=== PATIENT | female | born 1985 | race Caucasian/White ===

== ENCOUNTER 2019-02-04 11:41 | Outpatient (REF) | payer MEDICAID, SELFPAY ==
--- NOTE | 2019-02-04 11:00 | PAPFT_PTH ---
PATIENT: Tuyet Edwards LOC: [facility] U#:[id number] AGE/SX: 33/F ROOM: RE02/04/[address]: CECIL Crowder : 1985 BED: DIS: 02/04/2019 SPEC #: [id number] RECD: 02/04/19 12:27 STATUS: ALE RETaty #: [id number] TONY: 02/04/19 11:[address]: Linda Steve [facility] Cytology RECD BY: Lindsey Miguel ENTERED: 02/04/19 12:27 SP TYPE: PAPFT JAMIEHR DR: Wisam Valdez Tissues: 1 - CX/ENDOCX FOR PAP SMEARS Procedures: PAP THIN PREP/UVM Screening HPV DNA PROBE Comments: [id number]
[2019-02-05 14:55] LABS: Chlamydia Result Negative; GC Result Negative; Specimen Description CERVIX
== END 2019-02-04 12:01 ==
LOC: LBN 11:41
PROVIDERS: Visit Provider Nurse Practitioner Family
DX: Z11.3 Encounter for screening for infections with a predominantly sexual mode of transmission (principal); Z12.4 Encounter for screening for malignant neoplasm of cervix; Z11.51 Encounter for screening for human papillomavirus (HPV)
CPT/HCPCS: 87491; 87591; 88142; 87624

== ENCOUNTER 2019-05-14 09:46 | Outpatient (REF) | payer MEDICAID, SELFPAY ==
[2019-05-14 22:57] LABS: ESR 6 mm/hr (0-20)
[2019-05-16 09:01] LABS: Cyclic Citrullinated Peptide <2.5 U/mL (<5.0)
[2019-05-16 09:26] LABS: Rheumatoid Factor 10 IU/mL (<12.5)
== END 2019-05-14 10:06 ==
LOC: NCHCN 09:46
PROVIDERS: Visit Provider Nurse Practitioner Family
DX: M79.89 Other specified soft tissue disorders (principal)
CPT/HCPCS: 85652; 86200; 86431

== ENCOUNTER 2022-10-12 18:30 | Outpatient (REF) | payer MEDICAID, SELFPAY ==
[2022-10-12 21:22] LABS: HCT 36.1 % (36.0-46.0); HGB 12.2 g/dL (11.2-15.7); MCH 31.9 pg (27.0-33.0); MCHC 33.8 % (32.0-36.0); MCV 95 fL (80-95); MPV 12.2 fL (8.0-11.0); Platelet Count 104 10^3/uL (130-400); RBC 3.82 10^6/uL (3.93-5.22); RDW 12.4 % (11.7-14.6); RDW-SD 43.1 fL
[2022-10-12 21:51] LABS: ALT 23 U/L (14-59); AST 32 U/L (15-37); Albumin 3.9 g/dL (3.4-5.0); Alkaline Phosphatase 69 U/L (46-116); Anion Gap 5.5 mmol/L (3-11); BUN 14 mg/dL (7-18); Bilirubin, Total 0.4 mg/dL (0.2-1.0); CO2 31.5 mmol/L (21.0-32.0); CREATININE 0.7 mg/dL (0.55-1.02); Calcium 9.3 mg/dL (8.5-10.1); Chloride 102 mmol/L (98-107); Estimated GFR 113.46 (mL/min/1.73m2); Glucose 80 mg/dL (74-106); Potassium 4.1 mmol/L (3.5-5.1); Sodium 139 mmol/L (136-145); Total Protein 7.1 g/dL (6.4-8.2)
[2022-10-12 22:37] LABS: Ferritin 728 ng/mL (8-252)
== END 2022-10-12 18:31 | disposition home or self-care (01) ==
LOC: NCHCN 18:30
PROVIDERS: Visit Provider Nurse Practitioner Family
DX: R45.1 Restlessness and agitation (principal); F19.10 Other psychoactive substance abuse, uncomplicated; R79.89 Other specified abnormal findings of blood chemistry
CPT/HCPCS: 80053; 85027; 82728

== ENCOUNTER 2023-10-27 12:05 | Outpatient (REF) | payer MEDICAID, SELFPAY ==
--- NOTE | 2023-10-27 11:30 | PAPFT_PTH ---
PATIENT: Tuyet Edwards LOC: [facility] U#:[id number] AGE/SX: 38/F ROOM: RE10/27/[address]: Krystyna Person DO : 1985 BED: DIS: 10/27/2023 SPEC #: [id number] RECD: 10/27/23 12:53 STATUS: ALE REQ #: [id number] TONY: 10/27/23 11:[address]: Krystyna Person DEPT: [facility] Cytology RECD BY: Yuko Hyatt ENTERED: 10/27/23 12:53 SP TYPE: PAPFT OTHR DR: Unknown,Unknown Tissues: 1 - CX/ENDOCX FOR PAP SMEARS Procedures: PAP THIN PREP/UVM Screening HPV DNA PROBE Comments: [id number]
== END 2023-10-27 12:06 | disposition home or self-care (01) ==
LOC: LBN 12:05
PROVIDERS: Visit Provider Obstetrics & Gynecology
DX: Z12.4 Encounter for screening for malignant neoplasm of cervix (principal); Z11.51 Encounter for screening for human papillomavirus (HPV)
CPT/HCPCS: 88142; 87624

== ENCOUNTER 2024-02-29 11:56 | Emergency (ER) | payer MEDICAID, SELFPAY ==
[2024-02-29 11:59] VITALS: BP 157/101; PULSE 96; RESP 18; TEMP 36.8; O2SAT 94
--- NOTE | 2024-02-29 12:34 | W.ED.GENAD ---
Discharge Plan Discharge Details Chief Complaint: PsychEval Primary Care Provider: Unknown,Unknown ED Provider: Ana Hernandez Home Meds and New Rx's Prescriptions: No Action Mirena 20 mcg/24 hours (5 yrs) 52 mg intrauterine device 1 device IY ONCE hydroxyzine HCl 25 mg tablet 25 mg PO QHS vitamin B complex [B Complex-Vitamin B12] Tablet 1 tab PO DAILY methadone 10 mg/5 mL solution 70 mg PO DAILY calcium polycarbophil [FiberCon] 625 MG tablet 625 mg PO Qty: 2 HPI General Mode of arrival: ambulatory. Date/Time Provider Initiated Documentation: 02/29/24 12:04. Limitations to Documentation: no limitations. Information obtained by: patient, RN/MD, RN notes reviewed and old records reviewed. HPI Narrative: 38-year-old female presents to the ER with a chief complaint of increased agitation, intrusive thoughts, paranoia, she was sent here by the [facility] and was seen there prior to arrival. Was given 70 mg of methadone, she does have a history of opiate abuse and is in remission the last couple years was seen in the past at [facility]. Other past medical history may include ADHD. She reports that for the last 3 to 4 months she has been having racing thoughts and flight of ideas. Related Data Home Medications Medication Instructions Recorded Confirmed calcium polycarbophil 625 mg 625 mg PO ##2 05/06/13 03/25/19 tablet (FiberCon) levonorgestrel 21 mcg/24 hr (up to 1 device intrauterine ONCE 02/18/19 03/25/19 8 years) 52 mg intrauterine device (Mirena) hydroxyzine HCl 25 mg tablet 25 mg PO QHS 10/27/23 methadone 10 mg/5 mL oral solution 70 mg PO DAILY 10/27/23 vitamin B complex (B 1 tab PO DAILY 10/27/23 Complex-Vitamin B12 tablet) Allergies Allergy/AdvReac Type Severity Reaction Status Date / Time No Known Allergies Allergy Verified 10/27/23 11:22 General Stated Complaint: PsychEval MYRA: 2 Review of Systems Unobtainable due to mental condition (Limited) Constitutional Constitutional: Denies fever(s) Gastrointestinal Gastrointestinal: Denies abdominal pain and Reports diarrhea Musculoskeletal Musculoskeletal: Reports other (Restless legs) Psychiatric Psychiatric: Reports as per HPI, Reports anxiety, Reports depression, Reports difficulty concentrating, Reports irritability and Reports mood swings Exam Narrative Exam Narrative: Constitutional: Alert and oriented x3. Appears stated age. Normal body habitus. Patient is very agitated, guarded, paranoid. Head: Normocephalic, no trauma. Eyes: Pupils PERRL, Red reflex noted, EOM's intact. Eyelids symmetrical without lesions, discharge, or swelling. ENT: External ear normal to inspection, no mastoid TTP, swelling, or erythema, no nasal discharge. Poor dentition, Posterior pharynx WNL, no exudate. Chest: RRR, Normal S1, S2, distal pulses intact. Resp: Lungs clear to auscultation bilaterally, no wheezes, rales, or rhonchi. Abdomen: Soft, mildly distended, nontender with palpation all 4 quadrants Musculoskeletal: Normal gait, Moves all 4 extremities without difficulty. Skin: No suspicious rashes or lesions. Capillary refill less than 2 sec. Neurologic: Cranial nerves II-XII intact. Alert and oriented x 3. Motor: No deficits noted. Sensory: Intact bilaterally all 4 extremities. Hematologic/Lymphatic: No ecchymosis, no lymphadenopathy. Psychiatric: See below Psych Appearance: well kempt Speech and Movement: agitated, delayed speech and restless Mood: anxious mood, paranoid and irritable mood Affect: sad, anxious affect and irritable affect Attitude: cooperative and guarded Thought Process: flight of ideas Thought Content: compulsions, hallucinations not auditory (Denies, but does endorse intrusive thoughts), obsessions and other (Flight of ideas) Insight: limited Judgment: fair Course Vital Signs Vital signs: Vital Signs Temperature 36.8 C 02/29/24 11:59 Pulse 96 H 02/29/24 11:59 Respiratory Rate 18 02/29/24 11:59 Blood Pressure 157/101 H 02/29/24 11:59 Pulse Oximetry 94 02/29/24 11:59 Temperature 36.8 C 02/29/24 11:59 Temperature Source Temporal Artery Scan 02/29/24 11:59 Pulse 96 H 02/29/24 11:59 Respiratory Rate 18 02/29/24 11:59 Blood Pressure 157/101 H 02/29/24 11:59 Blood Pressure Position Sitting 02/29/24 11:59 Pulse Oximetry 94 02/29/24 11:59 Oxygen Delivery Method Room Air 02/29/24 11:59 Oxygen Flow Rate 0 02/29/24 11:59 Medical Decision Making 38-year-old female presents to the ER with a chief complaint of increased agitation, intrusive thoughts, paranoia, she was sent here by the [facility] clinic and was seen there prior to arrival. Was given 70 mg of methadone, she does have a history of opiate abuse and is in remission the last couple years was seen in the past at [facility]. Other past medical history may include ADHD. She reports that for the last 3 to 4 months she has been having racing thoughts and flight of ideas. Upon further questioning does appear that patient may have a remote history of ADHD and used to be on Adderall, she is not currently on anything but methadone which she received this morning. Upon my examination she does have a slightly distended abdomen, it is soft, nontender with palpation. She reports that she does have a Mirena IUD that has been there for longer than 10 years. She then became very agitated, crying irritable and pacing. She did not answer the questions on vaginal discharge or bleeding. Workup ordered including CBC CMP, urinalysis urine test TSH salicylate Tylenol ethyl alcohol level. I did inform patient that we are going to draw some blood and get a urine sample. hCG qualitative added onto serum labs. Upon patient review of records, she had an IUD placed 5 years ago, urine hCG negative, informed by ED staff that patient is requesting to leave and asking for her belongings. Labs are pending at this time. Will page mental health for evaluation. Alerted by ED staff that patient is running around the zone [place] department naked, she is requesting to leave, she is now resting in her room, breathing eupneic. I did speak with Kanika with [facility] patient case and details she will come and evaluate patient after repeat ethyl alcohol level. Care is to be handed off to oncoming provider AMARILYS Alcala pending reevaluation and mental health evaluation. This text was generated using Magicbloxation system, please disregard any oddities of phrase or misspellings. Medical Records Medical records reviewed: Yes I reviewed the patient's medical records. Lab Data Lab results reviewed: Yes I reviewed the patient's lab results. Labs: Laboratory Tests Range/Units 02/29/24 02/29/24 12:33 12:44 WBC (4.4-10.8) 10^3/uL 5.90 RBC (3.93-5.22) 10^6/uL 3.66 L Hgb (11.2-15.7) g/dL 12.4 Hct (36.0-46.0) % 37.3 MCV (80-95) fL 102 H MCH (27.0-33.0) pg 33.9 H MCHC (32.0-36.0) % 33.2 RDW (11.7-14.6) % 14.7 H Plt Count (130-400) 10^3/uL 227 MPV (8.0-11.0) fL 10.3 Immature Gran % % 0.3 Neutrophils % % 60.3 Lymphocytes % % 26.8 Monocytes % % 11.2 Eosinophils % % 0.7 Basophils % % 0.7 Nucleated RBC % (0.0-0.3) % 0.0 Absolute Neutrophils (1.2-6.7) 10^3/uL 3.56 Absolute Lymphocytes (1.2-3.4) 10^3/uL 1.58 Absolute Monocytes (0.1-0.8) 10^3/uL 0.66 Absolute Eosinophils (0.0-0.7) 10^3/uL 0.04 Absolute Basophils (0.0-0.2) 10^3/uL 0.04 Sodium (136-145) mmol/L 140 Potassium (3.5-5.1) mmol/L 3.6 Chloride (98-107) mmol/L 102 Carbon Dioxide (21.0-32.0) mmol/L 26.8 Anion Gap (3-11) mmol/L 11.2 H BUN (7-18) mg/dL 17 Creatinine (0.55-1.02) mg/dL 0.6 Est GFR (CKD-EPI 2020) (mL/min/1.73m2) 117.02 Glucose (74-106) mg/dL 212 H Calcium (8.5-10.1) mg/dL 9.2 Total Bilirubin (0.2-1.0) mg/dL 0.3 AST (15-37) U/L 61 H ALT (14-59) U/L 46 Alkaline Phosphatase (46-116) U/L 111 Total Protein (6.4-8.2) g/dL 7.8 Albumin (3.4-5.0) g/dL 3.9 TSH (0.36-3.74) uIU/mL 2.72 Serum HCG, Qual Negative Salicylates (<2.8) mg/dL 3.8 Urine Opiates Screen (Negative) Negative Urine Methadone Screen (Negative) Positive A Acetaminophen (10-30) ug/mL < 2 Ur Barbiturates Screen (Negative) Negative Ur Tricyclics Screen (Negative) Negative Ur Amphetamines Screen (Negative) Negative U Benzodiazepines Scrn (Negative) Negative Urine Cocaine Screen (Negative) Negative Ur THC Screen (Negative) Negative Ethyl Alcohol (<10) mg/dL 188.1 H Quality:SDOH Health Related Social Needs: No Data to Display PFSH All Active Problems Tobacco use (Acute) Contraception (Acute) section (Active 03/25/13) Low transverse section performed by Dr. Mera Owens 03-25-2013. Family History Father Hypertension Mother Hypertension Diabetes Social History Smoking/Tobacco Use Status: Former Tobacco Use Smoking risk assessment performed?: Yes Female Reproductive History Menstrual control method: progestin IUCD (Lot # [id number] Exp Date 05/2021) History History 1 Para 1 Hx # Term Pregnancies Multiple births Hx # Pregnancies Ectopic pregnancies AB induced Hx Number of Living Children AB spontaneous Sign Out Sign Out Data: Sign Out Comment: Pending eval after sober Last updated by Ana Hernandez NP at 02/29/24 15:19
[2024-02-29 12:57] LABS: Abs Immature Grans 0.02 10^3/uL (0.0-0.06); Absolute Basophil Count 0.04 10^3/uL (0.0-0.2); Absolute Eosinophil Count 0.04 10^3/uL (0.0-0.7); Absolute Lymphocyte Count 1.58 10^3/uL (1.2-3.4); Absolute Monocyte Count 0.66 10^3/uL (0.1-0.8); Absolute Neutrophil Count 3.56 10^3/uL (1.2-6.7); Basophils % 0.7 %; Eosinophils % 0.7 %; HCT 37.3 % (36.0-46.0); HGB 12.4 g/dL (11.2-15.7); Immature Grans % 0.3 %; Lymphocytes % 26.8 %; MCH 33.9 pg (27.0-33.0); MCHC 33.2 % (32.0-36.0); MCV 102 fL (80-95); MPV 10.3 fL (8.0-11.0); Monocytes % 11.2 %; Neutrophils % 60.3 %; Platelet Count 227 10^3/uL (130-400); RBC 3.66 10^6/uL (3.93-5.22); RDW 14.7 % (11.7-14.6); RDW-SD 55.4 fL
[2024-02-29 12:58] LABS: *AMPHETAMINES SCREEN URINE Negative (Negative); *BARBITURATES SCREEN URINE Negative (Negative); *BENZODIAZEPINES SCREEN URINE Negative (Negative); Cannabinoids THC Negative (Negative); Cocaine Screen,Urine Negative (Negative); METHADONE URINE SCREEN Positive (Negative); OPIATES URINE SCREEN Negative (Negative)
[2024-02-29 13:00] LABS: Tricyclic Antidepressants Negative (Negative)
[2024-02-29] MEDS: OLANZapine 5 MG TAB PO (13:03)
[2024-02-29 13:09] LABS: ETHANOL BLOOD 188.1 mg/dL (<10)
[2024-02-29 13:22] LABS: HCG Qual (Serum) Negative
[2024-02-29 13:23] LABS: ALT 46 U/L (14-59); AST 61 U/L (15-37); Albumin 3.9 g/dL (3.4-5.0); Alkaline Phosphatase 111 U/L (46-116); Anion Gap 11.2 mmol/L (3-11); BUN 17 mg/dL (7-18); Bilirubin, Total 0.3 mg/dL (0.2-1.0); CO2 26.8 mmol/L (21.0-32.0); CREATININE 0.6 mg/dL (0.55-1.02); Calcium 9.2 mg/dL (8.5-10.1); Chloride 102 mmol/L (98-107); Estimated GFR 117.02 (mL/min/1.73m2); Glucose 212 mg/dL (74-106); Potassium 3.6 mmol/L (3.5-5.1); Sodium 140 mmol/L (136-145); TSH (W/Ref FT4) 2.72 uIU/mL (0.36-3.74); Total Protein 7.8 g/dL (6.4-8.2)
[2024-02-29 13:24] LABS: Acetaminophen < 2 ug/mL (10-30); Salicylate 3.8 mg/dL (<2.8)
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
[2024-02-29 16:29] LABS: ETHANOL BLOOD 118.1 mg/dL (<10)
[2024-02-29 18:49] VITALS: BP 165/99; PULSE 85; RESP 18; O2SAT 99
[2024-02-29 19:32] VITALS: BP 165/99; PULSE 85; RESP 18; TEMP 36.8; O2SAT 99
--- NOTE | 2024-03-01 13:22 | NUR.NOTE ---
Nursing Note: Pt's SO Salvador Bonner called ED asking about an [facility] referral seen on the pt's d/c paperwork. RN instructed pt's SO that pt was seen and evaluated by [facility] in the ED so any referralls required would be set up by [facility]. Pt's SO states he is going to reach back out to [facility] to request f/u. Salvador advised by RN to call back if he had any additional questions or issues. Pt's SO agreeable to plan.
--- NOTE | 2024-03-07 08:44 | NUR.NOTE ---
Addendum entered by Mera Jimenez 03/23/24 10:27: Accessed chart to determine where the necklace is. Per JIAN Prater it is with security. Pt is here to hot die picker and Access notified of where it is. Original Note: Accessed Pt chart to obtain her V# for printing a label. She forgot a necklace in Zone [place]
== END 2024-02-29 19:32 | disposition home or self-care (01) ==
PROVIDERS: Registered Nurse Emergency; Emergency Provider Physician Assistant
DX: F30.9 Manic episode, unspecified (principal); F10.920 Alcohol use, unspecified with intoxication, uncomplicated
CPT/HCPCS: 00123; 80053; 80307; 81025; 99284; 80320; 80329; 84443; 84703; 85025; 99283

== ENCOUNTER 2024-05-13 18:23 | Outpatient (REF) | payer MEDICAID, SELFPAY ==
--- OUTSIDE RECORDS SUMMARY | 2024-05-13 18:27 | XMS_ITS | Data Portability ---
Author Organization MD - [facility], [facility] Address [address] [place] [address] Assessment Encounter Date Assessment Date Assessment LastModified by Organization Details LastModified Time 03/25/2024 03/25/2024 Tuyet, 38-year-old female, here for hospital follow-up after recent manic episode, now stable. Psychiatric care through designated agency with appointment later this week, we reviewed preventative care as below, no other acute issues. Encouraged her to f/u here as needed, declined to make f/u appt here as wants to transfer to [facility] - closer to home. I asked her to call to make appt and will send a pt case so she has continuity of care Preventive care. Pap/HPV: neg nl 2023 next due 2028 Contraception:M ad placed 2018 Mammogram: Recommend first mammo age 39 (next month) , pt prefers to defer ordering this until next appt Colonoscopy:no FHx early colon ca - plan age 44 Vaccinations:ut d, I rec flu/covid in the fall rtatel Not available 03/25/2024 13:20:11 04/10/2024 04/10/2024 The total time devoted to today's encounter, including both the yqov-vw-kjgd time with the patient and/or family/caregive r and yer-wyqq-ds-fac e time I personally spent is 42 minutes. Not available 04/10/2024 10:33:58 Plan of Treatment Reminders Order Date Submit Date Provider Last Modified By Organization Details Last Modified Time Details Appointments Follow Up 20 2023 04:40P M Not available Not available Not available Lab lipid panel, serum [address] [facility] (Registration ), [address] [place] [address] [place], [address], 05/13/2024 17:52:10 hepatitis C Ab, serum [address] [facility] (Registration ), [address] [place] [address] [place], [address], 05/13/2024 17:52:10 HbA1c (hemoglob in A1c), blood [address] [facility] (Registration ), [address] [place] [address] [place], [address], 05/13/2024 17:52:10 HIV (1+2) Ab screen, serum [address] [facility] (Registration ), [address] [place] [address] [place], [address], 05/13/2024 17:52:10 Referral None recorded. Procedures None recorded. Surgeries None recorded. Imaging MAMMO, screening , bilateral 2023 [facility] (Radiology), [address] [place] [address] [place], [address], 05/13/2024 17:15:23 Medication Orders escitalop robson 20 mg tablet 2023 024 [facility], [address] [facility], [address], [place], [address], 04/10/2024 10:24:22 gabapenti n 300 mg capsule 2023 024 [facility], [address] [facility], [address], [place], [address], 04/10/2024 10:24:43 hydroxyzi ne pamoate 25 mg capsule 2023 024 [facility], [address], [address], [place], [address], 04/10/2024 10:25:41 olanzapin e 20 mg tablet 2023 [facility], [address], [address], [place], [address], 04/10/2024 10:26:23 quetiapin e 50 mg tablet 2023 024 [facility], [address], [address], [place], [address], 04/10/2024 10:27:18 trazodone 50 mg tablet 2023 [facility], [address], [address], [place], [address], 04/10/2024 10:28:11 thiamine HCl (vitamin B1) 100 mg tablet 2023 [facility], [address], [address], [place], [address], 04/10/2024 10:29:20 Patient TargetsNo targets recorded. Patient Instructions Encounter Date Encounter Id Patient Instructions Last Modified By Organization Details Last Modified Time 04/25/2024 [id number] 1. Laceration such as this are not typically started on antibiotics. Instead we cleaned them out with copious amounts of water and then close them. I do want you to watch for signs of infection which include redness growing from around the wound, red streaking of the skin or pussy purulent drainage. This would indicate need to seek reevaluation. 2. Tetanus is currently up-to-date. 3. You should return here for suture removal in 14 days, sooner with concerns for infection 4. Please keep this area clean dry and covered for the next 24 hours. After that you should do at least once daily dressing changes, more often if area becomes contaminated. [email or web address] Not available 04/25/2024 10:42:19 Reason for Referral None Reported. Problems Name Status Onset Date Resolution Date Notes Provider Name and Address Organization Details Recorded Time Anxiety disorder Active [address], [place], [address] , [facility] 4 22:13:54 Elevated blood-pressure reading without diagnosis of hypertension Completed 201804/09/[address], [facility] [address] , [facility] 4 22:22:24 Nicotine dependence Active [address], [facility] [address] , [facility] 4 22:14:15 Neck pain Completed 201808/12/2019 Problem Code: M54.2; Problem Code Type: ICD-10; Not Available Count includes the [facility] 3 05:57:31 Alcohol withdrawal delirium Completed 202104/10/[address], [place], [address] , [facility] 4 10:23:35 Restlessness and agitation Completed 202204/09/[address], [place], [address] , [facility] 4 22:22:05 Psychoactive substance abuse Active 2022 distant use of cocaine, regular MJ use. MD [address]leyda [address], [place], [address] , [facility] 4 10:16:35 Alcohol abuse Active [address], [place], [address] , [facility] 4 22:13:30 Abnormal cervical Papanicolaou smear with human papillomavirus deoxyribonucle ic acid detected Completed 201310/12/2022 Problem Code: 795.05; Problem Code Type: ICD-9; Not Available Count includes the [facility] 3 05:57:32 Localized eruption of skin Completed 201810/12/2022 Problem Code: R21; Problem Code Type: ICD-10; Not Available Count includes the [facility] 3 05:57:32 Disorder of soft tissue Completed 201810/12/2022 Problem Code: M79.89; Problem Code Type: ICD-10; Not Available Count includes the [facility] 3 05:57:32 Bipolar disorder Active 2023 [facility] admission for shawna- paranoid delusions 02/[address], [place] [address] , [facility] 4 22:24:30 Opioid dependence, on agonist therapy Active 2023 Methdaone through [facility] in [facility], 80 mg daily MD [address]leyda [address], [place] [address] , [facility] 4 10:19:11 Laceration of palm of hand Active [address], [place] [address] , [facility] 10:48:53 Problem Notes None recorded. Procedures Surgical History Date Name Laterality Status Provider Name and Address Organization Details Recorded Time 4 Laceration Repair completed [address], [place] [id number], [facility] 04/25/2024 10:47:10 Imaging Results None recorded. Procedure Notes None recorded. Medical Equipment None Reported. Allergies No known drug allergies Medications Name Sig Start Date Stop Date Status Note LastModified by Organization Details LastModified Time multivita min tablet Take 1 tablet by mouth once a day active Not Available Not Available No t Available Mirena 21 mcg/24 hr (up to 8 years) 52 mg intrauter ine device 2018 active [facility] Not Available Not Available Not Avai lable haloperid ol 5 mg tablet Take 1/2 tablet by mouth twice a day 04/09 completed Not Available Not Available Not Available trazodone 50 mg tablet TAKE ONE TABLET BY MOUTH EVERY DAY AT BEDTIME active Not Available Not Available No t Available thiamine HCl (vitamin B1) 100 mg tablet TAKE ONE TABLET BY MOUTH EVERY DAY active Not Available Not Available No t Available quetiapin e 100 mg tablet TAKE ONE TABLET BY MOUTH AT BEDTIME active Not Available Not Available No t Available triamcino lone acetonide 0.1 % topical cream APPLY A THIN LAYER TOPICALL Y TO THE AFFECTED AREA(S) TWICE DAILY active Not Available Not Available No t Available amoxicill in 500 mg tablet Take one tab by mouth three times a day 02/03 completed Dental prescrip tion Not Available Not Available Not Available pantopraz ole 20 mg tablet,de layed release Take 1 tab by mouth daily. 09/10 completed Not Available Not Available Not Available metronida zole 0.75 % topical cream Apply to affected area twice daily 2018 active Not Available Not Available Not Avai lable gabapenti n 300 mg capsule TAKE ONE CAPSULE BY MOUTH AT BEDTIME active Not Available Not Available No t Available SF 5000 Plus 1.1 % dental cream Use as directed 2018 active Dental prescrip tion Not Available Not Available Not Available olanzapin e 20 mg tablet TAKE ONE TABLET BY MOUTH AT BEDTIME active Not Available Not Available No t Available methadone 5 mg/5 mL oral solution Take 90 mg by mouth once a day active [facility] Not Available Not Available No t Available hydroxyzi ne pamoate 25 mg capsule TAKE ONE CAPSULE BY MOUTH TWO TIMES A DAY FOR ANXIETY active Not Available Not Available No t Available escitalop robson 10 mg tablet TAKE ONE TABLET BY MOUTH EVERY DAY 03/25 completed Not Available Not Available Not Available escitalop robson 20 mg tablet TAKE ONE TABLET BY MOUTH EVERY DAY active Not Available Not Available No t Available quetiapin e 50 mg tablet TAKE 1-2 TABLETS BY MOUTH AT BEDTME FOR SLEEP/AG ITATION active Not Available Not Available No t Available Stimulant Laxative Plus 8.6 mg-50 mg tablet TAKE 1 TABLET BY MOUTH DAILY 2023 active Not Available Not Available Not Avai lable Vitals Date Recorded Heart rate Oxygen saturation Oxygen saturation in Arterial blood by Pulse oximetry Body weight Body temperature Systolic blood pressure Diastolic blood pressure Provider Name and Address Organization Details Last Updated DateTime 4 76 /min 98 % 98 % 03334.1 9 g 97.9 [degF] 118 mm[Hg] 68 mm[Hg] NAYANA HEARD RN [facility] 4 11:17:43 Date Recorded Body height Body mass index (BMI) Body weight Body temperature Oxygen saturation Oxygen saturation in Arterial blood by Pulse oximetry Heart rate Respiratory rate Systolic blood pressure Diastolic blood pressure Provider Name and Address Organization Details Last Updated DateTime 4 154.43 cm 30.1 kg/m2 47979.5 9 g 98.6 [degF] 96 % 96 % 84 /min 16 /min 138 mm[Hg] 72 mm[Hg] TERRY KERN LPN [facility] 4 09:31:54 Date Recorded Body height Body mass index (BMI) Body weight Oxygen saturation Oxygen saturation in Arterial blood by Pulse oximetry Heart rate Respiratory rate Body temperature Systolic blood pressure Diastolic blood pressure Provider Name and Address Organization Details Last Updated DateTime 4 154.43 cm 30.1 kg/m2 27846.5 9 g 98 % 98 % 76 /min 18 /min 98.9 [degF] 136 mm[Hg] 87 mm[Hg] Fatuma Aguilera RN [facility] 4 10:03:10 Date Recorded Body height Body mass index (BMI) Body weight Body temperature Oxygen saturation Oxygen saturation in Arterial blood by Pulse oximetry Heart rate Respiratory rate Systolic blood pressure Diastolic blood pressure Provider Name and Address Organization Details Last Updated DateTime 4 154.43 cm 29.7 kg/m2 48298.4 1 g 98.4 [degF] 97 % 97 % 88 /min 16 /min 132 mm[Hg] 66 mm[Hg] TERRY KERN LPN [facility] 4 16:28:01 Social History Question Answer Notes LastModified by Organizat ion Details LastModified Time Tobacco Smoking Status Current Every Day Smoker NAYANA HEARD RN [facility], [facility] 03/25/2024 11:24:44 What Was The Date Of Your Most Recent Tobacco Screening? 05/13/2024 Information not available 05/13/2024 What Is Your Current Pack Years? 10-19packye ars Information not available 03/25/2024 How Much Tobacco Do You Smoke? 0.5 PPD Information not available 03/25/2024 Has Tobacco Cessation Counseling Been Provided? Yes Information not available 03/25/2024 On What Date Was Tobacco Cessation Counseling Provided? 05/13/2024 Interested In Quitting Information not available 05/13/2024 How Many Years Have You Smoked Tobacco? 18 Information not available 03/25/2024 Do You Or Have You Ever Used Any Other Forms Of Tobacco Or Nicotine? No Information not available 03/25/2024 Sex: Female Functional Status None recorded. Mental Status None recorded. Family History Relationship Description Onset Age of this Age Resolved Age Notes Maternal Uncle Bipolar disorder ?? not clear exact diagnosis. Father Psoriasis Father Diabetes mellitus Mother Diabetes mellitus Maternal Grandmother Cerebrovascular accident Notes:*Problem: family hx DM , stroke, psoriasis Medical History No medical history recorded. Gynecological HistoryNo gynecological history recorded. Obstetrics History GPAL:G 0 P 0 0 0 0 Immunizations Vaccine Type Date Status Provider Name and Address Organization Details Recorded Time Tdap 10/12/2022 completed Not Available Count includes the [facility] 06:09:48 Influenza, split virus, quadrivalent, preservative 10/01/2018 completed Not Available Count includes the [facility] 07/28/2023 06:09:48 Pneumococcal conjugate PCV20, polysaccharide WSF237 conjugate, adjuvant, PF 10/12/2022 completed Not Available Count includes the [facility] 07/28/2023 06:09:48 pneumococcal polysaccharide PPV23 05/14/2019 completed Not Available Count includes the [facility] 2022 06:09:49 Past Encounters Encounter ID Performer Location Encounter Start Date Encounter Closed Date Diagnosis/Indication Diagnosis SNOMED-CT Code [id number] CECIL VOSS [address] [address] 03/25/2024 11:01:42 03/25/2024 13:03:15 Bipolar disorder 79664721 Nicotine dependence 5629 6767 [id number] MONTSERRAT EMERY MD [facility] [address] [place] [address] 04/10/2024 09:09:36 04/10/2024 11:32:46 Bipolar disorder 84183501 Alcohol abuse 62301007 [id number] MAHIN LOEA PA-C [address] [place] [address] 04/25/2024 09:12:26 04/25/2024 10:44:58 Laceration of palm of hand 916009283 [id number] MONTSERRAT EMERY MD [facility] [address] [place] [address] 05/13/2024 16:05:48 05/13/2024 18:04:45 Bipolar disorder 50147773 Screening for malignant neoplasm of breast 670437885 Hepatitis C screening 41 0136815 HIV screening 580183719 Hyperlipid emia screening 119362104 Diabetes m ellitus screening 490849072 Health Concerns Section Related Observation LastModified by Organization Detai ls LastModified Time None Recorded Concern Status LastModified by Organization Details LastModified Time None Recorded Advance Directives Directive None Recorded Payers Encounter Date Sequence Insurance Name Policy Number Policy Bernal Covered Member ID Bernal Member ID Guarantor Name 03/25/2024 1 [facility] (MEDICAID) Tuyet R Grace [id number] Tuyet R Grace 04/10/2024 1 [employer] [facility] [facility] ([employer]ICAID) Tuyet R Grace [id number] Tuyet R Grace 04/25/2024 1 [facility] [facility] (MEDICAID) Tuyet R Grace [id number] Tuyet R Grace 05/13/2024 1 [facility] (MEDICAID) Tuyet R Grace [id number] Tuyet R Grace Notes Date Note Type Note Provider Name and Address Organization Details Recorded Time 03/25/2024 text/html HPI Notes: Hospi kar follow-up, Tuyet's took her to the emergency department at [facility] with increased delusions and paranoia, she then spent [address] [facility] with improvement in her bipolar manic episode with psychotic features, started on mew meds, has been taking daily, and has f/u with psychiatric provider later this week at [facility]. In general she feels well and actually would like to stop smoking, was not smoking while in hospital but has resumed, 1/2-1 pack/day. Alcohol? currently sober Home environment? lives with who is supportive, safe environment, no one hurts her arms or threatens her. Sees her 11-year-old daughter intermittently when she is not at the grandmother's house Denies current suicidal ideation or intent to harm self. LAURIE DOSHI, [employer] [address], [place], [address], [facility] 03/25/2024 13:20:31 04/10/2024 text/html HPI Notes: Here as new patient to me. Recent discharge from [facility] 03/20/2024 where she was admitted with paranoid delusions. Medications were adjusted. Bipolar disorder- She and feel that she was just given the diagnosis during the recent admission. thinks paranoia is better. She still feels that her thoughts are still very fast., and she keeps worrying about the little things. notes that she is forgetful. She is quite anxious here, but he says that she has been donig quite well at home. She has an appointment on April 25 at [facility]. Over a year ago (07/2022) had an episode after a bout of food poisoning, and developed racing disorganized thoughts, suicidal, and was admitted [facility] (july and August) . Discharge summary reviewed in detail. Had MRI of brain as work up at the time. Denies drug use with either episode- but had stopped drinking alcohol prior to initial admission last year. Thinks that there were some up and down moods prior to a year ago. Did have prior dx of depression After the [facility] visit- she took medication (haloperidol 0.5 mg BID) for just a few months after the [facility] admission, did not like it as it made her jittery, craving sweets, so she stopped it. 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 Opioid dependence, on Methadone, [facility]- 80 mg daily. Many years. Opioids- snorted,never IV use. Alcohol abuse- pint or 5th of vodka daily. Quit 11 years ago when with her daughter, but then 7-8 years ago started drinking again. Abstinent since recent admission. Psychoactive substance abuse- occasional cocaine use only, None in over 15 years. Regular MJ use, mostly edibles. PSH- C/S and CTS release. She is having trouble focusing, irritable, and high anxiety. falling asleep okay, then wakes at 2 am and paces before able to fall back asleep. She denies thoughts of self harm at this time. MD [address]leyda [address], [place], [address], [facility] 04/10/2024 10:34:39 04/25/2024 text/html HPI Notes: Tuyet is a 38-year-old female who presents with laceration to the base of the palm of the left hand which occurred around 7 AM this morning accidentally with box finisher. She cleaned it with soap and water. Bleeding was easily controlled. She is right-hand dominant. Tetanus last administered in September 2023. Denies numbness or tingling. Reports full range of motion although does feel a bit achy [address], [place], [address], [facility] 04/25/2024 10:51:06 05/13/2024 text/html HPI Notes: Shayy schmitz is having difficulty staying on task, she starts one thing, then another, and has multiple tasks and can't focus and ends not being able to complete things. Taking medications as prescribed. She thinks that her attention issue is lifelong, though her partner thinks it is much more noticeable since her psychosis. Partner states that she is improved. Sleep is much better. partner thinks she is more like herself. She is still anxious, but less than a month ago- [place], but was a bit irritable. Goes to be around 8pm and up around 5am. She met with Dr. London Boyd at [facility], who kept her medications the same. She does have a follow up with him. MD [address]leyda [address], [place], [address], [facility]. 05/13/2024 18:04:42 OBGyn Episode No OBEpisode recorded.
--- OUTSIDE RECORDS SUMMARY | 2024-05-13 18:27 | XMS_ITS ---
Author Organization Unknown Address [address] [place] [phone] Phone Care Team Providers Care Performance Improvement Analyst Name Role Phone JULIO Bonilla Attending Unavailable Social History Type Status Start Date End Date Code Code Syst em Smoking History Unknown if ever smoked [address] Sex Female Medications Medication Start Date End Date Route Frequency Dose Code Code System Medication Instructions Home Meds Methadone 10MG Oral Tablet 07/28/2022 Unknown ORAL DAILY 70 MILLIGRAMS RxNorm AALIYAH E 70 MILLIGRAMS ORAL DAILY Multi-Day Plus Minerals Oral Tablet 07/28/2022 Unknown ORAL DAILY 1 TABLET RxNorm TAKE 1 TABLE T ORAL DAILY Assessment You had the following problems:OPIATE ABUSEALCOHOL ABUSEALCOHOL ABUSE WITH WITHDRAWAL DELIRIUM Hospital Discharge Instructions Should you have any questions prior to discharge, please contact a member of your healthcare team. If you have left the hospital and have any questions, please contact your primary care physician. Reason For Referral No Data Found Problems Problem Start Date Resolved Date Status Code Code System OPIATE ABUSE active 7327151 SNOMED- CT ALCOHOL ABUSE active 23295737 SNOMED -CT ALCOHOL ABUSE WITH WITHDRAWA L DELIRIUM active 3744686 SNOMED-CT Allergies and Adverse Reactions Allergy Substance Reaction Severity Start Date Concern Status Co de Code System No Known Drug Allergies Active 278953288 SNOMED-CT Plan of Treatment No Data Found Encounters Encounter Diagnosis Start Date Code Code Sys tem Alcohol abuse with withdrawal delirium 07/25/2022 SNOMED-CT Personal Care Team Section Performer Name Performer Role Active Date Inactive Da te
--- OUTSIDE RECORDS SUMMARY | 2024-05-13 18:27 | XMS_ITS | Continuity of Care Document ---
Author Organization [place] - [facility], [facility] Address [address] [place] [address] Assessment Encounter Date Assessment Date Assessment LastModified [...] appt here as wants to transfer to [facility] - closer to home. I asked her [...] the fall rtatel Not available 03/25/2024 13:20:11 Plan of Treatment Reminders Order Date Submit Date Provider Last Modified By Organization Details Last Modified Time Details Appointments Follow Up 20 2023 04:40P M Not available Not available Not available Lab None recorded . Referral None recorded . Procedures None recorded . Surgeries None recorded . Imaging None recorded . Medication Orders None recorded . Patient TargetsNo targets recorded. Patient InstructionsNo instructions recorded. Reason for Referral None Reported. Problems Name Status Onset Date Resolution Date Notes Provider Name and Address Organization Details Recorded Time Anxiety disorder Active [address], [facility] [id number] , [facility] 4 22:13:54 Elevated blood-pressure reading without diagnosis of hypertension Completed 201804/09/[address], [facility] [address] , [facility] 4 22:22:24 Nicotine dependence Active [address], [facility] [address] , [facility] 4 22:14:15 Neck pain Completed 201808/12/2019 Problem Code: M54.2; Problem Code Type: ICD-10; Not Available [facility] 3 05:57:31 Alcohol withdrawal delirium Completed 202104/10/[address], [facility] [address] , [facility] 4 10:23:35 Restlessness and agitation Completed 202204/09/[address], [facility] [id number] 4 22:22:05 Psychoactive substance abuse Active 2022 distant use of cocaine, regular MJ use. MD Aleyda [address], [facility] [address] , [facility] 4 10:16:35 Alcohol abuse Active [address], [facility] [id number] [place] [address] 4 22:13:30 Abnormal cervical Papanicolaou smear with human papillomavirus deoxyribonucle ic acid detected Completed 201310/12/2022 Problem Code: 795.05; Problem Code Type: ICD-9; Not Available [facility] 3 05:57:32 Localized eruption of skin Completed 201810/12/2022 Problem Code: R21; Problem Code Type: ICD-10; Not Available [facility] 3 05:57:32 Disorder of soft tissue Completed 201810/12/2022 Problem Code: M79.89; Problem Code Type: ICD-10; Not Available [facility] 3 05:57:32 Bipolar disorder Active 2023 [facility] for shawna- paranoid delusions 02/[address], [facility] [address] , [facility] 4 22:24:30 Opioid dependence, on agonist therapy Active 2023 Methdaone through [facility] in [facility], 80 mg daily MD Aleyda [address], [facility] [address] , [facility] 4 10:19:11 Laceration of palm of hand Active [address], [facility] [address] , [facility] 10:48:53 Problem Notes None recorded. Procedures Surgical History Date Name Laterality Status Provider Name and Address Organization Details Recorded Time Laceration Repair completed REBECCA [address] Dr, [facility] [address], [facility] 04/25/2024 10:47:10 Imaging Results None recorded. Procedure [...] 4 76 /min 98 % 98 % 76131.1 9 g 97.9 [degF] 118 mm[Hg] 68 mm[Hg] NAYANA HEARD RN [facility] 11:17:43 Social History Question Answer Notes LastModified by Organizat ion Details LastModified Time Tobacco Smoking Status Current Every Day Smoker NAYANA HEARD RN [facility], [facility] 03/25/2024 11:24:44 What Was The Date Of [...] Recorded Time Tdap 10/12/2022 completed Not Available [facility] 06:09:48 Influenza, split virus, quadrivalent, preservative 10/01/2018 completed Not Available [facility] 07/28/2023 06:09:48 Pneumococcal conjugate PCV20, polysaccharide RQF123 conjugate, adjuvant, PF 10/12/2022 completed Not Available [facility] 07/28/2023 06:09:48 pneumococcal polysaccharide PPV23 05/14/2019 completed Not Available [facility] 2022 06:09:49 Past Encounters Encounter ID Performer Location Encounter Start Date Encounter Closed Date Diagnosis/Indication Diagnosis SNOMED-CT Code [id number] CECIL VOSS [address] [address] 03/25/2024 11:01:42 03/25/2024 13:03:15 Bipolar disorder [id number] Nicotine dependence 5629 4008 Health Concerns Section Related Observation LastModified by Organization Detai ls LastModified Time None Recorded Concern Status LastModified by Organization Details LastModified Time None Recorded Payers Encounter Date Sequence Insurance Name Policy Number Policy Bernal Covered Member ID Bernal Member ID Guarantor Name 03/25/2024 1 [facility] (MEDICAID) Tuyet Edwards [id number] Tuyet Edwards Notes Date Note Type Note Provider Name and Address Organization Details Recorded Time 03/25/2024 text/html HPI Notes: Hospi kar follow-up, Tuyet's took her to the emergency department at [facility] with increased delusions and paranoia, she then spent 10 days at [facility] with improvement in her bipolar manic episode with psychotic features, started on mew meds, has been taking daily, and has f/u with psychiatric provider later this week at [facility]. In general she feels well and actually [...] suicidal ideation or intent to harm self. CECIL [address]OSS [address], [place], [address], [facility]. 03/25/2024 13:20:31 OBGyn Episode No OBEpisode recorded.
--- OUTSIDE RECORDS SUMMARY | 2024-05-13 18:27 | XMS_ITS ---
Author Organization Unknown Address [address] [place] [address] [phone] Phone Care Team Providers Care Internet Sales Manager Name Role Phone CINDY CONDE Registered Nurse Unavailable Unavailable [facility]watchlist Unavailable JULIO Bonilla Attending Unavailable [facility] Unavailable YUSEF Claudio Primary Unavailable UNLISTED PROVIDER - REQUESTED Xhandoff Un available Results BASIC METABOLIC PANEL (BMP) - Collect Date/Time: 07/27/2022 06:35 [facility] ID: [id number] [address] [place] [address], [address] LOINC: 28151-8 Test Value Unit Reference Range Code Code System Flag GLUCOSE 138 mg/dL L=70 H=116 2345-7 LOINC H BUN 3 mg/dL L=6 H=25 3094-0 LOINC L CREATININE 0.53 mg/dL L=0.51 H=0.95 2160-0 LOINC SODIUM SERUM 134 mmol/L L=136 H=145 2951-2 LOINC L POTASSIUM SERUM 3.9 mmol/L L=3.4 H=5.2 2823-3 LOINC CHLORIDE SERUM 103 mmol/L L=96 H=110 2075-0 LOINC CARBON DIOXIDE (CO2) 25 mmol/L L=22 H=34 2028-9 LOINC ANION GAP 5.7 mmol/L 00728-9 LOINC CALCIUM SERUM 7.9 mg/dL L=8.2 H=10.2 10216-2 LOINC L AGE 37 years eGFR (non-Afr.Amer.) > 120 mL/min 70227-4 LOINC eGFR (Afr-[place]) > 120 mL/min 68407-0 LOINC CBC W/ DIFFERENTIAL* - Colle ct Date/Time: 07/27/2022 06:35 [facility] ID: [id number] [address] [place] [address], [address] LOINC: 23125-0 Test Value Unit Reference Range Code Code System Flag WBC 5.81 th/cmm L=5.00 H=10.00 6690-2 LOINC NEUT % 71.5 % L=40.0 H=80.0 LYMPH % 16.7 % L=10.0 H=50.0 MONO % 10.0 % L=2.0 H=12.0 96933-4 LOINC EOS % 1.2 % L=0.0 H=8.0 BASO % 0.3 % L=0.0 H=3.0 IG % 0.3 % L=0.0 H=1.1 2514-8 LOINC NRBC % 0.0 % L=0.0 H=0.0 92273-6 LOINC NEUT abs count 4.2 th/cmm L=1.6 H=8.4 751-8 LOINC LYMPH abs count 1.0 th/cmm L=1.5 H=4.0 731-0 LOINC L MONO abs count 0.6 th/cmm L=0.2 H=1.0 742-7 LOINC EOS abs count 0.1 th/cmm L=0.0 H=0.5 711-2 LOINC BASO abs count 0.0 th/cmm L=0.0 H=0.2 704-7 LOINC IG abs count 0.0 th/cmm L=0.0 H=0.1 43371-4 LOINC NRBC abs count 0.0 mil/cmm L=0.0 H=0.0 63977-1 LOINC RBC 3.29 mil/cmm L=3.90 H=5.40 789-8 LOINC L HEMOGLOBIN 12.0 gm/dL L=12.0 H=16.0 718-7 LOINC HEMATOCRIT 36 % L=37 H=47 4544-3 LOINC L MCV 109 fL L=82 H=92 787-2 LOINC H MCH 36.5 pg L=27.0 H=31.0 785-6 LOINC H MCHC 33.3 % L=32.0 H=36.0 786-4 LOINC RDW-SD 49.1 fL L=39.0 H=49.0 788-0 LOINC H PLATELET COUNT 142 th/cmm L=150 H=450 777-3 LOINC L MAGNESIUM SERUM* - Collect D ate/Time: 07/26/2022 06:15 [facility] ID: [id number] [address] [place] [address], [address] LOINC: 07214-3 Test Value Unit Reference Range Code Code System Flag MAGNESIUM 1.8 mg/dL L=1.8 H=2.4 09606-2 LOINC URINALYSIS WITH REFLEX CULT IF POSITIVE* - Collect Date/Time: 07/25/2022 12:30 [facility] ID: [id number] [address] [place] [address], [address] LOINC: 71822-9 Test Value Unit Reference Range Code Code System Flag COLLECTION MODE: CLEAN CATCH 22407-2 LOINC Color YELLOW yellow 5778-6 LOINC Appearance CLEAR clear 5767-9 LOINC Glucose urine NEGATIVE negative mg/dl 38615-2 LOINC Bilirubin NEGATIVE negative 5770-3 LOINC Ketones TRACE negative mg/dl 2514-8 LOINC A Spec gravity >=1.030 1.003 - 1.030 5811-5 LOINC pH urine 6.0 5.0 - 7.0 2756-5 LOINC Protein TRACE negative mg/dl 73755-8 LOINC Urobilinogen 4.0 <or= 1 EU/dl 15291-5 LOINC A Nitrite. NEGATIVE negative 5802-4 LOINC Blood NEGATIVE negative 5794-3 LOINC Leukocytes. NEGATIVE negative MICROSCOPIC NOT INDICAT TEST QUAL (URINE) - Collect Date/Time: 07/25/2022 12:30 [facility] ID: [id number] [address] [place] [address], [address] LOINC: 6-3 Test Value Unit Reference Range Code Code System Flag TEST NEGATIVE 2106-3 LOINC DRUG SCN 13 PANEL (MEDTOX)* - Collect Date/Time: 07/25/2022 12:30 [facility] ID: [id number] [address] [place] [address], [id number] LOINC: 40160-4 Test Value Unit Reference Range Code Code System Flag CANNABINOIDS POSITIVE Cutoff = 50 ng/mL 06158-2 LOINC A PHENCYCLIDINE NEGATIVE Cutoff = 25 ng/mL 57828-1 LOINC COCAINE NEGATIVE Cutoff = 150 ng/mL 52143-3 LOINC METHAMPHETAMINES NEGATIVE Cutoff = 50 0 ng/mL 94568-4 LOINC OPIATES NEGATIVE Cutoff = 100 ng/mL 31343-7 LOINC AMPHETAMINES NEGATIVE Cutoff = 500 ng/mL 74844-2 LOINC BENZODIAZEPINES NEGATIVE Cutoff = 150 ng/mL 31835-8 LOINC TRICYCLIC ANTIDEP NEGATIVE Cutoff = 3 00 ng/mL 3533-7 LOINC METHADONE POSITIVE Cutoff = 200 ng/mL 19798-9 LOINC A BARBITURATES POSITIVE Cutoff = 200 ng/mL 82785-6 LOINC A OXYCODONE NEGATIVE Cutoff = 100 ng/mL 65324-5 LOINC PROPOXYPHENE NEGATIVE Cutoff = 300 ng/mL 38967-2 LOINC BUPRENORPHINE NEGATIVE Cutoff = 10 mg/mL 3414-0 INC GATO COVID RHEONIX* - Viral ect Date/Time: 07/25/2022 11:00 [facility] ID: [id number] [address] [place] [address], [id number] LOINC: 43081-1 Test Value Unit Reference Range Code Code System Flag Tier- INPATIENT/ED 12337-8 LOINC SARS COV2 RNA: NEGATIVE REFERENCE RAN GE: NEGAT 02854-3 LOINC PT PROTHROMBIN TIME* - Colle ct Date/Time: 07/25/2022 08:45 [facility] ID: [id number] [address] [place] [address], [address] LOINC: 5902-2 Test Value Unit Reference Range Code Code System Flag PROTIME 10.1 seconds L=9.3 H=11.4 5902-2 LOINC INR 1.01 L=2.00 H=3.00 79340-4 LOINC L ALCOHOL (ETHANOL)* - Collect Date/Time: 07/25/2022 08:45 [facility] ID: [id number] [address] [place] [address], [address] LOINC: 37239-8 Test Value Unit Reference Range Code Code System Flag ALCOHOL (ETHANOL) 222 mg/dL 85330-2 LOINC MAGNESIUM SERUM* - Collect D ate/Time: 07/25/2022 08:45 [facility] ID: [id number] [address] [place] [address], [address] LOINC: 68899-6 Test Value Unit Reference Range Code Code System Flag MAGNESIUM 1.7 mg/dL L=1.8 H=2.4 23404-2 LOINC L COMPREHENSIVE METABOLIC PANE L (CMP) - Collect Date/Time: 07/25/2022 08:45 [facility] ID: [id number] [address] [place] [address], [address] LOINC: 38210-9 Test Value Unit Reference Range Code Code System Flag GLUCOSE 80 mg/dL L=70 H=116 2345-7 LOINC BUN 18 mg/dL L=6 H=25 3094-0 LOINC CREATININE 0.82 mg/dL L=0.51 H=0.95 2160-0 LOINC SODIUM SERUM 141 mmol/L L=136 H=145 2951-2 LOINC POTASSIUM SERUM 3.4 mmol/L L=3.4 H=5.2 2823-3 LOINC CHLORIDE SERUM 100 mmol/L L=96 H=110 2075-0 LOINC CARBON DIOXIDE (CO2) 31 mmol/L L=22 H=34 2028-9 LOINC ANION GAP 10.1 mmol/L 83126-5 LOINC CALCIUM SERUM 8.8 mg/dL L=8.2 H=10.2 64775-2 LOINC BILIRUBIN TOTAL 0.6 mg/dL L=0.0 H=1.3 1975-2 LOINC ALK. PHOS. 108 U/L L=46 H=116 6768-6 LOINC SGOT (AST) 109 U/L L=15 H=37 1920-8 LOINC H SGPT (ALT) 79 U/L L=12 H=78 1742-6 LOINC H TOTAL PROTEIN 8.5 gm/dL L=6.0 H=8.0 2885-2 LOINC H ALBUMIN 4.1 gm/dL L=3.4 H=5.0 1751-7 LOINC AGE 37 years eGFR (non-Afr.Amer.) 78 mL/min 18129-4 LOINC eGFR (Afr-[place]) 94 mL/min 14092-9 LOINC CBC W/ DIFFERENTIAL* - Colle ct Date/Time: 07/25/2022 08:45 [facility] ID: [id number] [address] [place], [place], 56 LOINC: 49752-2 Test Value Unit Reference Range Code Code System Flag WBC 7.54 th/cmm L=5.00 H=10.00 6690-2 LOINC NEUT % 66.4 % L=40.0 H=80.0 LYMPH % 19.2 % L=10.0 H=50.0 MONO % 13.0 % L=2.0 H=12.0 79621-0 LOINC H EOS % 0.5 % L=0.0 H=8.0 BASO % 0.5 % L=0.0 H=3.0 IG % 0.4 % L=0.0 H=1.1 2514-8 LOINC NRBC % 0.0 % L=0.0 H=0.0 43556-4 LOINC NEUT abs count 5.0 th/cmm L=1.6 H=8.4 751-8 LOINC LYMPH abs count 1.5 th/cmm L=1.5 H=4.0 731-0 LOINC MONO abs count 1.0 th/cmm L=0.2 H=1.0 742-7 LOINC EOS abs count 0.0 th/cmm L=0.0 H=0.5 711-2 LOINC BASO abs count 0.0 th/cmm L=0.0 H=0.2 704-7 LOINC IG abs count 0.0 th/cmm L=0.0 H=0.1 42805-7 LOINC NRBC abs count 0.0 mil/cmm L=0.0 H=0.0 05616-9 LOINC RBC 3.94 mil/cmm L=3.90 H=5.40 789-8 LOINC HEMOGLOBIN 14.5 gm/dL L=12.0 H=16.0 718-7 LOINC HEMATOCRIT 42 % L=37 H=47 4544-3 LOINC MCV 108 fL L=82 H=92 787-2 LOINC H MCH 36.8 pg L=27.0 H=31.0 785-6 LOINC H MCHC 34.2 % L=32.0 H=36.0 786-4 LOINC RDW-SD 48.3 fL L=39.0 H=49.0 788-0 LOINC PLATELET COUNT 239 th/cmm L=150 H=450 777-3 LOINC Social History Type Status Start Date End Date Code Code Syst em Smoking History Unknown if ever smoked [address] Sex Female Vital Signs Vital Sign Value Unit [place] Value [place] Unit Date/Time Recent/Initial? Code Code System Body Mass Index 22.13 kg/m2 07/25/2022 08:48 Initial 36522 -5 INC Systolic Blood Pressure 146 mm[Hg] 07/28/2022 11:45 Most Recent 8480- 6 LOINC Diastolic Blood Pressure 98 mm[Hg] 07/28/2022 11:45 Most Recent 8462- 4 LOINC Systolic Blood Pressure 157 mm[Hg] 07/25/2022 08:48 Initial 8480- 6 LOINC Diastolic Blood Pressure 119 mm[Hg] 07/25/2022 08:48 Initial 8462- 4 LOINC Body Surface Area 1.66 m2 07/25/2022 08:48 Initial 3140- 1 LOINC Height 165.100 0 cm 65.00 in 07/25/2022 08:48 Initial 8302- 2 LOINC O2 Saturation 100 % 2021 11:45 Most Recent 57173 -5 LOINC O2 Saturation 97 % 2021 08:48 Initial 53766 -5 LOINC Pulse 91.0 /min 07/28/2022 11:45 Most Recent 8867- 4 LOINC Pulse 113.0 /min 07/25/2022 08:48 Initial 8867- 4 LOINC Respiration 22 /min 07/28/20 11:45 Most Recent 9279- 1 LOINC Respiration 15 /min 07/25/20 08:48 Initial 9279- 1 LOINC Temperature 36.3 Rama 97.3 F 07/28/20 11:45 Most Recent 8310- 5 LOINC Temperature 36.7 Rama 98.1 F 07/25/20 08:48 Initial 8310- 5 LOINC Weight 60.33 kg 133.00 lbs 07/25/2022 08:48 Initial 43161 -7 LOINC Medications Medication Start Date End Date Route [...] Status Code Code System OPIATE ABUSE active 4119340 SNOMED- CT ALCOHOL ABUSE active 50475602 SNOMED -CT ALCOHOL ABUSE WITH WITHDRAWA L DELIRIUM active 8154417 SNOMED-CT Allergies and Adverse Reactions Allergy Substance Reaction Severity Start Date Concern Status Co de Code System No Known Drug Allergies Active 621056735 SNOMED-CT Plan of Treatment No Data Found Encounters Encounter Diagnosis Start Date Code Code Sys tem Alcohol abuse with withdrawal delirium 07/25/2022 SNOMED-CT Personal Care Team Section Performer Name Performer Role Active Date Inactive Da te Discharge Summary Notes [facility] 07/28/2022 14:27 All Demographics Patient Name Age Sex Visit Number Admission Date/Time Attending Physician Date of Service Room and Bed Emergency Contact NICOLLEGRETA Bonilla 1985 37 years Female [id number] 07/25/2022 11:31 JALEESA KIM 07/25/2022 [id number] 07/28/2022 14:24 Discharge Date: 07/28/2022 Admission Diagnosis: Acute alcohol withdrawal Altered mental status Alcohol use disorder Opiate use disorder Discharge Diagnosis: Acute alcohol withdrawal Altered mental status Alcohol use disorder Opiate use disorder Primary Care Physician: Primary Care Physician: No Demographics Available Consulting Physician(s): Procedures: Recommendations: Discharge to home Follow- up at the [facility] Follow-up with the [facility] telephone [phone]. She prefers to make the appointment herself. Obviously alcohol cessation is strongly encouraged Discharge Meds List Methadone 10MG Oral Tablet, TAKE 70 MILLIGRAMS ORAL DAILY Multi-Day Plus Minerals Oral Tablet, TAKE 1 TABLET ORAL DAILY History of Present Illness and Hospital Course 37-year-old woman with opioid abuse disorder on methadone 70 mg daily who presented to the emergency department after attempting to stop drinking about 3 days previously. Apparently 3 days prior to this admission she was confronted at work in regards to her alcohol use and she decided to stop drinking. She went 3 days without drinking with increased anxiety, agitation and confusion with hallucinations. She apparently was disoriented to her 9-year-old daughter and her . She did drink some alcohol overnight, was brought by her to the emergency department the following morning. Apparently she did take her methadone in the morning, then forgot and tried to take another dose. Her thought that this was due to confusion and not due to any sort of intention to overdose. In the emergency department she was provided with a phenobarbital drip, 600 mg, received multiple doses of as needed phenobarbital per the CIWA scale. She really received a total of about 2030 mg of IV phenobarbital in less than 24 hours. She continued to be agitated and confused, she was given a dose of lower lorazepam which seemed to work well for her, she subsequently became much Col[place], was able to sleep. She remained essentially minimally responsive for the next 48 hours, but aroused when stimulated but then would fall back to sleep. She was provided with intravenous fluids for hydration. She has now woken up, is feeling much better, is awake, alert and oriented. She request to be discharged home. Of note, she was seen by the assistant womens volleyball coach as well as by drug abuse social worker on the day of discharge. She declines referral for inpatient rehab. She agrees to follow-up with a primary care physician, is decided she would prefer to follow-up in [place] as she already goes to the [facility] clinic there. She has been provided with the phone number for the [facility]. Of note, her last dose of phenobarbital was over 48 hours ago, last dose of lorazepam over 24 hours ago. She was provided with a banana bag. She is felt to be stable for discharge home. Labs last 72 hours Test Results Units Reference Range Collected GLUCOSE 138 H mg/dL L=70 H=116 07/27/2022 06:35 BUN 3 L mg/dL L=6 H=25 07/27/2022 06:35 CREATININE 0.53 mg/dL L=0.51 H=0.95 07/27/2022 06:35 SODIUM SERUM 134 L mmol/L L=136 H=145 07/27/2022 06:35 POTASSIUM SERUM 3.9 mmol/L L=3.4 H=5.2 07/27/2022 06:35 CHLORIDE SERUM 103 mmol/L L=96 H=110 07/27/2022 06:35 CARBON DIOXIDE (CO2) 25 mmol/L L=22 H=34 07/27/2022 06:35 ANION GAP 5.7 mmol/L 07/27/2022 06:35 CALCIUM SERUM 7.9 L mg/dL L=8.2 H=10.2 07/27/2022 06:35 WBC 5.81 th/cmm L=5.00 H=10.00 07/27/2022 06:35 HEMOGLOBIN 12 gm/dL L=12.0 H=16.0 07/27/2022 06:35 HEMATOCRIT 36 L % L=37 H=47 07/27/2022 06:35 PLATELET COUNT 142 L th/cmm L=150 H=450 07/27/2022 06:35 MAGNESIUM 1.8 mg/dL L=1.8 H=2.4 07/26/2022 06:15 Physical Exam: Vitals: Temperature 36.3 pulse 91 respiratory rate 22 blood pressure 146/98 oxygenation 100% on room air General: Young woman who currently appears comfortable, no acute distress Heart: Regular rate and rhythm with no murmurs rubs or gallops appreciated Lungs: Clear with no crackles or wheezes Abdomen: Normoactive bowel sounds, soft and nontender Musculoskeletal: Extremities without edema Neurologic: Patient is awake, alert and oriented, speech is fluent, there is no facial droop. Strength strength is 5+ out of 5 in upper and lower extremities bilaterally. She is not tremulous. Progress Notes [facility] 07/26/2022 16:41 07/26/2022, 12:35 SUBJECTIVE: 37-year-old female with opioid use disorder and alcohol use disorder admitted with alcohol withdrawal. She was very tremulous, confused, was given intravenous phenobarbital in the emergency department, weight based dosing. She received 600 mg slow IV drip. Of note, prior to admission she apparently tried to take a second dose of her methadone which her knocked out of her hand. It was not clear whether this was an intentional act versus confusion although her reported to the emergency department that he thought this was simply confusion. The patient had not voiced any suicidal ideation. She received a total of 2,030 mg of IV phenobarbital in less than 24 hours. Last dose 130 mg at 6 AM this morning. However, she seemed to respond well to 2 mg of IV lorazepam last evening. She is currently receiving lorazepam 1 mg p.o. every 4 hours, her dose was held at 830 as she was sleeping. Nursing reports that she seemed to respond better to the lorazepam than the phenobarbital. Allergy List No Known Drug Allergies, medication OBJECTIVE: Vital Signs Most Recent Date/Time BP (mm/Hg) Heart Rate Resp Temp (C) SPO2% O2 Device 07/26/2022 11:30 130/91 74 18 37.2 TEMPORAL SCANNING 97 % Room Air 21% GEN: Somnolent but arousable EYES: No scleral icteris NECK: supple, no LAD PULM: CTA b/l no w/r/r CV: RRR with no m/r/g appreciated ABD: soft, nontender, +BSx4 EXT: no edema NEURO: A&Ox3, 5/5 muscle strength upper and lower ext b/l. no facial droop. Labs last 24 hours Test Results Units Reference Range Collected MAGNESIUM 1.8 mg/dL L=1.8 H=2.4 07/26/2022 06:15 ASSESSMENT: Problem List Opiate abuse Alcohol abuse Alcohol abuse with withdrawal delirium PLAN: Continue lorazepam, currently scheduled although held when she is sleeping, continue lorazepam per the CIWA scale. Hold on further phenobarbital if possible. Will provide intravenous fluids today as she has not taken anything p.o. today. [facility] 07/27/2022 11:39 07/27/2022, 11:37 SUBJECTIVE: 37-year-old female with opioid use disorder and alcohol use disorder admitted with alcohol withdrawal. She was very tremulous, confused, was given intravenous phenobarbital in the emergency department, weight based dosing. She received 600 mg slow IV drip. Of note, prior to admission she apparently tried to take a second dose of her methadone which her knocked out of her hand. It was not clear whether this was an intentional act versus confusion although her reported to the emergency department that he thought this was simply confusion. The patient had not voiced any suicidal ideation. She received a total of 2,030 mg of IV phenobarbital in less than 24 hours. Last dose 130 mg at 6 AM on 07/26 . However, she seemed to respond well to 2 mg of IV lorazepam . Nursing reports that she seemed to respond better to the lorazepam than the phenobarbital. She was extremely somnolent throughout the day yesterday and overnight, woke up more this morning, was very confused, disoriented. She is now sleeping again. Allergy List No Known Drug Allergies, medication OBJECTIVE: Vital Signs Most Recent Date/Time BP (mm/Hg) Heart Rate Resp Temp (C) SPO2% O2 Device 07/27/2022 11:20 142/82 82 28 38 TEMPORAL SCANNING 100 % Room Air 21% GEN: Somnolent but arousable EYES: No scleral icteris NECK: supple, no LAD PULM: CTA b/l no w/r/r CV: RRR with no m/r/g appreciated ABD: soft, nontender, +BSx4 EXT: no edema NEURO: A&Ox3, 5/5 muscle strength upper and lower ext b/l. no facial droop. Labs last 24 hours Test Results Units Reference Range Collected GLUCOSE 138 H mg/dL L=70 H=116 07/27/2022 06:35 BUN 3 L mg/dL L=6 H=25 07/27/2022 06:35 CREATININE 0.53 mg/dL L=0.51 H=0.95 07/27/2022 06:35 SODIUM SERUM 134 L mmol/L L=136 H=145 07/27/2022 06:35 POTASSIUM SERUM 3.9 mmol/L L=3.4 H=5.2 07/27/2022 06:35 CHLORIDE SERUM 103 mmol/L L=96 H=110 07/27/2022 06:35 CARBON DIOXIDE (CO2) 25 mmol/L L=22 H=34 07/27/2022 06:35 ANION GAP 5.7 mmol/L 07/27/2022 06:35 CALCIUM SERUM 7.9 L mg/dL L=8.2 H=10.2 07/27/2022 06:35 WBC 5.81 th/cmm L=5.00 H=10.00 07/27/2022 06:35 HEMOGLOBIN 12 gm/dL L=12.0 H=16.0 07/27/2022 06:35 HEMATOCRIT 36 L % L=37 H=47 07/27/2022 06:35 PLATELET COUNT 142 L th/cmm L=150 H=450 07/27/2022 06:35 ASSESSMENT: Problem List Opiate abuse Alcohol abuse Alcohol abuse with withdrawal delirium PLAN: Discontinued scheduled lorazepam. Continue lorazepam per the CIWA scale. Hold on further phenobarbital if possible. Continue intravenous fluids today Banana bag today
--- OUTSIDE RECORDS SUMMARY | 2024-05-13 18:27 | XMS_ITS | Continuity of Care Document ---
Author Organization [place] - [facility] Address [address] [place] [address] Assessment No assessment recorded. Plan of Treatment Reminders Order Date Submit Date Provider Last Modified By Organization Details Last Modified Time Details Appointments Follow Up 2023 04:40P M Not available Not available Not available Lab lipid panel, serum 2023 024 [email or web address] [facility] (Registration ), [address] [place] [address] [place], [address], 05/13/2024 17:52:10 hepatitis C Ab, serum [email or web address] [facility] (Registration ), [address] [place] [address] [place], [address], 05/13/2024 17:52:10 HbA1c (hemoglob in A1c), blood [email or web address] [facility] (Registration ), [address] [place] [address] [place], [address], 05/13/2024 17:52:10 HIV (1+2) Ab screen, serum [email or web address] [facility] (Registration ), [address] [place] [address] [place], [address], 05/13/2024 17:52:10 Referral None recorded. Procedures None recorded. Surgeries None recorded. Imaging MAMMO, screening , bilateral 2023 024 [facility] (Radiology), [address] , [place], [address], 05/13/2024 17:15:23 Medication Orders None recorded. Patient TargetsNo targets recorded. Patient InstructionsNo instructions recorded. Reason for Referral None Reported. Problems Name Status Onset Date Resolution Date Notes Provider Name and Address Organization Details Recorded Time Anxiety disorder Active [address], [place], [address] , [facility] 4 22:13:54 Elevated blood-pressure reading without diagnosis of hypertension Completed 201804/09/[address], [place], [address] , [facility] 4 22:22:24 Nicotine dependence Active [address], [place], [address] , [facility] 4 22:14:15 Neck pain Completed 201808/12/2019 Problem Code: M54.2; Problem Code Type: ICD-10; Not Available [facility] 3 05:57:31 Alcohol withdrawal delirium Completed 202104/10/[address], [place], [address] , [facility] 4 10:23:35 Restlessness and agitation Completed 202204/09/[address], [place], [address] , [facility] 4 22:22:05 Psychoactive substance abuse Active 2022 distant use of cocaine, regular MJ use. MD Aleyda [address], [place], [address] , [facility] 4 10:16:35 Alcohol abuse Active [address], [facility] [address] , [facility] 4 22:13:30 Abnormal cervical Papanicolaou smear with human papillomavirus deoxyribonucle ic acid detected Completed 201310/12/2022 Problem Code: 795.05; Problem Code Type: ICD-9; Not Available [facility] 3 05:57:32 Localized eruption of skin Completed 201810/12/2022 Problem Code: R21; Problem Code Type: ICD-10; Not Available [facility] 3 05:57:32 Disorder of soft tissue Completed 201810/12/2022 Problem Code: M79.89; Problem Code Type: ICD-10; Not Available [facility] 3 05:57:32 Bipolar disorder Active 2023 [facility] for shawna- paranoid delusions 02/[address], [facility] [address] , [facility] 4 22:24:30 Opioid dependence, on agonist therapy Active 2023 Methdaone through [facility] in [facility], 80 mg daily MD Aleyda [address], [facility] [address] , [facility] 4 10:19:11 Laceration of palm of hand Active [address], [facility] [address] , [facility] 4 10:48:53 Problem Notes None recorded. Procedures Surgical History Date Name Laterality Status Provider Name and Address Organization Details Recorded Time Laceration Repair completed REBECCA K[address]AR Dr, [facility] [address], [facility] 04/25/2024 10:47:10 Imaging Results None recorded. [...] Available Not Avai lable Vitals Date Recorded Body height Body mass index (BMI) Body weight Body temperature Oxygen saturation Oxygen saturation in Arterial blood by Pulse oximetry Heart rate Respiratory rate Systolic blood pressure Diastolic blood pressure Provider Name and Address Organization Details Last Updated DateTime 154.43 cm 29.7 kg/m2 06780.4 1 g 98.4 [degF] 97 % 97 % 88 /min 16 /min 132 mm[Hg] 66 mm[Hg] TERRY KERN LPN [facility] 16:28:01 Social History Question Answer Notes LastModified by Organizat ion Details LastModified Time Tobacco Smoking Status Current Every Day Smoker NAYANA HEARD RN [facility], [facility] 03/25/2024 11:24:44 What Was The Date Of [...] Recorded Time Tdap 10/12/2022 completed Not Available [facility] 06:09:48 Influenza, split virus, quadrivalent, preservative 10/01/2018 completed Not Available [facility] 07/28/2023 06:09:48 Pneumococcal conjugate PCV20, polysaccharide [id number] conjugate, adjuvant, PF 10/12/2022 completed Not Available [facility] 07/28/2023 06:09:48 pneumococcal polysaccharide PPV23 05/14/2019 completed Not Available [facility] 2022 06:09:49 Past Encounters Encounter ID Performer Location Encounter Start Date Encounter Closed Date Diagnosis/Indication Diagnosis SNOMED-CT Code [id number] MAHIN OLEA PA-C [address] [place] [address] 04/25/2024 09:12:26 04/25/2024 10:44:58 Laceration of palm of hand [id number] MONTSERRAT EMERY MD [facility] [address] [place] [address] 05/13/2024 16:05:48 05/13/2024 18:04:45 Bipolar disorder 44418526 Screening for malignant neoplasm of breast 516419609 Hepatitis C screening 41 3473456 HIV screening 832999725 Hyperlipid emia screening 968814481 Diabetes m ellitus screening 463850984 Health Concerns Section Related Observation LastModified by Organization Detai ls LastModified Time None Recorded Concern Status LastModified by Organization Details LastModified Time None Recorded Payers Encounter Date Sequence Insurance Name Policy Number Policy Bernal Covered Member ID Bernal Member ID Guarantor Name 05/13/2024 1 [facility] [facility] (MEDICAID) Tuyet Edwards [id number] Tuyet Edwards Notes Date Note Type Note Provider Name and Address Organization Details Recorded Time 05/13/2024 text/html HPI Notes: Shayy schmitz is [...] She met with Dr. London Boyd at [facility], who kept her medications the same. She does have a follow up with him. MD Aleyda [address], [place], [address], [facility]. 05/13/2024 18:04:42 OBGyn Episode No OBEpisode recorded.
--- OUTSIDE RECORDS SUMMARY | 2024-05-13 18:27 | XMS_ITS | Continuity of Care Document ---
Author Organization [place] - [facility], [facility] [place] [address] Assessment Encounter Date Assessment Date Assessment LastModified by Organization Details LastModified Time 04/10/2024 04/10/2024 The total time devoted to today's encounter, including both the rqix-ae-veav time with the patient and/or family/caregi diane and uqs-jnih-qj-f rita time I personally spent is 42 minutes. Not available 04/10/2024 10:33:58 Plan of Treatment Reminders Order Date Submit Date Provider Last Modified By Organization Details Last Modified Time Details Appointments Follow Up 20 2023 04:40P M Not available Not available Not available Lab None recorded. Referral None recorded. Procedures None recorded. Surgeries None recorded. Imaging None recorded. Medication Orders escitalop robson 20 mg tablet 2023 024 ELIEZERAMARJIT [facility], [address], [place], [address], 04/10/2024 10:24:22 gabapenti n 300 mg capsule 2023 024 [facility], [address] [facility], [address], [place], [address], 04/10/2024 10:24:43 hydroxyzi ne pamoate 25 mg capsule 2023 024 [facility], [address], [address], [place], [address], 04/10/2024 10:25:41 olanzapin e 20 mg tablet 2023 024 ELIEZER [facility], [address] [facility], [address], [place], [address], 04/10/2024 10:26:23 quetiapin e 50 mg tablet 2023 024 ELIEZER [facility], [address] [facility], [address], [place], [address], 04/10/2024 10:27:18 trazodone 50 mg tablet 2023 024 ELIEZER [facility], [address] [facility], [address], [place], [address], 04/10/2024 10:28:11 thiamine HCl (vitamin B1) 100 mg tablet 2023 024 ELIEZER [facility], [address] [facility], [address], [place], [address], 04/10/2024 10:29:20 Patient TargetsNo targets recorded. Patient InstructionsNo instructions recorded. Reason for Referral None Reported. Problems Name Status Onset Date Resolution Date Notes Provider Name and Address Organization Details Recorded Time Anxiety disorder Active [address], [place], [address] , [facility]. 4 22:13:54 Elevated blood-pressure reading without diagnosis of hypertension Completed 201804/09/[address], [place], [address] , [facility]. 4 22:22:24 Nicotine dependence Active [address], [place], [address] , [facility]. 4 22:14:15 Neck pain Completed 201808/12/2019 Problem Code: M54.2; Problem Code Type: ICD-10; Not Available [facility] 3 05:57:31 Alcohol withdrawal delirium Completed 202104/10/[address], [facility] [address] [place] [address] 4 10:23:35 Restlessness and agitation Completed 202204/09/[address], [address] 4 22:22:05 Psychoactive substance abuse Active 2022 distant use of cocaine, regular MJ use. MD Aleyda HARRIS Dr, [address] 4 10:16:35 Alcohol abuse Active [address], [address] 4 22:13:30 Abnormal cervical Papanicolaou smear with human papillomavirus deoxyribonucle ic acid detected Completed 201310/12/2022 Problem Code: 795.05; Problem Code Type: ICD-9; Not Available [facility] 3 05:57:32 Localized eruption of skin Completed 201810/12/2022 Problem Code: R21; Problem Code Type: ICD-10; Not Available [facility] 3 05:57:32 Disorder of soft tissue Completed 201810/12/2022 Problem Code: M79.89; Problem Code Type: ICD-10; Not Available [facility] 3 05:57:32 Bipolar disorder Active 2023 [facility] for shawna- paranoid delusions 02/[address], [facility] [address] [place] [address] 22:24:30 Opioid dependence, on agonist therapy Active 2023 Methdaone through [facility] in [facility], 80 mg daily MONTSERRAT EMERY MD [address], [place], [address] , [facility] 4 10:19:11 Laceration of palm of hand Active 2023 MAHIN OLEA PA-C [address], [place], [address] , [facility] 4 10:48:53 Problem Notes None recorded. Procedures Surgical History Date Name Laterality Status Provider Name and Address Organization Details Recorded Time Laceration Repair completed MAHIN OLEA PA-C [address], [place], [address], [facility] 04/25/2024 10:47:10 Imaging Results None recorded. [...] active Not Available Not Available Not Avai jose Vitals Date Recorded Body height Body mass index (BMI) Body weight Body temperature Oxygen saturation Oxygen saturation in Arterial blood by Pulse oximetry Heart rate Respiratory rate Systolic blood pressure Diastolic blood pressure Provider Name and Address Organization Details Last Updated DateTime 4 154.43 cm 30.1 kg/m2 84787.5 9 g 98.6 [degF] 96 % 96 % 84 /min 16 /min 138 mm[Hg] 72 mm[Hg] TERRY KERN LPN [facility] 09:31:54 Social History Question Answer Notes LastModified by Organizat ion Details LastModified Time Tobacco Smoking Status Current Every Day Smoker JIAN WILLARD, [facility]. 03/25/2024 11:24:44 What Was The Date Of [...] Recorded Time Tdap 10/12/2022 completed Not Available [facility] 06:09:48 Influenza, split virus, quadrivalent, preservative 10/01/2018 completed Not Available [facility] 07/28/2023 06:09:48 Pneumococcal conjugate PCV20, polysaccharide SNX304 conjugate, adjuvant, PF 10/12/2022 completed Not Available [facility] 07/28/2023 06:09:48 pneumococcal polysaccharide PPV23 05/14/2019 completed Not Available [facility] 2022 06:09:49 Past Encounters Encounter ID Performer Location Encounter Start Date Encounter Closed Date Diagnosis/Indication Diagnosis SNOMED-CT Code [id number] CECIL VOSS [address] [address] 03/25/2024 11:01:42 03/25/2024 13:03:15 Bipolar disorder 59645834 Nicotine dependence 5670 5544 [id number] MONTSERRAT EMERY MD [address] [facility] [address] 04/10/2024 09:09:36 04/10/2024 11:32:46 Bipolar disorder 22913427 Alcohol abuse 59831838 Health Concerns Section Related Observation LastModified by Organization Detai ls LastModified Time None Recorded Concern Status LastModified by Organization Details LastModified Time None Recorded Payers Encounter Date Sequence Insurance Name Policy Number Policy Bernal Covered Member ID Bernal Member ID Guarantor Name 04/10/2024 1 [facility] (MEDICAID) Tuyet Edwards [id number] Tuyet Edwards Notes Date Note Type Note Provider Name and Address Organization Details Recorded Time 04/10/2024 text/html HPI Notes: Here as new patient to me. Recent discharge from [facility] 03/20/2024 where she was admitted with paranoid [...] has an appointment on April 25 at [facility]. Over a year ago (07/2022) had an episode after a bout of food poisoning, and developed racing disorganized thoughts, suicidal, and was admitted at [facility] twice (july and August) . Discharge summary reviewed in detail. Had MRI of brain as work up at the time. Denies drug use with either episode- but had stopped drinking alcohol prior to initial admission last year. Thinks that there were some up and down moods prior to a year ago. Did have prior dx of depression After the [facility] visit- she took medication (haloperidol 0.5 mg BID) for just a few months after the [facility] admission, did not like it as it made her jittery, craving sweets, so she stopped it. 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 Opioid dependence, on Methadone, [facility]- 80 mg daily. Many years. Opioids- snorted,never [...] thoughts of self harm at this time. MONTSERRAT EMERY MD [address], [place], [address], [facility]. 04/10/2024 10:34:39 OBGyn Episode No OBEpisode recorded.
--- OUTSIDE RECORDS SUMMARY | 2024-05-13 18:27 | XMS_ITS | Data Portability ---
Author Organization [place] - [facility], Historical Import Interface Address [address] [place] [address] Assessment Encounter Date Assessment Date Assessment LastModified by Organization Details LastModified Time 05/30/2023 05/30/2023 DOS: 05/30/2023 Tx: Consult, 2PAs, Ext #19, 30?? NV: PRN concerns with ext sites, pt to return to primary dentist for comp care Completed Procedures D7210 - Extraction, erupted tooth requiring removal of bone and/or sectioning of tooth, and including elevation of mucoperiosteal flap if indicated Teeth: 19 D7250 - Removal of residual tooth roots (cutting procedure) Teeth: 30 D9310 - Consultation - diagnostic service provided by dentist or physician other than requesting dentist or physician D0220 - Intraoral - periapical first radiographic image Teeth: 19 D0230 - Intraoral - periapical each additional radiographic image Teeth: 30 Referred from:? CC: It comes and goes. Pt points to #19 and states pain.?? Pt. denies swelling, fever, N/V HHx: No contraindications to dental tx see EMR BP: 128/82? ? P:? 88? ? ? Radio: #19 caries #30 retained root Exam no swelling, FOM WNL #19 caries and fx #30 1x1mm aspect of root visible?? #29 existing DO fx Dx: #19 caries #30 retained root TXP Ext #19, 30 Informed pt of findings, tx options, risks, benefits and potential consequences of no tx which was understood. Addressed all pt? s questions and concerns. Informed consent obtained for listed TXP Consent forms reviewed and signed Anesthesia: 20% Benzocaine topical anesthesia 6 carp 2% Lidocaine w/1:100k epi via local infiltration, IANB Procedure: Bite block placed #19:?? Used surgical handpiece to trough buccal bone and section tooth Elevate and deliver tooth with elevator without complications Socket curetted Copious irrigation with NSS No suture necessary?? B/L pressure applied to socket #30: Used 15 blade to create incision along alveolar crest??area #30 Elevate FTMPF area #30 buccal Used surgical handpiece to trough mesial, distal, buccal bone?? Elevate and deliver tooth with elevator without complications Socket curetted Copious irrigation with NSS 3-0 CG suture B/L pressure applied to socket Gauze placed Good hemostasis achieved P/O instructions given written and verbally, which pt understood Pain Management: 600mg ibuprofen, 500mg acetaminophen q6h PRN pain Pt tolerated procedure well Assisted by: Jennifer ARANA , 12:20 PM. I attest that the treatment rendered today is completed and treatment met the standard of care. , 1:09 PM. Amendment: This clinical note was amended by Armando Berry DDS on 07/08/2023, 9:55 PM. [id number] Not available 07/11/2023 11:10:01 Plan of Treatment Reminders Order Date Submit Date Provider Last Modified By Organization Details Last Modified Time Details Appointments None record ed. Lab None record ed. Referral None record ed. Procedures None record ed. Surgeries None record ed. Imaging None record ed. Medication Orders None record ed. Patient TargetsNo targets recorded. Patient InstructionsNo instructions recorded. Reason for Referral None Reported. Medical Equipment None Reported. Medications Name Sig Start Date Stop Date Status Note LastModified by Organization Details LastModified Time clonidine HCl 0.1 mg tablet TAKE 1 TABLET BY MOUTH TWICE DAILY NEEDED FOR ANXIETY active Not Available Not Available No t Available haloperidol 5 mg tablet TAKE 1/2 TABLET BY MOUTH TWICE DAILY FOR PSYCHOSIS active Not Available Not Available No t Available hydroxyzine HCl 50 mg tablet TAKE 1 TABLET BY MOUTH THREE TIMES DAILY NEEDED FOR ANXIETY active Not Available Not Available No t Available gabapentin 300 mg capsule TAKE 1 CAPSULE BY MOUTH THREE TIMES DAILY FOR ANXIETY active Not Available Not Available No t Available mirtazapine 7.5 mg tablet TAKE 1 TABLET BY MOUTH AT BEDTIME active Not Available Not Available No t Available Vitals None Recorded Social History None recorded. Functional Status None recorded. Mental Status None recorded. Family History Nothing Reported. Medical History No medical history recorded. Gynecological HistoryNo gynecological history recorded. Obstetrics History GPAL:G 0 P 0 0 0 0 Past Encounters Encounter ID Performer Location Encounter Start Date Encounter Closed Date Diagnosis/Indication Diagnosis SNOMED-CT Code [id number] [facility] [address] [place] [address] 05/30/2023 10:57:14 07/11/2023 11:10:05 Health Concerns Section Related Observation LastModified by Organization Detai ls LastModified Time None Recorded Concern Status LastModified by Organization Details LastModified Time None Recorded Advance Directives Directive None Recorded Payers Encounter Date Sequence Insurance Name Policy Number Policy Bernal Covered Member ID Bernal Member ID Guarantor Name 05/30/2023 1 [facility] (MEDICAID) Tuyet Edwards [id number] Tuyet Edwards 05/30/2023 [employer] (MOVED TO HOLD) Tuyet Edwards DENTALINSID Tuyet Edwards OBGyn Episode No OBEpisode recorded.
--- OUTSIDE RECORDS SUMMARY | 2024-05-13 18:27 | XMS_ITS | Continuity of Care Document ---
Author Organization [facility], [facility] Address [address] [place] [address] Assessment No assessment recorded. Plan of Treatment [...] recorded . Patient TargetsNo targets recorded. Patient Instructions Encounter Date Encounter Id Patient Instructions Last Modified By Organization Details Last Modified Time 04/25/2024 [id number] 1. Laceration such as this are not [...] disorder Active [address], [place], [address] , [facility] 22:13:54 Elevated blood-pressure reading without diagnosis of hypertension Completed 201804/09/[address], [facility] [address] , [facility] 4 22:22:24 Nicotine dependence Active [address], [facility] [address] , [facility] 4 22:14:15 Neck pain Completed 201808/12/2019 Problem Code: M54.2; Problem Code Type: ICD-10; Not Available [facility] 3 05:57:31 Alcohol withdrawal delirium Completed 202104/10/[address], [facility] [address] , [facility] 4 10:23:35 Restlessness and agitation Completed 202204/09/[address], [facility] [address] , [facility] 4 22:22:05 Psychoactive substance abuse Active 2022 distant use of cocaine, regular MJ use. MD Aleyda [address], [facility] [address] , [facility] 4 10:16:35 Alcohol abuse Active [address], [facility] [address] , [facility] 4 22:13:30 Abnormal cervical Papanicolaou smear with human papillomavirus deoxyribonucle ic acid detected Completed 201310/12/2022 Problem Code: 795.05; Problem Code Type: ICD-9; Not Available [facility] 3 05:57:32 Localized eruption of skin Completed 201810/12/2022 Problem Code: R21; Problem Code Type: ICD-10; Not Available [facility] 3 05:57:32 Disorder of soft tissue Completed 201810/12/2022 Problem Code: M79.89; Problem Code Type: ICD-10; Not Available [facility] 3 05:57:32 Bipolar disorder Active 2023 [place] [facility] admission for shawna- paranoid delusions 02/[address], [facility] [address] , [facility] 4 22:24:30 Opioid dependence, on agonist therapy Active 2023 Methdaone through [facility] in [facility], 80 mg daily MD Aleyda [address], [place] [address] , [facility] 4 10:19:11 Laceration of palm of hand Active [address], [place] [address] , [facility] 4 10:48:53 Problem Notes None recorded. Procedures Surgical History Date Name Laterality Status Provider Name and Address Organization Details Recorded Time Laceration Repair completed REBECCA KUMAR Dr, [place] [id number], [facility] 04/25/2024 10:47:10 Imaging Results None [...] Updated DateTime 4 154.43 cm 30.1 kg/m2 89277.5 9 g 98 % 98 % 76 /min 18 /min 98.9 [degF] 136 mm[Hg] 87 mm[Hg] Fatuma Aguilera RN [facility] 10:03:10 Social History Question Answer Notes LastModified by Organizat ion Details LastModified Time Tobacco Smoking Status Current Every Day Smoker NAYANA HEARD RN [facility], [facility] 03/25/2024 11:24:44 What Was The Date Of [...] Recorded Time Tdap 10/12/2022 completed Not Available [facility] 06:09:48 Influenza, split virus, quadrivalent, preservative 10/01/2018 completed Not Available [facility] 07/28/2023 06:09:48 Pneumococcal conjugate PCV20, polysaccharide ZEL335 conjugate, adjuvant, PF 10/12/2022 completed Not Available [facility] 07/28/2023 06:09:48 pneumococcal polysaccharide PPV23 05/14/2019 completed Not Available [facility] 2022 06:09:49 Past Encounters Encounter ID Performer Location Encounter Start Date Encounter Closed Date Diagnosis/Indication Diagnosis SNOMED-CT Code [id number] CECIL VOSS [facility] [address] [place] [address] 03/25/2024 11:01:42 03/25/2024 13:03:15 Bipolar disorder [id number] Nicotine dependence 5691 8946 [id number] MONTSERRAT EMERY MD [facility] [address] [place] [address] 04/10/2024 09:09:36 04/10/2024 11:32:46 Bipolar disorder 59825368 Alcohol abuse [id number] MAHIN OLEA PA-C [address] [place] [address] 04/25/2024 09:12:26 04/25/2024 10:44:58 Laceration of palm of hand [id number] Health Concerns Section Related Observation LastModified by Organization Detai ls LastModified Time None Recorded Concern Status LastModified by Organization Details LastModified Time None Recorded Payers Encounter Date Sequence Insurance Name Policy Number Policy Bernal Covered Member ID Bernal Member ID Guarantor Name 04/25/2024 1 [facility] (MEDICAID) Tuyet Edwards [id number] Tuyet Dora Grace Notes Date Note Type Note Provider Name and Address Organization Details Recorded Time 04/25/2024 text/html HPI Notes: Tuyet is a 38-year-old female who presents with laceration to the base of the palm of the left hand which occurred around 7 AM this morning accidentally with slip box changer. She cleaned it with soap and water. Bleeding was easily controlled. She is right-hand dominant. Tetanus last administered in September 2023. Denies numbness or tingling. Reports full range of motion although does feel a bit achy MAHIN OLEA PA-C [address], [place], [address], [facility]. 04/25/2024 10:51:06 OBGyn Episode No OBEpisode recorded.
[2024-05-13 20:05] LABS: Calculated LDL 62 mg/dL (<100); Cholesterol 155 mg/dL (<200); HDL Cholesterol 53 mg/dL (40-60); Triglyceride 201 mg/dL (<150)
[2024-05-13 20:19] LABS: Hemoglobin A1C 5.6 % (<5.7)
[2024-05-14 20:10] LABS: Hepatitis C Ab w Rflx HCV PCR Negative (Negative)
[2024-05-14 20:15] LABS: HIV-1/2 Ag & Ab Screen Negative (Negative)
== END 2024-05-13 18:24 | disposition home or self-care (01) ==
LOC: NCHCN 18:23
PROVIDERS: Visit Provider Family Medicine
DX: Z11.59 Encounter for screening for other viral diseases (principal); Z11.4 Encounter for screening for human immunodeficiency virus [HIV]; Z13.220 Encounter for screening for lipoid disorders; Z13.1 Encounter for screening for diabetes mellitus
CPT/HCPCS: 80061; 86803; 87389; 83036; 86702

== ENCOUNTER 2024-09-26 03:49 | Outpatient (CLI) | payer MEDICAID, SELFPAY ==
--- NOTE | 2024-09-26 11:20 | DI.US_ITS ---
Exam(s) US PELVIS TRANSVAGINAL EXAM: US PELVIS TRANSVAGINAL CLINICAL HISTORY: locate IUD,iud strings lost,T83.32xa. TECHNIQUE: Transabdominal and transvaginal pelvic ultrasound was performed using standard protocol. COMPARISON: No priors for comparison. FINDINGS: UTERUS: Position: Anteverted. Size: 6.5 long by 2.2 AP by 3.0 transverse cm Endometrium: 0.2 cm. Normal for patient's menstrual status. There is no IUD visualized. Myometrium: Unremarkable. Cervix: Unremarkable. OVARIES: The left ovary was not visualized on this examination. Right: 1.9 x 1.4 x 1.1 cm Cyst or mass: No suspicious cystic or solid masses. CUL-DE-SAC: Free fluid: There is a trace amount of free fluid in the cul-de-sac. Other: None. IMPRESSION: 1. Examination is limited. The left ovary was not visualized on this examination. 2. The uterus is unremarkable. 3. No IUD is visualized. DATA REPOSITORY:
== END 2024-09-26 04:09 ==
PROVIDERS: PCP Family Medicine; Visit Provider Obstetrics & Gynecology
DX: T83.32XA Displacement of intrauterine contraceptive device, initial encounter (principal); X58.XXXA Exposure to other specified factors, initial encounter
CPT/HCPCS: 76830; 76856

== ENCOUNTER 2024-09-30 02:22 | Outpatient (CLI) | payer MEDICAID, SELFPAY ==
--- NOTE | 2024-09-30 07:15 | DI.RAD_ITS ---
Exam(s) XR ABDOMEN FLAT PLATE EXAM: 2D digital imaging was performed. CLINICAL HISTORY: lost iud,IUD STRINGS LOST,T83.32XA. COMPARISON: US US PELVIS TRANSVAGINAL from 09/26/2024 TECHNIQUE: Supine views of the abdomen performed. FINDINGS: BOWEL GAS PATTERN: Nondistended. CALCIFICATIONS: No radiopaque calcifications. OSSEOUS STRUCTURES: Unremarkable for age. OTHER FINDINGS: An IUD is visualized which projects on the right side of the low pelvis, in a horizon kar orientation. This consistent with migration of the IUD outside of the uterus. No IUD was noted on the prior pelvic ultrasound. IMPRESSION: 1. Nonobstructive bowel gas pattern. 2. IUD is in abnormal position on the right lower pelvis. DATA REPOSITORY: RADIATION DOSE DELIVERED:
== END 2024-09-30 02:42 ==
LOC: DI 02:22
PROVIDERS: PCP Family Medicine; Visit Provider Obstetrics & Gynecology
DX: T83.32XA Displacement of intrauterine contraceptive device, initial encounter (principal)
CPT/HCPCS: 74018

== ENCOUNTER 2024-09-30 14:20 | Outpatient (REF) | payer MEDICAID, SELFPAY ==
--- OUTSIDE RECORDS SUMMARY | 2024-09-30 14:22 | XMS_ITS | Clinical Summary ---
Author Organization [facility] Address [address] [place] [address] Care Team Providers Care Planner Intern Name Role Phone SaschaEsperanza hernandez ROAD INSPECTOR Primary Care Provider [phone] Allergies No known active allergies Medications methadone (DOLOPHINE) 5 mg/5 mL oral solution Take 70 mg by mouth daily. Active levonorgestrel (MIRENA INTRAUTERINE) by intrauterine route. Active acetaminophen (TYLENOL) 500 mg tablet Take 2 Tablets by mouth every 6 hours as needed for Fever or Pain. 2 Active thiamine (VITAMIN B1) 100 mg tablet Take 1 Tablet by mouth daily. 30 Tablet 2 2 Active Multivitamins with Minerals tablet tablet Take 1 Tablet by mouth daily. 30 Tablet 2 2 Active Active Problems Problem Noted Date Diagnosed Date Cannabis use disorder, moderate, dependence ([facility]) 03/04/2024 Alcohol use disorder 03/04/2024 Manic behavior ([facility]) 03/02/2024 Depressive disorder 09/17/2022 Alcohol use disorder, severe, dependence (HCC-CM S) 07/30/2022 Depression 07/30/2022 Depression, unspecified depression type 07/30/20 22 Delirium 07/29/2022 Right carpal tunnel syndrome 08/21/2019 Opioid use disorder, moderate, dependence (HCC-C MS) Alcohol withdrawal syndrome, with delirium ([facility]) Resolved Problems Problem Noted Date Diagnosed Date Resolved Date Suicidal ideation 09/17/2022 09/28/2022 Tobacco dependence 07/31/2022 Delirium due to another medical condition 07/29/2022 09/28/2022 Tobacco use 09/28/2022 Elevated BP without diagnosis of hypertension 08/30/2022 Psychosis ([facility]) 09/28/19 23 Immunizations Name Administration Dates Next Due Influenza Vaccine Quad PF 0.5 ml IM (6 mos+) Surgical History Surgery Date Site/Laterality Comments SECTION 09/18/2012 - 09/17/2013 WISDOM TOOTH EXTRACTION 09/18/2001 - 09/17/2002 CARPAL TUNNEL RELEASE Medical History Medical History Date Comments Acne Eczema Hives Psoriasis Dermatitis Rosacea Family History Medical History Relation Comments Eczema Father Hypertension Father Psoriasis Father Depression Mother Diabetes Mother Eczema Mother Hypertension Mother Relation Status Comments Father Mother Social History Tobacco Use Types Packs/Day Years Used Date Smoking Tobacco: Some Days Cigarettes Smokeless Tobacco: Never Tobacco Cessation:Ready to Q uit: No; Counseling Given: Yes Alcohol Use Standard Drinks/Week Comments Yes 35 (1 standard drink = 0.6 oz pu re alcohol) AUDIT-C Answer Date Recorded Q1: How often do you have a drink containing alcohol? 4 or more times a week 07/31/2022 Q2: How many drinks containi ng alcohol do you have on a typical day when you are drinking? 7 to 9 Q3: How often do you have si x or more drinks on one occasion? Daily or almost daily 07/31/2022 Interpersonal Safety Answer Date Record ed Physically Hurt Never 04/19/2020 Verbally Threaten Not on file 04/19/2020 Comments Unknown Sex and Gender Information Value Date Recorded Sex Assigned at Not on file Legal Sex Female 18:18 EST Gender Identity Female 07/18/2019 11:32 EDT Sexual Orientation Not on file Obstetrics History Last Filed Vital Signs Vital Sign Reading Time Taken Comments Blood Pressure 152/107 03/04/2024 1257 EDT Pulse 88 03/04/2024 1257 EDT Temperature 36.5 ??C (97.7 ??F) 03/04/2024 1257 EDT Respiratory Rate 16 03/04/2024 1257 EDT Oxygen Saturation 100% 03/04/2024 1257 EDT Inhaled Oxygen Concentration - - Weight 64.9 kg (143 lb) 03/02/2024 1147 EDT Height 165 cm (5' 4.96) 03/02/2024 1147 EDT Body Mass Index 23.83 03/02/2024 1147 EDT Plan of Treatment Health Maintenance Due Date Last Done Comments Pneumococcal Immunization (1 of 2 - PCV) 1990 Hepatitis B Vaccine (1 of 3 - 19+ 3-dose series) 05/08 COVID-19 Vaccine ( - season) 2024 Hepatitis C Screen Completed 05/13/2024 Procedures Procedure Name Priority Date/Time Associated Diagnosis Comments HEPATITIS C AB W REFLEX TO HCV RNA BY PCR Routine 05/13/2024 17:00 EDT from Last 3 Months or Most Recently Relevant to Health Maintenance Results * HEPATITIS C AB W REFLEX TO HCV RNA BY PCR (05/13/2024 17:00 EDT) Hep C Antibody Negative Negative 05/14/2024 20:05 EDT [facility] Blood VENOUS BLOOD / Unknown 05/13/2024 17:00 EDT 05/14/2024 17:53 EDT us Provider Outr Resulting Lab CHEMISTRY & BLOOD GA S ORDERABLES Final Result [facility] [address] [place] [address] from Last 3 Months or Most Recently Relevant to Health Maintenance Insurance [place]ICAID [place] [employer] Advance Directives For more information, please contact: [phone] * Full Code (Latest Code Status on File) Date Activated Date Inactivated Comments 09/17/2022 19:16 09/29/2022 18:14 Question Answer Comments When the patient has NO PULSE: Full Code / CPR [facility]: Refer to current pap er/scanned [facility] for order details. * Full Code Date Activated Date Inactivated Comments 07/30/2022 16:21 08/30/2022 18:26 Question Answer Comments When the patient has NO PULSE: Full Code / CPR Who Made the Decision? Patient * Full Code Date Activated Date Inactivated Comments 07/29/2022 18:43 07/30/2022 15:11 Question Answer Comments When the patient has NO PULSE: Full Code / CPR Who Made the Decision? Default/Not Discussed Care Teams Planner Intern Relationship Specialty Start Date End Date Esperanza Scott FNP [address] [place] [address] PCP - General Family Medicine - Primary Care 08/24/22
--- OUTSIDE RECORDS SUMMARY | 2024-09-30 14:23 | XMS_ITS | Encounter Summary ---
Author Organization [facility] Address [address] [place] [address] Care Team Providers Care Hydroelectric Plant Technician Name Role Phone None, Provider Primary Care Provider Unavailabl e Encounter Details Date Type Department Care Team (Late st Contact Info) Description 07/31/2022 Plan of Care Documentation [facility] Inpatient Psychiatry [address] [place], [place] [address] Social History Tobacco Use Types Packs/Day Years Used Date Smoking Tobacco: Some Days Cigarettes Smokeless Tobacco: Never Alcohol Use Standard Drinks/Week Comments Not Currently 0 (1 standard drink = 0.6 oz pur e alcohol) AUDIT-C Answer Date Recorded Q1: How [...] 11:32 EDT Sexual Orientation Not on file COVID-19 Exposure Response Date Recorded In the last 10 days, have yo u been in contact with someone who was confirmed or suspected to have Coronavirus/COVID-19? No / Unsure 07/29/2022 11:21 EST documented as of this encounter Functional Status * Are you deaf or do you have serious difficulty hearing? Answer Date of Assessment Author No 07/30/2022 17:18 Ubaldo Rand * Are you blind or do you have serious difficulty seeing, even when wearing glasses? Answer Date of Assessment Author No 07/30/2022 17:18 Ubaldo Rand * Do you have serious difficulty walking or climbing stairs? (5 years old or older) Answer Date of Assessment Author No 07/30/2022 17:18 Ubaldo Rand * Do you have difficulty dressing or bathing? (5 years old or older) Answer Date of Assessment Author No 07/30/2022 17:18 Ubaldo Rand * Because of a physical, mental, or emotional condition, do you have difficulty doing errands alone such as visiting a doctor's office or shopping? (15 years old or older) Answer Date of Assessment Author No 07/30/2022 17:18 Ubaldo Rand documented as of this encounter Mental Status * Because of a physical, mental, or emotional condition, do you have serious difficulty concentrating, remembering, or making decisions? (5 years old or older) Answer Entry Date Author No 07/30/2022 17:18 Ubaldo Rand documented in this encounter Progress Notes * Oliver Martinez - 07/31/2022 1322 EST Psychiatry Treatment Plan Admit Date: 07/30/22 Initial Observation Date (if different): 07/30/2022 Hospital day: LOS: 1 day Date of Service: 07/31/2022 Legal Status: Legal status: Voluntary Locus of Harm: Suicidal Ideation with active plan: No Patient's stated reason for hospitalization: I have been a little iffy Current Stressors: loss of job, Drugs/alcohol, Housing, financial concerns, family issues, Nightmares/ flashbacks, Employment concerns, Lack of sleep, Pain, Isolation Target Symptoms:Depressed-observed, Restricted/flat-observed Problems being addressed this admission: Depression Substance Abuse Identified strengths and barriers: Tuyet Edwards's Strengths:Interested in / accepting treatment Tuyet Edwards'chey Barriers: vulnerability to psychological stress Goals: 1. Tuyet Edwards will demonstrate stabilization of acute target signs and symptoms 2. Tuyet Edwards will increase understanding of her illness and treatment interventions 3. Tuyet Edwards will develop and implement aftercare plan for discharge Interventions / Plans: Psychiatry: Ongoing psychiatric evaluation and counseling Pharmacological management Appropriate medical studies and laboratory monitoring Nursing: See Care Plan documentation Social Work: Assist patient with discharge planning, including identifying discharge options Assisting with referrals Facilitate collaboration with family / support network Conduct treatment groups and encourage participation Collaboration with outpatient providers Advanced Practice Provider: See CARLOS's Assessment and Treatment Plan under History and Physical Outpatient Providers information: Name Number Mental Health Agency Psychiatrist Therapist Log Preparer PCP Guardian Family Contact Other [facility] Pt: Date: MD: Date: AP: Date: RN: Date: SW: Date: documented in this encounter Plan of Treatment Not on file documented as of this encounter Visit Diagnoses Not on filedocumented in this encounter Care Teams Hydroelectric Plant Technician Relationship Specialty Start Date End Date None, Provider PCP - General 07/29/22 08/23/22 documented as of this encounter
--- OUTSIDE RECORDS SUMMARY | 2024-09-30 14:23 | XMS_ITS | Encounter Summary ---
Author Organization [facility] Address [address] [place] [address] Care Team Providers Care Pyrometer Temperature Regulator Name Role Phone Esperanza Scott TRIMMER MEAT Primary Care Provider [phone] Encounter Details Date Type Department Care Team (Late st Contact Info) Description 10/30/2023 Lab Requisition [facility] Pathology & Laboratory Medicine - [address] [address] Krystyna Person [address] [place] [address] [place] [address] Encounter for other general examination Social History Tobacco Use Types Packs/Day Years Used Date Smoking Tobacco: Some Days Cigarettes Smokeless Tobacco: Never Alcohol Use Standard Drinks/Week Comments Yes 34 [...] 11:32 EDT Sexual Orientation Not on file documented as of this encounter Functional Status * Are you deaf or do you have serious difficulty hearing? Answer Date of Assessment Author No 09/17/2022 15:01 EST Akira Nath RN * Are you blind or do you have serious difficulty seeing, even when wearing glasses? Answer Date of Assessment Author No 09/18/2022 5:30 Jennyfer Bentley RN * Do you have serious difficulty walking or climbing stairs? (5 years old or older) Answer Date of Assessment Author No 09/18/2022 5:30 Jennyfer Bentley RN * Do you have difficulty dressing or bathing? (5 years old or older) Answer Date of Assessment Author No 09/18/2022 5:30 Jennyfer Bentley RN * Because of a physical, mental, or emotional condition, do you have difficulty doing errands alone such as visiting a doctor's office or shopping? (15 years old or older) Answer Date of Assessment Author No 07/30/2022 17:18 EST Ubaldo Najera documented as of this encounter Mental Status * Because of a physical, mental, or emotional condition, do you have serious difficulty concentrating, remembering, or making decisions? (5 years old or older) Answer Entry Date Author No 09/18/2022 5:30 Jennyfer Bentley RN documented in this encounter Plan of Treatment Not on file documented as of this encounter Procedures Procedure Name Priority Date/Time Associated Diagnosis Comments PAP TEST Today 10/27/2023 11:30 EST Encounter for other general examination HPV DNA DETECTION WITH GENOTYPING, PCR Today 10/27/2023 11:30 EST Encounter for other general examination documented in this encounter Results * HUMAN PAPILLOMAVIRUS (HPV) DETECTION-HIGH RISK TYPES (10/27/2023 11:30 EST) HPV other High Risk types, PCR Negative Negative 11/09/2023 13:55 EST [facility] Comment:No E6 or E7 mRNA is detected from HPV types 16,18,31,33,35,39,45,51,52,56,58,59,66, and 68 by wardrobe stylist mediated amplification. Pap Test CERVIX UTERI STRUCTURE / Unknown 10/27/2023 11:30 EST 11/08/2023 10:49 EST us Krystyna Person MICROBIOLOGY - GENERAL ORDERABLE S Final Result Performing Organization Address City/[facility]/ZIP Co de Phone Number [facility] [address] [place] [address] * PAP TEST (10/27/2023 11:30 EST) Specimens A. Cervix and/or Endocervix , ThinPrep Imaging System with Manual Evaluation 11/09/2023 13:55 [facility] Specimen Adequacy Satisfactory for Evaluation - transformation zone component present 11/09/2023 13:55 [facility] General Categorization Negative for intraepithelial lesion or malignancy 11/09/2023 13:55 [facility] Descriptive Diagnosis Shift in raisa present suggestive of bacterial vaginosis. 11/09/2023 13:55 [facility] Attestation . 11/09/2023 13:55 [facility] at 1355 Clinical History See below 11/09/19 24 13:55 [facility] HPV The result for the Human Papillomavirus (HPV) Detection-High Risk Types is Negative. No E6 or E7 mRNA is detected from HPV types 16,18,31,33,35,39 ,45,51,52,56,58,5 9,66, and 68 by wardrobe stylist mediated amplification.Emerald ting was performed on specimen [id number] and was resulted on 11/09/2023 1355 EST by JAM, LAB INSTRUMENT RESULTS IN 11/09/2023 13:55 EST [facility] Performing Lab [facility] 11/09/2023 13:55 [facility] Scanned Images 11/09/2023 13:55 [facility] Pap Test CERVIX UTERI STRUCTURE / Unknown 10/27/2023 11:30 EST 10/30/2023 10:53 EST us Krystyna Person PATHOLOGY ORDERABLES Final Resul t Performing Organization Address City/[facility]/ZIP Co de Phone Number [facility] [address] [place] [address] documented in this encounter Visit Diagnoses Diagnosis Encounter for other general examination documented in this encounter Care Teams Pyrometer Temperature Regulator Relationship Specialty Start Date End Date Esperanza Scott FNP [address] [place] [id number] PCP - General Family Medicine - Primary Care 08/24/22 documented as of this encounter
--- OUTSIDE RECORDS SUMMARY | 2024-09-30 14:23 | XMS_ITS | Encounter Summary ---
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 hospital in [place] a few days ago assuming she would be admitted but she was ultimately discharged and he found her wandering around town. Patient denies any suicidal ideation. History was provided by: Patient, spouse Patient's pertinent PMH, FH, SH were reviewed and edited as necessary. Nursing notes reviewed. A medical screening exam was performed. Physical Exam BP (!) 146/99 (BP Cuff Location: Left arm, BP Patient Position: Sitting) Pulse 94 Temp 37 ??C (98.6 ??F) (Oral) Resp 16 Ht 165 cm (64.96) Wt 64.9 kg (143 lb) SpO2 98% BMI 23.83 kg/m?? Physical Exam Vitals and nursing note reviewed. Constitutional: General: She is not in acute distress. HENT: Head: Normocephalic and atraumatic. Right Ear: External ear normal. Left Ear: External ear normal. Nose: Nose normal. Mouth/Throat: Mouth: Mucous membranes are moist. Eyes: Extraocular Movements: Extraocular movements intact. Pupils: Pupils are equal, round, and reactive to light. Cardiovascular: Rate and Rhythm: Normal rate and regular rhythm. Heart sounds: Normal heart sounds. Pulmonary: Effort: Pulmonary effort is normal. Breath sounds: Normal breath sounds. Musculoskeletal: General: No swelling or deformity. Normal range of motion. Cervical back: Normal range of motion and neck supple. Skin: General: Skin is warm and dry. Neurological: General: No focal deficit present. Mental Status: She is alert and oriented to person, place, and time. Psychiatric: Mood and Affect: Affect is labile and tearful. Speech: Speech is rapid and pressured. Behavior: Behavior is hyperactive. Procedures Procedures * Leida Baltazar DO - 03/02/2024 1121 EDT 03/04/24 7:18 Patient calm and cooperative overnight. Patient continues to await placement. * Jennifer Pearson MD - 03/02/2024 1121 EDT Relevant Data as of 03/04/24 2148 Mon Mar 04, 2024 0705 Pt signed out to me by Dr. Baltazar pending reeval by psych [ES] 1306 Dr. Mark Garcia from the [facility] is accepting patient. [ES] Relevant Data User Index [ES] Jennifer Pearson MD [GK] Moises Barba MD documented in this encounter Miscellaneous Notes * ED Consult - Bud Nur MD - 03/04/2024 1139 EDT Referral source: [facility] ED Case d.von Pearson MD. I discussed the case. Reason for referral: Concern for shawna CC: Racing thoughts Interval update: No acute events. Subjective: She says that she is doing better. She says that the medication is helpful for sleep though is making her kind of out of it. She does feel more calm. ROS: feels marti out of it, relates this to medications. No dyspnea. Objective: Vitals: 03/02/24 1147 03/03/24 1603 03/04/24 0951 03/04/24 1257 BP: (!) 146/99 (!) 145/72 (!) 151/101 (!) 152/107 BP Cuff Location: Left arm Left arm BP Patient Position: Sitting Sitting Sitting Sitting Pulse: 94 65 94 88 Resp: Temp: 37 ??C (98.6 ??F) 36.6 ??C (97.8 ??F) 36.8 ??C (98.2 ??F) 36.5 ??C (97.7 ??F) TempSrc: Oral Temporal Temporal Temporal SpO2: 98% 98% 98% 100% Weight: 64.9 kg (143 lb) Height: 165 cm (64.96) Awake Alert Grossly oriented Attention intact to conversation Speech mildly pressured, normal volume, normal rate Thought process tangential at times, can be linear Associations tight Insight fair Judgement fair Results for orders placed or performed during the hospital encounter of 03/02/24 (from the past 24 hour(s)) POCT TEST, VISUAL READ Result Value Ref Range Test, Urine, POC Negative Negative Control Line Present Yes Background Clear? Yes COMPLETE BLOOD COUNT Result Value Ref Range WBC 6.96 4.00 - 12.40 K/cmm RBC 3.90 3.86 - 5.04 M/cmm Hemoglobin 13.1 11.6 - 15.2 g/dL HCT 39.5 34.9 - 44.4 % MCV 101 (H) 81 - 98 fL MCH 33.6 (H) 26.7 - 33.3 pg MCHC 33.2 32.1 - 35.9 g/dL RDW-CV 14.9 (H) <14.7 % RDW-SD 55.0 (H) <50.4 fl PLT 166 141 - 377 K/cmm MPV 10.2 9.5 - 12.7 fL COMPREHENSIVE METABOLIC PANEL (CMP) Result Value Ref Range Sodium 140 136 - 145 mmol/L Potassium 4.4 3.5 - 5.0 mmol/L Chloride 108 96 - 110 mmol/L CO2 Total 24 22 - 32 mmol/L Glucose 102 (H) 70 - 99 mg/dl BUN 15 10 - 26 mg/dL Creatinine 0.44 (L) 0.52 - 1.04 mg/dL eGFR 126 >60 mL/min/1.73m2 Total Protein 7.5 6.3 - 8.2 g/dL Albumin 4.2 3.4 - 4.9 g/dL Alkaline Phosphatase 80 38 - 126 U/L AST 57 (H) 15 - 46 U/L ALT 35 (H) <35 U/L Bilirubin, Total 0.7 <1.4 mg/dL Calcium 9.7 8.5 - 10.5 mg/dL Albumin/Globulin Ratio 1.3 1.0 - 2.5 Anion Gap 8 5 - 14 mmol/L As documented by Carrie Méndez DO on 03/03/24 at 1650, Diagnosis: Unspecified bipolar disorder (current presentation concerning for shawna) Rule out alcohol induced neurocognitive disorder Alcohol use disorder, severe Cannabis use disorder, severe Opioid use disorder Assessment: Patient is a 38 yo woman with a history of polysubstance abuse, mood disorder, concern for prior Korsakoff syndrome versus alcoholic dementia who presents with labile mood concerning for shawna. Contributing factors to recent unstable mood appear related to recent heavy alcohol use, cannabis use, and initiation of antidepressant. Patient is agreeable to voluntary psychiatric treatment at this time. Patient may meet criteria for involuntary treatment and psychiatry should be contactedif requesting to leave the hospital. 03/03: Patient presents with improving mood stability after sleeping last night and initiation of olanzapine. I concur with the copied documentation. The patient continues to improve though continues to require hospitalization. Recommendations: Agree with current management. * ED Consult - TrungQuyen - 03/02/2024 2226 EDT Customer Assistance Associate Initial Assessment Note Clinical Interpretation: The patient came to the ER via her . She was seen by Dr Alvarado and 'medically cleared'. I was able to meet with Tuyet in the [facility]. This is the first time I meet with her. She appears to be disorganized and struggling on explaining what led her to the ER. She is disheveled and tearful. She agreed to be admitted for stabilization of symptoms. At this time it was agreed that she was going to be seen by the on-call psychiatrist, Dr Méndez. Plan: Patient agreed to be hospitalized. The planned disposition for this patient is: Inpatient admission on a voluntary basis. Referrals placed to:[facility] Consultation with: Dr Alvarado and Dr Méndez. Please see full note in scanned media. Quyen Nino Customer Assistance Associate [facility] documented in this encounter Plan of Treatment Not on file documented as of this encounter Procedures Procedure Name Priority Date/Time Associated Diagnosis Comments COMPLETE BLOOD COUNT Routine 03/03/2024 22:31 EDT COMPREHENSIVE METABOLIC PANEL (CMP) Routine 03/03/2024 22:31 EDT POCT TEST, VISUAL READ STAT 03/03/2024 17:26 EDT DRUG SCREEN 12, URINE STAT 03/02/2024 11:55 EDT documented in this encounter Results * (ABNORMAL) COMPREHENSIVE METABOLIC PANEL (CMP) (03/03/2024 22:31 EDT) Sodium 140 136 - 145 mmol/L 03/03/2024 22:49 EDT [facility] Potassium 4.4 3.5 - 5.0 mmol/L 03/03/2024 22:49 EDT [facility] Chloride 108 96 - 110 mmol/L 03/03/2024 22:49 EDT [facility] CO2 Total 24 22 - 32 mmol/L 03/03/2024 22:49 EDT [facility] Glucose 102(H) 70 - 99 mg/dl 03/03/2024 22:49 EDT [facility] BUN 15 10 - 26 mg/dL 03/03/2024 22:49 [facility] Creatinine 0.44(L) 0.52 - 1.04 mg/dL 03/03/2024 22:49 [facility] eGFR 126 >60 mL/min/1.7 3m2 03/03/2024 22:49 [facility] Total Protein 7.5 6.3 - 8.2 g/dL 03/03/2024 22:49 [facility] Albumin 4.2 3.4 - 4.9 g/dL 03/03/2024 22:49 [facility] Alkaline Phosphatase 80 38 - 126 U/L 03/03/2024 22:49 [facility] AST 57(H) 15 - 46 U/L 03/03/2024 22:49 [facility] ALT 35(H) <35 U/L 03/03/2024 22:49 [facility] Bilirubin, Total 0.7 <1.4 mg/dL 03/03/20 22:49 [facility] Calcium 9.7 8.5 - 10.5 mg/dL 03/03/2024 22:49 [facility] Albumin/Globulin Ratio 1.3 1.0 - 2.5 03/03/2024 22:49 [facility] Anion Gap 8 5 - 14 mmol/L 03/03/2024 22:49 [facility] Blood VENOUS BLOOD / Unknown Venipuncture / Unknown 03/03/2024 22:31 EDT 03/03/2024 22:34 EDT us London Alvarado MD CHEMISTRY & BLOOD GAS ORDERABLES Final Result [facility] [address] [place] [id number] * (ABNORMAL) COMPLETE BLOOD COUNT (03/03/2024 22:31 EDT) WBC 6.96 4.00 - 12.40 K/cmm 03/03/2024 22:37 [facility] RBC 3.90 3.86 - 5.04 M/cmm 03/03/2024 22:37 [facility] Hemoglobin 13.1 11.6 - 15.2 g/dL 03/03/2024 22:37 [facility] HCT 39.5 34.9 - 44.4 % 03/03/2024 22:37 [facility] MCV 101(H) 81 - 98 fL 03/03/2024 22:37 [facility] MCH 33.6(H) 26.7 - 33.3 pg 03/03/2024 22:37 [facility] MCHC 33.2 32.1 - 35.9 g/dL 03/03/2024 22:37 [facility] RDW-CV 14.9(H) <14.7 % 03/03/2024 22:37 [facility] RDW-SD 55.0(H) <50.4 fl 03/03/2024 22:37 [facility] PLT 166 141 - 377 K/cmm 03/03/2024 22:37 [facility] MPV 10.2 9.5 - 12.7 fL 03/03/2024 22:37 [facility] Blood VENOUS BLOOD / Unknown Venipuncture / Unknown 03/03/2024 22:31 EDT 03/03/2024 22:34 EDT us London Alvarado MD HEMATOLOGY & PF4 ORDERABLES Bhakti l Result [facility] [address] [place] [address] * POCT TEST, VISUAL READ (03/03/2024 17:26 EDT) Test, Urine, POC Negative Negative Control Line Present Yes Background Clear? Yes Urine URINE SPECIMEN OBTAINED BY CLEAN CATCH PROCEDURE / Unknown 03/03/2024 17:26 EDT us London Alvarado MD POINT OF CARE TEST ORDERABLES Fi nal Result * (ABNORMAL) DRUG SCREEN 12, URINE (03/02/2024 11:55 EDT) Amphetamine Screen, Ur Negative Screen Negative Screen 03/02/2024 12:11 [facility] Barbiturates Screen, Ur Negative Screen Negative Screen 03/02/2024 12:11 [facility] Benzodiazepine Screen, Ur Negative Screen Negative Screen 03/02/2024 12:11 [facility] Cocaine Metabolites Screen, Ur Negative Screen Negative Screen 03/02/2024 12:11 [facility] Methamphetamine Screen, Ur Negative Screen Negative Screen 03/02/2024 12:11 [facility] Methadone Screen, Ur Presumptive Positive, interpret with caution.(A) Negative Screen 03/02/2024 12:11 [facility] Opiates Screen, Ur Negative Screen Negative Screen 03/02/2024 12:11 [facility] Oxycodone Screen, Ur Negative Screen Negative Screen 03/02/2024 12:11 [facility] Phencyclidine Screen, Ur Negative Screen Negative Screen 03/02/2024 12:11 [facility] Cannabinoids Screen, Ur Negative Screen Negative Screen 03/02/2024 12:11 [facility] Buprenorphine and Metabolites Screen, Ur Negative Screen Negative Screen 03/02/2024 12:11 [facility] Tricyclics Screen, Ur Negative Screen Negative Screen 03/02/2024 12:11 [facility] Urine URINE / Unknown Urine Collect / Unknown 03/02/2024 11:55 EDT 03/02/2024 11:58 [facility] - 03/02/2024 12:11 EDT Drug Class Cutoff Concentrations: Amphetamines - 500 ng/mL Barbiturates - 200 ng/mL Benzodiazepines - 150 ng/mL Cocaine - 150 ng/mL Methamphetamine - 500 ng/mL Methadone - 200 ng/mL Opiates - 100 ng/mL Oxycodone - 100 ng/mL Phencyclidine (PCP) - 25 ng/mL Tetrahydrocannabinol (THC) - 50 ng/mL Propoxyphene - 300 ng/mL Buprenorphine and Metabolites - 10 ng/mL Tricyclic Antidepressants - 300 ng/mL This is a screening assay only, intended for use in clinical monitoring or management of patients. False positive or false negative results can occur. ??If confirmation testing is needed, please place order as Add-On order in Epic. ??Specimens are retained in the laboratory for 7 days. us London Alvarado MD GEN LAB UNIT COLLECT ORDERABLES Final Result [facility] [address] [place] [address] documented in this encounter Visit Diagnoses Diagnosis Manic behavior (HCC-CMS)- Primary Bipolar I disorder, single manic episode, unspecified Manic behavior (HCC-CMS) Bipolar I disorder, single manic episode, unspecified Cannabis use disorder, moderate, dependence (HCC-CMS) [F12.20] Alcohol use disorder [F10.90] Cannabis use disorder, moderate, dependence (HCC-CMS) Alcohol use disorder documented in this encounter Administered Medications Inactive Administered Medications - up to 3 most recent administrations Medication Order MAR Action Action Date Dose Rate Site gabapentin (NEURONTIN) tablet 600 mg 600 mg, oral, 3 TIMES DAILY, First dose on 03/03/24 at 1500, Until Discontinued, Routine Given 03/04/2024 13:28 EDT 600 mg Given 03/04/2024 10:05 EDT 600 mg Given 03/03/2024 15:58 EDT 600 mg LORazepam (ATIVAN) tablet 1 mg 1 mg, oral, AT BEDTIME, First dose on 03/02/24 at 2230, Until Discontinued, Routine Given 03/02/2024 22:16 EDT 1 mg methadone (DOLOPHINE) concentrated solution 70 mg 70 mg, oral, DAILY, First dose on 03/04/24 at 1015, Until Discontinued, Routine Given 03/04/2024 10:04 EDT 70 mg multivitamin-iron fumarate-FA (THERA-M PLUS) 9 mg iron-400 mcg tablet 1 Tablet 1 Tablet, oral, DAILY, 5 doses, First dose on 03/03/24 at 0900, Last dose on Shobha 03/07/24 at 0900, Routine, Release Given 03/04/2024 10:04 EDT 1 Tablet Given 03/03/2024 11:35 EDT 1 Tablet nicotine polacrilex (NICORETTE) gum 2 mg 2 mg, oral, EVERY 2 HOURS PRN, Starting on 03/02/24 at 1808, Until 03/04/24 at 1634, Smoking Cessation, Routine Given 03/02/2024 18:15 EDT 2 mg OLANZapine (ZYPREXA) tablet 10 mg 10 mg, oral, 2 TIMES DAILY, First dose on 03/02/24 at 2230, Until Discontinued, Routine Given 03/04/2024 10:04 EDT 1 0 mg Given 03/03/2024 11:35 EDT 10 mg Given 03/02/2024 22:16 EDT 10 mg thiamine (VITAMIN B-1) 100 mg in sodium chloride (NS) 0.9 % 50 mL IVPB 100 mg, intravenous, Administer over 30 Minutes, DAILY, 5 doses, First dose on 03/03/24 at 0900, Last dose on Shobha 03/07/24 at 0900, Routine, Release thiamine (VITAMIN B-1) injection 100 mg 100 mg, intramuscular, DAILY, 5 doses, First dose on 03/03/24 at 0900, Last dose on Shobha 03/07/24 at 0900, Routine, Release thiamine (VITAMIN B1) tablet 100 mg 100 mg, oral, DAILY, 5 doses, First dose on 03/03/24 at 0900, Last dose on Shobha 03/07/24 at 0900, Routine, Release Given 03/04/2024 10:04 EDT 100 mg Given 03/03/2024 11:35 EDT 100 mg documented in this encounter Active and Recently Administered Medications Times are shown in EDT. Scheduled Medication Order 03/02/2024 03/03/2024 03/04/2024 gabapentin (NEURONTIN) tablet 600 mg 600 mg, oral, 3 TIMES DAILY, First dose on 03/03/24 at 1500, Until Discontinued, Routine 1558 (Given - Provider: Neela Bobo RN)2232 (Hold - Provider: Neela Bobo RN - Reason: Patient/family refused) 1005 (Given - Provider: Verenice Dowd RN)1328 (Given - Provider: Verenice Dowd RN) LORazepam (ATIVAN) tablet 1 mg (CANCELED) 1 mg, oral, AT BEDTIME, First dose on 03/02/24 at 2230, Until Discontinued, Routine 221 (Given - Provider: Sarah Cancino RN) methadone (DOLOPHINE) concentrated solution 70 mg 70 mg, oral, DAILY, First dose on 03/04/24 at 1015, Until Discontinued, Routine 1004 (Given - Provider: Verenice Dowd RN) multivitamin-iron fumarate-FA (THERA-M PLUS) 9 mg iron-400 mcg tablet 1 Tablet 1 Tablet, oral, DAILY, 5 doses, First dose on 03/03/24 at 0900, Last dose on Shobha 03/07/24 at 0900, Routine, Release 1135 (Given - Provider: Neela Bobo RN) 1004 (Given - Provider: Verenice Dowd RN) OLANZapine (ZYPREXA) tablet 10 mg 10 mg, oral, 2 TIMES DAILY, First dose on 03/02/24 at 2230, Until Discontinued, Routine 2216 (Given - Provider: Sarah Cancino RN) 1135 (Given - Provider: Neela Bobo RN)2232 (Hold - Provider: Neela Bobo RN - Reason: Patient/family refused) 1004 (Given - Provider: Verenice Dowd RN) thiamine (VITAMIN B-1) 100 mg in sodium chloride (NS) 0.9 % 50 mL IVPB(Linked Group 1) 100 mg, intravenous, Administer over 30 Minutes, DAILY, 5 doses, First dose on 03/03/24 at 0900, Last dose on Shobha 03/07/24 at 0900, Routine, Release 1135 (See Alternative - Provider: Neela Bobo RN) 1004 (See Alternative - Provider: Verenice Dowd RN) thiamine (VITAMIN B-1) injection 100 mg(Linked Group 1) 100 mg, intramuscular, DAILY, 5 doses, First dose on 03/03/24 at 0900, Last dose on Shobha 03/07/24 at 0900, Routine, Release 1135 (See Alternative - Provider: Neela Bobo, JIAN) 1004 (See Alternative - Provider: Verenice Dowd, RN) thiamine (VITAMIN B1) tablet 100 mg(Linked Group 1) 100 mg, oral, DAILY, 5 doses, First dose on 03/03/24 at 0900, Last dose on Shobha 03/07/24 at 0900, Routine, Release 1135 (Given - Provider: Neela Bobo, JIAN) 1004 (Given - Provider: Verenice Dowd, RN) PRN Medication Order 03/02/2024 03/03/2024 03/04/2024 nicotine polacrilex (NICORETTE) gum 2 mg 2 mg, oral, EVERY 2 HOURS PRN, Starting on 03/02/24 at 1808, Until 03/04/24 at 1634, Smoking Cessation, Routine 1815 (Given - Provider: Luisana Lynne RN) Linked Groups Order Group 1: thiamine (VITAMIN B1) tablet 100 mgJump to med 100 mg, oral, DAILY, 5 doses, First dose on 03/03/24 at 0900, Last dose on Shobha 03/07/24 at 0900, Routine, Release Or thiamine (VITAMIN B-1) injection 100 mgJump to med 100 mg, intramuscular, DAILY, 5 doses, First dose on 03/03/24 at 0900, Last dose on Shobha 03/07/24 at 0900, Routine, Release Or thiamine (VITAMIN B-1) 100 mg in sodium chloride (NS) 0.9 % 50 mL IVPBJump to med 100 mg, intravenous, Administer over 30 Minutes, DAILY, 5 doses, First dose on 03/03/24 at 0900, Last dose on Shobha 03/07/24 at 0900, Routine, Release documented in this encounter Orders Medications Ordered That Phan ht Not Have Been Administered Count Last Ordered Date First Ordered Date thiamine (VITAMIN B-1) 100 m g in sodium chloride (NS) 0.9 % 50 mL IVPB 1 03/02/2024 thiamine (VITAMIN B-1) injection 100 mg 1 0 03/02/2024 Nursing Count Last Ordered Date First Orde red Date CALL [facility]/SCREENER 1 03/02/2024 documented in this encounter Care Teams Poultry Farmer Egg Relationship Specialty Start Date End Date Esperanza Scott FNP [address] [place] [phone] PCP - General Family Medicine - Primary Care 08/24/22 documented as of this encounter
--- OUTSIDE RECORDS SUMMARY | 2024-09-30 14:23 | XMS_ITS | Referral Summary ---
Author Organization [facility] Address [address] [place] [address] Care Team Providers Care Screener And Blender Operator Name Role Phone SaschaEsperanza hernandez TOBACCO FEEDER CATCHER Primary Care Provider [phone] Allergies No known active allergies Medications methadone [...] Diagnosed Date Cannabis use disorder, moderate, dependence ([facility] -CMS) 03/04/2024 Alcohol use disorder 03/04/2024 Manic behavior ([facility]-CMS) 03/02/2024 Depressive disorder 09/17/2022 Alcohol use disorder, severe, dependence (HCC-CM S) 07/30/2022 Depression 07/30/2022 Depression, unspecified depression type 07/30/20 22 Delirium 07/29/2022 Right carpal tunnel syndrome 08/21/2019 Opioid use disorder, moderate, dependence (HCC-C MS) Alcohol withdrawal syndrome, with delirium ([facility]- CMS) Resolved Problems Problem Noted Date Diagnosed Date Resolved Date Suicidal ideation 09/17/2022 09/28/2022 Tobacco dependence 07/31/2022 Delirium due to another medical condition 07/29/2022 09/28/2022 Tobacco use 09/28/2022 Elevated BP without diagnosis of hypertension 08/30/2022 Psychosis ([facility]) 09/28/19 23 Immunizations Name Administration Dates Next Due Influenza Vaccine Quad PF 0.5 ml IM (6 mos+) Social History Tobacco Use Types Packs/Day Years [...] 11:32 EDT Sexual Orientation Not on file Last Filed Vital Signs Vital Sign Reading [...] Body Mass Index 23.83 03/02/2024 1147 EDT Functional Status * Are you deaf or do you have serious difficulty hearing? Answer Date of Assessment Author No 03/02/2024 11:44 EDT Kermit Swann RN * Are you blind or do you have serious difficulty seeing, even when wearing glasses? Answer Date of Assessment Author No 09/18/2022 5:30 EST Bri, Jennyfer, RN * Do you have serious difficulty walking or climbing stairs? (5 years old or older) Answer Date of Assessment Author No 09/18/2022 5:30 Jennyfer Bentley RN * Do you have difficulty dressing or bathing? (5 years old or older) Answer Date of Assessment Author No 09/18/2022 5:30 Jennyfer Bentley, JIAN * Because of a physical, mental, or emotional condition, do you have difficulty doing errands alone such as visiting a doctor's office or shopping? (15 years old or older) Answer Date of Assessment Author No 07/30/2022 17:18 Ubaldo Rand Mental Status * Because of a physical, mental, or emotional condition, do you have serious difficulty concentrating, remembering, or making decisions? (5 years old or older) Answer Entry Date Author No 09/18/2022 5:30 Jennyfer Bentley RN Plan of Treatment Not on file Procedures Procedure Name Priority Date/Time Associated Diagnosis Comments HEPATITIS C AB W REFLEX TO HCV RNA BY PCR Routine 05/13/2024 17:00 EDT from Last 3 Months or Most Recently Relevant to Health Maintenance Results * HEPATITIS C AB W REFLEX TO HCV RNA BY PCR (05/13/2024 17:00 EDT) Hep C Antibody Negative Negative 05/14/2024 20:05 EDT [facility] Blood VENOUS BLOOD / Unknown 05/13/2024 17:00 EDT 05/14/2024 17:53 EDT us Provider Outr Resulting Lab CHEMISTRY & BLOOD GA S ORDERABLES Final Result [facility] [address] [place], [place] [id number] from Last 3 Months or Most Recently Relevant to Health Maintenance Insurance MEDICAID [place] MEDICAID [facility] Advance Directives For more information, please contact: [phone] * Full Code (Latest Code Status on File) Date Activated Date Inactivated Comments 09/17/2022 19:16 09/29/2022 18:14 Question Answer Comments When the patient has NO PULSE: Full Code / CPR [facility]: Refer to current pap er/scanned [facility]OL[facility] [...] Made the Decision? Default/Not Discussed Care Teams Screener And Blender Operator Relationship Specialty Start Date End Date Esperanza Scott FNP [address] [place] [phone] PCP - General Family Medicine - Primary Care 08/24/22
--- OUTSIDE RECORDS SUMMARY | 2024-09-30 14:23 | XMS_ITS | Encounter Summary ---
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 holidays and what she has put her family through. She does not present as overly depressed. She acknowledges having somesuicidal thoughts but denies any plan or intent. She seems to deny any homicidal or violent ideations. She reports ongoing but significantly diminished AH of multiple voices, who warns her. She perceives them to be more positive. She denies VH and doesn't present as overly suspicious or paranoid. She continues to express some concerns about staying with her boyfriend, [place], but doesn't elaborate further. Per team, boyfriend has been minimally involved in her care. She reports persistent but improved cognitive impairment affecting memory and some word finding difficulty although this is not evident today. Current Facility-Administered Medications Medication Route Frequency ??? acetaminophen (TYLENOL) tablet 650 mg oral Q4H PRN ? ? aluminum & magnesium hydroxide-simethicone (MAALOX PLUS) 200-200-20 mg/5 mL suspension 30 mL oral Q4H PRN ??? b hsxvcez-D-egufd acid (NEPHROCAPS) 1 mg capsule 1 Capsule oral DAILY ??? cyproheptadine (PERIACTIN) tablet 4 mg oral Q6H PRN ??? gabapentin (NEURONTIN) capsule 300 mg oral TID ??? lidocaine (PF) 10 mg/mL (1 %) injection 2 mg intradermal PRN ??? melatonin tablet 3 mg oral AT BEDTIME PRN ??? methadone (DOLOPHINE) concentrated solution 70 mg oral DAILY ??? mirtazapine (REMERON) tablet 7.5 mg oral QHS ??? nicotine (NICOTROL) 10 mg inhaler kit 1 Inhaler inhalation Q2H PRN ??? nicotine inhaler (delivery device) inhalation PRN ??? OLANZapine (ZYPREXA) tablet 2.5 mg oral BID PRN ??? senna (SENOKOT) tablet 1 Tablet oral AT BEDTIME PRN ??? thiamine (VITAMIN B1) tablet 100 mg oral DAILY Mental status exam: Appearance: 37 year old woman, dressed neatly with make up Behavior: cooperative Arousal: awake, alert Attention/Concentration: attends to conversation Orientation: grossly oriented Memory: Reports subjective impairment, no obvious impairment noted Mood: Good... A lot calmer.... Affect: neutral; mood congruent Speech: regular to rate, rhythm, and volume Thought Process/Language: superficially organized but vague Associations: seemingly intact Perception: occasionally observed to talking to self in the milieu; reports ongoing but diminished AH; denies VH Gait: normal Motor: no PM disturbances or abnl movements noted Danger Self: Acknowledges some suicidal thoughts but denies any plan or intent Danger Other: denies HI; no threatening statements or postures Fund of Knowledge: appropriate Insight/Judgement: fair BP 105/63 (BP Cuff Location: Right arm, BP Patient Position: Sitting) Pulse 77 Temp 36.1 ??C (97 ??F) (Temporal) Resp 16 Ht 164 cm (64.57) Wt 58.1 kg (128 lb) SpO2 98% BMI 21.59 kg/m?? Data Review: Labs: No results found for this or any previous visit (from the past 24 hour(s)). Other studies:N/A Assessment/Formulation: (include vol/invol, mode of transport to hosp, who referred, risk to self/others) Per previous, Tuyet Edwards is a 37 y.o. is a 37 yo woman with a history of depression, anxiety, severe AUD, OUD on MTD, who presented for detox from alcohol, with concurrent symptoms of auditory hallucinations, depersonalization, memory impairments, behavioral disorganization and depression. Patient was treated with IV thiamine at [facility] days prior to admission and received IV thiamine treatment here. Patient has had worsening clinical status with treatment with antipsychotics (including olanzapine up to 10mg po bid and risperidone 2mg po bid) for potential psychotic illness/affective illness. 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 Brain MRI was noted to be unremarkable. Heavy metal, RPR unremarkable. Patient has had relative stability of vital signs and no autonomic instability. Neurology consultation was completed and EEG and/or LP was not recommended. MOCA 08/25/22: with significant deficits in memory and language. Patient presents with improving symptoms with discontinuation of antipsychotic medications. Family meeting 08/30/22 with long-term partner and of daughter. Tentative discharge date 09/01/22. Seemingly improved although difficult to tell as patient is not known to me. No obvious cognitive deficits noted on exam today. Pt also reporting persistent but diminished AH. Plan for family meetingtomorrow and discharge later in the week. Tuyet Edwards meets criteria for acute level of care. 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 -Continue to review B/R/SE and alternatives to current meds. -Continue to provide support and encouragement. -Continue to review cognitive and behavioral strategies to help with problems and symptoms. -Continue to encourage ongoing engagement in the milieu and activities of the unit. -Will otherwise continue current treatment plan. Discharge Plan: Discharge planning per multidisciplinary team rounds. Time Specifier: I spent a total of 35 minutes with this patient and in direct floor time today. Over 50% of this time was spent in counseling and coordination of care as described in the note. Prasanna Mistry MD 08/29/2022 13:40 * Adriana Camargo MD - 08/28/2022 0907 EST Inpatient Psychiatry Daily Progress Note 08/28/2022 Admit Date: 07/30/22 Hospital day: LOS: 29 days Legal Status: Legal status: Voluntary Observation Level: Observation / visual check: Q 15 minutes (frequent) Locus/Risk of Harm: Current locus of harm: 4 Reason for Admission/Chief Complaint: Altered mental status, depression, AH, disorganized behavior,and alcohol abuse Clinical Updates/24-hour Events: Patient with limited interactions with peers, somewhat more talkative with staff. Slept 4.5 hours overnight, received PRN melatonin and sound machine overnight. Plan for family meeting on Monday with likely discharge on . Subjective: Patient remains quite vague overall. Indicates doing not too bad, better than it has been. Notes feling as though she has been on a roller coaster lately, with lots of ups and downs. She describes being here in the hospital as a generally good experience, but feels that she didn't use the resources as well as I could have. When asked to elaborate, she shares that her stay has beenbeneficial particularly for sobriety, but that she hasn't been as open about her other mental health struggles. Specifically, describes concern for ADHD, as well as sharing that BPAD runs in her family and is of concern for her. She feels that her history of substance use has limited appreciation of her ADHD, though also acknowledges that it is not something that she has brought up before as a concern during this admission. Discussed that this would be something to explore with an outpatient provider and that there are certainly options to consider, Tuyet expressed a desire to do this. Noted plan for her to get connected with [facility]. Tuyet also endorses her home setting as being not as uplifting as it could be, feels that her partner could be more supportive. Identifies struggling to put into words how she is feeling, which can make communication between them difficult. She feels that if she had someone to talk to things would be better/may not have gotten to this point, and does have interest in getting connected with a counselor going forward. Tuyet expresses regret about not being more open about what she was experiencing when she first came to the hospital. Assured her that itis normal to need some time to feel safe enough to talk about difficult things, and that an inpatient hospitalization is a starting point to work from. Asks appropriate questions about gabapentin a its role in her treatment. Describes chronic restlesslegs, asks if the gabapentin helps with this. Additionally discussed that it can be helpful for AUD, though reviewed that it is not like disulfiram in that it will cause a reaction if she drinks as she initially questions. Tuyet denies SI, HI, AVH and does not appear to be responding internally during our conversation, though noted to be mumbling to self in the milieu. She endorses feeling safe on the unit. Current Facility-Administered Medications Medication Route Frequency ??? acetaminophen (TYLENOL) tablet 650 mg oral Q4H PRN ? ? aluminum & magnesium hydroxide-simethicone (MAALOX PLUS) 200-200-20 mg/5 mL suspension 30 mL oral Q4H PRN ??? b pthaokc-X-ftobw acid (NEPHROCAPS) 1 mg capsule 1 Capsule oral DAILY ??? cyproheptadine (PERIACTIN) tablet 4 mg oral Q6H PRN ??? gabapentin (NEURONTIN) capsule 300 mg oral TID ??? lidocaine (PF) 10 mg/mL (1 %) injection 2 mg intradermal PRN ??? melatonin tablet 3 mg oral AT BEDTIME PRN ??? methadone (DOLOPHINE) concentrated solution 70 mg oral DAILY ??? mirtazapine (REMERON) tablet 7.5 mg oral QHS ??? nicotine (NICOTROL) 10 mg inhaler kit 1 Inhaler inhalation Q2H PRN ??? nicotine inhaler (delivery device) inhalation PRN ??? OLANZapine (ZYPREXA) tablet 2.5 mg oral BID PRN ??? senna (SENOKOT) tablet 1 Tablet oral AT BEDTIME PRN ??? thiamine (VITAMIN B1) tablet 100 mg oral DAILY Mental status exam: Appearance: 37 year old woman, dressed casually Behavior: cooperative Arousal: awake, alert Attention/Concentration: somewhat limited, though generally able to sustain appropriate conversation Orientation: oriented to self, location, and time Memory: struggles with recent memory Mood: alright Affect: anxious, blunted, mood incongruent Speech: regular to rate, rhythm, and volume Thought Process/Language: superficially organized, vague. Confabulation noted during hospitalization. Associations: loose Perception: Observed to be talking to herself in the milieu though improved from initial presentation. In direct conversation less internally preoccupied. Gait: normal Motor: bilateral hand tremor - mild, restlessness, pacing in the milieu at times Danger Self: Denies SI Danger Other: denies HI; no threatening statements or postures Fund of Knowledge: appropriate Insight/Judgement: limited BP 123/80 (BP Cuff Location: Right arm, BP Patient Position: Sitting) Pulse 77 Temp 36.6 ??C (97.8 ??F) (Temporal) Resp 18 Ht 164 cm (64.57) Wt 58.1 kg (128 lb) SpO2 97% BMI 21.59 kg/m?? Data Review: Labs: No results found for this or any previous visit (from the past 24 hour(s)). Other studies:N/A Assessment/Formulation: (include vol/invol, mode of transport to hosp, who referred, risk to self/others) Tuyet Edwards is a 37 y.o. is a 37 yo woman with a history of depression, anxiety, severe AUD, OUD onMTD, who presented for detox from alcohol, with concurrent symptoms of auditory hallucinations, depersonalization, memory impairments, behavioral disorganization and depression. Patient was treated with IV thiamine at [facility] days prior to admission and received IV thiamine treatment here. Patient has had worsening clinical status with treatment with antipsychotics (including olanzapine up to 10mg po bid and risperidone 2mg po bid) for potential psychotic illness/affective illness. 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 Brain MRI was noted to be unremarkable. Heavy metal, RPR unremarkable. Patient has had relative stability of vital signs and no autonomic instability. Neurology consultation was completed and EEG and/or LP was not recommended. MOCA 08/25/22: with significant deficits in memory and language. Patient presents with improving symptoms with discontinuation of antipsychotic medications. Family meeting 08/30/22 with long-term partner and of daughter. Tentative discharge date 09/01/22. Tuyet Edwards meets criteria for acute level of care. 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 inpatient psychiatry -Locus: IV -Obs: frequent. -Continue Gabapentin 300mg po tid for neuropathic pain, anxiety, and alcohol relapse prevention -Continue thiamine 100mg po daily -Continue Remeron 7.5mg po at bedtime for treatment of depression and and insomnia Discharge Plan: Discharge planning per multidisciplinary team rounds. Time Specifier: I spent a total of 35 minutes with this patient and in direct floor time today. Over 50% of this time was spent in counseling and coordination of care as described in the note. Adriana Camargo MD 08/28/2022 9:07 * Laila Owens - 08/27/2022 1538 EST Patient met with SW for check-in and discharge planning. Patient affect was blunted, but brightenedwith interaction. Patient had better eye contact and seemed less anxious and more talkative than inprevious meetings. Patient stated that she is always been a loner and has difficulty talking to people about things that are going on in her life. Patient stated that she is looking forward to getting a therapist to help her with some of her challenges. She added that the hardest thing for her was not knowing where she stands with her home or with her significant other. Patient stated that she found a few new books to read that were a bit more bubbly. After talking for a few more minutes, patient indicated that she had no other concerns or questions. Of note, in the afternoon patient appeared to have returned to her previous presentation, being more anxious and erratic. * Lucio Matt MD - 08/27/2022 0808 EST Inpatient Psychiatry Daily Progress Note 08/27/2022 Admit Date: 07/30/22 Hospital day: LOS: 28 days Legal Status: Legal status: Voluntary Observation Level: Observation / visual check: Q 15 minutes (frequent) Locus/Risk of Harm: Current locus of harm: 4 Reason for Admission/Chief Complaint: Altered mental status, depression, AH, disorganized behavior,and alcohol abuse Clinical Updates/24-hour Events: Patient keeping to herself. Engages briefly with staff. Appears toself-dialogue while walking on the unit. Patient up and down throughout the night. Subjective: Patient quite vague in describing why she is in the hospital and current symptoms. Appear she may not recall. 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 Does not endorse any symptoms on ROS with exception of inattention. Unaware of her current meds. She is unaware of any discharge plan. Current Facility-Administered Medications Medication Route Frequency ??? acetaminophen (TYLENOL) tablet 650 mg oral Q4H PRN ? ? aluminum & magnesium hydroxide-simethicone (MAALOX PLUS) 200-200-20 mg/5 mL suspension 30 mL oral Q4H PRN ??? b dmtxbks-R-pckzu acid (NEPHROCAPS) 1 mg capsule 1 Capsule oral DAILY ??? cyproheptadine (PERIACTIN) tablet 4 mg oral Q6H PRN ??? gabapentin (NEURONTIN) capsule 300 mg oral TID ??? lidocaine (PF) 10 mg/mL (1 %) injection 2 mg intradermal PRN ??? melatonin tablet 3 mg oral AT BEDTIME PRN ??? methadone (DOLOPHINE) concentrated solution 70 mg oral DAILY ??? mirtazapine (REMERON) tablet 7.5 mg oral QHS ??? nicotine (NICOTROL) 10 mg inhaler kit 1 Inhaler inhalation Q2H PRN ??? nicotine inhaler (delivery device) inhalation PRN ??? OLANZapine (ZYPREXA) tablet 2.5 mg oral BID PRN ??? senna (SENOKOT) tablet 1 Tablet oral AT BEDTIME PRN ??? thiamine (VITAMIN B1) tablet 100 mg oral DAILY Mental status exam: Appearance: 37 year old woman, dressed casually Behavior: cooperative Arousal: awake, alert Attention/Concentration: limited Orientation: oriented to self, location, and time Memory: struggles with recent memory Mood: alright Affect: anxious, blunted, mood incongruent Speech: regular to rate, rhythm, and volume Thought Process/Language: disorganized, confabulation Associations: loose Perception: Appears internally preoccupied, observed to be talking to herself in the milieu Gait: normal Motor: bilateral hand tremor - mild, restlessness, pacing in the milieu at times Danger Self: Denies SI Danger Other: denies HI; no threatening statements or postures Fund of Knowledge: appropriate Insight/Judgement: limited BP 110/62 (BP Cuff Location: Right arm, BP Patient Position: Sitting) Pulse 63 Temp 37 ??C (98.6 ??F) (Temporal) Resp 15 Ht 164 cm (64.57) Wt 58.1 kg (128 lb) SpO2 98% BMI 21.59 kg/m?? Data Review: Labs: No results found for this or any previous visit (from the past 24 hour(s)). Other studies:N/A Assessment/Formulation: (include vol/invol, mode of transport to hosp, who referred, risk to self/others) Tuyet Edwards is a 37 y.o. is a 37 yo woman with a history of depression, anxiety, severe AUD, OUD onMTD, who presented for detox from alcohol, with concurrent symptoms of auditory hallucinations, depersonalization, memory impairments, behavioral disorganization and depression. Patient was treated with IV thiamine at [facility] days prior to admission and received IV thiamine treatment here. Patient has had worsening clinical status with treatment with antipsychotics (including olanzapine up to 10mg po bid and risperidone 2mg po bid) for potential psychotic illness/affective illness. 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 Brain MRI was noted to be unremarkable. Heavy metal, RPR unremarkable. Patient has had relative stability of vital signs and no autonomic instability. Neurology consultation was completed and EEG and/or LP was not recommended. MOCA 08/25/22: with significant deficits in memory and language. Patient presents with improving symptoms with discontinuation of antipsychotic medications. Family meeting 08/30/22 with long-term partner and of daughter. Tentative discharge date 09/01/22. Tuyet Edwards meets criteria for acute level of care. 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 inpatient psychiatry -Locus: IV -Obs: frequent. -Continue Gabapentin 300mg po tid for neuropathic pain, anxiety, and alcohol relapse prevention -Continue thiamine 100mg po daily -Continue Remeron 7.5mg po at bedtime for treatment of depression and and insomnia Discharge Plan: Discharge planning per multidisciplinary team rounds. Time Specifier: I spent a total of 25 minutes with this patient and in direct floor time today. Over 50% of this time was spent in counseling and coordination of care as described in the note. Lucio Matt MD 08/27/2022 8:09 * Curtis Méndez, - 08/26/2022 1448 EST Inpatient Psychiatry Daily Progress Note 08/26/2022 Admit Date: 07/30/22 Hospital day: LOS: 27 days Legal Status: Legal status: Voluntary Observation Level: Observation / visual check: Q 15 minutes (frequent) Locus/Risk of Harm: Current locus of harm: 4 Reason for Admission/Chief Complaint: Altered mental status, depression, AH, disorganized behavior,and alcohol abuse Clinical Updates/24-hour Events: Patient reportedly slept 6 hours. Patient reportedly appearing calmer on the unit, improving eye contact, and less irritability. Patient seen and examined with SW. Patient reports at times feeling pulled in different directions. She reports less racing thoughts and anxiety. She reports improving sleep. She reports less frequent AH. Current Facility-Administered Medications Medication Route Frequency ??? acetaminophen (TYLENOL) tablet 650 mg oral Q4H PRN ? ? aluminum & magnesium hydroxide-simethicone (MAALOX PLUS) 200-200-20 mg/5 mL suspension 30 mL oral Q4H PRN ??? b wexfidp-Q-scfna acid (NEPHROCAPS) 1 mg capsule 1 Capsule oral DAILY ??? cyproheptadine (PERIACTIN) tablet 4 mg oral Q6H PRN ??? gabapentin (NEURONTIN) capsule 300 mg oral TID ??? lidocaine (PF) 10 mg/mL (1 %) injection 2 mg intradermal PRN ??? melatonin tablet 3 mg oral AT BEDTIME PRN ??? methadone (DOLOPHINE) concentrated solution 70 mg oral DAILY ??? mirtazapine (REMERON) tablet 7.5 mg oral QHS ??? nicotine (NICOTROL) 10 mg inhaler kit 1 Inhaler inhalation Q2H PRN ??? nicotine inhaler (delivery device) inhalation PRN ??? OLANZapine (ZYPREXA) tablet 2.5 mg oral BID PRN ??? senna (SENOKOT) tablet 1 Tablet oral AT BEDTIME PRN ??? thiamine (VITAMIN B1) tablet 100 mg oral DAILY Mental status exam: Appearance: 37 year old woman, dressed casually Behavior: cooperative Arousal: awake, alert Attention/Concentration: limited Orientation: oriented to self, location, and time Memory: struggles with recent memory Mood: alright Affect: anxious, blunted, mood incongruent Speech: regular to rate, rhythm, and volume Thought Process/Language: disorganized, confabulation Associations: loose Perception: Appears internally preoccupied, observed to be talking to herself in the milieu Gait: normal Motor: bilateral hand tremor - mild, restlessness, pacing in the milieu at times Danger Self: Denies SI Danger Other: denies HI; no threatening statements or postures Fund of Knowledge: appropriate Insight/Judgement: limited BP 114/69 (BP Cuff Location: Right arm, BP Patient Position: Sitting) Pulse 63 Temp 36.1 ??C (96.9 ??F) (Temporal) Resp 18 Ht 164 cm (64.57) Wt 58.1 kg (128 lb) SpO2 98% BMI 21.59 kg/m?? Data Review: Labs: No results found for this or any previous visit (from the past 24 hour(s)). Other studies:N/A Assessment/Formulation: (include vol/invol, mode of transport to hosp, who referred, risk to self/others) Tuyet Edwards is a 37 y.o. is a 37 yo woman with a history of depression, anxiety, severe AUD, OUD onMTD, who presented for detox from alcohol, with concurrent symptoms of auditory hallucinations, depersonalization, memory impairments, behavioral disorganization and depression. Patient was treated with IV thiamine at [facility] days prior to admission and received IV thiamine treatment here. Patient has had worsening clinical status with treatment with antipsychotics (including olanzapine up to 10mg po bid and risperidone 2mg po bid) for potential psychotic illness/affective illness. 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 Brain MRI was noted to be unremarkable. Heavy metal, RPR unremarkable. Patient has had relative stability of vital signs and no autonomic instability. Neurology consultation was completed and EEG and/or LP was not recommended. MOCA 08/25/22: with significant deficits in memory and language. Patient presents with improving symptoms with discontinuation of antipsychotic medications. Family meeting 08/30/22 with long-term partner and of daughter. Tentative discharge date 09/01/22. Tuyet Edwards meets criteria for acute level of care. 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 inpatient psychiatry -Locus: IV -Obs: frequent. -Continue Gabapentin 300mg po tid for neuropathic pain, anxiety, and alcohol relapse prevention -Continue thiamine 100mg po daily -Continue Remeron 7.5mg po at bedtime for treatment of depression and and insomnia Discharge Plan: Discharge planning per multidisciplinary team rounds. Time Specifier: I spent a total of 15 minutes with this patient and in direct floor time today. Over 50% of this time was spent in counseling and coordination of care as described in the note. Curtis Méndez DO 08/26/2022 14:48 * Laila Owens - 08/26/2022 1336 EST Patient met with MD & LEATHA for check in and discharge planning. Patient reported that she was doing good. She asked about paperwork from [facility] and SW responded that it had not been received yet andthat SW would call to check on it. Patient asked it there was anything else. MD asked her about hermood, and she responded that her mood is blue. She went on to say that her emotions were up in the air that she doesn't know how to feel. She added that she feels like she is being pulled in a lot of directions. Patient again asked if there was anything else. There were no more questions and patient left. SW called BRADLY re: fax and left a message. * Curtis Méndez DO - 08/25/2022 1502 EST Inpatient Psychiatry Daily Progress Note 08/25/2022 Admit Date: 07/30/22 Hospital day: LOS: 26 days Legal Status: Legal status: Voluntary Observation Level: Observation / visual check: Q 15 minutes (frequent) Locus/Risk of Harm: Current locus of harm: 4 Reason for Admission/Chief Complaint: Altered mental status, depression, AH, disorganized behavior,and alcohol abuse Clinical Updates/24-hour Events: Patient reportedly slept 6 hours. Patient appears less irritated on exam today. She appears less internally preoccupied. She denies new problems. Reports ongoing racing thoughts. MOCA was completed and noted to be 22/30 with deficits in language, memory, and visuospatial capabilities. Current Facility-Administered Medications Medication Route Frequency ??? acetaminophen (TYLENOL) tablet 650 mg oral Q4H PRN ? ? aluminum & magnesium hydroxide-simethicone (MAALOX PLUS) 200-200-20 mg/5 mL suspension 30 mL oral Q4H PRN ??? b drsowtp-U-yzhto acid (NEPHROCAPS) 1 mg capsule 1 Capsule oral DAILY ??? cyproheptadine (PERIACTIN) tablet 4 mg oral Q6H PRN ??? gabapentin (NEURONTIN) capsule 300 mg oral TID ??? lidocaine (PF) 10 mg/mL (1 %) injection 2 mg intradermal PRN ??? melatonin tablet 3 mg oral AT BEDTIME PRN ??? methadone (DOLOPHINE) concentrated solution 70 mg oral DAILY ??? mirtazapine (REMERON) tablet 7.5 mg oral QHS ??? nicotine (NICOTROL) 10 mg inhaler kit 1 Inhaler inhalation Q2H PRN ??? nicotine inhaler (delivery device) inhalation PRN ??? OLANZapine (ZYPREXA) tablet 2.5 mg oral BID PRN ??? senna (SENOKOT) tablet 1 Tablet oral AT BEDTIME PRN ??? thiamine (VITAMIN B1) tablet 100 mg oral DAILY Mental status exam: Appearance: 37 year old woman, dressed casually Behavior: cooperative, suspicious Arousal: awake, alert Attention/Concentration: limited Orientation: oriented to self, location, and time Memory: struggles with recent memory Mood: alright Affect: anxious, blunted, mood incongruent Speech: regular to rate, rhythm, and volume Thought Process/Language: disorganized, confabulation Associations: loose Perception: Appears internally preoccupied, observed to be talking to herself in the milieu Gait: normal Motor: bilateral hand tremor - mild, restlessness, pacing in the milieu at times Danger Self: Denies SI Danger Other: denies HI; no threatening statements or postures Fund of Knowledge: appropriate Insight/Judgement: limited BP 120/66 (BP Cuff Location: Right arm, BP Patient Position: Sitting) Pulse 78 Temp 36.9 ??C (98.4 ??F) (Temporal) Resp 16 Ht 164 cm (64.57) Wt 58.1 kg (128 lb) SpO2 98% BMI 21.59 kg/m?? Data Review: Labs: No results found for this or any previous visit (from the past 24 hour(s)). Other studies:N/A Assessment/Formulation: (include vol/invol, mode of transport to hosp, who referred, risk to self/others) Tuyet Edwards is a 37 y.o. is a 37 yo woman with a history of depression, anxiety, severe AUD, OUD onMTD, who presented for detox from alcohol, with concurrent symptoms of auditory hallucinations, depersonalization, memory impairments, behavioral disorganization and depression. Patient was treated with IV thiamine at [facility] days prior to admission and received IV thiamine treatment here. Patient has had worsening clinical status with treatment with antipsychotics (including olanzapine and risperidone) for potential psychotic illness/affective illness. 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 Brain MRI was noted to be unremarkable. Patient has had relative stability of vital signs and no autonomic instability. Neurology consultation was completed today and case was discussed with Dr. Figueroa. The utility of performing EEG and/or LP was discussed and determined to not pursue at this time. MOCA completed today and noted to be . Tuyet Edwards meets criteria for acute level of care. 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 inpatient psychiatry -Locus: IV -Obs: frequent. -Discontinue Zyprexa 10mg po at bedtime - patient's clinical course unchanged and possibly worsenedwith antipsychotic treatment -Cyproheptadine 4mg po q6hr prn anxiety/racing thoughts -Continue Gabapentin 300mg po tid for neuropathic pain, anxiety, and alcohol relapse prevention -Continue thiamine 100mg po daily -Decrease Remeron from 22.5mg po at bedtime To 7.5mg po at bedtime for treatment of depression and and insomnia Discharge Plan: Discharge planning per multidisciplinary team rounds. Time Specifier: I spent a total of 15 minutes with this patient and in direct floor time today. Over 50% of this time was spent in counseling and coordination of care as described in the note. Curtis Méndez DO 08/25/2022 15:02 * Sisi Mcmillan - 08/25/2022 0754 EST Pt and SW met for a check in and discharge planning. Pt reports feeling confused and unsure of whatshe needs to do. SW asks for clarity with her question and Pt dismissed the question. SW reviewed that Pt has a family meeting planned for Monday at 3pm with her partner Salvador coming in. A tentative discharge is scheduled for . LEATHA reached out to MILLIE in [facility] to confirm Pt is okay to resume dosing on Monday the . LEATHA also reached out to BRADLY to find out who Pt is assigned to and to schedule follow up. LEATHA scheduled Pt with a navigator and provider with [facility]. Pt was given a PCP information packet to complete. Pt struggled to focus on this task and required a lot of help. LEATHA faxed the packet back to the PCP office. * Curtis Méndez DO - 08/24/2022 1448 EST Inpatient Psychiatry Daily Progress Note 08/24/2022 Admit Date: 07/30/22 Hospital day: LOS: 25 days Legal Status: Legal status: Voluntary Observation Level: Observation / visual check: Q 15 minutes (frequent) Locus/Risk of Harm: Current locus of harm: 4 Reason for Admission/Chief Complaint: Altered mental status, depression, AH, disorganized behavior,and alcohol abuse Clinical Updates/24-hour Events: Patient reportedly slept 4 hours. Patient observed self-dialoguing on unit. She reports feeling pulled in different directions. Denies SI. Attending groups. Episodic irritability appears to be improving. Current Facility-Administered Medications Medication Route Frequency ??? acetaminophen (TYLENOL) tablet 650 mg oral Q4H PRN ? ? aluminum & magnesium hydroxide-simethicone (MAALOX PLUS) 200-200-20 mg/5 mL suspension 30 mL oral Q4H PRN ??? b psdezfe-C-tqhga acid (NEPHROCAPS) 1 mg capsule 1 Capsule oral DAILY ??? cyproheptadine (PERIACTIN) tablet 4 mg oral Q6H PRN ??? gabapentin (NEURONTIN) capsule 300 mg oral TID ??? lidocaine (PF) 10 mg/mL (1 %) injection 2 mg intradermal PRN ??? melatonin tablet 3 mg oral AT BEDTIME PRN ??? methadone (DOLOPHINE) concentrated solution 70 mg oral DAILY ??? mirtazapine (REMERON) tablet 7.5 mg oral QHS ??? nicotine (NICOTROL) 10 mg inhaler kit 1 Inhaler inhalation Q2H PRN ??? nicotine inhaler (delivery device) inhalation PRN ??? OLANZapine (ZYPREXA) tablet 2.5 mg oral BID PRN ??? senna (SENOKOT) tablet 1 Tablet oral AT BEDTIME PRN ??? thiamine (VITAMIN B1) tablet 100 mg oral DAILY Mental status exam: Appearance: 37 year old woman, dressed casually Behavior: cooperative, suspicious Arousal: awake, alert Attention/Concentration: limited Orientation: oriented to self, location, and time Memory: struggles with recent memory Mood: alright Affect: anxious, blunted, mood incongruent Speech: regular to rate, rhythm, and volume Thought Process/Language: disorganized, confabulation Associations: loose Perception: Appears internally preoccupied, observed to be talking to herself in the milieu Gait: normal Motor: bilateral hand tremor - mild, restlessness, pacing in the milieu at times Danger Self: Denies SI Danger Other: denies HI; no threatening statements or postures Fund of Knowledge: appropriate Insight/Judgement: limited BP 117/81 (BP Patient Position: Sitting) Pulse 72 Temp 36.6 ??C (97.8 ??F) (Temporal) Resp 15 Ht 164 cm (64.57) Wt 58.1 kg (128 lb) SpO2 99% BMI 21.59 kg/m?? Data Review: Labs: No results found for this or any previous visit (from the past 24 hour(s)). Other studies:N/A Assessment/Formulation: (include vol/invol, mode of transport to hosp, who referred, risk to self/others) Tuyet Edwards is a 37 y.o. is a 37 yo woman with a history of depression, anxiety, severe AUD, OUD onMTD, who presented for detox from alcohol, with concurrent symptoms of auditory hallucinations, depersonalization, memory impairments, behavioral disorganization and depression. Patient was treated with IV thiamine at [facility] days prior to admission and received IV thiamine treatment here. Patient has had worsening clinical status with treatment with antipsychotics (including olanzapine and risperidone) for potential psychotic illness/affective illness. 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 Brain MRI was noted to be unremarkable. Patient has had relative stability of vital signs and no autonomic instability. Neurology consultation was completed today and case was discussed with Dr. Figueroa. The utility of performing EEG and/or LP was discussed and determined to not pursue at this time. Tuyet Edwards meets criteria for acute level of care. 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 inpatient psychiatry -Locus: IV -Obs: frequent. -Discontinue Zyprexa 10mg po at bedtime - patient's clinical course unchanged and possibly worsenedwith antipsychotic treatment -Cyproheptadine 4mg po q6hr prn anxiety/racing thoughts -Continue Gabapentin 300mg po tid for neuropathic pain, anxiety, and alcohol relapse prevention -Continue thiamine 100mg po daily -Decrease Remeron from 22.5mg po at bedtime To 7.5mg po at bedtime for treatment of depression and and insomnia Discharge Plan: Discharge planning per multidisciplinary team rounds. Time Specifier: I spent a total of 15 minutes with this patient and in direct floor time today. Over 50% of this time was spent in counseling and coordination of care as described in the note. Curtis Méndez DO 08/24/2022 14:49 * Sisi Mcmillan - 08/24/2022 0744 EST Pt, , student and SW met for a check in and discharge planning. Pt reports that she is doing okaybut doesn't know what to say. Pt was having a conversation with unseen others in the kay before meeting with LEATHA and . Pt explained that she often talks with herself, it is something that runs in the family. Pt asked if we could go over the plan again. SW reviewed that I talked with her partner Salvador yesterday but am waiting to hear back from him to try to schedule a family meeting before discharge. Pt is scheduled for a tentative discharge next 09/01. Pt encourage to continue to get clarity from staff when feeling confused. Pt agreed and the meeting ended. SW had Pt review and sign an FIORDALIZA for the [facility] and scheduled a PCP appointment with Pt for 09/06 at 9:45am with Esperanza Scott. * Trixie Boudreaux RN - 08/23/20222006 EST Tuyet 08/22/22 & 08/23/22 joint nursing note Data: Tuyet came to the Focus Group yesterday and was able to sit for maybe 5 minutes before leaving the group. Today she did not attend group at all. Tuyet has been observed in the milieu eating meals, today noted to be pulling and eating things from other patient trays that were left on the counter - taking yogurts and coffees in particular off and eating/drinking them. Action: Tuyet appeared to be adherent with meds as prescribed during the last two days. She has been reminded about med times and will come right away to accept them at the desk. She seems forgetful when prompted to access something to drink to take with meds and has required additional prompts to get that or to stay at the desk to receive the meds while nurse goes to med room to retrieve items. Response: Tuyet appears to be responding to internal stim - noted to be quietly talking to no one in particular and at times she will be speaking to staff and at times does not seem clear in what sheis wanting to articulate - odd sentences and facial grimacing (eyebrows knotted and head nodding sharply) she remarked something to the effect of, ???I shouldn???t say anything.. it doesn???t make sense and it hurts people?? and walked away. Today she was noted to change her clothes multiple timesthroughout the shift. She has been actively walking around the unit while making facial expressionsand engaging in internal dialog it appears. * Curtis Méndez, DO - 08/23/2022 1422 EST Inpatient Psychiatry Daily Progress Note 08/23/2022 Admit Date: 07/30/22 Hospital day: LOS: 24 days Legal Status: Legal status: Voluntary Observation Level: Observation / visual check: Q 15 minutes (frequent) Locus/Risk of Harm: Current locus of harm: 4 Reason for Admission/Chief Complaint: Altered mental status, depression, AH, disorganized behavior,and alcohol abuse Clinical Updates/24-hour Events: Patient reportedly slept 6 hours. Patient observed self-dialoguing on unit. She reports feeling pulled in different directions. She reports having no periods in her life before teenage years where she has not been heavily drinking. Discussed tentative discharge plan next . Current Facility-Administered Medications Medication Route Frequency ??? acetaminophen (TYLENOL) tablet 650 mg oral Q4H PRN ? ? aluminum & magnesium hydroxide-simethicone (MAALOX PLUS) 200-200-20 mg/5 mL suspension 30 mL oral Q4H PRN ??? b pgnnjwe-O-szzdr acid (NEPHROCAPS) 1 mg capsule 1 Capsule oral DAILY ??? cyproheptadine (PERIACTIN) tablet 4 mg oral Q6H PRN ??? gabapentin (NEURONTIN) capsule 300 mg oral TID ??? lidocaine (PF) 10 mg/mL (1 %) injection 2 mg intradermal PRN ??? melatonin tablet 3 mg oral AT BEDTIME PRN ??? methadone (DOLOPHINE) concentrated solution 70 mg oral DAILY ??? mirtazapine (REMERON) tablet 22.5 mg oral QHS ??? nicotine (NICOTROL) 10 mg inhaler kit 1 Inhaler inhalation Q2H PRN ??? nicotine inhaler (delivery device) inhalation PRN ??? OLANZapine (ZYPREXA) tablet 2.5 mg oral BID PRN ??? OLANZapine (ZYPREXA) tablet 5 mg oral QHS ??? senna (SENOKOT) tablet 1 Tablet oral AT BEDTIME PRN ??? thiamine (VITAMIN B1) tablet 100 mg oral DAILY Mental status exam: Appearance: 37 year old woman, dressed casually Behavior: cooperative, suspicious Arousal: awake, alert Attention/Concentration: limited Orientation: oriented to self, location, and time Memory: struggles with recent memory Mood: alright Affect: anxious, blunted, mood incongruent Speech: regular to rate, rhythm, and volume Thought Process/Language: disorganized, confabulation Associations: loose Perception: Appears internally preoccupied, observed to be talking to herself in the milieu Gait: normal Motor: bilateral hand tremor - mild, restlessness, pacing in the milieu at times Danger Self: Denies SI Danger Other: denies HI; no threatening statements or postures Fund of Knowledge: appropriate Insight/Judgement: limited BP 109/61 (BP Cuff Location: Left arm, BP Patient Position: Sitting) Pulse 78 Temp 36.4 ??C (97.5 ??F) (Temporal) Resp 16 Ht 164 cm (64.57) Wt 58.1 kg (128 lb) SpO2 98% BMI 21.59 kg/m?? Data Review: Labs: Results for orders placed or performed during the hospital encounter of 07/30/22 (from the past 24 hour(s)) VITAMIN B12 Result Value Ref Range Vitamin B12 553 211 - 911 pg/mL Other studies:N/A Assessment/Formulation: (include vol/invol, mode of transport to hosp, who referred, risk to self/others) Tuyet russell a 37 y.o. is a 37 yo woman with a history of depression, anxiety, severe AUD, OUD onMTD, who presented for detox from alcohol, with concurrent symptoms of auditory hallucinations, depersonalization, memory impairments, behavioral disorganization and depression. Patient was treated with IV thiamine at [facility] days prior to admission and received IV thiamine treatment here. Patient has had worsening clinical status with treatment with antipsychotics (including olanzapine and risperidone) for potential psychotic illness/affective illness. 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 Brain MRI was noted to be unremarkable. Patient has had relative stability of vital signs and no autonomic instability. Neurology consultation was completed today and case was discussed with Dr. Figueroa. The utility of performing EEG and/or LP was discussed and determined to not pursue at this time. Tuyet Edwards meets criteria for acute level of care. Diagnostic Impression w/ Differential Diagnosis Psychiatric Diagnoses (including Personality Traits/Disorders): Unspecified depressive disorder Alcohol use disorder, severe Opioid use disorder, in reported sustained remission Cannabis use disorder, severe Rule out psychotic disorder (psychotic depression) versus resolving delirium Rule out PTSD Plan: (comment on changes in Level of Observation or Locus Risk of Harm) -Complete b12, rpr, ceruloplasmin, copper, lead -Continue voluntary inpatient admission to [facility] inpatient psychiatry -Locus: IV -Obs: frequent. -Decrease Zyprexa from 10mg po at bedtime to 5mg po at bedtime with plan to likely taper off as patient's clinical course has worsened with antipsychotic treatment -Cyproheptadine 4mg po q6hr prn anxiety/racing thoughts -Increase Gabapentin from 100mg po bid to 300mg po tid for neuropathic pain, anxiety, and alcohol relapse prevention -Continue thiamine 100mg po daily -Continue Remeron 22.5mg po at bedtime for treatment of depressive disorder and insomnia Discharge Plan: Discharge planning per multidisciplinary team rounds. Time Specifier: I spent a total of 25 minutes with this patient and in direct floor time today. Over 50% of this time was spent in counseling and coordination of care as described in the note. Curtis Méndez DO 08/23/2022 14:22 * Sisi Mcmillan - 08/23/2022 0734 EST Pt, , student and SW met for a check in and discharge planning. Pt reports feeling unsure if she wants to meet as she is unsure of what to say of how to say it. Pt is seen talking to unseen others in the kay prior to the meeting. Pt reports that things are going well and wonders when she will beable to discharge and where are we sending her after. Pt is reminded that the goal is for Pt to feel well and discharge back home. Pt talks about feeling unsure if her partner wants her back home or not. Pt reports that he says he wants her to return but she feels like maybe he is not saying whathe really wants. Pt and MD agree on a tentative discharge date for the and a plan to schedule a family meeting before then. Pt seemed more organized in this meeting but prior to the meeting and shortly after Pt seemed confused. SW to reach out to Pt's partner Salvador to schedule a meeting and provide an update. LEATHA spoke with Salvador on the phone for a short conversation and let him know of the tentative discharge plan of the . Salvador vented frustration around not hearing back from the hospital and not feeling informed in the process. Salvador also reports that at times Pt seems herself on the phone and other times she seems confused. Salvador requested to call SW back in an hour when he gets home as he answered the call while driving. SW provided the direct line. SW reaches out to Salvador again around 3:30 and leave another message but did not hear back by the end of the day. * Curtis Méndez, DO - 08/22/2022 1640 EST Inpatient Psychiatry Daily Progress Note 08/22/2022 Admit Date: 07/30/22 Hospital day: LOS: 23 days Legal Status: Legal status: Voluntary Observation Level: Observation / visual check: Q 15 minutes (frequent) Locus/Risk of Harm: Current locus of harm: 4 Reason for Admission/Chief Complaint: Altered mental status, depression, AH, disorganized behavior,and alcohol abuse Clinical Updates/24-hour Events: Patient reportedly slept 6 hours. Patient observed self-dialoguing on unit. She appears internally preoccupied. Her thoughts are disorganized. Memory deficits are present. She is a/ox3. Patient denies adverse side effects to medications. Discussed plan to order labs. Current Facility-Administered Medications Medication Route Frequency acetaminophen (TYLENOL) tablet 650 mg oral Q4H PRN aluminum & magnesium hydroxide-simethicone (MAALOX PLUS) 200-200-20 mg/5 mL suspension 30 mL oral Q4H PRN b klqwjro-Q-ghxtt acid (NEPHROCAPS) 1 mg capsule 1 Capsule oral DAILY cyproheptadine (PERIACTIN) tablet 4 mg oral Q6H PRN gabapentin (NEURONTIN) capsule 100 mg oral BID (0800 & 1400) lidocaine (PF) 10 mg/mL (1 %) injection 2 mg intradermal PRN melatonin tablet 3 mg oral AT BEDTIME PRN methadone (DOLOPHINE) concentrated solution 70 mg oral DAILY mirtazapine (REMERON) tablet 22.5 mg oral QHS nicotine (NICOTROL) 10 mg inhaler kit 1 Inhaler inhalation Q2H PRN nicotine inhaler (delivery device) inhalation PRN OLANZapine (ZYPREXA) tablet 10 mg oral QHS OLANZapine (ZYPREXA) tablet 5 mg oral BID PRN senna (SENOKOT) tablet 1 Tablet oral AT BEDTIME PRN thiamine (VITAMIN B1) tablet 100 mg oral DAILY Mental status exam: Appearance: 37 year old woman, dressed casually Behavior: cooperative, suspicious Arousal: awake, alert Attention/Concentration: limited Orientation: oriented to self, location, and time Memory: struggles with recent memory Mood: alright Affect: anxious, blunted, mood incongruent Speech: regular to rate, rhythm, and volume. Word finding difficulties Thought Process/Language: disorganized, confabulation Associations: loose Perception: Appears internally preoccupied, observed to be talking to herself in the milieu Gait: normal Motor: bilateral hand tremor - mild, restlessness, pacing in the milieu at times Danger Self: Denies SI Danger Other: denies HI; no threatening statements or postures Fund of Knowledge: appropriate Insight/Judgement: limited BP 128/79 (BP Patient Position: Sitting) Pulse 67 Temp 36.8 ??C (98.2 ??F) (Temporal) Resp 18 Ht 164 cm (64.57) Wt 58.1 kg (128 lb) SpO2 96% BMI 21.59 kg/m?? Data Review: Labs: No results found for this or any previous visit (from the past 24 hour(s)). Other studies:N/A Assessment/Formulation: (include vol/invol, mode of transport to hosp, who referred, risk to self/others) Tuyet Edwards is a 37 y.o. is a 37 yo woman with a history of depression, anxiety, severe AUD, OUD onMTD, who presented for detox from alcohol, with concurrent symptoms of auditory hallucinations, depersonalization, memory impairments, behavioral disorganization and depression. Patient was treated with IV thiamine at [facility] days prior to admission and received IV thiamine treatment here. Patient has had minimal response to antipsychotic treatment for potential psychotic illness/affective illness. Patient's history appears consistent with Korsakoff syndrome/protracted alcohol withdrawal delirium including confabulation, persistent confusion, memory impairment, AH and non-response to a ntipsychotic treatment. Brain MRI was noted to be unremarkable. Patient has had relative stability of vital signs and no autonomic instability. Neurology consultation was completed today and case wasdiscussed with Dr. Figueroa. The utility of performing EEG and/or LP was discussed and determined to not pursue at this time. Tuyet Edwards meets criteria for acute level of care. Diagnostic Impression w/ Differential Diagnosis Psychiatric Diagnoses (including Personality Traits/Disorders): Unspecified depressive disorder Alcohol use disorder, severe Opioid use disorder, in reported sustained remission Cannabis use disorder, severe Rule out psychotic disorder (psychotic depression) versus resolving delirium Rule out PTSD Plan: (comment on changes in Level of Observation or Locus Risk of Harm) -Complete b12, rpr, ceruloplasmin, copper, lead -Continue voluntary inpatient admission to [facility] inpatient psychiatry -Locus: IV -Obs: frequent. -Continue Zyprexa 10mg po at bedtime to 10mg po at bedtime with plan to likely taper off as patient's clinical course has worsened slightly with antipsychotic treatment -Cyproheptadine 4mg po q6hr prn anxiety/racing thoughts -Continue Gabapentin 100mg po bid for pain, anxiety -Continue thiamine 100mg po daily -Continue Remeron 22.5mg po at bedtime for treatment of depressive disorder and insomnia Discharge Plan: Discharge planning per multidisciplinary team rounds. Time Specifier: I spent a total of 25 minutes with this patient and in direct floor time today. Over 50% of this time was spent in counseling and coordination of care as described in the note. Curtis Méndez DO 08/22/2022 16:40 * Sisi Mcmillan - 08/22/2022 0829 EST Pt, MD and SW met for a check in and discharge planning. Pt reports doing okay but continues to report feeling like her thoughts are moving fast. While exploring this topic some more with Pt, Pt reported feeling like people are putting thoughts into her head like colors, shapes and things. Pt reports feeling like the medication has been helpful but is unable to give a understanding of how so. Pt appears disorganized, confused and appears to be responding to internal stim. Pt at time can be seentalking with unseen others, talking to the wall in the hallway and seems to miss interpret interactions at times. talked with Pt about needing to do a blood draw tomorrow and the plan is to continue as we are at this point in time. No discharge plan is in place at this time. * Yordan Gibbons MD - 08/21/2022 1721 EST Inpatient Psychiatry Daily Progress Note 08/21/2022 Admit Date: 07/30/22 Hospital day: LOS: 22 days Legal Status: Legal status: Voluntary Observation Level: Observation / visual check: Q 15 minutes (frequent) Locus/Risk of Harm: Current locus of harm: 4 Reason for Admission/Chief Complaint: Depression, unspecified depression type Clinical Update/24-hour Events: Per nursing report, Tuyet has been irritable in interactions with staff, and appears quite distracted. Although she has been A&Ox3 in assessments, she was noted tolook in the freezer for a nicotine cartridge, walk into another patient's room and make their bed, and walk into an additional patient's room. Appears to be responding to internal stimuli at times. Slept 5 hours overnight. Subjective: When I meet with Tuyet, she states that she feels depressed and anxious, and has absolutely no focus and ongoing racing thoughts. States she feels like she is putting people out and that she is a burden to others. When asked about social supports, she states that she has only recently gotten access to a phone. Declines to complete a MOCA at this time: that makes me nervous. Current Facility-Administered Medications Medication Route Frequency ??? acetaminophen (TYLENOL) tablet 650 mg oral Q4H PRN ? ? aluminum & magnesium hydroxide-simethicone (MAALOX PLUS) 200-200-20 mg/5 mL suspension 30 mL oral Q4H PRN ??? b igbaijx-I-cvqdc acid (NEPHROCAPS) 1 mg capsule 1 Capsule oral DAILY ??? cyproheptadine (PERIACTIN) tablet 4 mg oral Q6H PRN ? ? gabapentin (NEURONTIN) capsule 100 mg oral BID (0800 & 1400) ??? lidocaine (PF) 10 mg/mL (1 %) injection 2 mg intradermal PRN ??? melatonin tablet 3 mg oral AT BEDTIME PRN ??? methadone (DOLOPHINE) concentrated solution 70 mg oral DAILY ??? mirtazapine (REMERON) tablet 22.5 mg oral QHS ??? nicotine (NICOTROL) 10 mg inhaler kit 1 Inhaler inhalation Q2H PRN ??? nicotine inhaler (delivery device) inhalation PRN ??? OLANZapine (ZYPREXA) tablet 10 mg oral QHS ??? OLANZapine (ZYPREXA) tablet 5 mg oral BID PRN ??? senna (SENOKOT) tablet 1 Tablet oral AT BEDTIME PRN ??? thiamine (VITAMIN B1) tablet 100 mg oral DAILY Objective: BP 119/76 (BP Cuff Location: Right arm, BP Patient Position: Sitting) Pulse 78 Temp 36.5 ??C (97.7 ??F) (Oral) Resp 16 Ht 164 cm (64.57) Wt 58.1 kg (128 lb) SpO2 95% BMI 21.59 kg/m?? Tuyet is a 37 year old woman who appears stated age, casually dressed, with decreased grooming and hygiene. Easily distracted and superficially engaged during the interview, with socially-integrated eye contact. Moderate psychomotor hyperactivity without gait abnormalities. Speech has normal rate, tone, volume, articulation, and spontaneity. Mood is depressed and anxious, with which affect is congruently moderately tense and restricted. Thought process is circumstantial and quite vague; perhaps confabulatory at times. Thought content: denies thoughts of not wanting to be alive. Possibly impoverished thought content. When asked about perceptual disturbances, states that she feels paranoidthat people are talking about me and does not elaborate further. When I walked past Tuyet during the day, she is heard talking quietly, perhaps in response to unseen/unheard others. Insight is limited. Judgment is fair to poor. Data Review: Labs: No results found for this or any previous visit (from the past 24 hour(s)). Other studies:N/A Assessment/Formulation: Per assessment by Dr. Curtis Méndez on 08/19: Tuyet Edwards is a 37 y.o. is a 37 yo woman with a history of depression, anxiety, severe AUD, OUD on MTD, who presented for detox from alcohol, with concurrent symptoms of auditory hallucinations, depersonalization, memory impairments, behavioral disorganization and depression. Patient was treated with IV thiamine at [facility] days prior to admission and received IV thiamine treatment here.Patient has had minimal response to antipsychotic treatment for potential psychotic illness/affective illness. Patient's history appears consistent with Korsakoff syndrome/protracted alcohol withdrawal delirium including confabulation, persistent confusion, memory impairment, AH and non- response toantipsychotic treatment. Brain MRI was noted to be unremarkable. Patient has had relative stabilityof vital signs and no autonomic instability. Neurology consultation was completed today and case was discussed with Dr. Figueroa. The utility of performing EEG and/or LP was discussed and determined t o not pursue at this time. Tuyet Edwards meets criteria for acute level of care. Agree with the above assessment. She appears to exhibit psychotic symptoms, but cannot rule out confabulation and/or an encephalopathic process at this time. Would benefit from a MOCA if amenable, and perhaps the remainder of a first- episode psychosis workup (including vitamin B12, serum treponemaltest, HIV, ABBEY, heavy metal screen, and serum ceruloplasmin). Diagnostic Impression Psychiatric Diagnoses (including Personality Traits/Disorders): Unspecified psychotic disorder vs. Resolving delirium. Alcohol use disorder, severe. Unspecified depressive disorder. Opioid use disorder, in sustained remission. Cannabis use disorder, severe. Other Medical Conditions: Principal Problem: Depression, unspecified depression type Active Problems: Alcohol use disorder, severe, dependence ([facility]) ([facility]) Opioid use disorder, moderate, dependence ([facility]) ([facility]) Tobacco use Elevated BP without diagnosis of hypertension Alcohol withdrawal syndrome, with delirium ([facility]) Plan: -Continue voluntary inpatient admission to [facility] inpatient psychiatry -Locus: IV -Obs: frequent. -C/w olanzapine 10mg at bedtime with plan to likely taper off as patient's clinical course has worsened slightly with antipsychotic treatment. -Cyproheptadine 4mg po q6hr prn anxiety/racing thoughts. -Continue Gabapentin 100mg po bid for pain, anxiety. -Continue thiamine 100mg po daily. -Continue Remeron 22.5mg po at bedtime for treatment of depressive disorder and insomnia. Discharge Plan: Uncertain at this time. Discharge planning per multidisciplinary team rounds. Time Specifier: I spent a total of 20 minutes with this patient and in direct floor time today. Over 50% of this time was spent in counseling and coordination of care as described in the note. Yordan Gibbons MD 08/21/2022 17:22 Communication Professor, PGY-4 [facility] Pager #[phone] * Aleyda Azar RN - 08/20/2022 2221 EST [address] halls, frequently speaking in anxious conversational tone not directed at anyone present. Did not present for HS meds, laying in bed when approached in room. Opened eyes quickly at sound of name, sat up in bed scratching neck and face vigorously. Accepted cup with medications, held for a moment then thrust back at RN, I'm all set with these. HS medications reoffered at 1100. Patient accepted, then spit out into her palm, decisions decisions. RN reminded that patient has been taking as sched prev. Patient eventually took medications. * Laila Owens - 08/20/2022 1603 EST Patient met briefly with & LEATHA for check in and discharge planning. There was no significant change in patient presentation. Patient stated that her mood was good and that she slept better lastnight. When asked if she had any questions or concerns, patient replied that she would like us to tell her how NOT to get on other peoples nerves. At this point patient got up and left the meeting. * Bud Nur MD - 08/20/2022 1247 EST Inpatient Psychiatry Daily Progress Note Date of Service: 08/20/2022 Admit Date: 07/30/22 Hospital day: LOS: 21 days Legal Status: Legal status: Voluntary Observation Level: Observation / visual check: Q 15 minutes (frequent) Locus/Risk of Harm: Current locus of harm: 4 Reason for Admission/Chief Complaint: Altered mental status, depression, AH, disorganized behavior,and alcohol abuse Clinical Update/24-hour Events: Slpet 7.5 hours. Continues to decline referrals for out-patient treatment for CONSTANTINO. Current Facility-Administered Medications Medication Route Frequency ??? acetaminophen (TYLENOL) tablet 650 mg oral Q4H PRN ? ? aluminum & magnesium hydroxide-simethicone (MAALOX PLUS) 200-200-20 mg/5 mL suspension 30 mL oral Q4H PRN ??? b uyzyoko-X-xidhk acid (NEPHROCAPS) 1 mg capsule 1 Capsule oral DAILY ??? cyproheptadine (PERIACTIN) tablet 4 mg oral Q6H PRN ? ? gabapentin (NEURONTIN) capsule 100 mg oral BID (0800 & 1400) ??? lidocaine (PF) 10 mg/mL (1 %) injection 2 mg intradermal PRN ??? melatonin tablet 3 mg oral AT BEDTIME PRN ??? methadone (DOLOPHINE) concentrated solution 70 mg oral DAILY ??? mirtazapine (REMERON) tablet 22.5 mg oral QHS ??? nicotine (NICOTROL) 10 mg inhaler kit 1 Inhaler inhalation Q2H PRN ??? nicotine inhaler (delivery device) inhalation PRN ??? OLANZapine (ZYPREXA) tablet 10 mg oral QHS ??? OLANZapine (ZYPREXA) tablet 5 mg oral BID PRN ??? senna (SENOKOT) tablet 1 Tablet oral AT BEDTIME PRN ??? thiamine (VITAMIN B1) tablet 100 mg oral DAILY Review of Systems: (need 2 systems; may include sleep, appetite, medication side-effects) Slept well. No medication problems or side effects. Mental Status Exam: (need at least 9 findings) Awake, alert, oriented to person/place/situation. Adequate grooming and hygiene, cooperative with interview. Motor somewhat increased, pacing, fidgety. Eye contact normal. Recent memory reduced Mood anxious. Affect congruet Thought processes tangential, disorganized. Some loosening of associations. Appears to be responding to internal stimuli. Physical Exam: NAD BP 120/72 (BP Cuff Location: Left arm, BP Patient Position: Sitting) Pulse 70 Temp 36.7 ??C (98.1 ??F) (Temporal) Resp 16 Ht 164 cm (64.57) Wt 57.2 kg (126 lb) SpO2 98% BMI 21.25 kg/m?? Data Review: Labs: No results found for this or any previous visit (from the past 24 hour(s)). Other studies: None new Assessment/Formulation: (include vol/invol, mode of transport to hosp, who referred, risk to self/others) Per documentation by Carrie Méndez DO on 08/19/22 at 1533, copied text in this color, Tuyet Edwards is a 37 y.o. is a 37 yo woman with a history of depression, anxiety, severe AUD, OUD onMTD, who presented for detox from alcohol, with concurrent symptoms of auditory hallucinations, depersonalization, memory impairments, behavioral disorganization and depression. Patient was treated with IV thiamine at [facility] days prior to admission and received IV thiamine treatment here. Patient has had minimal response to antipsychotic treatment for potential psychotic illness/affective illness. Patient's history appears consistent with Korsakoff syndrome/protracted alcohol withdrawal delirium including confabulation, persistent confusion, memory impairment, AH and non-response to a ntipsychotic treatment. Brain MRI was noted to be unremarkable. Patient has had relative stability of vital signs and no autonomic instability. Neurology consultation was completed today and case wasdiscussed with Dr. Figueroa. The utility of performing EEG and/or LP was discussed and determined to not pursue at this time. ?? Tuyet Edwards meets criteria for acute level of care. ? Diagnostic Impression w/ Differential Diagnosis ?? Psychiatric Diagnoses (including Personality Traits/Disorders): ?? Unspecified depressive disorder?? Alcohol use disorder, severe Opioid use disorder, in reported sustained remission Cannabis use disorder, severe Rule out psychotic disorder (psychotic depression) versus resolving delirium Rule out PTSD I agree with the Assessment as documented by Dr. Méndez. The patient is stable, without significant change today. Plan: (comment on changes in Level of Observation or Locus Risk of Harm) Continue current management. Discharge Plan: ??Discharge planning per multidisciplinary team rounds. ?? I spent a total of??15 minutes with this patient and in direct floor time today. Over half of this time was spent in counseling and coordination of care as described in the above note. ?? Bud Nur MD 08/20/2022 12:47 * Dev Curtis Shanon, DO - 08/19/2022 1533 EST Inpatient Psychiatry Daily Progress Note 08/19/2022 Admit Date: 07/30/22 Hospital day: LOS: 20 days Legal Status: Legal status: Voluntary Observation Level: Observation / visual check: Q 15 minutes (frequent) Locus/Risk of Harm: Current locus of harm: 4 Reason for Admission/Chief Complaint: Altered mental status, depression, AH, disorganized behavior,and alcohol abuse Clinical Updates/24-hour Events: Patient reportedly slept 5 hours. Patient observed to be actively responding to internal stimuli. Patient reportedly wandering into others rooms. Patient seen and evaluated with social services. Patient noted to be arguing with self prior to encounter. She voices uncertainty about treatment plan or past treatment in the hospital. She has deficits in recent memory. She denies visual problems, pain. She denies problems with appetite. Bilateral hand tremor appears resolved. Consulting neurologist, Dr. Henry MD, saw patient today for further neurologic diagnostic considerations including autoimmune encephalitis, neoplastic syndromes, and seizures. Current Facility-Administered Medications Medication Route Frequency ??? acetaminophen (TYLENOL) tablet 650 mg oral Q4H PRN ? ? aluminum & magnesium hydroxide-simethicone (MAALOX PLUS) 200-200-20 mg/5 mL suspension 30 mL oral Q4H PRN ??? b wypcist-A-fjhlv acid (NEPHROCAPS) 1 mg capsule 1 Capsule oral DAILY ??? cyproheptadine (PERIACTIN) tablet 4 mg oral Q6H PRN ? ? gabapentin (NEURONTIN) capsule 100 mg oral BID (0800 & 1400) ??? lidocaine (PF) 10 mg/mL (1 %) injection 2 mg intradermal PRN ??? melatonin tablet 3 mg oral AT BEDTIME PRN ??? methadone (DOLOPHINE) concentrated solution 70 mg oral DAILY ??? mirtazapine (REMERON) tablet 22.5 mg oral QHS ??? nicotine (NICOTROL) 10 mg inhaler kit 1 Inhaler inhalation Q2H PRN ??? nicotine inhaler (delivery device) inhalation PRN ??? OLANZapine (ZYPREXA) tablet 10 mg oral QHS ??? OLANZapine (ZYPREXA) tablet 5 mg oral DAILY ??? OLANZapine (ZYPREXA) tablet 5 mg oral BID PRN ??? senna (SENOKOT) tablet 1 Tablet oral AT BEDTIME PRN ??? thiamine (VITAMIN B1) tablet 100 mg oral DAILY Mental status exam: Appearance: 37 year old woman, dressed casually Behavior: cooperative, suspicious Arousal: awake, alert Attention/Concentration: limited Orientation: oriented to self, location, and time Memory: struggles with recent memory Mood: not too bad Affect: anxious, blunted, mood incongruent Speech: regular to rate, rhythm, and volume. Word finding difficulties Thought Process/Language: disorganized, confabulation Associations: loose Perception: Appears internally preoccupied, observed to be talking to herself in the milieu Gait: normal Motor: bilateral hand tremor - mild, restlessness, pacing in the milieu at times Danger Self: Denies SI Danger Other: denies HI; no threatening statements or postures Fund of Knowledge: appropriate Insight/Judgement: limited BP 114/59 (BP Cuff Location: Right arm, BP Patient Position: Sitting) Pulse 70 Temp 36.7 ??C (98 ??F) (Temporal) Resp 17 Ht 164 cm (64.57) Wt 57.2 kg (126 lb) SpO2 98% BMI 21.25 kg/m?? Data Review: Labs: No results found for this or any previous visit (from the past 24 hour(s)). Other studies:N/A Assessment/Formulation: (include vol/invol, mode of transport to hosp, who referred, risk to self/others) Tuyet Edwards is a 37 y.o. is a 37 yo woman with a history of depression, anxiety, severe AUD, OUD onMTD, who presented for detox from alcohol, with concurrent symptoms of auditory hallucinations, depersonalization, memory impairments, behavioral disorganization and depression. Patient was treated with IV thiamine at [facility] days prior to admission and received IV thiamine treatment here. Patient has had minimal response to antipsychotic treatment for potential psychotic illness/affective illness. Patient's history appears consistent with Korsakoff syndrome/protracted alcohol withdrawal delirium including confabulation, persistent confusion, memory impairment, AH and non-response to a ntipsychotic treatment. Brain MRI was noted to be unremarkable. Patient has had relative stability of vital signs and no autonomic instability. Neurology consultation was completed today and case wasdiscussed with Dr. Figueroa. The utility of performing EEG and/or LP was discussed and determined to not pursue at this time. Tuyet Edwards meets criteria for acute level of care. Diagnostic Impression w/ Differential Diagnosis Psychiatric Diagnoses (including Personality Traits/Disorders): Unspecified depressive disorder Alcohol use disorder, severe Opioid use disorder, in reported sustained remission Cannabis use disorder, severe Rule out psychotic disorder (psychotic depression) versus resolving delirium Rule out PTSD Plan: (comment on changes in Level of Observation or Locus Risk of Harm) -Continue voluntary inpatient admission to [facility] inpatient psychiatry -Locus: IV -Obs: frequent. -Decrease Zyprexa from 5mg po daily, 10mg po at bedtime to 10mg po at bedtime with plan to likely taper off as patient's clinical course has worsened slightly with antipsychotic treatment -Cyproheptadine 4mg po q6hr prn anxiety/racing thoughts -Continue Gabapentin 100mg po bid for pain, anxiety -Continue thiamine 100mg po daily -Continue Remeron 22.5mg po at bedtime for treatment of depressive disorder and insomnia Discharge Plan: Discharge planning per multidisciplinary team rounds. Time Specifier: I spent a total of 25 minutes with this patient and in direct floor time today. Over 50% of this time was spent in counseling and coordination of care as described in the note. Curtis Méndez DO 08/19/2022 15:33 * Marcio Blackwell - 08/19/2022 1405 EST Group Note: Mindfulness The group goals include: developing coping skills, identifying feelings, identifying stressors and problems, increasing awareness of self in relation to others, increasing expression of needs, increasing relaxation, increasing responsibility for behavior, increasing self-esteem, increasing attention span, increasing organization, and increasing self-control. Assessment: Pt arrived after group began and left after 5 minutes. Communication: Pt shared during group Behavior: Behavior was appropriate Plan: Continue to attend group * Sisi Mcmillan - 08/19/2022 0824 EST Pt, MD and SW met for a check in and discharge planning. Pt presents as anxious, confused and appears to be responding to internal stim evidence by mumbling to her self and is over heard having a conversation with unseen others. Pt reports that she needs to know what to do and what's expected from her. SW and MD review that the plan is for Pt to stay here and continue to work on stability. Pt repo rts that she agrees with the plan and asks if we are done meeting. MD asks Pt a few more clarifyingquestions and partway through the conversation Pt pulls her mask down and then back up and is heardsaying something like 'do you want the mask up or down' as Pt looked away from the provider. Pt is over heard prior to the meeting talking to unseen others in her room. It sounds like she was being directed on were to put her clothes and how to move things in the room. No discharge plan is in placeat this time. * Trixie Boudreaux RN - 08/19/2022 0645 EST Data: Tuyet attended Wrap up group remarking that her bright spot of the day was, ???the sun setting and a call to her daughter???s dad that went well.?? Tuyet also remarked that she did meet her goals for today which were to walk in the halls and groups. She also remarked that she did have challenges and overcame them by taking a nap, breathing and that her challenges, ???were pretty much the whole day.?? Tuyet also remarked during group that she was grateful for, ???meals and a place to stay and folks putting up with me.?? Action: Tuyet was observed during group to be actively responding to internal stim evidenced by head turns/nods and mumbling and overt words spoken to no one in particular with facial expressions. Tuyet was able to manage attending the majority of the group before leaving to walk laps. Tuyet actively approached about her medications and received them, appearing to be adherent with meds as prescribed. Response: Tuyet has had an overall fair evening. Tuyet retired to her room around , [id number], [id number] and has slept for approx. 4.75 hours this shift, waking at 0247 and has been activelywalking laps in the hallways, she took a shower and seen walking laps again. Tuyet was found in room 323 visiting with male peer and reminded to not be in other???s rooms. She walked out of room immediately when I entered. * Oliver Martinez - 08/18/2022 1552 EST MD LEATHA meet with pt. Pt remains disorganized and her interaction is somewhat limited. Pt presents as having dialog with herself (mumbling). Pt states she does not feel clear today but wants to work towards this. SW discusses goal of helping pt work towards stability. Pt states agreement noting things seem to wax and wane throughout the day. Pt states walking helps her regulate. SW talks with pt about utilizing music as something to focus on as well. Pt reports she did not know this was an option and will plan to ask for headphones. * Curtis Méndez DO - 08/18/2022 1522 EST Inpatient Psychiatry Daily Progress Note 08/18/22 Admit Date: 07/30/22 Hospital day: LOS: 20 days Legal Status: Legal status: Voluntary Observation Level: Observation / visual check: Q 15 minutes (frequent) Locus/Risk of Harm: Current locus of harm: 4 Reason for Admission/Chief Complaint: Altered mental status, depression, AH, disorganized behavior,and alcohol abuse Clinical Updates/24-hour Events: Patient reportedly slept 6 hours. Patient seen and evaluated with social services. Patient reports sore leg muscles. She appears anxious and internally preoccupied. Patient is med adherent. She has not been attending groups. Patient reportedly trying on other peers clothing and wandering into others rooms. Current Facility-Administered Medications Medication Route Frequency ??? acetaminophen (TYLENOL) tablet 650 mg oral Q4H PRN ? ? aluminum & magnesium hydroxide-simethicone (MAALOX PLUS) 200-200-20 mg/5 mL suspension 30 mL oral Q4H PRN ??? b vpcsvwg-B-gwekh acid (NEPHROCAPS) 1 mg capsule 1 Capsule oral DAILY ??? cyproheptadine (PERIACTIN) tablet 4 mg oral Q6H PRN ? ? gabapentin (NEURONTIN) capsule 100 mg oral BID (0800 & 1400) ??? lidocaine (PF) 10 mg/mL (1 %) injection 2 mg intradermal PRN ??? melatonin tablet 3 mg oral AT BEDTIME PRN ??? methadone (DOLOPHINE) concentrated solution 70 mg oral DAILY ??? mirtazapine (REMERON) tablet 22.5 mg oral QHS ??? nicotine (NICOTROL) 10 mg inhaler kit 1 Inhaler inhalation Q2H PRN ??? nicotine inhaler (delivery device) inhalation PRN ??? OLANZapine (ZYPREXA) tablet 10 mg oral QHS ??? OLANZapine (ZYPREXA) tablet 5 mg oral DAILY ??? OLANZapine (ZYPREXA) tablet 5 mg oral BID PRN ??? senna (SENOKOT) tablet 1 Tablet oral AT BEDTIME PRN ??? thiamine (VITAMIN B1) tablet 100 mg oral DAILY Mental status exam: Appearance: 37 year old woman, dressed casually, neatly groomed Behavior: cooperative , suspicious Arousal: awake, alert Attention/Concentration: limited Orientation: oriented to self, location, and time Memory: struggles with recent memory Mood: not too bad Affect: anxious, blunted, mood incongruent Speech: regular to rate, rhythm, and volume. Word finding difficulties Thought Process/Language: disorganized, confabulation Associations: loose Perception: Appears internally preoccupied, observed to be talking to herself in the milieu Gait: normal Motor: bilateral hand tremor - mild, restlessness, pacing in the milieu at times Danger Self: Denies SI Danger Other: denies HI; no threatening statements or postures Fund of Knowledge: appropriate Insight/Judgement: limited BP 114/59 (BP Cuff Location: Right arm, BP Patient Position: Sitting) Pulse 70 Temp 36.7 ??C (98 ??F) (Temporal) Resp 17 Ht 164 cm (64.57) Wt 57.2 kg (126 lb) SpO2 98% BMI 21.25 kg/m?? Data Review: Labs: No results found for this or any previous visit (from the past 24 hour(s)). Other studies:N/A Assessment/Formulation: (include vol/invol, mode of transport to hosp, who referred, risk to self/others) Tuyet Edwards is a 37 y.o. female with history of depression, anxiety, severe AUD, OUD on MTD, who presented for detox from alcohol, with concurrent symptoms of auditory hallucinations, depersonalization , and depression. Patient was treated with IV thiamine at [facility]. She received IV thiamine treatment here. Patient has had minimal response to antipsychotic treatment for potential psychotic illness/affective illness. 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 Brain MRI was noted to be unremarkable. Patient has had relative stability of vital signs and no autonomic instability. Presentation is not consistent with infectious encephalitic. Tuyet Edwards meets criteria for acute level of care. Diagnostic Impression w/ Differential Diagnosis Psychiatric Diagnoses (including Personality Traits/Disorders): Unspecified depressive disorder Alcohol use disorder, severe Opioid use disorder, in reported sustained remission Cannabis use disorder, severe Rule out psychotic disorder (psychotic depression) versus resolving delirium Rule out PTSD Plan: (comment on changes in Level of Observation or Locus Risk of Harm) -Continue voluntary inpatient admission to [facility] inpatient psychiatry -Locus: IV -Obs: frequent. -Continue Zyprexa 5mg po daily, 10mg po at bedtime - consider tapering off pending clinical response -Cyproheptadine 4mg po q6hr prn anxiety/racing thoughts -Continue Gabapentin 100mg po bid for pain, anxiety -Continue thiamine 100mg po daily -Continue Remeron 22.5mg po at bedtime for treatment of depressive disorder and insomnia Discharge Plan: Discharge planning per multidisciplinary team rounds. Time Specifier: I spent a total of 15 minutes with this patient and in direct floor time today. Over 50% of this time was spent in counseling and coordination of care as described in the note. Curtis Méndez DO 08/19/2022 15:22 * Trixie Burroughs RN - 08/18/2022 1234 EST [employer] reported to this health technical writer that for the past 2 days, she has found items ofpatient's clothing in the trash and they had been shredded. Patient did not respond to questions about this and just stared at me blankly. EVS reported that while they were cleaning the patient's previous room, the patient opened the door several times, acting like she wanted to enter the room. Each time she stool at the doorway and stared for several seconds, and then turned and walked away. Dueto patient's altered thought process, I placed a paper with patient's name on the door frame of hernew assigned room. * Oliver Martinez - 08/17/2022 1647 EST MD LEATHA meet with pt. Pt presents as preoccupied and when asked what she is experiencing, she stateseverything. Pt states she is distressed and reports when she is distressed she will experience AH. Pt describes these voices as negative. Pt states her ability to think clearly continues to wax andwane. SW discusses goal and having consistency with this before d/c. Pt is agreeable with this goal. * Curtis Méndez DO - 08/17/2022 1528 EST Inpatient Psychiatry Daily Progress Note 08/17/2022 Admit Date: 07/30/22 Hospital day: LOS: 18 days Legal Status: Legal status: Voluntary Observation Level: Observation / visual check: Q 15 minutes (frequent) Locus/Risk of Harm: Current locus of harm: 4 Reason for Admission/Chief Complaint: Altered mental status, depression, AH, disorganized behavior,and alcohol abuse Clinical Updates/24-hour Events: Patient reportedly refused medication, per MAR, patient received medication, awaiting clarity regarding if patient received standing night time medications. Patient seen and evaluated with social services. Patient seen muttering words to self on unit such aswhy do you keep doing this to me. She reports feeling like she is being pulled in different directions. Patient appears irritable on exam and hypervigilant, frequently shaking her head. She endorses AH and reports that voices are negative. Patient reportedly slept 6 hours. Current Facility-Administered Medications Medication Route Frequency ??? acetaminophen (TYLENOL) tablet 650 mg oral Q4H PRN ? ? aluminum & magnesium hydroxide-simethicone (MAALOX PLUS) 200-200-20 mg/5 mL suspension 30 mL oral Q4H PRN ??? b lpjccce-U-kzgmk acid (NEPHROCAPS) 1 mg capsule 1 Capsule oral DAILY ??? cyproheptadine (PERIACTIN) tablet 4 mg oral Q6H PRN ? ? gabapentin (NEURONTIN) capsule 100 mg oral BID (0800 & 1400) ??? lidocaine (PF) 10 mg/mL (1 %) injection 2 mg intradermal PRN ??? melatonin tablet 3 mg oral AT BEDTIME PRN ??? methadone (DOLOPHINE) concentrated solution 70 mg oral DAILY ??? mirtazapine (REMERON) tablet 22.5 mg oral QHS ??? nicotine (NICOTROL) 10 mg inhaler kit 1 Inhaler inhalation Q2H PRN ??? nicotine inhaler (delivery device) inhalation PRN ??? OLANZapine (ZYPREXA) tablet 10 mg oral QHS ??? OLANZapine (ZYPREXA) tablet 5 mg oral DAILY ??? OLANZapine (ZYPREXA) tablet 5 mg oral BID PRN ??? senna (SENOKOT) tablet 1 Tablet oral AT BEDTIME PRN ??? thiamine (VITAMIN B1) tablet 100 mg oral DAILY Mental status exam: Appearance: 37 year old woman, dressed casually, neatly groomed Behavior: cooperative , suspicious Arousal: awake, alert Attention/Concentration: fair, some impairments Orientation: oriented to self, location, and time Memory: struggles with recent memory Mood: doing good Affect: anxious, blunted, mood incongruent Speech: regular to rate, rhythm, and volume. Word finding difficulties Thought Process/Language:disorganized, tangential Associations: loose Perception: Appears internally preoccupied, observed to be talking to herself in the milieu Gait: normal Motor: bilateral hand tremor - mild, restlessness, pacing in the milieu at times Danger Self: Denies SI Danger Other: denies HI; no threatening statements or postures Fund of Knowledge: appropriate Insight/Judgement: limited BP 119/88 (BP Cuff Location: Right arm, BP Patient Position: Sitting) Pulse 71 Temp 36.5 ??C (97.7 ??F) (Temporal) Resp 17 Ht 164 cm (64.57) Wt 57.2 kg (126 lb) SpO2 99% BMI 21.25 kg/m?? Data Review: Labs: No results found for this or any previous visit (from the past 24 hour(s)). Other studies:N/A Assessment/Formulation: (include vol/invol, mode of transport to hosp, who referred, risk to self/others) Tuyet Edwards is a 37 y.o. female with history of depression, anxiety, AUD, OUD on MTD, who presentedfor detox from alcohol, with concurrent symptoms of auditory hallucinations and depersonalization and depression. Patient was treated with IV thiamine at [facility]. She received IV thiamine treatment here. Patient has had minimal response to antipsychotic treatment for potential psychotic illn ess. 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 Brain MRI was noted to be unremarkable.Patient has had relative stability of vital signs and no autonomic instability. Presentation is not consistent with infectious encephalitic. Further diagnostic considerations include autoimmune encephalitis . Discussed with patient plan to switch antipsychotic to Zyprexa which she trialed briefly earlier inhospital course to help with insomnia, racing thoughts and thinking. Tuyet Edwards meets criteria for acute level of care. Diagnostic Impression w/ Differential Diagnosis Psychiatric Diagnoses (including Personality Traits/Disorders): Unspecified depressive disorder Alcohol use disorder, severe Opioid use disorder, in reported sustained remission Cannabis use disorder, severe Rule out psychotic disorder (psychotic depression) versus resolving delirium Rule out PTSD Plan: (comment on changes in Level of Observation or Locus Risk of Harm) -Continue voluntary inpatient admission to [facility] inpatient psychiatry -Locus: IV -Obs: frequent. -Continue Zyprexa 5mg po daily, 10mg po at bedtime - consider tapering off pending response -Cyproheptadine 4mg po q6hr prn anxiety/racing thoughts -Continue Gabapentin 100mg po bid for pain, anxiety -Continue thiamine 100mg po daily -Continue Remeron 22.5mg po at bedtime for treatment of depressive disorder and insomnia Discharge Plan: Discharge planning per multidisciplinary team rounds. Time Specifier: I spent a total of 15 minutes with this patient and in direct floor time today. Over 50% of this time was spent in counseling and coordination of care as described in the note. Curtis Méndez DO 08/17/2022 15:32 * Mracio Blackwell - 08/17/2022 1410 EST Group Note: Mindfulness The group goals include: developing coping skills, identifying feelings, identifying stressors and problems, increasing awareness of self in relation to others, increasing expression of needs, increasing relaxation, increasing responsibility for behavior, increasing self-esteem, increasing attention span, increasing organization, and increasing self-control. Assessment: Pt participated fully Communication: Pt did not share during group Behavior: Behavior was appropriate. PT left group after 5 minutes. Plan: Continue to attend group * Leonard Najera - 08/17/2022 1239 EST Patient was walking the kay and I asked how she was doing. She was able to hold a conversation. Thoughts were random but center on how she feel safe here. She said sometimes she can talk like this and sometimes she can't focus at all. Her hygiene is good. Nicely dressed. Seems to have some insight. * Curtis Méndez DO - 08/16/2022 1903 EST Inpatient Psychiatry Daily Progress Note 08/16/2022 Admit Date: 07/30/22 Hospital day: LOS: 17 days Legal Status: Legal status: Voluntary Observation Level: Observation / visual check: Q 15 minutes (frequent) Locus/Risk of Harm: Current locus of harm: 4 Reason for Admission/Chief Complaint: Altered mental status, depression, AH, disorganized behavior,and alcohol abuse Clinical Updates/24-hour Events: Patient observed muttering to self in hallway. Patient reportedly appearing to be arguing with self. Patient seen and evaluated. Patient's attention is poor. Patient unable to follow 3 step command. Patient voices uncertainty about what steps to take. She slept 8 hours last night. She denies AH. Herthoughts are incomplete and illogical. Current Facility-Administered Medications Medication Route Frequency ??? acetaminophen (TYLENOL) tablet 650 mg oral Q4H PRN ? ? aluminum & magnesium hydroxide-simethicone (MAALOX PLUS) 200-200-20 mg/5 mL suspension 30 mL oral Q4H PRN ??? b uoyuvqh-D-ckszj acid (NEPHROCAPS) 1 mg capsule 1 Capsule oral DAILY ??? cyproheptadine (PERIACTIN) tablet 4 mg oral Q6H PRN ? ? gabapentin (NEURONTIN) capsule 100 mg oral BID (0800 & 1400) ??? lidocaine (PF) 10 mg/mL (1 %) injection 2 mg intradermal PRN ??? melatonin tablet 3 mg oral AT BEDTIME PRN ??? methadone (DOLOPHINE) concentrated solution 70 mg oral DAILY ??? mirtazapine (REMERON) tablet 22.5 mg oral QHS ??? nicotine (NICOTROL) 10 mg inhaler kit 1 Inhaler inhalation Q2H PRN ??? nicotine inhaler (delivery device) inhalation PRN ??? OLANZapine (ZYPREXA) tablet 10 mg oral QHS ??? OLANZapine (ZYPREXA) tablet 5 mg oral BID PRN ??? senna (SENOKOT) tablet 1 Tablet oral AT BEDTIME PRN ??? thiamine (VITAMIN B1) tablet 100 mg oral DAILY Mental status exam: Appearance: 37 year old woman, dressed casually, neatly groomed Behavior: cooperative , suspicious Arousal: awake, alert Attention/Concentration: attentive to conversation Orientation: oriented to self, location, and time Memory: struggles with recent/intermediate recall Mood: doing good Affect: anxious, blunted, mood incongruent Speech: regular to rate, rhythm, and volume. Word finding difficulties Thought Process/Language:disorganized, tangential Associations: loose Perception: Appears internally preoccupied, observed to be talking to herself in the milieu Gait: normal Motor: bilateral hand tremor - mild, restlessness, pacing in the milieu at times Danger Self: Denies SI Danger Other: denies HI; no threatening statements or postures Fund of Knowledge: appropriate Insight/Judgement: limited BP 126/79 (BP Patient Position: Sitting) Pulse 92 Temp 36.8 ??C (98.2 ??F) (Temporal) Resp 16 Ht 164 cm (64.57) Wt 57.7 kg (127 lb 3.2 oz) SpO2 97% BMI 21.45 kg/m?? Data Review: Labs: No results found for this or any previous visit (from the past 24 hour(s)). Other studies:N/A Assessment/Formulation: (include vol/invol, mode of transport to hosp, who referred, risk to self/others) Tuyet Edwards is a 37 y.o. female with history of depression, anxiety, AUD, OUD on MTD, who presentedfor detox from alcohol, with concurrent symptoms of auditory hallucinations and depersonalization and depression. Patient was treated with IV thiamine at [facility]. 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 Patient has beenstarted on an additional 5 day IV thiamine treatment here with some improvement. She expresses motivation for long-term sobriety. Supportive therapy provided. Patient declines rehab. Discussed with patient plan to switch antipsychotic to Zyprexa which she trialed briefly earlier inhospital course to help with insomnia, racing thoughts and thinking. Tuyet Edwards meets criteria for acute level of care. Diagnostic Impression w/ Differential Diagnosis Psychiatric Diagnoses (including Personality Traits/Disorders): Unspecified depressive disorder Alcohol use disorder, severe Opioid use disorder, in reported sustained remission Cannabis use disorder, severe Rule out psychotic disorder (psychotic depression) versus resolving delirium Rule out PTSD Plan: (comment on changes in Level of Observation or Locus Risk of Harm) -Continue voluntary inpatient admission to [facility] inpatient psychiatry -Locus: IV -Obs: frequent. -Increase Zyprexa 5mg po daily, 10mg po at bedtime -Cyproheptadine 4mg po q6hr prn anxiety/racing thoughts -Continue Gabapentin 100mg po bid for pain, anxiety -Continue thiamine 100mg po daily -Continue Remeron 22.5mg po at bedtime for treatment of depressive disorder and insomnia Discharge Plan: Discharge planning per multidisciplinary team rounds. Time Specifier: I spent a total of 15 minutes with this patient and in direct floor time today. Over 50% of this time was spent in counseling and coordination of care as described in the note. Curtis Méndez DO 08/16/2022 19:03 * Oliver Martinez - 08/16/2022 1449 EST SW attempts to meet with pt who reports she has a lot going on. Pt states a preference not to meet today. Pt presents as having a conversation with herself and walks away from this health technical writer. * Curtis Méndez DO - 08/15/2022 1558 EST Inpatient Psychiatry Daily Progress Note 08/15/2022 Admit Date: 07/30/22 Hospital day: LOS: 16 days Legal Status: Legal status: Voluntary Observation Level: Observation / visual check: Q 15 minutes (frequent) Locus/Risk of Harm: Current locus of harm: 4 Reason for Admission/Chief Complaint: Altered mental status, depression, and alcohol abuse Clinical Updates/24-hour Events: Present in milieu at times. Did not attend wrap up. Not seen crying in evening. Affect flat. Slept 7+ hours. Subjective: Patient seen with SW. Patient reports overthinking. She reports feeling more aware of problems. She requests to see prior documents she signed so she can see if she signed them appropriately. Patient observed talking at fan, appears internally preoccupied. Discussed with patient plan to switch antipsychotic to Zyprexa which she trialed briefly earlier inhospital course to help with insomnia, racing thoughts and thinking. Current Facility-Administered Medications Medication Route Frequency ??? acetaminophen (TYLENOL) tablet 650 mg oral Q4H PRN ? ? aluminum & magnesium hydroxide-simethicone (MAALOX PLUS) 200-200-20 mg/5 mL suspension 30 mL oral Q4H PRN ??? b uwxnpap-D-ljnlu acid (NEPHROCAPS) 1 mg capsule 1 Capsule oral DAILY ??? cyproheptadine (PERIACTIN) tablet 4 mg oral Q6H PRN ? ? gabapentin (NEURONTIN) capsule 100 mg oral BID (0800 & 1400) ??? lidocaine (PF) 10 mg/mL (1 %) injection 2 mg intradermal PRN ??? melatonin tablet 3 mg oral AT BEDTIME PRN ??? methadone (DOLOPHINE) concentrated solution 70 mg oral DAILY ??? mirtazapine (REMERON) tablet 22.5 mg oral QHS ??? nicotine (NICOTROL) 10 mg inhaler kit 1 Inhaler inhalation Q2H PRN ??? nicotine inhaler (delivery device) inhalation PRN ??? OLANZapine (ZYPREXA) tablet 10 mg oral QHS ??? OLANZapine (ZYPREXA) tablet 5 mg oral BID PRN ??? senna (SENOKOT) tablet 1 Tablet oral AT BEDTIME PRN ??? thiamine (VITAMIN B1) tablet 100 mg oral DAILY Mental status exam: Appearance: 37 year old woman, dressed casually, neatly groomed Behavior: cooperative , suspicious Arousal: awake, alert Attention/Concentration: attentive to conversation Orientation: oriented to self, location, and time Memory: struggles with recent/intermediate recall Mood: doing good Affect: anxious, blunted, mood incongruent Speech: regular to rate, rhythm, and volume Thought Process/Language:disorganized, tangential, possible thought blocking Associations: loose Perception: Appears internally preoccupied, observed to be talking to herself in the milieu Gait: normal Motor: bilateral hand tremor - mild, restlessness, pacing in the milieu Danger Self: Denies SI Danger Other: denies HI; no threatening statements or postures Fund of Knowledge: appropriate Insight/Judgement: limited BP 137/81 (BP Cuff Location: Right arm, BP Patient Position: Sitting) Pulse 92 Temp 36.8 ??C (98.2 ??F) (Temporal) Resp 16 Ht 164 cm (64.57) Wt 57.7 kg (127 lb 3.2 oz) SpO2 98% BMI 21.45 kg/m?? Data Review: Labs: No results found for this or any previous visit (from the past 24 hour(s)). Other studies:N/A Assessment/Formulation: (include vol/invol, mode of transport to hosp, who referred, risk to self/others) Tuyet Edwards is a 37 y.o. female with history of depression, anxiety, AUD, OUD on MTD, who presentedfor detox from alcohol, with concurrent symptoms of auditory hallucinations and depersonalization and depression. Patient was treated with IV thiamine at [facility]. 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 Patient has beenstarted on an additional 5 day IV thiamine treatment here with some improvement. She expresses motivation for long-term sobriety. Supportive therapy provided. Patient declines rehab. Discussed with patient plan to switch antipsychotic to Zyprexa which she trialed briefly earlier inhospital course to help with insomnia, racing thoughts and thinking. Tuyet Edwards meets criteria for acute level of care. Diagnostic Impression w/ Differential Diagnosis Psychiatric Diagnoses (including Personality Traits/Disorders): Delirium (protracted alcohol withdrawal) Unspecified depressive disorder Alcohol use disorder, severe Opioid use disorder, in reported sustained remission Cannabis use disorder, severe Rule out psychotic disorder (psychotic depression) versus resolving delirium Rule out PTSD Plan: (comment on changes in Level of Observation or Locus Risk of Harm) -Continue voluntary inpatient admission to [facility] inpatient psychiatry -Locus: IV -Obs: frequent. -Cyproheptadine 4mg po q6hr prn anxiety/racing thoughts -Continue Gabapentin 100mg po bid for pain, anxiety -Continue thiamine 100mg po daily -Continue Remeron 22.5mg po at bedtime for treatment of depressive disorder and insomnia - Discontinue Risperdal and initiate Zyprexa 10mg po at bedtime for psychotic symptoms Discharge Plan: Discharge planning per multidisciplinary team rounds. Time Specifier: I spent a total of 25 minutes with this patient and in direct floor time today. Over 50% of this time was spent in counseling and coordination of care as described in the note. Curtis Méndez DO 08/15/2022 15:58 * Jericho Gutierrez - 08/15/2022 1412 EST LEATHA, LEATHA Pipe Smoking Machine Offbearer, and MD met with Pt for a follow up visit. Pt reported her thinking is clearer today and acknowledges she has made improvement since admission. Pt stated she is hopeful to discharge soon and asks what would need to occur for her to be ready. LEATHA talked with Pt about the need to consistently demonstrate stability and also discusses importance of those close to Pt feeling as though sheis close enough to her baseline to where it wouldn't warrant hospitalization. Pt is agreeable with this and states she is aware that she is not yet ready. LEATAH later speaks to Tuyet's partner, Salvador, who expressed concern for discharge initially but appeared to be reassured by conversation with LEATHA. Salvador reports he has seen improvement in Pt as well and also agrees that this could wax and wane. SW to schedule a family meeting to discuss discharge planning when Pt is able to demonstrate further stability. LEATHA will be in touch with both Salvador and Pt in the meantime. - Jericho Gutierrez, AUTO WASH BUFFER Candidate under ROMARIO Rich * Lucio Matt MD - 08/14/2022 0725 EST Inpatient Psychiatry Daily Progress Note 08/14/2022 Admit Date: 07/30/22 Hospital day: LOS: 15 days Legal Status: Legal status: Voluntary Observation Level: Observation / visual check: Q 15 minutes (frequent) Locus/Risk of Harm: Current locus of harm: 4 Reason for Admission/Chief Complaint: Altered mental status, depression, and alcohol abuse Clinical Updates/24-hour Events: Present in milieu at times. Did not attend wrap up. Not seen crying in evening. Affect flat. Slept 7+ hours. Subjective: I met with Tuyet individually. She likes the words hypervigelent to threats to describe how she feels as she can't stop scanning. Feels like she is being controlled by other people but also suggests it is a feeling demonstrating ability to reality test. Feels less confused. Thingsbeing here and [facility] have been hlepful. Discussed holding off on changes given improvements and recent changes. Current Facility-Administered Medications Medication Route Frequency ??? acetaminophen (TYLENOL) tablet 650 mg oral Q4H PRN ? ? aluminum & magnesium hydroxide-simethicone (MAALOX PLUS) 200-200-20 mg/5 mL suspension 30 mL oral Q4H PRN ??? b grnkyby-C-lpusb acid (NEPHROCAPS) 1 mg capsule 1 Capsule oral DAILY ??? cyproheptadine (PERIACTIN) tablet 4 mg oral Q6H PRN ? ? gabapentin (NEURONTIN) capsule 100 mg oral BID (0800 & 1400) ??? lidocaine (PF) 10 mg/mL (1 %) injection 2 mg intradermal PRN ??? melatonin tablet 3 mg oral AT BEDTIME PRN ??? methadone (DOLOPHINE) concentrated solution 70 mg oral DAILY ??? mirtazapine (REMERON) tablet 22.5 mg oral QHS ??? nicotine (NICOTROL) 10 mg inhaler kit 1 Inhaler inhalation Q2H PRN ??? nicotine inhaler (delivery device) inhalation PRN ??? risperiDONE (RISPERDAL) tablet 1 mg oral Q12H ??? senna (SENOKOT) tablet 1 Tablet oral AT BEDTIME PRN ??? thiamine (VITAMIN B1) tablet 100 mg oral DAILY Mental status exam: Appearance: 37 year old woman, dressed casually, neatly groomed Behavior: cooperative , suspicious Arousal: awake, alert Attention/Concentration: attentive to conversation Orientation: oriented to self, location, and time Memory: struggles with recent/intermediate recall Mood: doing good Affect: anxious, blunted, mood incongruent Speech: regular to rate, rhythm, and volume Thought Process/Language:disorganized, tangential, possible thought blocking Associations: loose Perception: Appears internally preoccupied, observed to be talking to herself in the milieu Gait: normal Motor: bilateral hand tremor - mild, restlessness, pacing in the milieu Danger Self: Denies SI Danger Other: denies HI; no threatening statements or postures Fund of Knowledge: appropriate Insight/Judgement: limited BP 138/81 (BP Cuff Location: Left arm, BP Patient Position: Sitting) Pulse 85 Temp 36.7 ??C (98??F) (Temporal) Resp 18 Ht 164 cm (64.57) Wt 57.7 kg (127 lb 3.2 oz) SpO2 97% BMI 21.45 kg/m?? Data Review: Labs: No results found for this or any previous visit (from the past 24 hour(s)). Other studies:N/A Assessment/Formulation: (include vol/invol, mode of transport to hosp, who referred, risk to self/others) Tuyet Edwards is a 37 y.o. female with history of depression, anxiety, AUD, OUD on MTD, who presentedfor detox from alcohol, with concurrent symptoms of auditory hallucinations and depersonalization and depression. Patient was treated with IV thiamine at [facility]. 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 Patient has beenstarted on an additional 5 day IV thiamine treatment here with some improvement. She expresses motivation for long-term sobriety. Supportive therapy provided. Patient declines rehab. 08/13 Patient continues to present with anxiety and confusion. She has a mild bilateral hand tremor. She has been seen with behavioral disorganization on unit, and appears to be responding internally. Discussed PRN for patient's report of racing thoughts, has had some benefit from hydroxyzine, however due to concern for qTC prolongation particularly in combination with MAT, this has been switched to cyproheptadine. She may benefit from further titration of risperidone for apparent psychotic symptoms, vs consideration of a different antipsychotic that would allow for PRN availability such asolanzapine. 08/14 Patient reports ongoing steady improvement despite experiencing symptoms. No changes made. Tuyet Edwards meets criteria for acute level of care. Diagnostic Impression w/ Differential Diagnosis Psychiatric Diagnoses (including Personality Traits/Disorders): Delirium (protracted alcohol withdrawal) Unspecified depressive disorder Alcohol use disorder, severe Opioid use disorder, in reported sustained remission Cannabis use disorder, severe Rule out psychotic disorder (psychotic depression) versus resolving delirium Rule out PTSD Plan: (comment on changes in Level of Observation or Locus Risk of Harm) -Continue voluntary inpatient admission to [facility] inpatient psychiatry -Locus: IV -Obs: frequent. -changed to unit restriction 08/13 due to disorganization -Cyproheptadine 4mg po q6hr prn anxiety/racing thoughts -Continue Gabapentin 100mg po bid for pain, anxiety -Continue thiamine 100mg po daily -Continue Remeron 22.5mg po at bedtime for treatment of depressive disorder and insomnia - Continue risperidone 1 mg BID for psychotic symptoms, may require increased dose vs transition tomedication that would allow for PRN availability such as olanzapine (also lower risk for qTC prolongation) Discharge Plan: Discharge planning per multidisciplinary team rounds. Time Specifier: I spent a total of 25 minutes with this patient and in direct floor time today. Over 50% of this time was spent in counseling and coordination of care as described in the note. Lucio Matt MD 08/14/2022 7:26 * Adriana Camargo MD - 08/13/2022 1242 EST Inpatient Psychiatry Daily Progress Note 08/13/2022 Admit Date: 07/30/22 Hospital day: LOS: 14 days Legal Status: Legal status: Voluntary Observation Level: Observation / visual check: Q 15 minutes (frequent) Locus/Risk of Harm: Current locus of harm: 4 Reason for Admission/Chief Complaint: Altered mental status, depression, and alcohol abuse Clinical Updates/24-hour Events: Noted to be labile by staff, going into other patients rooms and appearing confused. Has been medication compliant, received PRN hydroxyzine for anxiety with some reported benefit. Tuyet was seen today with SW. She appears anxious with possible thought- blocking, though reports doing good. She notes that she fell asleep okay but then ended up waking up around 12:30 and having trouble falling back asleep. In terms of medications, she denies experiencing any side effects. She notes that she is continuing to struggle with her thoughts, and notes that she feels like she has to keep moving. (Did observe pacing in the milieu, as well as talking to fan). Interested in having a PRN available to help with this (during interview discussed hydroxyzine however on chart review it appears that she has cyproheptadine available but has not utilized, this does not have qTC prolongation concerns). Asks about going home, indicates that she would be interested in having her and probably brother being involved in a family meeting. She endorses interest in stopping nicotine use following this hospitalization. Current Facility-Administered Medications Medication Route Frequency ??? acetaminophen (TYLENOL) tablet 650 mg oral Q4H PRN ? ? aluminum & magnesium hydroxide-simethicone (MAALOX PLUS) 200-200-20 mg/5 mL suspension 30 mL oral Q4H PRN ??? b ajzmndq-D-ofnee acid (NEPHROCAPS) 1 mg capsule 1 Capsule oral DAILY ??? cyproheptadine (PERIACTIN) tablet 4 mg oral Q6H PRN ? ? gabapentin (NEURONTIN) capsule 100 mg oral BID (0800 & 1400) ??? hydrOXYzine (ATARAX) tablet 25 mg oral Q4H PRN ??? lidocaine (PF) 10 mg/mL (1 %) injection 2 mg intradermal PRN ??? melatonin tablet 3 mg oral AT BEDTIME PRN ??? methadone (DOLOPHINE) concentrated solution 70 mg oral DAILY ??? mirtazapine (REMERON) tablet 22.5 mg oral QHS ??? nicotine (NICOTROL) 10 mg inhaler kit 1 Inhaler inhalation Q2H PRN ??? nicotine inhaler (delivery device) inhalation PRN ??? risperiDONE (RISPERDAL) tablet 1 mg oral Q12H ??? senna (SENOKOT) tablet 1 Tablet oral AT BEDTIME PRN ??? thiamine (VITAMIN B1) tablet 100 mg oral DAILY Mental status exam: Appearance: 37 year old woman, dressed casually, neatly groomed Behavior: cooperative , suspicious Arousal: awake, alert Attention/Concentration: attentive to conversation Orientation: oriented to self, location, and time Memory: struggles with recent/intermediate recall Mood: doing good Affect: anxious, blunted, mood incongruent Speech: regular to rate, rhythm, and volume Thought Process/Language:disorganized, tangential, possible thought blocking Associations: loose Perception: Appears internally preoccupied, observed to be talking to herself in the milieu Gait: normal Motor: bilateral hand tremor - mild, restlessness, pacing in the milieu Danger Self: Denies SI Danger Other: denies HI; no threatening statements or postures Fund of Knowledge: appropriate Insight/Judgement: limited BP 128/76 (BP Cuff Location: Right arm, BP Patient Position: Sitting) Pulse 89 Temp 36.8 ??C (98.2 ??F) (Temporal) Resp 17 Ht 164 cm (64.57) Wt 57.7 kg (127 lb 3.2 oz) SpO2 96% BMI 21.45 kg/m?? Data Review: Labs: Results for orders placed or performed during the hospital encounter of 07/30/22 (from the past 24 hour(s)) COMPLETE BLOOD COUNT Result Value Ref Range WBC 5.75 4.00 - 12.40 K/cmm RBC 3.89 3.86 - 5.04 M/cmm Hemoglobin 13.9 11.6 - 15.2 gm/dL HCT 40.6 34.9 - 44.4 % MCV 104 (H) 81 - 98 fl MCH 35.7 (H) 26.7 - 33.3 pg MCHC 34.2 32.1 - 35.9 gm/dL RDW-CV 11.6 <14.7 % RDW-SD 44.4 <50.4 fl PLT 274 141 - 377 K/cmm MPV 10.3 9.5 - 12.7 fl COMPREHENSIVE METABOLIC PANEL (CMP) Result Value Ref Range Sodium 143 136 - 145 mmol/L Potassium 4.5 3.5 - 5.0 mmol/L Chloride 104 96 - 110 mmol/L CO2 Total 27 22 - 32 mmol/L Glucose 94 70 - 100 mg/dL BUN 14 10 - 26 mg/dL Creatinine 0.53 0.52 - 1.04 mg/dL eGFR 121 >60 mL/min/1.73m2 Total Protein 7.5 6.3 - 8.2 g/dL Albumin 4.4 3.4 - 4.9 g/dL Alkaline Phosphatase 81 38 - 126 U/L AST 45 15 - 46 U/L ALT 58 (H) <35 U/L Bilirubin, Total 0.3 <1.4 mg/dL Calcium 9.6 8.5 - 10.5 mg/dL Albumin/Globulin Ratio 1.4 1.0 - 2.5 Anion Gap 12 5 - 14 Other studies:N/A Assessment/Formulation: (include vol/invol, mode of transport to hosp, who referred, risk to self/others) Tuyet Edwards is a 37 y.o. female with history of depression, anxiety, AUD, OUD on MTD, who presentedfor detox from alcohol, with concurrent symptoms of auditory hallucinations and depersonalization and depression. Patient was treated with IV thiamine at [facility]. 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 Patient has beenstarted on an additional 5 day IV thiamine treatment here with some improvement. She expresses motivation for long-term sobriety. Supportive therapy provided. Patient declines rehab. Patient continues to present with anxiety and confusion. She has a mild bilateral hand tremor. She has been seen with behavioral disorganization on unit, and appears to be responding internally. Discussed PRN for patient's report of racing thoughts, has had some benefit from hydroxyzine, however due to concern for qTC prolongation particularly in combination with MAT, this has been switched to cyproheptadine. She may benefit from further titration of risperidone for apparent psychotic symptoms, vs consideration of a different antipsychotic that would allow for PRN availability such as olanzapine. Tuyet Edwards meets criteria for acute level of care. Diagnostic Impression w/ Differential Diagnosis Psychiatric Diagnoses (including Personality Traits/Disorders): Delirium (protracted alcohol withdrawal) Unspecified depressive disorder Alcohol use disorder, severe Opioid use disorder, in reported sustained remission Cannabis use disorder, severe Rule out psychotic disorder (psychotic depression) versus resolving delirium Rule out PTSD Plan: (comment on changes in Level of Observation or Locus Risk of Harm) -Continue voluntary inpatient admission to [facility] inpatient psychiatry -Locus: IV -Obs: frequent. -changed to RTU due to disorganization -Cyproheptadine 4mg po q6hr prn anxiety/racing thoughts -Continue Gabapentin 100mg po bid for pain, anxiety -Continue thiamine 100mg po daily -Continue Remeron 22.5mg po at bedtime for treatment of depressive disorder and insomnia - Continue risperidone 1 mg BID for psychotic symptoms, may require increased dose vs transition tomedication that would allow for PRN availability such as olanzapine (also lower risk for qTC prolongation) Discharge Plan: Discharge planning per multidisciplinary team rounds. Time Specifier: I spent a total of 25 minutes with this patient and in direct floor time today. Over 50% of this time was spent in counseling and coordination of care as described in the note. Adriana Camargo MD 08/13/2022 12:43 * Laila Owens - 08/13/2022 1041 EST Patient met with MD & LEATHA for check in and discharge planning. Patient presented as highly anxious, but when asked by MD how she was doing she replied that she was doing good. She added that she fell asleep but woke up about 12:30 AM and could not fall back asleep. When asked about her carlos scoring her anxiety on a scale of 1-10, with 1 being the worst anxiety ever, and 10 being the least a nxiety, patient rated her current level as a 2. MD discussed patient medication and adding hydroxyzine. Patient agreed. When patient brought up going home, SW indicated that that decision would be made by her full-time team but that it is likely that there will be a family meeting prior to discharge. Patient added that she would invite her and probably her brother to a family meeting. When asked how she felt about being on the unit, patient stated that she likes it here but feels that she is stressing out the other patients. Patient added that she feels safe here. * Curtis Méndez DO - 08/12/2022 1722 EST Inpatient Psychiatry Daily Progress Note 08/12/2022 Admit Date: 07/30/22 Hospital day: LOS: 13 days Legal Status: Legal status: Voluntary Observation Level: Observation / visual check: Q 15 minutes (frequent) Locus/Risk of Harm: Current locus of harm: 4 Reason for Admission/Chief Complaint: Altered mental status, depression, and alcohol abuse Per report, patient noted to be trying on roomate clothes. Slept 6 hours. Patient reports feeling like she is under a microscope. She reports seeing signs. She reports having periods of irritability. She reports feeling like at times not being able to go in certain areas. Discussed risks and benefits in starting standing antipsychotic- risperidone . Current Facility-Administered Medications Medication Route Frequency ??? acetaminophen (TYLENOL) tablet 650 mg oral Q4H PRN ? ? aluminum & magnesium hydroxide-simethicone (MAALOX PLUS) 200-200-20 mg/5 mL suspension 30 mL oral Q4H PRN ??? b onylauu-B-iqlun acid (NEPHROCAPS) 1 mg capsule 1 Capsule oral DAILY ??? cyproheptadine (PERIACTIN) tablet 4 mg oral Q6H PRN ? ? gabapentin (NEURONTIN) capsule 100 mg oral BID (0800 & 1400) ??? lidocaine (PF) 10 mg/mL (1 %) injection 2 mg intradermal PRN ??? melatonin tablet 3 mg oral AT BEDTIME PRN ??? methadone (DOLOPHINE) concentrated solution 70 mg oral DAILY ??? mirtazapine (REMERON) tablet 22.5 mg oral QHS ??? nicotine (NICOTROL) 10 mg inhaler kit 1 Inhaler inhalation Q2H PRN ??? nicotine inhaler (delivery device) inhalation PRN ??? risperiDONE (RISPERDAL) tablet 1 mg oral Q12H ??? senna (SENOKOT) tablet 1 Tablet oral AT BEDTIME PRN ??? thiamine (VITAMIN B1) tablet 100 mg oral DAILY Mental status exam: Appearance: 37 year old woman, dressed casually, neatly groomed Behavior: cooperative , suspicious Arousal: awake, alert Attention/Concentration: attentive to conversation Orientation: oriented to self, location, and time Memory: struggles with recent/intermediate recall Mood: alright Affect: anxious, blunted Speech: regular to rate, rhythm, and volume Thought Process/Language:disorganized, tangential Thought content: Voices fearful ideas, paranoid ideas Associations: loose Perceptions: appears internally preoccupied Gait: normal Motor: bilateral hand tremor - mild Danger Self: Denies SI Danger Other: denies HI; no threatening statements or postures Fund of Knowledge: appropriate Insight/Judgement: limited BP 130/84 (BP Patient Position: Sitting) Pulse 97 Temp 36.8 ??C (98.2 ??F) (Temporal) Resp 16 Ht 164 cm (64.57) Wt 57.7 kg (127 lb 3.2 oz) SpO2 96% BMI 21.45 kg/m?? Data Review: Labs: Results for orders placed or performed during the hospital encounter of 07/30/22 (from the past 24 hour(s)) COMPLETE BLOOD COUNT Result Value Ref Range WBC 5.75 4.00 - 12.40 K/cmm RBC 3.89 3.86 - 5.04 M/cmm Hemoglobin 13.9 11.6 - 15.2 gm/dL HCT 40.6 34.9 - 44.4 % MCV 104 (H) 81 - 98 fl MCH 35.7 (H) 26.7 - 33.3 pg MCHC 34.2 32.1 - 35.9 gm/dL RDW-CV 11.6 <14.7 % RDW-SD 44.4 <50.4 fl PLT 274 141 - 377 K/cmm MPV 10.3 9.5 - 12.7 fl COMPREHENSIVE METABOLIC PANEL (CMP) Result Value Ref Range Sodium 143 136 - 145 mmol/L Potassium 4.5 3.5 - 5.0 mmol/L Chloride 104 96 - 110 mmol/L CO2 Total 27 22 - 32 mmol/L Glucose 94 70 - 100 mg/dL BUN 14 10 - 26 mg/dL Creatinine 0.53 0.52 - 1.04 mg/dL eGFR 121 >60 mL/min/1.73m2 Total Protein 7.5 6.3 - 8.2 g/dL Albumin 4.4 3.4 - 4.9 g/dL Alkaline Phosphatase 81 38 - 126 U/L AST 45 15 - 46 U/L ALT 58 (H) <35 U/L Bilirubin, Total 0.3 <1.4 mg/dL Calcium 9.6 8.5 - 10.5 mg/dL Albumin/Globulin Ratio 1.4 1.0 - 2.5 Anion Gap 12 5 - 14 Other studies:N/A Assessment/Formulation: (include vol/invol, mode of transport to hosp, who referred, risk to self/others) Tuyet Edwards is a 37 y.o. female with history of depression, anxiety, AUD, OUD on MTD, who presentedfor detox from alcohol, with concurrent symptoms of auditory hallucinations and depersonalization and depression. Patient was treated with IV thiamine at [facility]. 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 Patient has beentreated with 5 day IV thiamine treatment here with some improvement. She expresses motivation for long-term sobriety. Patient continues to present with anxiety, paranoid ideas, and disorganized thinking. She has a mild bilateral hand tremor. She has been seen with behavioral disorganization on unit. Patient's symptomatology may suggest affective psychosis. Discussed risks and benefits of starting Risperdal today. Tuyet Edwards meets criteria for acute level of care. Diagnostic Impression w/ Differential Diagnosis Psychiatric Diagnoses (including Personality Traits/Disorders): Unspecified psychosis Unspecified depressive disorder Delirium (alcohol withdrawal) - resolved Alcohol use disorder, severe Opioid use disorder, in reported sustained remission Cannabis use disorder, severe Rule out PTSD Plan: (comment on changes in Level of Observation or Locus Risk of Harm) -Continue voluntary inpatient admission to [facility] inpatient psychiatry -Locus: IV -Obs: frequent. -Staff privileges -Continue Gabapentin 100mg po bid for pain, anxiety -Continue thiamine 100mg po daily -Initiate Risperdal 1mg po bid for psychotic symptoms and tolerate as tolerated -Continue Remeron 22.5mg po at bedtime for treatment of depressive disorder and insomnia Discharge Plan: Discharge planning per multidisciplinary team rounds. Time Specifier: I spent a total of 25 minutes with this patient and in direct floor time today. Over 50% of this time was spent in counseling and coordination of care as described in the note. Curtis Méndez DO 08/12/2022 17:23 * Leonard Najera - 08/12/2022 0914 EST D: Patient mood A: Patient has been out of her room some. We moved her room mate, because she kept moving her roommate's cloths. And this was upsetting to her roommate. Pt. placed some cloths in the trash. Seemed tonot remember if some of her cloths were hers. Staff took her cloths and put them in storage closet.Patient had blood drawn, tolerated. She was seen crying, then pulled it together. She refused morning gabapentin, took afternoon. More anxious than the last time I worked with this patient. R: Patient remained safe. * Sisi Mcmillan - 08/12/2022 0759 EST Pt, MD and SW met for a check in and discharge planning. Pt presents as anxious, paranoid and disorganized. Pt talks in vague dialog and reports not knowing what to do. Pt talks about feeling like everything is decided for her including her body movements. Pt gives an example of reaching her hand out when walking [place] the [place] to get some hand grain elevator clerk. Pt reports this action was not her choice and that someone or something other than her is doing these things. Pt talks about not wanting to be here in the hospital but also not knowing where she wants to go or what to do. MD reviews that the plan is for Pt to stay and work with her team to get better. MD talked about a potential medication change that could be helpful. Pt agreed to the medication and about continuing with inpatient treatment. Plan is to continue to help Pt stabilize and to hold a family meeting once stable. * Curtis Méndez DO - 08/11/2022 1642 EST Inpatient Psychiatry Daily Progress Note 08/11/2022 Admit Date: 07/30/22 Hospital day: LOS: 12 days Legal Status: Legal status: Voluntary Observation Level: Observation / visual check: Q 15 minutes (frequent) Locus/Risk of Harm: Current locus of harm: 4 Reason for Admission/Chief Complaint: Altered mental status, depression, and alcohol abuse Per report, patient observed talking to fan, sitting on floor in common area reading. Patient received Atarax which reportedly helped her relax a little bit. patient reports feeling a little chaotic all over the place. She reports sleeping 4 hours last night. She reports her mind has been racing a lot. She reports ?? I always need a task?? and feeling like she constantly does not know what to say or do. Patient reports talking to self to get thoughts together and because of the cameras. She reports feeling like I???m being watched or listened to and nobody is listening to me and I???m trying to tell them. She reports feeling programmed.She reports at times feeling hot and nauseous. Patient noted to have mild bilateral hand tremor. Current Facility-Administered Medications Medication Route Frequency ??? acetaminophen (TYLENOL) tablet 650 mg oral Q4H PRN ? ? aluminum & magnesium hydroxide-simethicone (MAALOX PLUS) 200-200-20 mg/5 mL suspension 30 mL oral Q4H PRN ??? b pojishf-T-dqzsm acid (NEPHROCAPS) 1 mg capsule 1 Capsule oral DAILY ? ? gabapentin (NEURONTIN) capsule 100 mg oral BID (0800 & 1400) ??? hydrOXYzine (ATARAX) tablet 25 mg oral BID PRN ??? lidocaine (PF) 10 mg/mL (1 %) injection 2 mg intradermal PRN ??? melatonin tablet 3 mg oral AT BEDTIME PRN ??? methadone (DOLOPHINE) concentrated solution 70 mg oral DAILY ??? mirtazapine (REMERON) tablet 22.5 mg oral QHS ??? nicotine (NICOTROL) 10 mg inhaler kit 1 Inhaler inhalation Q2H PRN ??? nicotine inhaler (delivery device) inhalation PRN ??? senna (SENOKOT) tablet 1 Tablet oral AT BEDTIME PRN ??? thiamine (VITAMIN B1) tablet 100 mg oral DAILY Mental status exam: Appearance: 37 year old woman, dressed casually, neatly groomed Behavior: cooperative , suspicious Arousal: awake, alert Attention/Concentration: attentive to conversation Orientation: oriented to self, location, and time Memory: struggles with recent/intermediate recall Mood: alright Affect: anxious, blunted Speech: regular to rate, rhythm, and volume Thought Process/Language:disorganized, tangential Associations: loose Gait: normal Motor: bilateral hand tremor - mild Danger Self: Denies SI Danger Other: denies HI; no threatening statements or postures Fund of Knowledge: appropriate Insight/Judgement: limited BP 133/89 (BP Patient Position: Sitting) Pulse 78 Temp 36.7 ??C (98 ??F) (Temporal) Resp 16 Ht 164 cm (64.57) Wt 57.7 kg (127 lb 3.2 oz) SpO2 98% BMI 21.45 kg/m?? Data Review: Labs: No results found for this or any previous visit (from the past 24 hour(s)). Other studies:N/A Assessment/Formulation: (include vol/invol, mode of transport to hosp, who referred, risk to self/others) Tuyet Edwards is a 37 y.o. female with history of depression, anxiety, AUD, OUD on MTD, who presentedfor detox from alcohol, with concurrent symptoms of auditory hallucinations and depersonalization and depression. Patient was treated with IV thiamine at [facility]. 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 Patient has beenstarted on an additional 5 day IV thiamine treatment here with some improvement. She expresses motivation for long-term sobriety. Supportive therapy provided. Patient declines rehab. Patient continues to present with anxiety and confusion. She has a mild bilateral hand tremor. She has been seen with behavioral disorganization on unit. Patient's behavioral disorganization and suspiciousness has not responded to antipsychotic medication. Tuyet Edwards meets criteria for acute level of care. Diagnostic Impression w/ Differential Diagnosis Psychiatric Diagnoses (including Personality Traits/Disorders): Delirium (protracted alcohol withdrawal) Unspecified depressive disorder Alcohol use disorder, severe Opioid use disorder, in reported sustained remission Cannabis use disorder, severe Rule out psychotic disorder (psychotic depression) versus resolving delirium Rule out PTSD Plan: (comment on changes in Level of Observation or Locus Risk of Harm) -Recheck CBC, CMP - ongoing cognitive struggles -Continue voluntary inpatient admission to [facility] inpatient psychiatry -Locus: IV -Obs: frequent. -Staff privileges -Change hydroxyzine to Periactin 4mg po q6hr prn anxiety -Continue Gabapentin 100mg po bid for pain, anxiety -Continue thiamine 100mg po daily -Continue Remeron 22.5mg po at bedtime for treatment of depressive disorder and insomnia Discharge Plan: Discharge planning per multidisciplinary team rounds. Time Specifier: I spent a total of 25 minutes with this patient and in direct floor time today. Over 50% of this time was spent in counseling and coordination of care as described in the note. Curtis Méndez DO 08/11/2022 16:43 * Curtis Méndez DO - 08/10/2022 1730 EST Inpatient Psychiatry Daily Progress Note 08/10/2022 Admit Date: 07/30/22 Hospital day: LOS: 11 days Legal Status: Legal status: Voluntary Observation Level: Observation / visual check: Q 15 minutes (frequent) Locus/Risk of Harm: Current locus of harm: 4 Reason for Admission/Chief Complaint: Altered mental status, depression, and alcohol abuse Patient seen and evaluated. Patient reports concern that things are negatively affecting her. Sheis not specific. She reports feeling like he still has me all over the place - referring to her partner. She reports feeling like her partner is throwing her out an is uncertain where she can go when she leaves the hospital. Current Facility-Administered Medications Medication Route Frequency ??? acetaminophen (TYLENOL) tablet 650 mg oral Q4H PRN ? ? aluminum & magnesium hydroxide-simethicone (MAALOX PLUS) 200-200-20 mg/5 mL suspension 30 mL oral Q4H PRN ??? b [id number]-V-rphkd acid (NEPHROCAPS) 1 mg capsule 1 Capsule oral DAILY ? ? gabapentin (NEURONTIN) capsule 100 mg oral BID (0800 & 1400) ??? gabapentin (NEURONTIN) capsule 300 mg oral QHS ??? hydrOXYzine (ATARAX) tablet 50 mg oral Q8H PRN ??? influenza vaccine quad (PF) (6 mos+) IM injection-syringe 0.5 mL intramuscular Once (NOTime Specified) ??? lidocaine (PF) 10 mg/mL (1 %) injection 2 mg intradermal PRN ??? melatonin tablet 9 mg oral AT BEDTIME PRN ??? methadone (DOLOPHINE) concentrated solution 70 mg oral DAILY ??? mirtazapine (REMERON) tablet 30 mg oral QHS ??? nicotine (NICOTROL) 10 mg inhaler kit 1 Inhaler inhalation Q2H PRN ??? nicotine inhaler (delivery device) inhalation PRN ??? senna (SENOKOT) tablet 1 Tablet oral AT BEDTIME PRN ??? thiamine (VITAMIN B1) tablet 100 mg oral DAILY Mental status exam: Appearance: 37 year old woman, dressed casually, neatly groomed Behavior: cooperative Arousal: awake, alert Attention/Concentration: attentive to conversation Orientation: oriented to self, location, and time Memory: struggles with recent/intermediate recall Mood: anxious, better Affect: anxious, constricted Speech: regular to rate, rhythm, and volume Thought Process/Language:organized; linear; vague Associations: loose Gait: normal Motor: bilateral hand tremor - mild Danger Self: Denies SI Danger Other: denies HI; no threatening statements or postures Fund of Knowledge: appropriate Insight/Judgement: limited to fair BP 123/87 (BP Cuff Location: Right arm, BP Patient Position: Sitting) Pulse 81 Temp 36.7 ??C (98.1 ??F) (Temporal) Resp 16 Ht 164 cm (64.57) Wt 57.7 kg (127 lb 3.2 oz) SpO2 98% BMI 21.45 kg/m?? Data Review: Labs: Results for orders placed or performed during the hospital encounter of 07/30/22 (from the past 24 hour(s)) BASIC METABOLIC PANEL (BMP) Result Value Ref Range Sodium 143 136 - 145 mmol/L Potassium 4.3 3.5 - 5.0 mmol/L Chloride 100 96 - 110 mmol/L CO2 Total 32 22 - 32 mmol/L Anion Gap 11 5 - 14 Glucose 116 (H) 70 - 100 mg/dL Calcium 9.9 8.5 - 10.5 mg/dL BUN 12 10 - 26 mg/dL Creatinine 0.50 (L) 0.52 - 1.04 mg/dL eGFR 123 >60 mL/min/1.73m2 C REACTIVE PROTEIN Result Value Ref Range C-Reactive Protein <5.0 <10.0 mg/L MAGNESIUM Result Value Ref Range Magnesium 1.8 1.7 - 2.8 mg/dL Other studies:N/A Assessment/Formulation: (include vol/invol, mode of transport to hosp, who referred, risk to self/others) Tuyet Edwards is a 37 y.o. female with history of depression, anxiety, AUD, OUD on MTD, who presentedfor detox from alcohol, with concurrent symptoms of auditory hallucinations and depersonalization and depression. Patient was treated with IV thiamine at [facility]. 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 Patient has beenstarted on an additional 5 day IV thiamine treatment here with some improvement. She expresses motivation for long-term sobriety. Supportive therapy provided. Patient declines rehab. Patient continues to present with anxiety and confusion. She has a mild bilateral hand tremor. She has been seen with behavioral disorganization on unit. Tuyet Edwards meets criteria for acute level of care. Diagnostic Impression w/ Differential Diagnosis Psychiatric Diagnoses (including Personality Traits/Disorders): Delirium (protracted alcohol withdrawal) Unspecified depressive disorder Alcohol use disorder, severe Opioid use disorder, in reported sustained remission Cannabis use disorder, severe Rule out psychotic disorder (psychotic depression) versus resolving delirium Rule out PTSD Plan: (comment on changes in Level of Observation or Locus Risk of Harm) -Continue voluntary inpatient admission to [facility] inpatient psychiatry -Locus: IV -Obs: frequent. -Staff privileges -Continue Gabapentin 100mg po bid for pain, anxiety -Continue thiamine 100mg po daily -Continue Remeron 22.5mg po at bedtime for treatment of depressive disorder and insomnia Discharge Plan: Discharge planning per multidisciplinary team rounds. Time Specifier: I spent a total of 25 minutes with this patient and in direct floor time today. Over 50% of this time was spent in counseling and coordination of care as described in the note. Curtis Méndez DO 08/10/2022 17:30 * Oliver Martinez - 08/10/2022 1415 EST MD LEATHA meet with pt. Pt reports she is feeling very anxious. Pt states concern other patients on the unit are messing with me. When asked how she feels others are messing with her, she attempts to explain this but ultimately is not able to. Pt reports continued worry she is not welcome back to stay with her significant other (Salvador). Pt states because she was brought to [facility] which she describes in a hurried manner, she sees this as a sign she is not welcome back. LEATHA states this is not there understanding when talking to Salvador yesterday. LEATHA states they have not heard back from Salvador concerning a time to hold a family meeting today. Salvador stated to LAETHA yesterday he would call SW to set a time (alexander sandoval around 2pm) after he talked with his boss. LEATHA talks with pt about concern that she is not yet stable. Pt is able to acknowledge this and is amenable to a longer admission. * Marcio Blackwell - 08/10/2022 1410 EST Group Note: Mindfulness The group goals include: developing coping skills, identifying feelings, identifying stressors and problems, increasing awareness of self in relation to others, increasing expression of needs, increasing relaxation, increasing responsibility for behavior, increasing self-esteem, increasing attention span, increasing organization, and increasing self-control. Assessment: Pt participated fully Communication: Pt shared during group Behavior: Behavior was appropriate Plan: Continue to attend group * Jennyfer Gregory RN - 08/10/2022 0624 EST Pt in milieu, social with peers, watching tv, attended group. Have difficulty day but utilizing ppers support. Pain managed via oral and topical, good eye contact, and appeared to sleep by [id number],then walked kay, read in sun room and declined offers for interventions. She did request to use bike but staff was getting Ready for change of shift. * Curtis Méndez DO - 08/09/2022 1633 EST Inpatient Psychiatry Daily Progress Note 08/09/2022 Admit Date: 07/30/22 Hospital day: LOS: 10 days Legal Status: Legal status: Voluntary Observation Level: Observation / visual check: Q 15 minutes (frequent) Locus/Risk of Harm: Current locus of harm: 4 Reason for Admission/Chief Complaint: Altered mental status, depression, and alcohol abuse Patient appears internally preoccupied on the unit and observed muttering to self in kay. When in team round, patient abruptly enters the room in an agitated state and says what is going on and requesting to meet. Patient was informed that team would meet with her later. Patient noted by staff to be disorganized in thoughts and having difficulty formulating and communicating ideas. Patient seen and evaluated. She expresses concern that she is negatively impacting staff on unit and that is a source of her wanting to leave the hospital. Patient denies AH. She reports constant overthinking. She reports tremors in setting of intense anxiety. Patient's boyfriend and partner of 10 years was contacted. He reports that patient has had relatively rapid decline in functioning and cognition over the past few months. He describes her decline as a mental breakdown. He was updated on treatment course and diagnostic impression. A family meetingwas scheduled for 08/10. Current Facility-Administered Medications Medication Route Frequency ??? acetaminophen (TYLENOL) tablet 650 mg oral Q4H PRN ? ? aluminum & magnesium hydroxide-simethicone (MAALOX PLUS) 200-200-20 mg/5 mL suspension 30 mL oral Q4H PRN ??? b utffunn-N-wkunk acid (NEPHROCAPS) 1 mg capsule 1 Capsule oral DAILY ? ? gabapentin (NEURONTIN) capsule 100 mg oral BID (0800 & 1400) ??? gabapentin (NEURONTIN) capsule 300 mg oral QHS ??? influenza vaccine quad (PF) (6 mos+) IM injection-syringe 0.5 mL intramuscular Once (NOTime Specified) ??? lidocaine (PF) 10 mg/mL (1 %) injection 2 mg intradermal PRN ??? melatonin tablet 9 mg oral AT BEDTIME PRN ??? methadone (DOLOPHINE) concentrated solution 70 mg oral DAILY ??? mirtazapine (REMERON) tablet 22.5 mg oral QHS ??? nicotine (NICOTROL) 10 mg inhaler kit 1 Inhaler inhalation Q2H PRN ??? nicotine inhaler (delivery device) inhalation PRN ??? senna (SENOKOT) tablet 1 Tablet oral AT BEDTIME PRN ??? [START ON 08/10/2022] thiamine (VITAMIN B1) tablet 100 mg oral DAILY Mental status exam: Appearance: 37 year old woman, dressed casually, neatly groomed Behavior: cooperative Arousal: awake, alert Attention/Concentration: attentive to conversation Orientation: oriented to self, location, and time Memory: struggles with recent/intermediate recall Mood: anxious. Affect: anxious, constricted , labile at time Speech: regular to rate, rhythm, and volume Thought Process/Language:organized; linear; vague Associations: loose Gait: normal Motor: no psychomotor disturbances or abnormal movements except for slight fine bilateral hand tremor Danger Self: Denies SI Danger Other: denies HI; no threatening statements or postures Fund of Knowledge: appropriate Insight/Judgement: limited to fair BP 131/88 (BP Patient Position: Sitting) Pulse 92 Temp 36.4 ??C (97.5 ??F) (Temporal) Resp 18 Ht 164 cm (64.57) Wt 57.2 kg (126 lb) SpO2 99% BMI 21.25 kg/m?? Data Review: Labs: No results found for this or any previous visit (from the past 24 hour(s)). Other studies:N/A Assessment/Formulation: (include vol/invol, mode of transport to hosp, who referred, risk to self/others) Tuyet Edwards is a 37 y.o. female with history of depression, anxiety, AUD, OUD on MTD, who presentedfor detox from alcohol, with concurrent symptoms of auditory hallucinations and depersonalization and depression. Patient was treated with IV thiamine at [facility]. 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 Patient has beenstarted on an additional 5 day IV thiamine treatment here with some improvement. She expresses motivation for long-term sobriety. Supportive therapy provided. Patient declines rehab. Patient presents with improving cognition. She remains disorganized at times. Requires additional inpatient treatment for stabilization. Tuyet Edwards meets criteria for acute level of care. Diagnostic Impression w/ Differential Diagnosis Psychiatric Diagnoses (including Personality Traits/Disorders): Delirium (alcohol withdrawal) - resolving Unspecified depressive disorder Alcohol use disorder, severe Opioid use disorder, in reported sustained remission Cannabis use disorder, severe Rule out psychotic disorder (psychotic depression) versus resolving delirium Rule out PTSD Plan: (comment on changes in Level of Observation or Locus Risk of Harm) -Continue voluntary inpatient admission to [facility] inpatient psychiatry -Locus: IV -Obs: frequent. -Staff privileges -Continue Gabapentin 100mg po tid for pain, anxiety -Continue thiamine 500mg IM daily -Continue Remeron 22.5mg po at bedtime for treatment of depressive disorder and insomnia Discharge Plan: Discharge planning per multidisciplinary team rounds. Time Specifier: I spent a total of 25 minutes with this patient and in direct floor time today. Over 50% of this time was spent in counseling and coordination of care as described in the note. Curtis Méndez DO 08/09/2022 16:33 * Andreia Street - 08/09/2022 1509 EST Nutrition Complexity Reassessment S: I always do better when you help me. Referring to doing her menu for tomorrow. O: Patient has been re-assessed for nutritional complexity. Height: 164 cm (64.57) Weight : 57.2 kg (126 lb) on 08/03/22 Body mass index is 21.25 kg/m??. A: Pt is determined to be at minimal nutritional complexity, Level 3. Pt with a good intake at mealtimes, consuming 100% of most meals for the past four days. No new weights; scheduled to be weighed tomorrow. Pt was encouraged to continue to eat well upon discharge. P: Provide Regular diet as ordered. Continue to encourage daily menu selections. Check weights each Monday as ordered. No further clinical nutrition intervention necessary unless status changes. CAMRYN Jerez-DTR * Jericho Gutierrez - 08/09/2022 1429 EST LEATHA contacted MILLIE Haddad and talked to Rain. Rain stated Pt's counselor is Shanda Slater but that she is not available. LEATHA reviewed Pt's case and inquires if pt is still active with [facility] or if she will need to complete a new intake. Rain confirms Pt is still active and would be able to resume dosing after discharge from [facility]. Rain requested SW reach out to Shanda once a discharge date is known. LEATHA and SW Pipe Smoking Machine Offbearer met with Pt per Pt request. Pt talked about wanting to discharge soon and asked about a family meeting. Pt later signed a release to her significant other, Salvador. SW/MD contact Salvador and provided an update. LEATHA reviewed that Pt has declined [facility] treatment but does have avenues to explore this further if she would like through BRADLY or MILLIE. SW reported concern with Pt returning to drinking. Salvador stated that he will talk with Pt about being more amenable to [facility] treatment. Salvador stated he would be available for a family meeting tomorrow around 2 pm but will call SW with a specifictime. LEATHA, LEATHA Pipe Smoking Machine OffbearerMD met with pt. Pt reported being anxious and confused this morning and found zyprexa helpful. Pt stated she is hopeful to discharge soon and SW updated pt of a plan to hold a family meeting tomorrow. Concern for warnicky/thymine deficiency is reviewed and Pt acknowledged her thinking has not been clear. Pt asked is there somewhere else I can go which is believed to be a reference to the concern Salvador may have for her to return to their home and her desire to discharge. SWstated it's their understanding that Salvador wants Pt to return but is concerned. SW stated this can be discussed further during family meeting tomorrow. - Jericho Gutierrez, [employer] BUFFER Candidate under ROMARIO Rich. * Rebecca Prabhakar RN - 08/09/2022 0534 EST Pt in the milieu the start of this shift, engaging with select Peers. She watched tv and attended wrap up group. She was pleasant and polite with her request. She Took all hs meds with no issues. Shewas noted sleeping at 2330 and remain sleeping the rest of the night. VSS. * Trixie Burroughs RN - 08/08/2022 1842 EST Patient is quietly social in Milieu, attending and participating appropriately in groups and activities. She responds spontaneously when engaged and is pleasant and cooperative. * Curtis Méndez DO - 08/08/2022 1618 EST Inpatient Psychiatry Daily Progress Note 08/08/22 Admit Date: 07/30/22 Hospital day: LOS: 10 days Legal Status: Legal status: Voluntary Observation Level: Observation / visual check: Q 15 minutes (frequent) Locus/Risk of Harm: Current locus of harm: 4 Reason for Admission/Chief Complaint: Altered mental status, depression, and alcohol abuse Per nurse: slept 5.5 hours last night. Per chart review - patient requesting AMA discharge yesterday. Patient seen and evaluated. She reports feeling that her substance use has been chaotic. She reports feeling less confused. She declines rehab treatment. She reports at times feeling like she has to do specific tasks. She is observed at times muttering to herself. Current Facility-Administered Medications Medication Route Frequency ??? acetaminophen (TYLENOL) tablet 650 mg oral Q4H PRN ? ? aluminum & magnesium hydroxide-simethicone (MAALOX PLUS) 200-200-20 mg/5 mL suspension 30 mL oral Q4H PRN ??? b lbzrlbf-B-ytreg acid (NEPHROCAPS) 1 mg capsule 1 Capsule oral DAILY ? ? gabapentin (NEURONTIN) capsule 100 mg oral BID (0800 & 1400) ??? gabapentin (NEURONTIN) capsule 300 mg oral QHS ??? influenza vaccine quad (PF) (6 mos+) IM injection-syringe 0.5 mL intramuscular Once (NOTime Specified) ??? lidocaine (PF) 10 mg/mL (1 %) injection 2 mg intradermal PRN ??? melatonin tablet 9 mg oral AT BEDTIME PRN ??? methadone (DOLOPHINE) concentrated solution 70 mg oral DAILY ??? mirtazapine (REMERON) tablet 22.5 mg oral QHS ??? nicotine (NICOTROL) 10 mg inhaler kit 1 Inhaler inhalation Q2H PRN ??? nicotine inhaler (delivery device) inhalation PRN ??? senna (SENOKOT) tablet 1 Tablet oral AT BEDTIME PRN ??? [START ON 08/10/2022] thiamine (VITAMIN B1) tablet 100 mg oral DAILY Mental status exam: Appearance: 37 year old woman, dressed casually, neatly groomed Behavior: cooperative Arousal: awake, alert Attention/Concentration: attentive to conversation Orientation: oriented to self, location, and time Memory: struggles with recent/intermediate recall Mood: anxious. Affect: slightly anxious, constricted Speech: regular to rate, rhythm, and volume Thought Process/Language:organized; linear; vague Associations: intact Gait: normal Motor: no psychomotor disturbances or abnormal movements except for slight fine bilateral hand tremor Danger Self: Denies SI Danger Other: denies HI; no threatening statements or postures Fund of Knowledge: appropriate Insight/Judgement: limited to fair BP 131/88 (BP Patient Position: Sitting) Pulse 92 Temp 36.4 ??C (97.5 ??F) (Temporal) Resp 18 Ht 164 cm (64.57) Wt 57.2 kg (126 lb) SpO2 99% BMI 21.25 kg/m?? Data Review: Labs: No results found for this or any previous visit (from the past 24 hour(s)). Other studies:N/A Assessment/Formulation: (include vol/invol, mode of transport to hosp, who referred, risk to self/others) Tuyet Edwards is a 37 y.o. female with history of depression, anxiety, AUD, OUD on MTD, who presentedfor detox from alcohol, with concurrent symptoms of auditory hallucinations and depersonalization and depression. Patient was treated with IV thiamine at [facility]. 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 Patient has beenstarted on an additional 5 day IV thiamine treatment here with some improvement. She expresses motivation for long-term sobriety. Supportive therapy provided. Patient presents with improving cognition. She remains disorganized at times. Requires additional inpatient treatment for stabilization. Tuyet Edwards meets criteria for acute level of care. Diagnostic Impression w/ Differential Diagnosis Psychiatric Diagnoses (including Personality Traits/Disorders): Delirium (alcohol withdrawal) - resolving Unspecified depressive disorder Alcohol use disorder, severe Opioid use disorder, in reported sustained remission Cannabis use disorder, severe Rule out psychotic disorder (psychotic depression) versus resolving delirium Rule out PTSD Plan: (comment on changes in Level of Observation or Locus Risk of Harm) -Continue voluntary inpatient admission to [facility] inpatient psychiatry -Locus: IV -Obs: frequent. -Staff privileges -Continue Gabapentin 100mg po tid for pain, anxiety -Continue thiamine 500mg IM daily -Increase Remeron from 15mg po at bedtime to 22.5mg po at bedtime for treatment of depressive disorder and insomnia Discharge Plan: Discharge planning per multidisciplinary team rounds. Time Specifier: I spent a total of 25 minutes with this patient and in direct floor time today. Over 50% of this time was spent in counseling and coordination of care as described in the note. Curtis Méndez DO 08/09/2022 16:20 * Jericho Gutierrez - 08/08/2022 1517 EST SW contacted [facility] admissions to review her phone screening. SW heard that Pt did not express an interest in residential treatment noting that she preferred to work on mental health. SW statedto [facility] they will talk with Pt to assess her willingness to participate in residential treatment. SW Pipe Smoking Machine Offbearer, SW, and MD met with Pt for a follow up. Pt reported that she is doing well but remained anxious over the weekend. Pt is difficult to follow as to what she was experiencing but reported that she felt judged by others on the unit. Pt stated concern that she is disappointing others onthe unit but is not clear as to why. SW asked Pt about phone screening with [facility]. After some conversation, Pt stated she is not interested in residential treatment. SW talked with Pt about IOP which Pt also does not report an interest in at this time. Pt remains amenable to reconnecting with [facility] in [facility] and working with one of their counselors. Pt is also open to connecting with [facility]. Pt inquired about how much longer she needs to be on the unit. SW discussed that Pt needs further stability. Pt stated she is hopeful to discharge before thanksgi and a plan is made to discuss this further tomorrow. - Jericho Gutierrez, AUTO WASH BUFFER Candidate under ROMARIO Rich. * Lizette Anguiano MD - 08/07/2022 1218 EST Inpatient Psychiatry Daily Progress Note 08/07/2022 Admit Date: 07/30/22 Hospital day: LOS: 8 days Legal Status: Legal status: Voluntary Observation Level: Observation / visual check: Q 15 minutes (frequent) Locus/Risk of Harm: Current locus of harm: 4 Reason for Admission/Chief Complaint: Altered mental status, depression, and alcohol abuse Per nurse: Last night she presented as confused indecisive, making intermittent eye contact. Appears depressed, anxious. Slept more than 7 h. Per SW: She still presented as fairly suspicious of others mid last week. It appears that she will not be able to receive services from [facility], but they could not be reached on Monday. Ms. Edwards also thought her interview with [facility] did not go well. Discharge plan still in progress. Per CARLOS: Some concerns about possible Wernicke syndrome and she is now taking B12. Chart was reviewed for history. Subjective: Met with pt with SW. This health technical writer was informed this morning that Ms. Edwards was requesting discharge. On interview, pt described feeling that she was a burden to people here, as well as in general. She voiced appreciating the care she was receiving and that staff seemed to be going above and beyond for her. She discussed not feeling like herself and this being unsettling, particularly since at her baseline she would be in the role of caring for others. She is concerned about nutritionas she finds that it is overwhelming to fill out the daily menus. Sleep has been intermittent. No clear adverse effects from medications. Reports no thoughts of harm toward herself or others. . Her gait is steady. No EOM abnl noted. She is unsure if confusion has gotten better with thiamine treatment. Current Facility-Administered Medications Medication Route Frequency ??? acetaminophen (TYLENOL) tablet 650 mg oral Q4H PRN ? ? aluminum & magnesium hydroxide-simethicone (MAALOX PLUS) 200-200-20 mg/5 mL suspension 30 mL oral Q4H PRN ??? b xzjxxvc-Y-nfvzx acid (NEPHROCAPS) 1 mg capsule 1 Capsule oral DAILY ??? gabapentin (NEURONTIN) capsule 100 mg oral TID ??? influenza vaccine quad (PF) (6 mos+) IM injection-syringe 0.5 mL intramuscular Once (NOTime Specified) ??? lidocaine (PF) 10 mg/mL (1 %) injection 2 mg intradermal PRN ??? melatonin tablet 9 mg oral AT BEDTIME PRN ??? methadone (DOLOPHINE) concentrated solution 70 mg oral DAILY ??? mirtazapine (REMERON) tablet 15 mg oral QHS ??? nicotine (NICOTROL) 10 mg inhaler kit 1 Inhaler inhalation Q2H PRN ??? nicotine inhaler (delivery device) inhalation PRN ??? senna (SENOKOT) tablet 1 Tablet oral AT BEDTIME PRN ??? sodium chloride 0.9 % (flush) flush 5 mL intravenous Q8H ??? thiamine (VITAMIN B-1) injection 100 mg intramuscular DAILY Mental status exam: Appearance: 37 year old woman, dressed casually, neatly groomed Behavior: cooperative Arousal: awake, alert Attention/Concentration: attentive to conversation Orientation: oriented to self, location, and time Memory: struggles with recent/intermediate recall Mood: depressed, anxious. Affect: slightly anxious, constricted Speech: regular to rate, rhythm, and volume Thought Process/Language:organized; linear; vague Associations: intact Gait: normal Motor: no psychomotor disturbances or abnormal movements except for slight fine bilateral hand tremor Danger Self: Denies SI Danger Other: denies HI; no threatening statements or postures Fund of Knowledge: appropriate Insight/Judgement: limited to fair; fair BP (!) 154/93 (BP Cuff Location: Right arm, BP Patient Position: Sitting) Pulse 88 Temp 36.5 ??C (97.7 ??F) (Temporal) Resp 16 Ht 164 cm (64.57) Wt 57.2 kg (126 lb) SpO2 97% BMI 21.25 kg/m?? Data Review: Labs: No results found for this or any previous visit (from the past 24 hour(s)). Other studies:N/A Assessment/Formulation: (include vol/invol, mode of transport to hosp, who referred, risk to self/others) As before, Tuyet Edwards is a 37 y.o. female with history of depression, anxiety, AUD, OUD on MTD, who presented for detox from alcohol, with concurrent symptoms of auditory hallucinations and depersonalization and depression. Patient was treated with IV thiamine at [facility]. She presents withcontinued confusion (yet improving) which may suggest a protracted alcohol delirium syndrome. Patient has been started on an additional 5 day IV thiamine treatment here with some improvement. She expresses motivation for long-term sobriety. Supportive therapy provided. 08/07: Ms. Edwards requested discharge this morning due to feeling that she was a burden on others, but she remains voluntary for admission at this time. Tuyet Edwards meets criteria for acute level of care. Diagnostic Impression w/ Differential Diagnosis Psychiatric Diagnoses (including Personality Traits/Disorders): Delirium (alcohol withdrawal) - resolving Unspecified depressive disorder Alcohol use disorder, severe Opioid use disorder, in reported sustained remission Cannabis use disorder, severe Rule out psychotic disorder (psychotic depression) versus resolving delirium Rule out PTSD Plan: (comment on changes in Level of Observation or Locus Risk of Harm) -Continue voluntary inpatient admission to [facility] inpatient psychiatry -Locus: IV -Obs: frequent. -Staff privileges -Continue Gabapentin 100mg po tid for pain, anxiety -Continue thiamine 500mg IV daily -Initiate Remeron 15mg po at bedtime for treatment of depressive disorder and insomnia -Consider neurological consultation regarding workup/diagnosis/treatment for persistent delirium like syndrome Discharge Plan: Discharge planning per multidisciplinary team rounds. Time Specifier: I spent a total of 35 minutes with this patient and in direct floor time today. Over 50% of this time was spent in counseling and coordination of care as described in the note. Lizette Anguiano MD 08/07/2022 12:18 * Trixie Boudreaux RN - 08/07/2022 1055 EST Tuyet was approached in her room regarding her am medications. Tuyet appeared suspicious and to have some paranoia about my real intent, using gestures with sharp head nods in my direction and statements with sneers to the effect of, is that so, Yeah we will see about that about administering medications (IM INJ) and regarding her interest in potentially discharging and how we can help her stay feel more comfortable. Tuyet did appear to be adherent with medications as prescribed this morning. Tuyet plans to discuss discharging with her team. * Sisi Mcmillan - 08/07/2022 0806 EST Pt, and LEATHA met for a check in and discharge planning. SW and MD received a message from Pt's nurse that she was asking for discharge. Pt presented as anxious and talked in vague terms. Pt reports not feeling like herself and maybe needing to slow down to not get ahead of herself. Pt reports sleeping on and off through the night but also not feeling tired the next day. Pt reports not having a drive to do things, interact or to be helpful towards others. Pt also mentioned feeling overwhelmed by writing out the menu and interacting with her peers. Pt reports staff have been so kind to her butshe feels unsure of her interactions with her peers. SW encouraged Pt to take things one day at a time and that SW would ask a staff to help her with her menu. Pt agreed that this would be helpful and will work on staying in the present and not get to far ahead of herself. SW got the impression that Pt might be drawing more meaning from the conversation than what was being said. Pt appeared suspicious at times and Pt's responses did not match the topic at the time. Pt is no long requesting discharge at this time. * Leida Pollard RN - 08/06/2022 2144 EST Couldn't make up her mind as to whether or not she was ready to take her HS meds x2. Eventually approached the Nurses Station requesting her meds. Intermittent eye contact, depressed and anxious appearing. Attended Focus Group. Present in [place] in evening. * Prasanna Mistry MD - 08/06/2022 1539 EST Inpatient Psychiatry Daily Progress Note 08/06/2022 Admit Date: 07/30/22 Hospital day: LOS: 7 days Legal Status: Legal status: Voluntary Observation Level: Observation / visual check: Q 15 minutes (frequent) Locus/Risk of Harm: Current locus of harm: 4 Reason for Admission/Chief Complaint: Altered mental status, depression, and alcohol abuse Per nurse: She was slightly anxious and guarded. She was a little hesitant to take at bedtime medications due to change from trazodone to mirtazapine. Reported that VV intake did not go well. She wasalso concerned that [facility] would not continue to work with her. Slept 6 hours. Up once for an hour but returned to bed. Chart was reviewed for history. Subjective: Pt is seen for follow up. She reports feeling better physically but continues to experience periods of confusion. Mood is described as depressed and anxious. She reports fitful sleep, fatigue, distractibility, andimproving appetite. She denies SI or HI on direct questioning. She denies AVH but is concerned that people may be talking about her behind her back. She is also concerned that she is upsetting people. She is oriented to self, location, and time. She is able to name recent [place] presidents, from [place] back to [place] without any difficulty. She has 3/3 registration and 2/3 recall at 3 minutes. She is able to sustain attention for the most part but occasionally loses her train of thinking and asks to repeat the question. She also struggles to provide a clear account of recent alcohol use. She reports heavy use and trying to quit cold turkey in May. She can't tell when she relapsed and is quite vague on her mostrecent use. She endorses recent withdrawal symptoms, all of which are diminished. She exhibits fine bilateral hand tremor on arm extension. In addition to alcohol, she reports minimal cannabis use. She is on MTDmaintenance dose and indicates that the dose was recently slightly decreased. She denies any other substance use. Her gait is steady. No EOM abnl noted. She's unsure if confusion has gotten better with thiamine treatment. Current Facility-Administered Medications Medication Route Frequency ??? acetaminophen (TYLENOL) tablet 650 mg oral Q4H PRN ? ? aluminum & magnesium hydroxide-simethicone (MAALOX PLUS) 200-200-20 mg/5 mL suspension 30 mL oral Q4H PRN ??? b [id number]-Z-qlbta acid (NEPHROCAPS) 1 mg capsule 1 Capsule oral DAILY ??? gabapentin (NEURONTIN) capsule 100 mg oral TID ??? influenza vaccine quad (PF) (6 mos+) IM injection-syringe 0.5 mL intramuscular Once (NOTime Specified) ??? lidocaine (PF) 10 mg/mL (1 %) injection 2 mg intradermal PRN ??? melatonin tablet 9 mg oral AT BEDTIME PRN ??? methadone (DOLOPHINE) concentrated solution 70 mg oral DAILY ??? mirtazapine (REMERON) tablet 15 mg oral QHS ??? nicotine (NICOTROL) 10 mg inhaler kit 1 Inhaler inhalation Q2H PRN ??? nicotine inhaler (delivery device) inhalation PRN ??? senna (SENOKOT) tablet 1 Tablet oral AT BEDTIME PRN ??? sodium chloride 0.9 % (flush) flush 5 mL intravenous Q8H ??? thiamine (VITAMIN B-1) injection 100 mg intramuscular DAILY Mental status exam: Appearance: 37 year old woman, dressed casually Behavior: cooperative Arousal: awake, alert Attention/Concentration: attentive to conversation; spells EARTH backwards with some effort Orientation: oriented to self, location, and time Memory: 3/3 registration; 2/3 recall at 3 minutes; struggles with recent/intermediate recall Mood: depressed, anxious. Affect: slightly anxious, constricted Speech: regular to rate, rhythm, and volume Thought Process/Language:organized; linear; vague Associations: intact Gait: normal Motor: no psychomotor disturbances or abnormal movements except for slight fine bilateral hand tremor Danger Self: Denies SI Danger Other: denies HI; no threatening statements or postures Fund of Knowledge: appropriate Insight/Judgement: limited to fair; fair BP 132/89 (BP Cuff Location: Right arm, BP Patient Position: Sitting) Pulse 87 Temp 36.8 ??C (98.2 ??F) (Temporal) Resp 16 Ht 164 cm (64.57) Wt 57.2 kg (126 lb) SpO2 98% BMI 21.25 kg/m?? Data Review: Labs: No results found for this or any previous visit (from the past 24 hour(s)). Other studies:N/A Assessment/Formulation: (include vol/invol, mode of transport to hosp, who referred, risk to self/others) Tuyet Edwards is a 37 y.o. female with history of depression, anxiety, AUD, OUD on MTD, who presentedfor detox from alcohol, with concurrent symptoms of auditory hallucinations and depersonalization and depression. Patient was treated with IV thiamine at [facility]. 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 Patient has beenstarted on an additional 5 day IV thiamine treatment here with some improvement. She expresses motivation for long-term sobriety. Supportive therapy provided. Tuyet Edwards meets criteria for acute level of care. Diagnostic Impression w/ Differential Diagnosis Psychiatric Diagnoses (including Personality Traits/Disorders): Delirium (alcohol withdrawal) - resolving Unspecified depressive disorder Alcohol use disorder, severe Opioid use disorder, in reported sustained remission Cannabis use disorder, severe Rule out psychotic disorder (psychotic depression) versus resolving delirium Rule out PTSD Plan: (comment on changes in Level of Observation or Locus Risk of Harm) -Continue voluntary inpatient admission to [facility] inpatient psychiatry -Locus: IV -Obs: frequent. -Staff privileges -Continue Gabapentin 100mg po tid for pain, anxiety -Continue thiamine 500mg IV daily -Initiate Remeron 15mg po at bedtime for treatment of depressive disorder and insomnia -Consider neurological consultation regarding workup/diagnosis/treatment for persistent delirium like syndrome Discharge Plan: Discharge planning per multidisciplinary team rounds. Time Specifier: I spent a total of 25 minutes with this patient and in direct floor time today. Over 50% of this time was spent in counseling and coordination of care as described in the note. Prasanna Mistry MD 08/06/2022 15:40 * Curtis Méndez, DO - 08/05/20222045 EST Inpatient Psychiatry Daily Progress Note 08/05/2022 Admit Date: 07/30/22 Hospital day: LOS: 6 days Legal Status: Legal status: Voluntary Observation Level: Observation / visual check: Q 15 minutes (frequent) Locus/Risk of Harm: Current locus of harm: 4 Reason for Admission/Chief Complaint: Altered mental status, depression, and alcohol abuse Per nurse: Received Tylenol for myalgias. Slept 6 hours. Patient seen and evaluated with social services. Patient reports her phone screening with [facility] did not go well because of her insurance and uncertainty if she would qualify due to her insurance. She reports feeling better. She reports her mind was very jumbled. She reports that she was seeing numbers and feeling not welcome in most places. She has much difficulty describing recent history and is initially hesitant to discuss. She reports the threes were bad and the four helped. She reports that the three jobs she had were very scary and she felt that she was being watched by a cameron yañez in a negative way. She reports over thinking all her life. She reports persistent Emotional numbness and inability to feel. She denies history of significant OCD symptoms or altered thinking consistent with past month. She signed release to speak with boyfriend today. Will look to schedule family meeting sometime next week and get additional information from long-term partner. Current Facility-Administered Medications Medication Route Frequency ??? acetaminophen (TYLENOL) tablet 650 mg oral Q4H PRN ? ? aluminum & magnesium hydroxide-simethicone (MAALOX PLUS) 200-200-20 mg/5 mL suspension 30 mL oral Q4H PRN ??? b ysycbrt-F-ivfdu acid (NEPHROCAPS) 1 mg capsule 1 Capsule oral DAILY ??? gabapentin (NEURONTIN) capsule 100 mg oral TID ??? influenza vaccine quad 2021- (PF) (6 mos+) IM injection-syringe 0.5 mL intramuscular Once (NOTime Specified) ??? lidocaine (PF) 10 mg/mL (1 %) injection 2 mg intradermal PRN ??? melatonin tablet 9 mg oral AT BEDTIME PRN ??? methadone (DOLOPHINE) concentrated solution 70 mg oral DAILY ??? mirtazapine (REMERON) tablet 15 mg oral QHS ??? nicotine (NICOTROL) 10 mg inhaler kit 1 Inhaler inhalation Q2H PRN ??? nicotine inhaler (delivery device) inhalation PRN ??? senna (SENOKOT) tablet 1 Tablet oral AT BEDTIME PRN ??? sodium chloride 0.9 % (flush) flush 5 mL intravenous Q8H ??? [START ON 08/06/2022] thiamine (VITAMIN B-1) injection 100 mg intramuscular DAILY Mental status exam: Appearance: 37 year old woman, dressed casually Behavior: cooperative Arousal: awake, alert Attention/Concentration: attentive to conversation Orientation: a/ox3 Memory: Deficits in recent memory - improving Mood: better, anxious Affect: anxious, constricted Speech: regular to rate, rhythm, and volume Thought Process/Language: disorganized, slowed, tangential Associations: mild loosening - mildly improving Gait: normal Motor: no psychomotor disturbances or abnormal movements Danger Self: none expressed; denies si Danger Other: none Fund of Knowledge: appropriate Insight/Judgement: fair; fair BP 122/88 (BP Cuff Location: Right arm, BP Patient Position: Sitting) Pulse 76 Temp 36.7 ??C (98 ??F) Resp 18 Ht 164 cm (64.57) Wt 57.2 kg (126 lb) SpO2 98% BMI 21.25 kg/m?? Data Review: Labs: No results found for this or any previous visit (from the past 24 hour(s)). Other studies:N/A Assessment/Formulation: (include vol/invol, mode of transport to hosp, who referred, risk to self/others) Tuyet Edwards is a 37 y.o. year old woman who presented for detox from alcohol, with concurrent symptoms of auditory hallucinations and depersonalization and depression. Patient was treated with IV thiamine at [facility]. 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 Patient has been started on an additional 5 day IV thiamine treatment here. She expresses motivation for long-term sobriety. Supportive therapy provided. Tuyet Edwards meets criteria for acute level of care. Diagnostic Impression w/ Differential Diagnosis Psychiatric Diagnoses (including Personality Traits/Disorders): Delirium (alcohol withdrawal) - resolving Unspecified depressive disorder Alcohol use disorder, severe Opioid use disorder, in reported sustained remission Cannabis use disorder, severe Rule out psychotic disorder (psychotic depression) versus resolving delirium Rule out PTSD Plan: (comment on changes in Level of Observation or Locus Risk of Harm) -Continue voluntary inpatient admission to [facility] inpatient psychiatry -Locus: IV -Obs: frequent. -Staff privileges -Continue Gabapentin 100mg po tid for pain, anxiety -Continue thiamine 500mg IV daily -Initiate Remeron 15mg po at bedtime for treatment of depressive disorder and insomnia -Consider neurological consultation regarding workup/diagnosis/treatment for persistent delirium like syndrome Discharge Plan: Discharge planning per multidisciplinary team rounds. Time Specifier: I spent a total of 25 minutes with this patient and in direct floor time today. Over 50% of this time was spent in counseling and coordination of care as described in the note. Curtis Méndez DO 08/05/2022 20:46 * Andreia Street - 08/05/2022 1731 EST Nutrition Note S: I think I'm doing pretty good with my meals. O: 37 y.o. female admitted with AUD, severe dependence, R/O delirium Diet Order: Regular Height: 164 cm (64.57) Weight : 57.2 kg (126 lb) Body mass index is 21.25 kg/m??. A: Pt's intake at meal times is improved since admission, consuming 50-100%. Reviewed menu choices for tomorrow with pt and pt agreed to add a few more things to her menu. P: Provide Regular diet as ordered. Continue to encourage daily menu selections and intake. Document amount consumed. Monitor weights each Monday as ordered. Monitor clinical course. NFS to follow up by 08/09/22. PARRISH JerezDTDora * Leonard Najera - 08/05/2022 1730 EST Went to flush Saline Lock and the cap on The end had come off. Assessed site and found it was red, warm, tender, slightly swollen. D/C'd saline Lock. Notified ASSOCIATE PROFESSOR OF MUSIC. * Maria Alejandra Leonardo - 08/05/2022 1445 EST Subjective: Pt met with MD and LEATHA today to discuss disposition planning and to check in. Pt also had her phone screening with [facility] today. Objective: Pt stated her phone screening did not go well. Pt stated she has the wrong insurance, but our records indicate that she has Medicaid. Pt also thinks that she has burned a bridge at [facility]. They are working with [facility] [place] to provide methadone to patients. Pt thinks thatthey will not prescribe to her. LEATHA placed a call to them to check that out, but Pt then declined toattend their program. Assessment: Pt seems slightly anxious and a bit paranoid. We were trying to set up a family meetingbut Pt would not initial the boxes saying that we could talk about her Mental Health and substance use. The meeting would have been with her partner. Pt may rethink signing the FIORDALIZA. Plan: Set up family meeting for next week. Find a program for Pt that will allow Methadone. * Marcio Blackwell - 08/05/2022 1415 EST Group Note: Mindfulness The group goals include: developing coping skills, identifying feelings, identifying stressors and problems, increasing awareness of self in relation to others, increasing expression of needs, increasing relaxation, increasing responsibility for behavior, increasing self-esteem, increasing attention span, increasing organization, and increasing self-control. Assessment: Pt participated fully Communication: Pt shared during group Behavior: Behavior was appropriate Plan: Continue to attend group * Jennyfer Gregory, JIAN - 08/05/2022 0634 EST Pt attended group, no pain, vital signs within normal. Sad but able to utilize peer support. Declined hs med then asked at 0200 for tylenol for generalized pain. Walked kay, relaxed in group room, then back to sleep in bed at 0245 until 0445. Total sleep 5+hrs. * Curtis Méndez DO - 08/04/2022 1647 EST Inpatient Psychiatry Daily Progress Note 08/04/2022 Admit Date: 07/30/22 Hospital day: LOS: 5 days Legal Status: Legal status: Voluntary Observation Level: Observation / visual check: Q 15 minutes (frequent) Locus/Risk of Harm: Current locus of harm: 4 Reason for Admission/Chief Complaint: Altered mental status, depression, and alcohol abuse Patient seen with LEATHA. Patient denies SI. She denies AH. She voices motivation to attend [facility] - she missed the phone screening this am. She is receiving IV thiamine. Reports improving myalgias. Current Facility-Administered Medications Medication Route Frequency ??? acetaminophen (TYLENOL) tablet 650 mg oral Q4H PRN ? ? aluminum & magnesium hydroxide-simethicone (MAALOX PLUS) 200-200-20 mg/5 mL suspension 30 mL oral Q4H PRN ??? b cxxnbgv-K-pqztt acid (NEPHROCAPS) 1 mg capsule 1 Capsule oral DAILY ??? gabapentin (NEURONTIN) capsule 100 mg oral TID ??? influenza vaccine quad (PF) (6 mos+) IM injection-syringe 0.5 mL intramuscular Once (NOTime Specified) ??? lidocaine (PF) 10 mg/mL (1 %) injection 2 mg intradermal PRN ??? melatonin tablet 9 mg oral AT BEDTIME PRN ??? methadone (DOLOPHINE) concentrated solution 70 mg oral DAILY ??? nicotine (NICOTROL) 10 mg inhaler kit 1 Inhaler inhalation Q2H PRN ??? nicotine inhaler (delivery device) inhalation PRN ??? senna (SENOKOT) tablet 1 Tablet oral AT BEDTIME PRN ??? sodium chloride 0.9 % (flush) flush 5 mL intravenous Q8H ??? [START ON 08/05/2022] thiamine (VITAMIN B-1) 250 mg in sodium chloride (NS) 0.9 % 100 mL IVPB intravenous DAILY ??? traZODone (DESYREL) tablet 50 mg oral QHS Mental status exam: Appearance: 37 year old woman, dressed casually Behavior: cooperative Arousal: awake, alert Attention/Concentration: attentive to conversation Orientation: a/ox3 Memory: Deficits in recent memory - improving Mood: alright, anxious Affect: anxious, constricted Speech: regular to rate, rhythm, and volume Thought Process/Language: disorganized, slowed Associations: mild loosening - improving Gait: normal Motor: no psychomotor disturbances or abnormal movements Danger Self: none expressed; denies si Danger Other: none Fund of Knowledge: appropriate Insight/Judgement: fair; fair BP (!) 134/95 (BP Cuff Location: Right arm, BP Patient Position: Sitting) Pulse 88 Temp 36.5 ??C (97.7 ??F) Resp 16 Ht 164 cm (64.57) Wt 57.2 kg (126 lb) SpO2 98% BMI 21.25 kg/m?? Data Review: Labs: No results found for this or any previous visit (from the past 24 hour(s)). Other studies:N/A Assessment/Formulation: (include vol/invol, mode of transport to hosp, who referred, risk to self/others) Tuyet Edwards is a 37 y.o. year old who presented for detox from alcohol, with concurrent symptoms ofauditory hallucinations and depersonalization and depression. Patient was treated with IV thiamine at [facility]. 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 Patient to start on IV thiamine course today. She expresses motivation for long-term sobriety. Supportive therapy provided. Tuyet Edwards meets criteria for acute level of care. Diagnostic Impression w/ Differential Diagnosis Psychiatric Diagnoses (including Personality Traits/Disorders): Unspecified depressive disorder Alcohol use disorder, severe Opioid use disorder, in reported sustained remission Cannabis use disorder, severe Delirium - resolving Plan: (comment on changes in Level of Observation or Locus Risk of Harm) -Continue voluntary inpatient admission to [facility] inpatient psychiatry -Locus: IV -Obs: frequent. -staff privileges -Continue Gabapentin 100mg po tid for pain, anxiety -Continue thiamine 500mg IV daily Discharge Plan: Discharge planning per multidisciplinary team rounds. Time Specifier: I spent a total of 25 minutes with this patient and in direct floor time today. Over 50% of this time was spent in counseling and coordination of care as described in the note. Curtis Méndez DO 08/04/2022 16:47 * Maria Alejandra Leonardo - 08/04/2022 1557 EST Subjective: Pt met with MD and SW today to check in and to discuss discharge planning. Pt stated that she was ok but was feeling like she didn't belong here. Pt is worried about some of the otherpatients. She seems to feel awkward around them. Objective: Pt states that she missed her [employer] screening this morning due to confusion. Pt states that she is confused at times and she said she didn't know whether to call at the correct timeor go to group. Pt ended up going to group and didn't make the phone call. Screening call was rescheduled by SW for tomorrow morning at 10:00. Assessment: Pt seems very depressed and is isolating on the unit. She stays in her room and doesn'tinteract with others. Plan: Pt will keep her appointment with Chauffeur Prive Duane tomorrow morning. SW will assist her in makingthe call. This is a screening call so depending on what happens, Pt may or may not be accepted. There doesn't seem to be an overt reason for not accepting her, so the assumption is that she will be accepted and will move toward residential treatment. SW to follow up. * MichaelSusu garcia ASSOCIATE PROFESSOR OF MUSIC - 08/03/2022 2366 EST Daily Progress Note Admit Date: 07/30/2022 Hospital Day: LOS: 4 days Date of Service: 08/03/2022 Reason for Admission/Chief Complaint: alcohol withdrawal, mental status changes 24-Hour events: appears to be clearing some, slept Subjective: Psychiatry ask to reassess pt neurologically for ongoing mental status changes with concern for Wernicke-Korsokoff syndrome. Pt was initially seen briefly in the early am when she came in with [facility] for a weight. At that time she was polite, calm, but oddly sat down in the office chair and just waited. She seemed disorientedand detached with dificulty describing her thoughts. She is suspicious and stated she can't make sense of things with lost time and impaired memory. She feels disconnected from herself and has some distorted sensory vibratory perceptions. She has some auditory distortions. Pt states her tremors andgait are much better than they have been. She notes she was so shaky she could not hold things in her hands. She was a bit off on the time line for stopping her alcohol and going to [facility] here. She could not tell me who brought her here or how long she has been here. She correctly stated her name, date of , address. She knew she was in [facility] and that the name had changed, but she couldn't state the new name. She noted she was born in this hospital. She new the month and year and that was coming up. Past family/social history: Unchanged Current Facility-Administered Medications Medication Route Frequency ??? acetaminophen (TYLENOL) tablet 650 mg oral Q4H PRN ? ? aluminum & magnesium hydroxide-simethicone (MAALOX PLUS) 200-200-20 mg/5 mL suspension 30 mL oral Q4H PRN ??? b lhcpnxn-U-giycz acid (NEPHROCAPS) 1 mg capsule 1 Capsule oral DAILY ??? gabapentin (NEURONTIN) capsule 100 mg oral TID ??? influenza vaccine quad (PF) (6 mos+) IM injection-syringe 0.5 mL intramuscular Once (NOTime Specified) ??? lidocaine (PF) 10 mg/mL (1 %) injection 2 mg intradermal PRN ??? melatonin tablet 9 mg oral AT BEDTIME PRN ??? methadone (DOLOPHINE) concentrated solution 70 mg oral DAILY ??? nicotine (NICOTROL) 10 mg inhaler kit 1 Inhaler inhalation Q2H PRN ??? nicotine inhaler (delivery device) inhalation PRN ??? senna (SENOKOT) tablet 1 Tablet oral AT BEDTIME PRN ??? sodium chloride 0.9 % (flush) flush 5 mL intravenous Q8H ??? [START ON 08/05/2022] thiamine (VITAMIN B-1) 250 mg in sodium chloride (NS) 0.9 % 100 mL IVPB intravenous DAILY ??? thiamine (VITAMIN B-1) 500 mg in sodium chloride (NS) 0.9 % 250 mL IVPB intravenous TID ??? traZODone (DESYREL) tablet 50 mg oral QHS Review of Systems: A ten point review of systems was performed and was negative except for pertinent positives noted in the HPI Objective/Physical Exam: VS: Patient Vitals for the past 24 hrs: BP Temp Temp src Pulse Resp SpO2 Weight 08/03/22 2100 140/83 -- -- -- -- -- -- 08/03/22 1929 (!) 164/99 36.6 ??C (97.8 ??F) Temporal -- 16 100 % -- 08/03/22 0900 -- -- -- -- -- -- 57.2 kg (126 lb) 08/03/22 0800 124/81 36.9 ??C (98.4 ??F) Temporal 88 14 98 % -- Weight: Weight : 57.2 kg (126 lb) Exam: General: Pt is alert and awake, cooperative, anxious, mildly fearful.in no respiratory distress, oriented x 3 Head: normocephalic, atraumatic, sppech is clear but hesistent at first, relaxes the longer into exam. HENT:Mucus membranes moist, hearing intact to normal voice tone and volume, tongue extends crosses the midline, normal strength, uvula rises on phonation, facial features symmetrical with normal movements EYES: PERRL, EOMI without nystagmus, sclera white nonicteris no conjunctival injection. Shoulder shrug strong symmetrical CN II -XII grossly intact She has fine hand tremors strength symmetrical and strong Gait steady with normal stride and swing, no ataxia Romberg negative DTRs 2+symmertrical, downward toeing. Labs: No results found for this or any previous visit (from the past 24 hour(s)). Assessment/Problems: (update problem list daily as appropriate) Active Hospital Problems Diagnosis Date Noted ??? *Depression, unspecified depression type 07/30/2022 ??? Opioid use disorder, moderate, dependence ([facility]) ([facility]) ??? Tobacco use ??? Elevated BP without diagnosis of hypertension ??? Alcohol use disorder, severe, dependence ([facility]) ([facility]) 07/30/2022 Resolved Hospital Problems Diagnosis Date Noted Date Resolved ??? Tobacco dependence 07/31/2022 07/31/2022 Plan: Alcohol withdrawal syndrome with delirium resolving -pt was loaded with phenobarbital while at [facility] -She received Lorazepam in [facility] ED and on Medicine. -She is off CIWA and meds at this time -no benzos, use atypical antipsychotic if needed Possible Wernicke-Korsekoff syndrome -no evidence of Wernicke at this time -she continues to have neuro-psych symptoms and memory issues, but this seems to be clearing. Suspect more of a protracted withdrawal and persistent delirium, but given the earlier concern, her risk factors, and the best chance for her brain will load with IV thiamine. She did receive Banana Bags while at [facility] and on presentation to [facility] ED she received a single dose of Thiamine 500 mg IV before being admitted and then 100 mg IM while on Medicine before transfer, but this was not continued. Will give 500 mg IV x 3 doses then 250 mg IV daily x 5 days then resume oral. Alcohol use disorder, severe Dependence -once delirium has resolved, recommend residential treatment and sober living. 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 10 minutes of that time was spent in discussion with the patient about the risks and treatment options for korsokoff syndrome >50% time spent on counseling and coordination of care DVT Prophalyxis: ambulate Code status: Full Code Susu Morris NP 08/03/2022 22:46 Cosigned by Harrison Reid MD at 08/04/2022 11:06 EST * Curtis Méndez DO - 08/03/2022 1609 EST Inpatient Psychiatry Daily Progress Note 08/03/2022 Admit Date: 07/30/22 Hospital day: LOS: 4 days Legal Status: Legal status: Voluntary Observation Level: Observation / visual check: Q 15 minutes (frequent) Locus/Risk of Harm: Current locus of harm: 4 Reason for Admission/Chief Complaint: Altered mental status, depression, and alcohol abuse Patient seen with SW. Patient reports feeling less anxious. She did not attend wrap up group. Patient reports improving confusion. She denies AH and less frequent altered perceptions. Discussed with ASSOCIATE PROFESSOR [employer]IC, plan to comlete 3 IV thiamine treatments for ppx. Patient reports improving appetite and eating over half her meals. She was encouraged to eat lunch. Current Facility-Administered Medications Medication Route Frequency acetaminophen (TYLENOL) tablet 650 mg oral Q4H PRN aluminum & magnesium hydroxide-simethicone (MAALOX PLUS) 200-200-20 mg/5 mL suspension 30 mL oral Q4H PRN b sthulpa-N-dkzcm acid (NEPHROCAPS) 1 mg capsule 1 Capsule oral DAILY gabapentin (NEURONTIN) capsule 100 mg oral TID influenza vaccine quad (PF) (6 mos+) IM injection-syringe 0.5 mL intramuscular Once (NO Time Specified) lidocaine (PF) 10 mg/mL (1 %) injection 2 mg intradermal PRN melatonin tablet 9 mg oral AT BEDTIME PRN methadone (DOLOPHINE) concentrated solution 70 mg oral DAILY nicotine (NICOTROL) 10 mg inhaler kit 1 Inhaler inhalation Q2H PRN nicotine inhaler (delivery device) inhalation PRN senna (SENOKOT) tablet 1 Tablet oral AT BEDTIME PRN sodium chloride 0.9 % (flush) flush 5 mL intravenous Q8H [START ON 08/05/2022] thiamine (VITAMIN B-1) 250 mg in sodium chloride (NS) 0.9 % 100 mL IVPB intravenous DAILY thiamine (VITAMIN B-1) 500 mg in sodium chloride (NS) 0.9 % 250 mL IVPB intravenous TID traZODone (DESYREL) tablet 50 mg oral QHS Mental status exam: Appearance: 37 year old woman, dressed casually Behavior: anxious Arousal: awake, alert Attention/Concentration: attentive to conversation Orientation: a/ox3 Memory: Deficits in recent memory - improving Mood: better, anxious Affect: anxious, constricted Speech: regular to rate, rhythm, and volume Thought Process/Language: disorganized, slowed Associations: mild loosening Gait: slow Motor: no psychomotor disturbances or abnormal movements Content,Peroccupations, Over-valued, Ideas,see above Danger Self: none expressed; denies si Danger Other: none Fund of Knowledge: appropriate Insight/Judgement: impaired; impaired - improving BP 124/81 (BP Cuff Location: Right arm, BP Patient Position: Sitting) Pulse 88 Temp 36.9 ??C (98.4 ??F) (Temporal) Resp 14 Ht 164 cm (64.57) Wt 57.2 kg (126 lb) SpO2 98% BMI 21.25 kg/m?? Data Review: Labs: No results found for this or any previous visit (from the past 24 hour(s)). Other studies:N/A Assessment/Formulation: (include vol/invol, mode of transport to hosp, who referred, risk to self/others) Tuyet Edwards is a 37 y.o. year old who presented for detox from alcohol, with concurrent symptoms ofauditory hallucinations and depersonalization and depression. Patient was treated with IV thiamine at [facility]. 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 Patient to start on IV thiamine course today. She expresses motivation for long-term sobriety. Supportive therapy provided. Tuyet Edwards meets criteria for acute level of care. Diagnostic Impression w/ Differential Diagnosis Psychiatric Diagnoses (including Personality Traits/Disorders): Unspecified depressive disorder Alcohol use disorder, severe Opioid use disorder, in reported sustained remission Cannabis use disorder, severe Delirium - resolving Plan: (comment on changes in Level of Observation or Locus Risk of Harm) -Continue voluntary inpatient admission to [facility] inpatient psychiatry -Locus: IV -Obs: frequent. -staff privileges -Continue Gabapentin 200mg po tid for pain, anxiety -Initiate thiamine 500mg IV daily x2 days Discharge Plan: Discharge planning per multidisciplinary team rounds. Time Specifier: I spent a total of 25 minutes with this patient and in direct floor time today. Over 50% of this time was spent in counseling and coordination of care as described in the note. Curtis Méndez DO 08/03/2022 16:17 * Marcio Blackwell - 08/03/2022 1409 EST Group Note: Mindfulness The group goals include: developing coping skills, identifying feelings, identifying stressors and problems, increasing awareness of self in relation to others, increasing expression of needs, increasing relaxation, increasing responsibility for behavior, increasing self-esteem, increasing attention span, increasing organization, and increasing self-control. Assessment: Pt participated fully Communication: Pt shared during group Behavior: Behavior was appropriate Plan: Continue to attend group * Andreia Street - 08/03/2022 1234 EST Level 2 Nutrition Complexity Assessment: S: I lost weight, probably about 25 pounds over the past year. O: Pt has been screened for nutritional risk. Dx: depression, alcohol use disorder with severe dependence, R/O delirium Diet: Regular Meal intake: 75-100% overall Nutr signf meds: IV thiamine, Nephrocaps, senna Height: 164 cm (64.57) Weight : 57.2 kg (126 lb) Body mass index is 21.25 kg/m??. Reported wt loss: ~25# over the past year (undocumented wt loss) Lab Results Component Value Date/Time NA 138 07/30/2022 06:50 K 3.6 07/30/2022 06:50 CO2 24 07/30/2022 06:50 CL 105 07/30/2022 06:50 BUN 4 (L) 07/30/2022 06:50 CREATININE 0.38 (L) 07/30/2022 06:50 CALCIUM 9.3 07/30/2022 06:50 Lab Results Component Value Date/Time CRP 15.8 (H) 07/29/2022 12:06 LABALBU 4.3 07/29/2022 12:06 Lab Results Component Value Date/Time HGB 13.8 07/30/2022 06:50 HCT 39.4 07/30/2022 06:50 MCV 102 (H) 07/30/2022 06:50 A: Patient is determined to be at moderate nutritional complexity, Level 2, secondary to reported weight loss over the past year. Pt with improved appetite and intake since admission. Pt was encouraged to include a snack between meals. Pt presently receiving IV thiamine. P: Provide Regular diet as ordered. Continue to encourage intake at mealtimes and document amount consumed. Monitor weights each Monday as ordered. Monitor clinical course as pt continues detox. NFS to follow up by 08/05/22. CAMRYN Jerez-DTDora * Sisi Mcmillan - 08/03/2022 1205 EST Pt, MD and SW met for a check in and discharge planning. Pt reports not feeling well including feeling tired, anxious and with detox symptoms. Pt talked about feeling irritable and having a hard timebeing around others which is not her. LEATHA reached out to [facility] to follow up on the referral and schedule a phone interview. Pt has her interview scheduled for tomorrow morning at 9:30 with Christi. Pt has been provided with the phone number. Meeting ended early so that Pt could go rest. ASSOCIATE PROFESSOR [employer] MUSIC to follow up with her regarding how she is feeling. * Curtis Méndez, DO - 08/02/2022 1700 EST Inpatient Psychiatry Daily Progress Note 08/02/2022 Admit Date: 07/30/22 Hospital day: LOS: 3 days Legal Status: Legal status: Voluntary Observation Level: Observation / visual check: Q 15 minutes (frequent) Locus/Risk of Harm: Current locus of harm: 4 Reason for Admission/Chief Complaint: Altered mental status, depression, and alcohol abuse Patient Seen and evaluated with SW. Patient reports sleeping 3-4 hours, per report, slept 8 hours. Patient reports that it took me a while to catch on - she has difficulty describing her thoughts and explaining what this sentiment means. She reports plans to move out of state. She appears suspicious and is hesitant to sign a release for family. She reports having weird dreams. She reports that her dreams bleed over into the day and her surroundings feel dream like. Patient reports crying frequently. She reports feeling like she is on autopilot and describes her perceptions as wiggly and vibratory. She describes illusory ideas and having difficulty making sense of her immediate surroundings. She reports her appetite is poor yet improving. She reports having an altered perception of time. She reports hearing people talking. She reports hearing numbers like threes and sevens and stuff like that. Current Facility-Administered Medications Medication Route Frequency ??? acetaminophen (TYLENOL) tablet 650 mg oral Q4H PRN ? ? aluminum & magnesium hydroxide-simethicone (MAALOX PLUS) 200-200-20 mg/5 mL suspension 30 mL oral Q4H PRN ??? [START ON 08/03/2022] b dfctpaa-I-szadm acid (NEPHROCAPS) 1 mg capsule 1 Capsule oral DAILY ??? gabapentin (NEURONTIN) capsule 100 mg oral TID ??? influenza vaccine quad 2021- (PF) (6 mos+) IM injection-syringe 0.5 mL intramuscular Once (NOTime Specified) ??? melatonin tablet 3 mg oral AT BEDTIME PRN ??? methadone (DOLOPHINE) concentrated solution 70 mg oral DAILY ??? nicotine (NICOTROL) 10 mg inhaler kit 1 Inhaler inhalation Q2H PRN ??? nicotine inhaler (delivery device) inhalation PRN ??? senna (SENOKOT) tablet 1 Tablet oral AT BEDTIME PRN ??? thiamine (VITAMIN B1) tablet 100 mg oral DAILY Mental status exam: Appearance: 37 year old woman, dressed casually Behavior: anxious Arousal: awake, alert Attention/Concentration: attentive to conversation Orientation: a/ox3 Memory: Deficits in recent memory Mood: not good, anxious Affect: anxious, constricted Speech: regular to rate, rhythm, and volume Thought Process/Language: disorganized, slowed Associations: mild loosening Gait: slow Motor: no psychomotor disturbances or abnormal movements Content,Peroccupations, Over-valued, Ideas,see above Danger Self: none expressed; denies si Danger Other: none Fund of Knowledge: appropriate Insight/Judgement: impaired; impaired BP (!) 150/98 (BP Patient Position: Sitting) Pulse 85 Temp (!) 35.4 ??C (95.7 ??F) (Temporal) Resp 16 Ht 164 cm (64.57) Wt 58.1 kg (128 lb) SpO2 98% BMI 21.59 kg/m?? Data Review: Labs: No results found for this or any previous visit (from the past 24 hour(s)). Other studies:N/A Assessment/Formulation: (include vol/invol, mode of transport to hosp, who referred, risk to self/others) Tuyet Edwards is a 37 y.o. year old who presented for detox from alcohol, with concurrent symptoms ofauditory hallucinations and depersonalization and depression. Patient was treated with IV thiamine at [facility]. She presents with continued confusion which may suggest a protracted alcohol deli rium syndrome. Will discuss with medical team, utility of resuming IV thiamine. Tuyet Edwards meets criteria for acute level of care. Diagnostic Impression w/ Differential Diagnosis Psychiatric Diagnoses (including Personality Traits/Disorders): Unspecified depressive disorder Alcohol use disorder, severe Opioid use disorder, in reported sustained remission Cannabis use disorder, severe Rule out delirium Plan: (comment on changes in Level of Observation or Locus Risk of Harm) -Continue voluntary inpatient admission to [facility] inpatient psychiatry -Locus: IV -Obs: frequent. -staff privileges Discharge Plan: Discharge planning per multidisciplinary team rounds. Time Specifier: I spent a total of 25 minutes with this patient and in direct floor time today. Over 50% of this time was spent in counseling and coordination of care as described in the note. Curtis Méndez DO 08/02/2022 17:00 * Oliver Martinez - 08/02/2022 1518 EST MD LEATHA meet with pt. Pt endorses a plan to go away somewhere but is difficult to follow when asked to clarify what she means by this. Pt does not suggest any suicidal intent. SW talks with pt abouthaving a plan and making sure things are safe before relocating somewhere. Pt states she remains interested in going to [facility] but is not sure where she wants to go after this. Pt endorses [facility] re porting she will hear someone stating numbers randomly such as 4. Pt reports she feels this information is relevant to her but she not sure how. Pt states she will at times have double or blurred vision to the point where she will reach to pick something up but is I not able to as it's the extendedoutline of the item and not the item itself. Pt then states she is grateful she is being helped, but also discusses feeling as though she is being difficult. SW provides support. Pt states meeting with disaster recovery manager went well yesterday. Pt states she completed phone screening with BR[facility] Mendenhall). SW discusses plan to connect pt with [facility] once a d/c date is known. * Daisy Johnson RN - 08/01/2022 2157 EST Mood okay, affect anxious, blunted. Isolative most of the day. Appears to have difficulties making needs known but was encouraged to do so. Pt unable to identify any supports and when asked who shelives with pt states, I have stuff but I don't know if I'll be able to get it. Limited conversation with this nurse, not seen engaging with peers. Showered this shift. Compliant with HS medications, declined to participate in wrap up group. C/o back and neck pain and when asked to rate on a scaleof 1 to 10 she states, It's up there. Offered prn tylenol, pt stated she just wanted the gabapentin. Denies SI. * Jericho Gutierrez - 08/01/2022 1452 EST SW contacted [facility] intake (Nella). Nella stated she would like to speak with Pt directly and would be able to do so later today around 3:00 pm. SW provided Nella with unit number to contact Pt. , LEATHA, SW Student met with Pt for a follow up. Pt reported she is doing good but is confused if her experiences are reality or not reality. Pt reported that her cravings to drink are subsiding due to the fact that she does not have the ability to get alcohol. Pt and SW discussed treatment options to which Pt agreed to apply for admission to [facility]. SW noted to Pt that ASTRIDMERCEDEZ will call Pt on theunit to get in touch with her about mental health services, as Pt explained that she needs help with her mental health. SW also presented the option of meeting with a disaster recovery manager to Pt while on the unit. Pt was amenable to this idea. SW paged disaster recovery manager who agreed to meet with Pt later today. SW faxed records to [facility] for referral. - Jericho Gutierrez, AUTO WASH BUFFER candidate under ROMARIO Rich * Curtis Méndez DO - 08/01/2022 1134 EST Inpatient Psychiatry Daily Progress Note 08/01/2022 Admit Date: 07/30/22 Hospital day: LOS: 2 days Legal Status: Legal status: Voluntary Observation Level: Observation / visual check: Q 15 minutes (frequent) Locus/Risk of Harm: Current locus of harm: 4 Reason for Admission/Chief Complaint: Altered mental status, depression, and alcohol abuse Clinical Update/24-hour Events: Patient slept 6.5 hrs. She reports feeling confused, She reports feeling like her thoughts are garbled and not knowing what is real or not. She reports having thoughts that she was perceived as a celebrity in the past due to her drinking. She reports feeling bad for not letting people help her in the past with her alcohol use. She describes difficulty with time perception. She reports improving pain. Discussed plan to send referral for [facility]. Current Facility-Administered Medications Medication Route Frequency ??? acetaminophen (TYLENOL) tablet 650 mg oral Q4H PRN ? ? aluminum & magnesium hydroxide-simethicone (MAALOX PLUS) 200-200-20 mg/5 mL suspension 30 mL oral Q4H PRN ??? folic acid (FOLVITE) tablet 1 mg oral DAILY ??? gabapentin (NEURONTIN) capsule 100 mg oral TID ??? influenza vaccine quad (PF) (6 mos+) IM injection-syringe 0.5 mL intramuscular Once (NOTime Specified) ??? melatonin tablet 3 mg oral AT BEDTIME PRN ??? methadone (DOLOPHINE) concentrated solution 70 mg oral DAILY ??? nicotine (NICOTROL) 10 mg inhaler kit 1 Inhaler inhalation Q2H PRN ??? nicotine inhaler (delivery device) inhalation PRN ??? senna (SENOKOT) tablet 1 Tablet oral AT BEDTIME PRN ??? thiamine (VITAMIN B1) tablet 100 mg oral DAILY Mental status exam: Appearance:?37 year old woman, dressed casually Behavior: anxious Arousal: awake, alert Attention/Concentration: attentive to conversation Orientation: a/ox3 Memory: Deficits in recent memory Mood: a little off, anxious Affect: anxious, constricted Speech: regular to rate, rhythm, and volume Thought Process/Language: disorganized, slowed Associations: mild loosening Gait: slow Motor: no psychomotor disturbances or abnormal movements Content,Peroccupations, Over-valued, Ideas, Delusions: negative self ideas Perceptual: Reports altered time perception, double vision, dysreality Danger Self: none expressed; denies si Danger Other: none Fund of Knowledge: appropriate Insight/Judgement: impaired; impaired BP 132/86 (BP Patient Position: Sitting) Pulse 85 Temp 36.1 ??C (96.9 ??F) (Temporal) Resp 16 Ht 164 cm (64.57) Wt 58.1 kg (128 lb) SpO2 97% BMI 21.59 kg/m?? Data Review: Labs: No results found for this or any previous visit (from the past 24 hour(s)). Other studies:N/A Assessment/Formulation: (include vol/invol, mode of transport to hosp, who referred, risk to self/others) Tuyet Edwards is a 37 y.o. year old who presented for detox from alcohol, with concurrent symptoms ofauditory hallucinations and depersonalization and depression. Patient reports ongoing confusion and has difficulty with organizing thoughts. Patient requires additional inpatient treatment for treatment and safe discharge planning. Tuyet Edwards meets criteria for acute level of care. Diagnostic Impression w/ Differential Diagnosis Psychiatric Diagnoses (including Personality Traits/Disorders): Unspecified depressive disorder Alcohol use disorder, severe Opioid use disorder, in reported sustained remission Cannabis use disorder, severe Rule out delirium Plan: (comment on changes in Level of Observation or Locus Risk of Harm) -Continue voluntary inpatient admission to [facility] inpatient psychiatry -Locus: IV -Obs: frequent. -staff privileges Discharge Plan: Discharge planning per multidisciplinary team rounds. Time Specifier: I spent a total of 25 minutes with this patient and in direct floor time today. Over 50% of this time was spent in counseling and coordination of care as described in the note. uCrtis Méndez DO 08/01/2022 11:34 * Michael Pruitt MD - 07/31/2022 0923 EST Inpatient Psychiatry Daily Progress Note 07/31/2022 Admit Date: 07/30/22 Hospital day: LOS: 1 day Legal Status: Legal status: Voluntary Observation Level: Observation / visual check: Q 15 minutes (frequent) Locus/Risk of Harm: Current locus of harm: 4 Reason for Admission/Chief Complaint: I was trying to come off methadone on my own Clinical Update/24-hour Events: Per RN: Slept 5 hours. Has shown labile mood. Adherent with treatment plan. Patient interviewed in team meeting with Jose, CARLOS, and RN. Patient says current period of instability started when she tried to self-taper off of methadone. She said this led to increasing symptoms of depression and anxiety, which caused her to lose jobs andsuffer financial stresses. I felt everyone hated me. She also says she was using alcohol up to 1/2 gallon daily to help with methadone withdrawal symptoms. She says she has a blurry memory of events of the last several days. She is unclear why she came to this hospital after being discharged from [facility], but thinks it is due to concern by her partner's mother. She said partner's mother is a major source of stress in her life: she doesn't give me space in myown home. She says current dose of methadone is not fully helping with symptoms of opioid withdrawal: still having aches and pains. Mood - go with the flow Denies suicidal thinking, planning, and behavior. Past Family/Social History Update: (need 1 item) Lives with partner and partner's mother. Current Facility-Administered Medications Medication Route Frequency ??? acetaminophen (TYLENOL) tablet 650 mg oral Q4H PRN ? ? aluminum & magnesium hydroxide-simethicone (MAALOX PLUS) 200-200-20 mg/5 mL suspension 30 mL oral Q4H PRN ??? folic acid (FOLVITE) tablet 1 mg oral DAILY ??? gabapentin (NEURONTIN) capsule 100 mg oral TID ??? LORazepam (ATIVAN) tablet 1 mg oral QHS ??? melatonin tablet 3 mg oral AT BEDTIME PRN ??? methadone (DOLOPHINE) concentrated solution 70 mg oral DAILY ??? senna (SENOKOT) tablet 1 Tablet oral AT BEDTIME PRN ??? thiamine (VITAMIN B1) tablet 100 mg oral DAILY Mental status exam: 37yo in hospital garb, hygiene and grooming ok. Cooperative with interview. Speech with regular rate, rhythym, and volume. Mood going with the flow. Affect not congruent, anxious. Somewhat circumstantial thinking, though became more linear over course of interview. Associations intact. No nimco delusions reported or elicited. Denies suicidal thinking planning or behavior. Attention good by interview. Memory and cognition grossly intact. Fund of knowledge ok. Insight limited. Judgment ok. BP 132/84 (BP Cuff Location: Right arm, BP Patient Position: Sitting) Pulse 90 Temp 36.9 ??C (98.5 ??F) (Oral) Resp 18 Ht 164 cm (64.57) Wt 58.1 kg (128 lb) SpO2 99% BMI 21.59 kg/m?? Data Review: Labs: No results found for this or any previous visit (from the past 24 hour(s)). Other studies:N/A Assessment/Formulation: (include vol/invol, mode of transport to hosp, who referred, risk to self/others) Tuyet Edwards is a 37 y.o. year old who presented for detox from alcohol, with concurrent symptoms ofauditory hallucinations and depersonalization and depression. Patient appears more organized overall today. She is reporting improvement in mood, though on exam remain dysphoric and anxious. Unclear to what extent current psychiatric symptoms are driven by recent substance use and withdrawal. Tuyet Edwards meets criteria for acute level of care. Diagnostic Impression w/ Differential Diagnosis Psychiatric Diagnoses (including Personality Traits/Disorders): Unspecified depressive disorder Alcohol use disorder, severe Opioid use disorder, in reported sustained remission Cannabis use disorder, severe Rule out delirium ?? Plan: (comment on changes in Level of Observation or Locus Risk of Harm) Locus level 4 with frequent observation Continue medications unchanged Discharge Plan: Discharge planning per multidisciplinary team rounds. Michael Pruitt MD 07/31/2022 9:23 * Leonard Najera - 07/30/2022 1731 EST Patient arrived on unit 1705. While entering the [facility] port patient tried to leave. Blocked patientfrom leaving. She decided to cooperate and walked peacefully on the unit. Patient given tour of the unit and average day explained. Belongings searched. Patient had a difficult time completing a menu. She seemed to not be able to process her thoughts. Then decided on one thing, started crying, and changed to another. Patient cooperative with assessment process. She is concerned she may be in trouble. Asked with the law, she said maybe, ([place], speeding) She thought others might be out to get her. Would not elaborate. Explained to patient that she is safe here. The doors are locked and no one can come without permission. She can reach out to staff for support and her needs. Patient seems to be settling on the unit. * Lauryn Whitley, JIAN - 07/30/2022 1636 EST Nursing Note/Transfer Note: Pt A/Ox2-3, complaint of pain and feeling yucky all over but all other VSS. Pt was admitted for alcohol withdrawal and has a PMH of severe alcohol abuse for the last 10 years. Pt is not on CIWA scoring and has been calm and cooperative today. Pt did ask for pain meds at start of shift but declined wanting them throughout the rest of the day. Assessment done and meds given by Maksim VILLAR (trisha) with no complications or concerns. Pt had a psych evaluation which determined that the pt would be moved up to the IPP unit for further evaluation. Report was given by Maksim VILLAR (trisha) and dischargepaperwork completed and printed. Pt was brought up the IPP by psychiatric therapist and Maksim VILLAR. Slight irritation about being transferred and not discharged but pt did comply and is now in IPP. No other concerns noted after pt was transferred at 1430. I personally reviewed and agree with Maksim VILLAR (trisha) assessment and note charted in the flowsheet. LAURYN WHITLEY RN 07/30/2022 17:01 documented in this encounter H&P Notes * Thalia Cantrell, CHONG - 07/31/2022 1208 EST Date of Service: 07/31/2022 Admit Date : 07/30/2022 PCP: Provider None Reason for Admssion: Depression. Alcohol use disorder. Subjective/HPI: Tuyet Edwards is a 37 year old female voluntarily admitted for depression and alcohol use disorder. She is tearful and expresses frustration by alcohol relapse and wanting to get real help. Tuyet Edwards had an inpatient hospitalization at [facility] x3 days for acute alcohol withdrawal resulting in CIWAs scoring in the 30's, hallucinations, receiving IV phenobarbital then transitioning to oral Ativan. She did not feel stable on discharge. Her long-term partner of > 2 decades, Salvador, encouraged evaluation at this hospital where she was admitted on 07/29/22 for acute agitation/delirium after ETOH withdrawal, now being transferred to [facility]. A recent brain MRI and head CT scan areunremarkable, and labs are fine including a CBC, CMP and TSH. She reports last alcohol use on 07/22 or 07/23. eeling agitated and craving alcohol use. She began drinking alcohol around age 13, along with opiates and other drugs, and consumes approximately 1/2 gallon of liquor a day for the last 10 years. She is on methadone 70mg daily and denies using additional methadone or other opiate use. She does admit to illicit use of gabapentin. She would ultimately like to taper off methadone at some point. Beyond alcohol dependency and OUD, she denies any concerning medical diagnoses. However, she is notfeeling very well physically today, primarily agitated and having constant cravings. Rhinorrhea present and BP elevated; 157/103 and 146/87 respectively. She smokes between 1/4 and 1 pack of cigarettes daily, use goes up with degree of alcohol intoxication. Past Medical History: Diagnosis Date ??? Acne ??? Dermatitis ??? Eczema ??? Hives ??? Psoriasis ??? Rosacea Past Surgical History: Procedure Laterality Date ??? CARPAL TUNNEL RELEASE ??? SECTION 2012 ??? WISDOM TOOTH EXTRACTION 2001 Family History Problem Relation Age of Onset ??? Eczema Mother ??? Depression Mother ??? Diabetes Mother ??? Hypertension Mother ??? Eczema Father ??? Psoriasis Father ??? Hypertension Father Social History Tobacco Use ??? Smoking status: Some Days Packs/day: 0.25 Types: Cigarettes ??? Smokeless tobacco: Never Substance Use Topics ??? Alcohol use: Not Currently Social History Social History Narrative She grew up [place] with her mother and older brother. Education: HS diploma, followed by [employer] in [place], [place]. She is living with her partner of > 2 decades Salvador and their 9 yearold daughter Brittnee. Salvador's mother also lives with them. ETOH: Daily, started at age 13, up to 1/5 liquor 1/2 gallon daily. Tobacco use: 1/4 ppd, more when drinking heavily. Marijuana use: prefers edibles, approximately 4-5 times/week. Other illicit drug use: None Medications (Current Hospital Medications) Medications Prior to Admission Medication Sig Dispense Refill Last Dose ??? acetaminophen (TYLENOL) 500 mg tablet Take 2 Tablets by mouth every 6 hours as needed for Feveror Pain. ??? levonorgestrel (MIRENA INTRAUTERINE) by intrauterine route. ??? methadone (DOLOPHINE) 5 mg/5 mL oral solution Take 70 mg by mouth daily. ??? Multivitamins with Minerals tablet tablet Take 1 Tablet by mouth daily. 30 Tablet 2 ??? thiamine (VITAMIN B1) 100 mg tablet Take 1 Tablet by mouth daily. 30 Tablet 2 No Known Allergies Review of Systems Review of Systems Constitutional: Negative. HENT: Positive for congestion. Negative for ear pain, hearing loss, mouth sores, nosebleeds, rhinorrhea, sinus pain, sneezing, sore throat and trouble swallowing. Slight nasal stuffiness. Sensitive teeth. Eyes: Negative. Respiratory: Negative. Cardiovascular: Negative. Gastrointestinal: Negative for abdominal pain, blood in stool, nausea and vomiting. Loose stools x2 days; denies hematochezia or melena. Endocrine: Negative. Genitourinary: Negative. No menses since Mirena IUD placed. Musculoskeletal: Negative for back pain, joint swelling and neck pain. Generalized achiness. Skin: Negative. Allergic/Immunologic: Negative. Neurological: Negative. Hematological: Negative. Psychiatric/Behavioral: Feeling agitated/anxious, tearful Objective: VS: Patient Vitals for the past 8 hrs: BP 07/31/22 1550 (!) 146/87 Wt Readings from Last 3 Encounters: 07/30/22 58.1 kg (128 lb) 07/29/22 58.1 kg (128 lb) 08/21/19 68.9 kg (152 lb) Exam: Physical Exam Vitals reviewed. Constitutional: Appearance: She is not ill-appearing or diaphoretic. Comments: Intermittently tearful HENT: Head: Normocephalic. Ears: Comments: Hearing intact to finger rub bilaterally. Nose: Rhinorrhea present. Mouth/Throat: Mouth: Mucous membranes are moist. Pharynx: Oropharynx is clear. No oropharyngeal exudate. Eyes: General: No scleral icterus. Extraocular Movements: Extraocular movements intact. Conjunctiva/sclera: Conjunctivae normal. Pupils: Pupils are equal, round, and reactive to light. Cardiovascular: Rate and Rhythm: Normal rate and regular rhythm. Pulses: Normal pulses. Heart sounds: No murmur heard. Pulmonary: Effort: Pulmonary effort is normal. Breath sounds: Normal breath sounds. Abdominal: Palpations: Abdomen is soft. Tenderness: There is no abdominal tenderness. There is no guarding or rebound. Musculoskeletal: General: Normal range of motion. Cervical back: Normal range of motion and neck supple. Skin: General: Skin is warm and dry. Neurological: General: No focal deficit present. Mental Status: She is alert and oriented to person, place, and time. Psychiatric: Comments: Intermittently tearful. Good eye contact. Labs: No results found for this or any previous visit (from the past 24 hour(s)). Data Review: CBC: Lab Results Component Value Date WBC 5.03 07/30/2022 RBC 3.85 (L) 07/30/2022 HGB 13.8 07/30/2022 HCT 39.4 07/30/2022 MCV 102 (H) 07/30/2022 MCH 35.8 (H) 07/30/2022 MCHC 35.0 07/30/2022 PLT 170 07/30/2022 NEUTROABS 5.36 07/29/2022 BMP: Lab Results Component Value Date NA 138 07/30/2022 K 3.6 07/30/2022 CL 105 07/30/2022 CO2 24 07/30/2022 BUN 4 (L) 07/30/2022 CREATININE 0.38 (L) 07/30/2022 CALCIUM 9.3 07/30/2022 LABALBU 4.3 07/29/2022 LFT: Lab Results Component Value Date TBIL 0.4 07/29/2022 ALKPHOS 98 07/29/2022 AST 45 07/29/2022 ALT 33 07/29/2022 Assessment: Principal Problem: Depression, unspecified depression type Active Problems: Alcohol use disorder, severe, dependence ([facility]) ([facility]) Plan: Depression: - Admission to Inpatient Psychiatry per psychiatrist, see psychiatrist intake note. - Associate Providers will collaborate with psychiatrist for ongoing assessment, education, and interventions. - Will co-monitor usage patterns, efficacy, and side effects of current psychiatric medications. - Will encourage groups and socializing with peers in the milieu. - Will initiate needed lab work for metabolic assessment while on a antipsychotic Alcohol use disorder. Last alcohol use 8-9 days ago. - Audit-C score high >12. - Not a candidate for naltrexone due to methadone use. - Continue folic acid and thiamine daily. - Pt will benefit from residental tx IOP OP counceling head track coach on discharge. Opioid use disorder. Question withdrawal sx's due to presence of rhinorrhea, elevated BP, agitationand loose stools. Speculate taking > prescribed amount, illicit gabapentin withdrawal, or other medication. - Continue methadone 70mg daily. - Continue gabapentin 100mg TID. - She is aware that Ativan 1mg is available at HS prn. - No constipation currently; aware of Senna prn if it occurs in the future. - Follow BP closely, consider short-term beta sarina if indicated. - Consider prn antidiarrheal if frequency of loose stools increase. Tobacco use disorder. - Ordered nicotine inhaler. She declines a nicotine patch. - Discussed acute nicotine withdrawal including insomnia, restlessness, and irritability. - Discussed cessation, including making smoking unpleasant, changing habits, using NRT. Lack of primary care: - She is hoping to establish care with a PCP near home in [place] or [place], [place]. Covid-19 history: --Vaccine - never received. Offered and declined. Encouraged to consider. --Flu vaccine, agreed to receive. FEN: Regular diet, encourage fluids, once a week weight Pain Management: -Acetaminophen available prn for mild-moderate pain, headache or fever. -Discussed non-pharmacologic options: stretching, changing positions and being active, warm compresses or ice packs as needed. Health maintenance/health supervision : -Encouraged use of exercise bike or walking. -Discussed frequency of constipation while hospitalized, bowel preparations are available from nursing, don??t wait for problem to be significant before asking for help. - Additional coffee added to orders to avoid caffeine withdrawal. - Flu shot offered and declined. VTE Prophylaxis: Ambulate Code status: Full Code Thalia Cantrell NP 07/31/2022 19:07 Cosigned by Harrison Reid MD at 08/01/2022 8:30 EST * Curtis Méndez DO - 07/30/20222032 EST Inpatient Admission Psychiatric Evaluation Inpatient admit date: 07/30/22 Initial arrival date (if different): 07/30/2022 Date of service: 07/30/2022 Referral source: Dr. Shane Outpatient providers: none PCP: Provider None Information obtained from: patient Legal Status: Admission is voluntary Chief Complaint: I have been a little iffy HPI: Patient is a 37 y.o. domiciled, living with partner of 20 years and 9 year old daughter, with a history of opioid use disorder (receiving methadone 70mg daily), alcohol use disorder, and cannabis usedisorder who presented to the hospital with step mother and partner for agitation, hallucinations, and decreased self-care. Patient was treated at [facility] for 3 days for alcohol withdrawal and discharged 07/28/22. She was noted to have hallucinations at that time and CIWA scores in the 30s. She was treated with phenobarbital and Ativan. MRI completed was unremarkable. Patient seen by this health technical writer. Patient reports upon returning from [facility] she visited her step mother and went to lunch with her. She reports returning to her home with her partner. She reports not being able to sleep at home. She reports that her partner, Salvador and step mother were concernedabout her and brought her to [facility]. Patient presents very anxious. She reports feeling like all the people in her life are playing games with her. She expresses uncertainty about how to improve her circumstances. She reports attempting to cut back on methadone and alcohol on her own. She reports last alcohol drink approximately 1 week ago although her recent memory is reportedly not good. Patient reports persistent confusion over the past week. She reports feeling forgetful, inattentive, and uncertain about what is real. She reports feeling out of her body periodically and disconnected from reality. She reports hearing voices of people that are not present. She reports that it is usually a male voice. She reports this has been occurring the past few months. She denies having this experience during encounter with this health technical writer. She reports poor sleep and drinks 16 oz red bull daily and 2 cups of coffee. She reports having a persistently low appetite. She denies current tremors, nausea, or fever. Reason for Failure of Outpatient Treatment: Increased severity of psychiatric symptoms Current Support System: Partner and step mother HISTORY Psychiatric History: Patient reports seeing counselor at [facility] infrequently. She denies prior trials of antidepressants and anxiolytics. She reports being prescribed a sleep medication in the past. She reports being in therapy in the past but not currently. She denies history of self-harm or suicide attempts. [facility] Past Medical History: Diagnosis Date ??? Acne ??? Dermatitis ??? Eczema ??? Hives ??? Psoriasis ??? Rosacea Past Surgical History: Procedure Laterality Date ??? CARPAL TUNNEL RELEASE ??? SECTION 2012 ??? WISDOM TOOTH EXTRACTION 2002 Family History Social History Family History Problem Relation Age of Onset ??? Eczema Mother ??? Depression Mother ??? Diabetes Mother ??? Hypertension Mother ??? Eczema Father ??? Psoriasis Father ??? Hypertension Father Social History Tobacco Use ??? Smoking status: Some Days Packs/day: 0.25 Types: Cigarettes ??? Smokeless tobacco: Never Substance Use Topics ??? Alcohol use: Not on file Family History (psychiatric) Patient reports mother is diagnosed with bipolar disorder. She reports family members have attempted suicide. She reports her father struggled with alcohol addiction. Substance Abuse History (in past 12 months) Substance Abuse History (Lifetime) Social History Substance and Sexual Activity Drug Use Not on file Patient has an extensive history of severe opioid use disorder. Patient reports being on methadone maintenance treatment for the past 11 years and relapsing once on IV heroin during that time approximately 6 years ago. She reports using Adderall illicitly 2 years ago for a period of time. She reports drinking 1/5 of vodka and 3-4 glasses of wine daily for the past few weeks. She reports drinking approximately 25% more alcohol the months preceding. She reports smoking cannabis and ingesting edible cannabinoids daily. She reports history of rehab treatment. Medications Medications Prior to Admission Medication Sig Dispense Refill Last Dose ??? acetaminophen (TYLENOL) 500 mg tablet Take 2 Tablets by mouth every 6 hours as needed for Feveror Pain. ??? levonorgestrel (MIRENA INTRAUTERINE) by intrauterine route. ??? methadone (DOLOPHINE) 5 mg/5 mL oral solution Take 70 mg by mouth daily. ??? Multivitamins with Minerals tablet tablet Take 1 Tablet by mouth daily. 30 Tablet 2 ??? thiamine (VITAMIN B1) 100 mg tablet Take 1 Tablet by mouth daily.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 . I'll look for it in the freezer. Endorsed nicotine cravings; has not had replacement x days. Action: provided reality-based feedback throughout shift; assisted to organize belongings; offered prn cyproheptadine for anxiety (declined); encouraged grp attendance Response: very disorganized thought process and behavior; responding to internal stim; frustrated, anxious Yamile Ramirez RN 08/20/2022 11:30 * Plan of Care - Jennyfer Gregory RN - 08/20/2022 0639 EST Problem: Coping: Goal: Ability to cope will improve Outcome: Ongoing Pt resting in room. Didn't attend group. Med compliant. Appeared to sleep 7+hrs this overnight. VSS * Plan of Care - Trixie Burroughs RN - 08/19/2022 1147 EST Data: No. I'm good with that.( Declining methadone). Patient presents as disorganized and is responding to internal stimuli as evidenced by patient mumbling in the halls and flailing her arms. She attended the first 5 minutes of Focus group but was unable to tolerate staying for the whole time. Icued patient to come up for her meds and she complied, but initially declined methadone. She did end up taking it. Action: Support patient with frequent check ins Response: Altered thought process TRIXIE BURROUGHS RN 08/19/2022 11:47 Problem: Coping: Goal: Ability to cope will improve Outcome: Ongoing Problem: SENSORY PERCEPTUAL ALTERATION Description: - pacing - increasing agitation - aggression Goal: Initiates Reality-Based Interactions Outcome: Not Met This Shift Problem: High Fall Risk: Goal: Patient will Remain Free of Falls due to Med. Side Effects Outcome: Met This Shift * Group Note - Laila Owens - 08/19/2022 1134 EST Meditation education, task and process group. The group goals include: developing coping skills, identifying feelings, increasing awareness of self in relation to others, increasing expression of needs, increasing relaxation, increasing responsibility for behavior, increasing self-esteem, increasing attention span, increasing organization, andincreasing self-control. Assessment: Patient stayed for only a minute or two before leaving the group. Communication: was silent Behavior:was anxious Plan: Continue to attend group * Group Note - Laila Owens - 08/18/2022 1350 EST Cognitive Behavioral Therapy Group. The group goals included: developing coping skills, identifying feelings and stressors/ problems; increasing attention span, awareness of self in relation to others, expression of needs, organization, responsibility for behavior, self- esteem and socialization. Assessment: Patient appeared too agitated to engage in topic and left shortly after group started. Communication: was silent Behavior:was anxious and inattentive Plan: Continue to attend group * Plan of Care - Trixie Burroughs RN - 08/18/2022 1140 EST Data: Patient was observed walking in halls this morning and appeared to be mumbling to herself. She needed cueing to come to desk for her medications and she was med compliant. VSS, afebrile. No reported pain. Patient's room assignment needed to be changed in order to accommodate an admission. This RN assisted patient in moving her things to the other room and while she was agreeable, she tried to move her belongings back into her original room x 2. Patient seemed confused when I reminded her that we needed to move her to a different room. Action: Provide support to patient as she acclimates to new room assignment. Encourage group attendance. Response: Altered thought process TRIXIE BURROUGHS RN 08/18/2022 11:40 Problem: SENSORY PERCEPTUAL ALTERATION Description: - pacing - increasing agitation - aggression Goal: Participates In Unit Activities Outcome: Ongoing Goal: Initiates Reality-Based Interactions Outcome: Ongoing Goal: Able To Discuss Content Of Hallucinations/Delusions Outcome: Not Met This Shift * Plan of Care - Gabby Denny RN - 08/18/2022 0534 EST Problem: SENSORY PERCEPTUAL ALTERATION Description: - pacing - increasing agitation - aggression Goal: Participates In Unit Activities Outcome: Ongoing Problem: SENSORY PERCEPTUAL ALTERATION Description: - pacing - increasing agitation - aggression Goal: Verbalizes reduction in hallucinations/delusions Outcome: Ongoing Tuyet came to group. Her bright spot was talking to her daughter for a very short time. She stated that the whole day was a challenge. She walked laps for quite a while after group. Was in the bubbleroom and lied down a yoga sophia and blanket on the floor Kicked the exercise ball and it went out the door. She went out and kicked it back in the room (pretty hard). Then proceeded to curing pickling packer the blanket she just placed on the yoga mat and rolled up the sophia and continued walking labs. She was muttering to herself as she walked. Came to nurse's station and asked for her med around 10. This nurse went in to the med room to get them. She was gone. This nurse took them to her room and she took them and said thank you. Up at 0500 and asked for hot water. Made a beverage and went back to her room.Spoke clearly this morning no attention paid to internal stim observed. * Plan of Care - Leonard Najera - 08/17/2022 1535 EST Problem: Coping: Goal: Ability to cope will improve Outcome: Met This Shift This patient able to utilize exercise to cope with disorganization. Patients thoughts were more connected today. Seemed to have insight into her illness. * Group Note - Oliver Martinez - 08/16/2022 1127 EST Cognitive Behavioral Therapy Group. The group goals included: developing coping skills, identifying feelings and stressors/ problems; increasing attention span, awareness of self in relation to others, expression of needs, organization, responsibility for behavior, self- esteem and socialization. Assessment: Pt attended group sporadically as she entered and exited twice Communication: Pt did not share during group. Behavior: Pt seemed distracted and preoccupied by her thoughts. Plan: Continue to attend group * Plan of Care - Yamile Ramirez RN - 08/16/2022 1119 EST Problem: SENSORY PERCEPTUAL ALTERATION Goal: Participates In Unit Activities Outcome: Ongoing Goal: Initiates Reality-Based Interactions Outcome: Ongoing Data: I'm thinking about my daughter . . . She IS safe with her father. I know I need to stay hereuntil my thoughts are organized. Observed pt very disorganized, eg unable to complete simple taskssuch as getting meds, often does not complete sentences, walks away during a conversation; observedtalking to unseen others, appears preoccupied w/ internal stimulation; observed psychomotor agitation, pacing halls and in and out of her room. Affect dysphoric, irritable at times. Action: Pt accepted prn zyprexa at 0845 and 1430; 1:1 support Response: no significant change noted w/ prns Yamile Ramirez RN 08/16/2022 11:19 * Plan of Care - Koki Porter RN - 08/15/20221930 EST Problem: SENSORY PERCEPTUAL ALTERATION Description: - pacing - increasing agitation - aggression Goal: Able To Discuss Content Of Hallucinations/Delusions 08/15/20221930 by Koki Porter RN Outcome: Ongoing 08/15/20221845 by Koki Porter RN Outcome: Ongoing Problem: SENSORY PERCEPTUAL ALTERATION Description: - pacing - increasing agitation - aggression Goal: Notifies Staff When Experiencing Hallucinations/Delusions 08/15/20221930 by Koki Porter RN Outcome: Ongoing 08/15/2022 1846 by Koki Porter RN Outcome: Ongoing This health technical writer observed patient talking to the closet in her room. Patient unable to form complete sentences or respond to this health technical writer's questions in a logical manner. Patient is disorganized. Appears anxious and suspicious. Patient was present at the start of Focus Group, but left group before it washer turn to participate. Did not attend Activity group. Medication compliant. * Group Note - Sisi Mcmillan - 08/15/2022 1413 EST Mindfulness Education, task and process group. The group goals include: developing coping skills, identifying feelings, identifying stressors and problems, increasing awareness of self in relation to others, increasing expression of needs, increasing relaxation, increasing responsibility for behavior, increasing self-esteem, increasing attention span, increasing organization, and increasing self-control. Assessment: Pt attended and participated in group.* Communication: Pt was an active participant in group; asking questions and participating in discussion. Behavior:Pt was appropriate in group. Plan: Continue to attend group * Group Note - Jericho Gutierrez - 08/15/2022 1255 EST Communication skills process,education and task group. The group goals include: developing coping skills, expression of needs, organization, responsibility for behavior, self-control, self-esteem and socialization, accurately notes difference between good and poor communication faculties, and provides concrete examples of communication styles. Assessment: Pt attended group and participated fully Communication: Pt was engaged and participated in conversation Behavior: Pt's behavior was appropriate for group setting Plan: Continue to attend group * Plan of Care - Leonard Najera - 08/14/2022 1651 EST Problem: Coping: Goal: Ability to cope will improve Outcome: Met This Shift Patient able to walk the unit to manage stress. Able to make needs known. Appears to be talking to unseen others. Patient taking shower. Asked for razor. Told she could use electric razor then she forgot and got dress. Hard for patient to focus and keep on task. * Group Note - Oliver Martienz - 08/14/2022 1447 EST Coping with Anxiety education, process and task group. The goals of the group include: developing coping skills, identifying feelings, identifying stressors and problems, increasing activity level, increasing attention span, increasing awareness of self in relation to others, increasing education about mental illness, increasing expression of needs, increasing motivation, increasing organization, increasing relaxation, increasing responsibility for behavior, increasing self-esteem, increasing self-control and increasing socialization. Assessment: Pt participated fully, but left early. Communication: Pt shared during group Behavior: Appropraite Plan: Continue to attend group * Plan of Care - Gabby Denny RN - 08/14/2022 0109 EST Problem: Coping: Goal: Ability to cope will improve Outcome: Ongoing Tuyet was present in the milieu a few times tonight. She did not attend wrap up group. She was not seen crying. She reports that her mood is good. Affect remains flat. Came to nurse's station for HS meds at 2114. Fell asleep reading in her room. Total sleep this shift 7P-6A: 7+ still sleeping * Plan of Care - Gabby Denny RN - 08/13/2022 0125 EST Problem: Coping: Goal: Ability to cope will improve Outcome: Ongoing Problem: SENSORY PERCEPTUAL ALTERATION Description: - pacing - increasing agitation - aggression Goal: Initiates Reality-Based Interactions Outcome: Ongoing Patient isolated in her room this evening. Did not attend group. This nurse brought her HS meds to her in her room at approximately 2120 as she had not come out to the window. Upon knocking and patient saying to come in, this nurse thought she observed her crying. Patient denied crying and replied I'm fine. When asked if she had had an ok day she curtly replied yes. She thanked this nurse forbringing her meds. She clearly dd not wish to engage. Total hours of sleep this shift 4 hours. * Plan of Care - Leonard Najera - 08/12/2022 1712 EST Problem: Coping: Goal: Ability to cope will improve Outcome: Ongoing Patient having a difficult time in the AM. Confused about what cloths are hers. Threw some away. Others we put in the pt storage closet. Patient labile. When getting her blood draw she started crying. She has been going to groups. Walking the halls. Eating her meals in the dinning room. Staff reporting patient has a tick (jerking her head to one side) * Group Note - Laila Owens - 08/12/2022 1254 EST Cognitive Behavioral Therapy Group. The group goals included: developing coping skills, identifying feelings and stressors/ problems; increasing attention span, awareness of self in relation to others, expression of needs, organization, responsibility for behavior, self- esteem and socialization. Assessment: Patient fully participated while she was in group.Patient appeared somewhat anxious, and changed seats several times before leaving the group toward the end. Communication: was responsive Behavior:was anxious and attentive Plan: Continue to attend group * Plan of Care - Trixie Burroughs RN - 08/11/2022 1046 EST Data: Patient was sitting in doorway of sunroom on the floor at shift change this morning. When asked how she was doing, she looked up quickly and said, Good and then looked quickly down at her book. She remained there until the nurses came out of report. Patient did not initiate receiving her meds this morning and I reminded her at 0930 that I had them for her. She said no initially and thenproceeded to follow me to the desk. She took her methadone without incident but pushed her tablets back at me and said, I'm good and walked away. She returned to desk less than a minute later and stared at me. I asked if she was ready to take her meds and she accepted. One of patient's peers reported that she had scribbled on his drawings and taken his coffee from his tray this morning. This was not witnessed by staff. MHT reported that patient was responding to internal stimulation as evidenced by her mumbling to herself and then getting close in MHT's face and stating, All of them and mom! Patient accepted prn atarax this am with her flu vaccination. Action: Support patient with frequent check ins and re-assurance. Monitor behaviors with peers and re-direct as needed. Response: Altered thought process TRIXIE BURROUGHS RN 08/11/2022 10:46 Problem: Coping: Goal: Ability to cope will improve Outcome: Ongoing Problem: SENSORY PERCEPTUAL ALTERATION Description: - pacing - increasing agitation - aggression Goal: Participates In Unit Activities Outcome: Ongoing Goal: Initiates Reality-Based Interactions Outcome: Ongoing * Plan of Care - Jennyfer Gregory RN - 08/11/2022 0618 EST Problem: Coping: Goal: Ability to cope will improve Outcome: Ongoing Pt pacing kay, accepted prn atarax. Med compliant with hs meds. Had snack, attended group, welcomed new roommate, appeared to sleep 4.5hrs. Showered in am. Walking kay and declined any interventions. * Plan of Care - Koki Porter RN - 08/10/20222003 EST Problem: SENSORY PERCEPTUAL ALTERATION Description: - pacing - increasing agitation - aggression Goal: Notifies Staff When Experiencing Hallucinations/Delusions Outcome: Ongoing This health technical writer observed patient to responding to internal stimuli throughout the day. Patient unable to formulate complete thoughts or complete sentences when this health technical writer would attempt to talk with the patient. Patient appears a bit nervous, guarded. Minimal engagement with peers. * Group Note - Lorelei Roy - 08/10/2022 1210 EST Grief and Loss education and process group. The group goals included: developing coping skills, identifying grief and loss, feelings, stressors/ problems; increasing affective range, attention span, awareness of self in relation to others, education about mental illness, emotional expression, expression of needs, self-esteem and socialization. Assessment: Participated fully; left and returned several times; teary Communication: Tuyet Edwards Shared with group; apologized at the end for how I've been. 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 The group goals included: developing coping skills, identifying stressors/ problems; increasing attention span, awareness of self in relation to others, education about Mental Illness, expression of needs, motivation, organization, responsibility for behavior, self-control, self-esteem and socialization. Assessment: Pt participated in a WRAP group today focused on the crisis plan. Communication: was responsive Behavior:was anxious, attentive and engaged Plan: Continue to attend group * Plan of Care - Trixie Burroughs RN - 08/09/2022 1114 EST Data: Yes it helped a lot. (Prn Ricky). It helped quiet things down. Patient presented as latent in response and seemed to be on the verge of tears this morning. When asked specific questions as tohow she was feeling, she paused for several seconds and stared blankly forward. She was observed walking in the halls talking quietly to herself and then she stepped directly in front of MHT and stared at her for several seconds. This health technical writer messaged her psychiatrist and he ordered x1 Zydis. Patient accepted and at re-assessment, she reported that it was helpful. Patient attended partial AM groupbut left early stating, There is just too much going on in there. When asked to tell me more, patient verbalized having feelings that her daughter was better off where she was now. Patient verbalized that she was not feeling like a good mother. Action: Encouraged patient to express her thoughts and feelings. Provided feedback acknowledging the good decision that she made by coming to the hospital for help. Response: Took Zydis with good response reported and observed. TRIXIE BURROUGHS RN 08/09/2022 11:14 Problem: Safety: Goal: Ability to identify and utilize support systems that promote safety will improve Outcome: Ongoing Problem: Coping: Goal: Ability to cope will improve Outcome: Ongoing Problem: SENSORY PERCEPTUAL ALTERATION Description: - pacing - increasing agitation - aggression Goal: Participates In Unit Activities Outcome: Ongoing * Group Note - Maria Alejandra Leonardo - 08/08/2022 1405 EST W.R.A.P education, task and process group. The group goals included: developing coping skills, identifying stressors/ problems; increasing attention span, awareness of self in relation to others, education about Mental Illness, expression of needs, motivation, organization, responsibility for behavior, self-control, self-esteem and socialization. Assessment: Pt participated in WRAP group which focused on the first three parts of the WRAP plan Communication: was responsive Behavior:was appropriate, attentive, engaged and socially interactive Plan: Continue to attend group * Plan of Care - Trixie Burroughs RN - 08/08/2022 1322 EST Problem: Safety: Goal: Ability to identify and utilize support systems that promote safety will improve Outcome: Ongoing Problem: Coping: Goal: Ability to cope will improve Outcome: Ongoing Problem: SENSORY PERCEPTUAL ALTERATION Description: - pacing - increasing agitation - aggression Goal: Participates In Unit Activities Outcome: Ongoing Data: It has been helpful here. I need to figure out who I am and what I want. I'm looking forward to lunch. Patient has been observed walking laps in the halls for exercise in addition to attending groups and activities and attending to ADLs. She is easily engaged and eye contact is maintained. Patient is pleasant and cooperative and able to express her feelings more clearly than upon admission. Patient is taking her meals in dining room and has been eating 100% today. VSS, afebrile, pt denies pain but endorses achiness prior to methadone dose this am. Action: Encourage group and activity participation Response: Engaged in treatment TRIXIE BURROUGHS RN 08/08/2022 13:22 * Group Note - Jericho Gutierrez - 08/08/2022 1308 EST Communication skills process,education and task group. The group goals include: developing coping skills, expression of needs, organization, responsibility for behavior, self-control, self-esteem and socialization, accurately notes difference between good and poor communication faculties, and provides concrete examples of communication styles. Assessment: Pt participated fully Communication: Pt was engaged and participated in conversation Behavior: Pt's behavior was appropriate for group setting Plan: Continue to attend group * Plan of Care - Vandana Kohli, JIAN - 08/07/2022 2357 EST Patient was out and about in the miliue this evening. Is alert and oriented x3 with full affect. Patient came to wrapup groups and stated that she is grateful for all the support she has received on the unit. Patient had snack and came to desk for HS meds. Patient went to bed at 2200 and has been sleeping well this shift. Vss. Problem: Coping: Goal: Ability to cope will improve Outcome: Ongoing Problem: SENSORY PERCEPTUAL ALTERATION Description: - pacing - increasing agitation - aggression Goal: Participates In Unit Activities Outcome: Ongoing Problem: Safety: Goal: Ability to disclose and discuss suicidal ideas will improve Outcome: Ongoing Goal: Ability to identify and utilize support systems that promote safety will improve Outcome: Ongoing * Plan of Care - Aleyda Azar RN - 08/07/2022 1753 EST Patient tearful in room midday; requesting assistance with menu planning but unable to focus on task, I just don't know, I don't know. Agreeable to defer completion until later, focus on other activities. Participated in groups, much time spent on unit coloring with peers. Appeared calm remainderof shift, denies current needs. Problem: Coping: Goal: Ability to cope will improve Outcome: Ongoing * Plan of Care - Gabby Denny RN - 08/07/2022 0612 EST Problem: Coping: Goal: Ability to cope will improve Outcome: Ongoing Assumed care at 11P. Patient has been sleeping in apparent comfort. Total sleep as of 0600 is 7 hours. Still sleeping. * Plan of Care - Leonard Najera - 08/06/2022 1527 EST Problem: Safety: Goal: Ability to disclose and discuss suicidal ideas will improve Outcome: Ongoing Goal: Ability to identify and utilize support systems that promote safety will improve Outcome: Met This Shift Patient had no SI or HI. She had visit from her family. Seemed to go well. She has taken medications without issue. She went to groups, colored, and reached out to staff * Group Note - Laila Owens - 08/06/2022 1348 EST Meditation education, task and process group. The group goals include: developing coping skills, identifying feelings, increasing awareness of self in relation to others, increasing expression of needs, increasing relaxation, increasing responsibility for behavior, increasing self-esteem, increasing attention span, increasing organization, andincreasing self-control. Assessment: Patient did not participate in the activity and left group after patient disruption. Communication: was silent but body language revealed anxiety/mild agitation. Behavior: was anxious and dismissive Plan: Continue to attend group * Plan of Care - Jennyfer Gregory RN - 08/06/2022 0515 EST Problem: Coping: Goal: Ability to cope will improve Outcome: Ongoing Pt declined group, vss, questioning taking medications. Reviewed with nurse then took her scheduledmed. Social with roommate. Appeared to sleep from [id number] then back to sleep again for total of 6.5hrs * Group Note - Laila Owens - 08/05/2022 1142 EST Writing for Health / Journaling group. The group goals included: developing coping skills, increasing activity level, affective range, attention span, awareness of self in relation to others, emotional expression, motivation, organization, relaxation, self-control, self- esteem and socialization. Assessment: Patient left group when the writing topic choices were announced. Patient appeared teary. Patient returned later in the group, looking much less anxious. Communication: was responsive Behavior:was appropriate and attentive Plan: Continue to attend group * Plan of Care - Trixie Burroughs RN - 08/04/2022 1215 EST Data: I'm grateful for everybody around me. Patient states that some of her goals for the day areto shower and talk to her daughter. Patient presents with flat affect and is labile today. She endorses poor sleep last night, however sleep log documentation lists 7.5 hours. Patient was cooperativeand compliant with medications this morning. No pain reported, but does endorse body aches. Patient has attended groups and participated today. Action: Encourage group attendance/ Encourage patient to express feelings and support with active listening Response: Cooperative with treatment plan TRIXIE BURROUGHS RN 08/04/2022 12:16 Problem: Safety: Goal: Ability to identify and utilize support systems that promote safety will improve Outcome: Ongoing Problem: Coping: Goal: Ability to cope will improve Outcome: Ongoing Problem: SENSORY PERCEPTUAL ALTERATION Description: - pacing - increasing agitation - aggression Goal: Participates In Unit Activities Outcome: Ongoing * Group Note - Laila Owens - 08/04/2022 1139 EST Meditation education, task and process group. The group goals include: developing coping skills, identifying feelings, increasing awareness of self in relation to others, increasing expression of needs, increasing relaxation, increasing responsibility for behavior, increasing self-esteem, increasing attention span, increasing organization, andincreasing self-control. Assessment: Patient appeared to understand topic/concepts Communication: was silent Behavior:was appropriate and attentive Plan: Continue to attend group * Plan of Care - Gabby Denny RN - 08/04/2022 0106 EST Problem: Coping: Goal: Ability to cope will improve Outcome: Ongoing () Saline Lock in Place. Site clean dry and intact. IV Thiamine infused by evening shft nurse. Sleeping in apparent comfort. Sleep 7.75 hours as of 0600. * Group Note - Lorelei Roy - 08/03/2022 1226 EST Grief and Loss education and process group. The group goals included: developing coping skills, identifying grief and loss, feelings, stressors/ problems; increasing affective range, attention span, awareness of self in relation to others, education about mental illness, emotional expression, expression of needs, self-esteem and socialization. Assessment: Arrived when group was almost over Communication: Tuyet Edwards Did not choose to speak Behavior: Tuyet Edwards Respectful, appropriate Plan: Continue to attend group * Plan of Care - Trixie Burroughs RN - 08/03/2022 1144 EST Data: I'm ok. I suppose I should go to the last part of this group? Will I be able to meet with the doctor today? It was reported that patient was up early doing laundry and that she presented to dining room for breakfast. She ate 75% of morning meal. Patient returned to bed after breakfast and remained there until approximately 11:15. I reminded patient x3 this morning that I had her AM meds for her. When she did come up for methadone, she reported that she was irritable because she wasn't sleeping well and melatonin was not doing the job. I asked what has worked for her in the past and she replied, I don't know what I have. Everything is different here. Everything! Before takingmethadone she looked at syringe and said, you only gave me 10mg. I pointed out to patient that the syringe was filled with 70 mg and showed her how it lined up. She stared blankly for about 10 seconds and took it. She returned several minutes later and asked when she would be meeting with the doctor. Action: Encouraged patient to maintain scheduled medication dosing times. Encouraged patient to participate in groups. Response: Irritable mood/ alteration in thought process TRIXIE BURROUGHS RN 08/03/2022 11:45 Problem: Coping: Goal: Ability to cope will improve Outcome: Ongoing Problem: SENSORY PERCEPTUAL ALTERATION Description: - pacing - increasing agitation - aggression Goal: Participates In Unit Activities Outcome: Ongoing * Plan of Care - Jania Pérez RN - 08/03/2022 0520 EST Assumed care of patient at 1900. Patient awake at initial contact, denies needs at this time. Med compliant at HS. Compliant with obtaining vital signs, but stated, You don't have to, its too late.Did not participate in evening group. Slept throughout shift without complaints. WCTM Problem: Safety: Goal: Ability to disclose and discuss suicidal ideas will improve Outcome: Ongoing Problem: Coping: Goal: Ability to cope will improve Outcome: Ongoing Problem: Daily Care Plan Goals Goal: Care Plan Documentation Outcome: Met This Shift Flowsheets (Taken 08/03/2022 0012) Area of Focus: Sleep Goal This Shift: pt will have adequate sleep * Plan of Care - Trixie Burroughs RN - 08/02/2022 1341 EST Problem: Coping: Goal: Ability to cope will improve Outcome: Ongoing Problem: SENSORY PERCEPTUAL ALTERATION Description: - pacing - increasing agitation - aggression Goal: Participates In Unit Activities Outcome: Ongoing Data: I'm grateful for the staff. I'm difficult. Patient presented with angry affect at the beginning of this shift. She seemed calmer after she took her AM medications, which included methadone. She attended Community/Focus group and participated. Patient has showered and is eating her meals in Dining Room. Cytopathologist came in to meet with some of the patients and Tuyet expressed that she would like to meet with the . Action: Encourage attendance and participation in groups and activities Response: Guarded TRIXIE BURROUGHS RN 08/02/2022 13:41 * Group Note - Sisi Mcmillan - 08/01/2022 7808 EST Cognitive Behavioral Therapy Group. The group goals included: developing coping skills, identifying feelings and stressors/ problems; increasing attention span, awareness of self in relation to others, expression of needs, organization, responsibility for behavior, self- esteem and socialization. Assessment: *Pt attended and participated in group. Communication: Pt was an active participant in group; asking questions and participating in discussion. Behavior:Pt was appropriate in group. Plan: Continue to attend group * Plan of Care - Gabby Denny RN - 08/01/2022 0457 EST Problem: Hospital orientation Goal: Patient is oriented to hospital environment Outcome: Ongoing Tuyet took a shower early in the shift and then attended wrap up group. She reported that she spentthe day getting to know her peers and getting used to the unit. She reports that she is starting tofeel better. Her mood is improved but she remains guarded. Her affect is flat but she is polite andyou can see that she is making an effort to engage. She was med compliant. No PRN meds requested, No reports of pain. * Plan of Care - Alma Jiang RN - 07/31/2022 1637 EST At start of shift, pt endorsing feeling achey all over and generally not well. Pt appears shaky and agitated. Pt denies specific areas of pain complaints. Pt complaint with medications (see emar) and reports feeling better after methadone. Pt denies current SI. Pt attended initial team meeting (see provider notes). Pt also attending groups and off-unit walk. CARLOS contacted regarding pt HTN-provider aware and with plan to initiate CIWA scores. Problem: Safety: Goal: Ability to disclose and discuss suicidal ideas will improve Outcome: Ongoing Problem: Activity: Goal: Verbalizations about the importance of regular exercise will increase Outcome: Ongoing Problem: Coping: Goal: Ability to cope will improve Outcome: Ongoing Problem: SENSORY PERCEPTUAL ALTERATION Description: - pacing - increasing agitation - aggression Goal: Participates In Unit Activities Outcome: Ongoing * Social Work Assessment - Jericho Gutierrez - 07/31/2022 8796 EST LEATHA Psychosocial Assessment and Initial Note Admit Date: 07/30/22 In attendance: LEATHA KIM, LEATHA Pipe Smoking Machine Offbearer, AP, RN Individuals providing info: (family, sig. others, community providers) Information provided by Patient and EMR Pt presentation and discharge plan: Pt reported a recent three day admission at [facility] for alcohol withdrawal and was discharged on 07/28. Upon her discharge, Pt slept poorly, presented with increased anxiety. Pt was brought to [facility] by family out of concern. Pt discussed how she has been self tapering methadone without support from [facility] clinic. 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 Pt sta channing she stopped drinking approximately 1.5 weeks ago, but prior to this had a lengthy alcohol use history and was drinking 1/2 gallon a day of alcohol. Pt denied SI and is agreeable to admission. SW talked with Pt about referral to [facility]. Pt is amenable to this referral. SW to connect Pt with PCP. Pt signed release for [facility]. SW to talk with Pt further about [facility] treatment options. Current Outpatient Providers: Agency: [facility] [employer]: Provider/ psychiatrist: Therapist: Talent Acquisition Director: PCP: Guardian: Other: [facility] Current Life Situation: (Living situations, insurances, financial status) Lives with mother in law, daughter, and partner who she calls her although she is not legally . Pt stated they have been together for 22 years. Insurance - Medicaid. Pt is currently unemployed. Childhood/Family History: (Developmental history including any physical, emotional, sexual abuse) Pt reported she was raised in [place] by her Mother. Pt stated she has one brother and describes her upbringing as supportive, but that she grew up poor. Pt has one daughter who is 9 y/o. Educational/ Vocational/ Occupational status and history: Pt completed High School and Cosmetology school. 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 history: (VA benefits eligible?) Denies Legal Issues: (Competence, DPOA, Current Charges, TRO, RFA, PO, Criminal history) Denies Previous Treatment: (Substance abuse/ Mental Health) Inpatient: None Outpatient: None History of Substance abuse: (patterns of use, life consequences, family influences) Began using recreationally at 13 years old. Later in life Pt began abusing prescription opiates. Ptreported a lengthy history of alcohol use, noting until 1.5 weeks ago she was drinking a 1/2 gallonper day. Pt is a client at [facility] and does not state how long she has been there beyond stating years. Ethnic/ Cultural/ Spiritual factors and current Influence: Pt said she used to attend [employer] and reports she still identifies as a believer. Request Visit with flow coordinator: ____yes, ____No SW to talk with Pt about this further Leisure/Recreation Activities: Spending time with family - REGINALDO Rodriguez Candidate under ROMARIO Rich. * Group Note - Jericho Gutierrez - 07/31/2022 1342 EST Communication skills process,education and task group. The group goals include: developing coping skills, expression of needs, organization, responsibility for behavior, self-control, self-esteem and socialization, accurately notes difference between good and poor communication faculties, and provides concrete examples of communication styles. Assessment: Pt participated Fully Communication: Pt was engaged and participated in conversation Behavior: Pt appropriate Plan: Continue to attend group * Plan of Care - Gabby Denny RN - 07/31/2022 0228 EST Problem: Safety: Goal: Ability to identify and utilize support systems that promote safety will improve Outcome: Ongoing Problem: Coping: Goal: Ability to cope will improve Outcome: Ongoing Patient is ill appearing, pale with flat affect. Attended wrap up group and did participate. Her responses were not in direct response to the prompts. She paused before speaking and reported that thepositives in her life is her and family that have stuck by her her despite her failing to pull her own weight and her challenge is feeling that she has taken them for granted, she appeared tohave been holding back tears while speaking. She st in DR with roommate for much of the early portion of the shift coloring with her roommate. Took HS Lorazepam, but awoke with 9/10 leg pain and leg spasms. Tylenol give but with little or no effect. About 1 hour late she asked for something else, reported that gabapentin had been effective in the past. Call placed to safety consultant but no response yet. Heat pack given for comfort. * Flowsheet Note - Yoselin Pereyra - 07/31/2022 0020 EST Med Room 6x rings 11x bracelets 1x earring 2x cigarettes documented in this encounter Plan of Treatment Not on file documented as of this encounter Procedures Procedure Name Priority Date/Time Associated Diagnosis Comments ECG REPORT - SCANNED 09/01/2022 10:28 EST COPPER, SERUM Routine 08/22/2022 16:26 EST SYPHILIS RPR SCREEN W/REFLEX Routine 08/22/2022 16:26 EST HEAVY METAL SCREEN WITH DEMOGRAPHICS, B Routine 08/22/2022 16:26 EST CERULOPLASMIN, S Routine 08/22/2022 16:2 6 EST ANTI NUCLEAR AB (ABBEY), IFA Routine 08/22/2022 16:26 EST VITAMIN B12 Routine 08/22/2022 16:26 EST ECG REPORT - SCANNED 08/18/2022 20:35 EST ECG REPORT - SCANNED 08/15/2022 12:06 EST EKG 12-LEAD Routine 08/15/2022 10:26 EST EKG 12-LEAD Routine 08/13/2022 13:43 EST COMPLETE BLOOD COUNT Routine 08/12/2022 12:59 EST COMPREHENSIVE METABOLIC PANEL (CMP) Routine 08/12/2022 12:59 EST C REACTIVE PROTEIN Routine 08/10/2022 7: 39 EST MAGNESIUM Routine 08/10/2022 7:39 EST BASIC METABOLIC PANEL (BMP) Routine 08/10/2022 7:39 EST documented in this encounter Results * ECG REPORT - SCANNED (09/01/2022 10:28 EST) 09/01/2022 10:2 8 EST us Scan 2 Sr Account Executive PROCEDURE/MINOR SURGICAL OR DERABLES Final Result * HEAVY METAL SCREEN WITH DEMOGRAPHICS, B (08/22/2022 16:26 EST) Arsenic Blood <1 <13 ng/mL 08/23/2022 14:12 [facility] [employer] Comment: ADDITIONAL INFORMATION This test was developed and its performance characteristics determined by [facility] in a manner consistent with CLIA requirements. This test has not been cleared or approved by the U.S. Food and Drug Administration. Lead <1.0 <5.0 mcg/dL 08/23/2022 14:12 [facility] [employer] Comment: ADDITIONAL INFORMATION Testing performed by Inductively Coupled Plasma-Mass Spectrometry (ICP-MS). This test was developed and its performance characteristics determined by [facility] in a manner consistent with CLIA requirements. This test has not been cleared or approved by the U.S. Food and Drug Administration. Cadmium, Blood 0.7 <5.0 ng/mL 08/23/2022 14:12 [facility] [employer] Comment: ADDITIONAL INFORMATION This test was developed and its performance characteristics determined by [facility] in a manner consistent with CLIA requirements. This test has not been cleared or approved by the U.S. Food and Drug Administration. Mecury, Blood <1 <10 ng/mL 08/23/2022 14:12 [facility] Comment: ADDITIONAL INFORMATION This test was developed and its performance characteristics determined by [facility] in a manner consistent with CLIA requirements. This test has not been cleared or approved by the U.S. Food and Drug Administration. Venous,Capillary Venous 08/23/20 14:12 [facility] Patient Street Address x 08/23/2022 14:12 [facility] Patient City x 08/23/2022 14:12 [facility] PATIENTSTATE x 08/23/2022 14:12 [facility] Patientzip x 08/23/2022 14:12 [facility] [place] x 08/23/2022 14:12 [facility] Home Phone x 08/23/2022 14:12 [facility] Patient Race x 08/23/2022 14:12 [facility] Patient Ethnicity x 022 14:12 [facility] Patient Occupation x 2021 14:12 [facility] Patient Employer x 08/23/20 14:12 [facility] Guardian First Name x 08/23 14:12 [facility] Guardian Last Name x 2021 14:12 [facility] Health Care Provider Name x 08/23/2022 14:12 [facility] Health Care Provider St Address x 08/23/2022 14:12 [facility] Health Care Provider City x 08/23/2022 14:12 [facility] Health Care Provider State x 08/23/2022 14:12 [facility] Health Care Provider Zip x 08/23/2022 14:12 [facility] Health Care Provider Phone x 08/23/2022 14:12 [facility] Submitting Laboratory Phone x 08/23/2022 14:12 EST [facility] Comment: Test Performed by: [facility] - [facility] [address] [place] [address] Gore Seamer: Chris Flores M.D. Ph.D.; CLIA# [id number] Blood VENOUS BLOOD / Unknown Venipuncture / Unknown 08/22/2022 16:26 EST 08/22/2022 17:00 EST Curtis Méndez DO CHEMISTRY & BLOOD GAS ORDERAB LES Final Result [facility] [address] [place] [address] * ANTI NUCLEAR AB (ABBEY), IFA (08/22/2022 16:26 EST) Pathologist [facility] ABBEY Interpretation Negative Negative 2021 14:35 EST [facility] Comment:No titer performed, ABBEY Screen is negative. Blood VENOUS BLOOD / Unknown Venipuncture / Unknown 08/22/2022 16:26 EST 08/22/2022 17:02 EST Narrative [facility] - 08/23/2022 14:35 EST Results were obtained with the INOVA NOVA Lite HEp-2 ABBEY Kit by indirect immunofluorescence. us Curtis Méndez DO IMMUNOLOGY AND SEROLOGY ORDER RITA Final Result Performing Organization Address [facility]/ZIP Co de Phone Number [facility] [address] [place] [address] * SYPHILIS RPR SCREEN W/REFLEX (08/22/2022 16:26 EST) Pathologist [facility] Rapid Plasma Reagin Screen (RPR) Nonreactive Nonreactive 08/25/2022 9:31 EST [facility] Blood VENOUS BLOOD / Unknown Venipuncture / Unknown 08/22/2022 16:26 EST 08/22/2022 17:02 EST us Curtis Méndez DO IMMUNOLOGY AND SEROLOGY ORDER RITA Final Result Performing Organization Address City/[facility]/ZIP Co de Phone Number [facility] [address] [place] [address] * VITAMIN B12 (08/22/2022 16:26 EST) Vitamin B12 553 211 - 911 pg/mL 08/22/2022 18:18 EST [facility] Blood VENOUS BLOOD / Unknown Venipuncture / Unknown 08/22/2022 16:26 EST 08/22/2022 17:02 EST Narrative [facility] - 08/22/2022 18:18 EST The results of this assay can be falsely elevated due to the consumption of Biotin. Curtis Méndez CHEMISTRY & BLOOD GAS ORDERAB LES Final Result Performing Organization Address City/[facility]/ZIP Co de Phone Number [facility] [address] [place] [address] * COPPER, SERUM (08/22/2022 16:26 EST) Pathologist [facility] Copper, Serum 103 77 - 206 mcg/dL 08/24/2022 10:56 EST [facility] Comment: ADDITIONAL INFORMATION This test was developed and its performance characteristics determined by [facility] in a manner consistent with CLIA requirements. This test has not been cleared or approved by the U.S. Food and Drug Administration. Test Performed by: [facility] - [address] [address] Gore Seamer: Chris Flores M.D. Ph.D.; CLIA# [id number] Blood VENOUS BLOOD / Unknown Venipuncture / Unknown 08/22/2022 16:26 EST 08/22/2022 17:00 EST Curtis Méndez CHEMISTRY & BLOOD GAS ORDERAB LES Final Result Performing Organization Address City/[facility]/ZIP Co de Phone Number [facility] [address] [place] [address] * CERULOPLASMIN, S (08/22/2022 16:26 EST) Ceruloplasmin, S 24.9 20.0 - 51.0 mg/dL 08/23/2022 14:34 EST [facility] Comment: Test Performed by: [facility] - [facility] [address] [place] [address] Gore Seamer: Chris Flores M.D. Ph.D.; CLIA# [id number] Blood VENOUS BLOOD / Unknown Venipuncture / Unknown 08/22/2022 16:26 EST 08/22/2022 17:02 EST us Curtis Méndez DO CHEMISTRY & BLOOD GAS ORDERAB LES Final Result [facility] [address] [place] [address] * ECG REPORT - SCANNED (08/18/2022 20:35 EST) 08/18/2022 20:3 5 EST us Scan 2 Sr Account Executive PROCEDURE/MINOR SURGICAL OR DERABLES Final Result * ECG REPORT - SCANNED (08/15/2022 12:06 EST) 08/15/2022 12:0 6 EST us Scan 2 Sr Account Executive PROCEDURE/MINOR SURGICAL OR DERABLES Final Result * EKG 12-LEAD (08/15/2022 10:26 EST) 08/15/2022 10:2 6 EST Narrative [facility] - 08/15/2022 11:59 EST ? CV ? Test Date: ?2022-08-15 Pat Name: ? TUYET NICOLLE ?Department: ? Room: ? 323 Gender: ? Female ? Bilingual Secretary: ?? JW : ?1985 ? Requested By: DEBBIE SUSU A Order Number: [id number] ? Reading MD: ?? GIL CEDILLO MD ? Measurements Intervals ?[place] ? Rate: ? 73 ? P: ?52 UT: ? 150 ?QRS: ?57 QRSD: ? 94 ? T: ?48 QT: ? 384 ? QTc: ?423 ? Interpretive Statements Normal sinus rhythm Compared to ECG 08/05/1997 09:53:00 Sinus bradycardia no longer present I reviewed the tracing and have either agreed or edited the findings in this report. Electronically Signed On 08-15-2022 11:59:40 EST by GIL CEDILLO MD. Procedure Note Gil Cedillo MD - 08/15/2022 [facility] Test Date: 2022-08-15 Pat Name: TUYET EDWARDS Department: Room: 323 Gender: Female Bilingual Secretary: RANI : 1985 Requested By: DEBBIE Nazario Order Number: [id number] Reading MD: GIL CEDILLO MD Measurements Intervals [place] Rate: 73 P: 52 UT: 150 QRS: 57 QRSD: 94 T: 48 QT: 384 QTc: 423 Interpretive Statements Normal sinus rhythm Compared to ECG 08/05/1997 09:53:00 Sinus bradycardia no longer present I reviewed the tracing and have either agreed or edited the findings inthis report. Electronically Signed On 08-15-2022 11:59:40 EST by GIL MASON. Susu Morris JACK SPINNER CARDIAC ECG ORDERABLES Fin al Result [facility] * EKG 12-LEAD (08/13/2022 13:43 EST) 08/13/2022 13:4 3 EST Narrative [facility] EPIPHANY - 08/18/2022 12:39 EST ? [facility] ? Test Date: ?2022-08-13 Pat Name: ? TUYET NICOLLE ?Department: ? Room: ? Gender: ? Female ? Bilingual Secretary: ?? BARNARDD : ?1985 ? Requested By: Order Number: [id number] ? Reading MD: ?? GIL CEDILLO MD ? Measurements Intervals ?[place] ? Rate: ? 79 ? P: ? UT: ? 165 ?QRS: ?42 QRSD: ? 76 ? T: ?50 QT: ? 382 ? QTc: ?438 ? Interpretive Statements Sinus rhythm Compared to ECG 08/05/1997 09:53:00 Sinus bradycardia no longer present I reviewed the tracing and have either agreed or edited the findings in this report. Electronically Signed On 08-18-2022 12:39:35 EST by GIL CEDILLO MD. Procedure Note Gil Cedillo MD - 08/18/2022 [facility] Test Date: 2022-08-13 Pat Name: TUYET EDWARDS Department: Room: Gender: Female Bilingual Secretary: GINNY : 1985 Requested By: Order Number: [id number] Reading MD: GIL CEDILLO MD Measurements Intervals [place] Rate: 79 P: UT: 165 QRS: 42 QRSD: 76 T: 50 QT: 382 QTc: 438 Interpretive Statements Sinus rhythm Compared to ECG 08/05/1997 09:53:00 Sinus bradycardia no longer present I reviewed the tracing and have either agreed or edited the findings inthis report. Electronically Signed On 08-18-2022 12:39:35 EST by GIL MASON. us Adriana Camargo MD CARDIAC ECG ORDERABLE S Final Result [facility] * (ABNORMAL) COMPREHENSIVE METABOLIC PANEL (CMP) (08/12/2022 12:59 EST) Sodium 143 136 - 145 mmol/L 08/12/2022 14:15 [facility] Potassium 4.5 3.5 - 5.0 mmol/L 08/12/2022 14:15 [facility] Chloride 104 96 - 110 mmol/L 08/12/2022 14:15 [facility] CO2 Total 27 22 - 32 mmol/L 08/12/2022 14:15 [facility] Glucose 94 70 - 100 mg/dL 08/12/2022 14:15 [facility] BUN 14 10 - 26 mg/dL 08/12/2022 14:15 [facility] Creatinine 0.53 0.52 - 1.04 mg/dL 08/12/2022 14:15 [facility] eGFR 121 >60 mL/min/1.7 3m2 08/12/2022 14:15 [facility] Total Protein 7.5 6.3 - 8.2 g/dL 08/12/2022 14:15 [facility] Albumin 4.4 3.4 - 4.9 g/dL 08/12/2022 14:15 [facility] Alkaline Phosphatase 81 38 - 126 U/L 08/12/2022 14:15 [facility] AST 45 15 - 46 U/L 08/12/2022 14:15 [facility] ALT 58(H) <35 U/L 08/12/2022 14:15 [facility] Bilirubin, Total 0.3 <1.4 mg/dL 08/12/20 14:15 [facility] Calcium 9.6 8.5 - 10.5 mg/dL 08/12/2022 14:15 [facility] Albumin/Globulin Ratio 1.4 1.0 - 2.5 08/12/2022 14:15 [facility] Anion Gap 12 5 - 14 08/12/2022 14:15 [facility] Blood VENOUS BLOOD / Unknown Venipuncture / Unknown 08/12/2022 12:59 EST 08/12/2022 13:09 EST Curtis Méndez DO CHEMISTRY & BLOOD GAS ORDERAB LES Final Result [facility] [address] [place] [address] * (ABNORMAL) COMPLETE BLOOD COUNT (08/12/2022 12:59 EST) WBC 5.75 4.00 - 12.40 K/cmm 08/12/2022 13:12 [facility] RBC 3.89 3.86 - 5.04 M/cmm 08/12/2022 13:12 [facility] Hemoglobin 13.9 11.6 - 15.2 gm/dL 08/12/2022 13:12 [facility] HCT 40.6 34.9 - 44.4 % 08/12/2022 13:12 [facility] MCV 104(H) 81 - 98 fl 08/12/2022 13:12 [facility] MCH 35.7(H) 26.7 - 33.3 pg 08/12/2022 13:12 [facility] MCHC 34.2 32.1 - 35.9 gm/dL 08/12/2022 13:12 [facility] RDW-CV 11.6 <14.7 % 08/12/2022 13:12 [facility] RDW-SD 44.4 <50.4 fl 08/12/2022 13:12 [facility] PLT 274 141 - 377 K/cmm 08/12/2022 13:12 [facility] MPV 10.3 9.5 - 12.7 fl 08/12/2022 13:12 [facility] Blood VENOUS BLOOD / Unknown Venipuncture / Unknown 08/12/2022 12:59 EST 08/12/2022 13:09 EST Curtis Méndez DO HEMATOLOGY & PF4 ORDERABLES F inal Result Performing Organization Address City/[facility]/ZIP Co de Phone Number [facility] [address] [place] [address] * MAGNESIUM (08/10/2022 7:39 EST) Magnesium 1.8 1.7 - 2.8 mg/dL 08/10/2022 8:44 EST [facility] Blood VENOUS BLOOD / Unknown Venipuncture / Unknown 08/10/2022 7:39 EST 08/10/2022 8:00 EST Susu Morris JACK SPINNER CHEMISTRY & BLOOD GAS ORDE MYRA Final Result Performing Organization Address City/[facility]/ZIP Co de Phone Number [facility] [address] [place] [address] * C REACTIVE PROTEIN (08/10/2022 7:39 EST) [facility] C-Reactive Protein <5.0 <10.0 mg/L 08/10/2022 8:44 [facility] Blood VENOUS BLOOD / Unknown Venipuncture / Unknown 08/10/2022 7:39 EST 08/10/2022 8:00 EST Susu Morris JACK SPINNER CHEMISTRY & BLOOD GAS RANDY RENTERIA Final Result [facility] [address] [place] [address] * (ABNORMAL) BASIC METABOLIC PANEL (BMP) (08/10/2022 7:39 EST) [facility] Sodium 143 136 - 145 mmol/L 08/10/2022 8:44 [facility] Potassium 4.3 3.5 - 5.0 mmol/L 08/10/2022 8:44 [facility] Chloride 100 96 - 110 mmol/L 08/10/2022 8:44 [facility] CO2 Total 32 22 - 32 mmol/L 08/10/2022 8:44 [facility] Anion Gap 11 5 - 14 08/10/2022 8:44 [facility] Glucose 116(H) 70 - 100 mg/dL 08/10/2022 8:44 [facility] Calcium 9.9 8.5 - 10.5 mg/dL 08/10/2022 8:44 [facility] BUN 12 10 - 26 mg/dL 08/10/2022 8:44 [facility] Creatinine 0.50(L) 0.52 - 1.04 mg/dL 08/10/2022 8:44 [facility] eGFR 123 >60 mL/min/1.73 m2 08/10/2022 8:44 [facility] Blood VENOUS BLOOD / Unknown Venipuncture / Unknown 08/10/2022 7:39 EST 08/10/2022 8:00 EST Susu Mansi Morris JACK SPINNER CHEMISTRY & BLOOD GAS RANDY RENTERIA Final Result [facility] [address] [place] [address] documented in this encounter Visit Diagnoses Diagnosis Depression, unspecified depression type- Primary Depression, unspecified depression type Alcohol use disorder, severe, dependence (HCC-CMS) Opioid use disorder, moderate, dependence (HCC-CMS) Tobacco use Tobacco use disorder Elevated BP without diagnosis of hypertension Alcohol withdrawal syndrome, with delirium (HCC-CMS) Tobacco dependence Tobacco use disorder Alcohol use disorder, severe, dependence (HCC-CMS) Opioid use disorder, moderate, dependence (HCC-CMS) Tobacco use Tobacco use disorder Elevated BP without diagnosis of hypertension Tobacco dependence Tobacco use disorder Alcohol withdrawal syndrome, with delirium (HCC-CMS) documented in this encounter Admitting Diagnoses Diagnosis Depression, unspecified depression type documented in this encounter Administered Medications Inactive Administered Medications - up to 3 most recent administrations Medication Order MAR Action Action Date Dose Rate Site acetaminophen (TYLENOL) tablet 650 mg 650 mg, oral, EVERY 4 HOURS PRN, Starting on Mon07/30/22 at 1620, Until Mon08/30/22 at 1826, Mild Pain 1-3, Routine Given 08/27/2022 1:21 EST 650 mg Given 08/11/2022 6:38 EST 650 mg Given 08/05/2022 1:57 EST 650 mg aluminum & magnesium hydroxide-simethicone (MAALOX PLUS) 200-200-20 mg/5 mL suspension 30 mL 30 mL, oral, EVERY 4 HOURS PRN, Starting on Mon07/30/22 at 1621, Until Mon08/30/22 at 1826, Indigestion, Heartburn, Routine b hwogztr-B-wuxly acid (NEPHROCAPS) 1 mg capsule 1 Capsule 1 Capsule, oral, DAILY, First dose on Mon08/03/22 at 0900, Until Discontinued, Routine Given 08/30/2022 8:3 8 EST 1 Capsule Given 08/29/2022 9:53 EST 1 Capsule Given 08/28/2022 9:01 EST 1 Capsule cyproheptadine (PERIACTIN) tablet 4 mg 4 mg, oral, EVERY 6 HOURS PRN, Starting on Mon08/12/22 at 1250, Until Mon08/30/22 at 1826, anxiety, Routine Given 08/21/2022 14:10 EST 4 mg Given 08/18/2022 13:03 EST 4 mg Given 08/16/2022 8:40 EST 4 mg diazePAM (VALIUM) tablet 5 mg 5 mg, oral, Once (Time Specified), 1 dose, On 07/30/22 at 1745, Routine Given 07/30/2022 18:03 EST 5 mg folic acid (FOLVITE) tablet 1 mg 1 mg, oral, DAILY, First dose on 07/31/22 at 0900, Until Discontinued, Routine Given 08/02/2022 8:21 EST 1 mg Given 08/01/2022 8:51 EST 1 mg Given 07/31/2022 9:11 EST 1 mg gabapentin (NEURONTIN) capsule 100 mg 100 mg, oral, 3 TIMES DAILY, First dose on Mon07/31/22 at 0900, Until Discontinued, Routine Given 08/07/2022 14:[address] 100 mg Given 08/07/2022 10:03 EST 100 mg Given 08/06/2022 21:16 EST 100 mg gabapentin (NEURONTIN) capsule 100 mg 100 mg, oral, 2 TIMES DAILY (0800 & 1400), First dose (after last modification) on Mon08/08/22 at 0800, Until Discontinued, Routine Given 08/23/2022 9:52 EST 100 mg Given 08/22/2022 14:20 EST 100 mg Given 08/22/2022 8:55 EST 100 mg gabapentin (NEURONTIN) capsule 300 mg 300 mg, oral, AT BEDTIME, First dose on 08/07/22 at 2100, Until Discontinued, Routine Given 08/10/2022 19:[address] 300 mg Given 08/09/2022 21:10 EST 300 mg Given 08/08/2022 21:59 EST 300 mg gabapentin (NEURONTIN) capsule 300 mg 300 mg, oral, 3 TIMES DAILY, First dose (after last modification) on Mon08/23/22 at 1400, Until Discontinued, Routine Given 08/30/2022 14:46 EST 300 mg Given 08/30/2022 8:38 EST 300 mg Given 08/29/2022 20:40 EST 300 mg hydrOXYzine (ATARAX) tablet 25 mg 25 mg, oral, 2 TIMES DAILY PRN, Starting on Shobha 08/11/22 at 1645, Until Mon08/12/22 at 1251, Anxiety, Routine Given 08/11/2022 21:02 EST 25 mg hydrOXYzine (ATARAX) tablet 50 mg 50 mg, oral, EVERY 8 HOURS PRN, Starting on Mon08/10/22 at 1152, Until Shobha 08/11/22 at 1630, Anxiety, Routine Given 08/11/2022 10:49 EST 50 mg Given 08/10/2022 19:50 EST 50 mg lidocaine (PF) 10 mg/mL (1 %) injection 2 mg 2 mg, intradermal, PRN, 4 doses, Starting on Mon08/03/22 at 1249, Until Mon08/30/22 at 1826, Other, peripheral intravenous catheter placement, Routine LORazepam (ATIVAN) tablet 1 mg 1 mg, oral, AT BEDTIME, First dose on 07/30/22 at 2145, Until Discontinued, Routine Given 07/31/2022 21:21 EST 1 mg Given 07/30/2022 22:18 EST 1 mg melatonin tablet 3 mg 3 mg, oral, AT BEDTIME PRN, Starting on 07/30/22 at 1621, Until Mon08/03/22 at 1150, Sleep, Routine Given 08/01/2022 22:42 EST 3 mg Given 07/30/2022 23:24 EST 3 mg melatonin tablet 3 mg 3 mg, oral, AT BEDTIME PRN, Starting on Shobha 08/11/22 at 1630, Until Mon08/30/22 at 1826, Sleep, Routine Given 08/28/2022 1:36 EST 3 mg Given 08/27/2022 2:49 EST 3 mg Given 08/11/2022 21:02 EST 3 mg methadone (DOLOPHINE) concentrated solution 70 mg 70 mg, oral, DAILY, First dose (after last modification) on 07/31/22 at 0900, Until Discontinued, Routine Given 08/30/2022 8:38 EST 70 mg Given 08/29/2022 9:53 EST 70 mg Given 08/28/2022 9:02 EST 70 mg mirtazapine (REMERON) tablet 15 mg 15 mg, oral, AT BEDTIME, First dose on Mon08/05/22 at 2100, Until Discontinued, Routine Given 08/07/2022 21:02 EST 15 mg Given 08/06/2022 21:16 EST 15 mg Given 08/05/2022 20:46 EST 15 mg mirtazapine (REMERON) tablet 22.5 mg 22.5 mg, oral, AT BEDTIME, First dose (after last modification) on 08/08/22 at 2100, Until Discontinued, Routine Given 08/09/2022 21:10 EST 22.5 mg Given 08/08/2022 21:59 EST 22.5 mg mirtazapine (REMERON) tablet 22.5 mg 22.5 mg, oral, AT BEDTIME, First dose (after last modification) on Shobha 08/11/22 at 2100, Until Discontinued, Routine Given 08/23/2022 20:32 EST 22.5 mg Given 08/22/2022 21:53 EST 22.5 mg Given 08/21/2022 20:29 EST 22.5 mg mirtazapine (REMERON) tablet 30 mg 30 mg, oral, AT BEDTIME, First dose (after last modification) on Mon08/10/22 at 2100, Until Discontinued, Routine Given 08/10/2022 21:15 EST 30 mg mirtazapine (REMERON) tablet 7.5 mg 7.5 mg, oral, AT BEDTIME, First dose (after last modification) on Mon08/24/22 at 2100, Until Discontinued, Routine Given 08/29/2022 20:41 EST 7.5 mg Given 08/28/2022 20:05 EST 7.5 mg Given 08/27/2022 20:31 EST 7.5 mg nicotine (NICOTROL) 10 mg inhaler kit 1 Inhaler 1 Inhaler, inhalation, EVERY 2 HOURS PRN, Starting on 07/31/22 at 1442, Until Mon08/30/22 at 1826, Smoking Cessation, Routine Given 08/24/2022 21:1 0 EST 1 Inhaler Given 08/24/2022 12:31 EST 1 Inhaler Given 08/20/2022 9:07 EST 1 Inhaler nicotine inhaler (delivery device) 1 Each, inhalation, PRN, Starting on 07/31/22 at 1609, Until Mon08/30/22 at 1826, Smoking Cessation OLANZapine (ZYPREXA) disintegrating tablet 5 mg 5 mg, oral, Once (Without Time Specified), 1 dose, Starting on Mon08/09/22 at 0925, Until Mon08/09/22 at 0933, Routine Given 08/09/2022 9:33 EST 5 mg OLANZapine (ZYPREXA) tablet 10 mg 10 mg, oral, AT BEDTIME, First dose on Mon08/15/22 at 2100, Until Discontinued, Routine Given 08/22/2022 21:53 EST 10 mg Given 08/21/2022 20:29 EST 10 mg Given 08/20/2022 23:01 EST 10 mg OLANZapine (ZYPREXA) tablet 2.5 mg 2.5 mg, oral, 2 TIMES DAILY PRN, Starting on Mon08/23/22 at 1009, Until Mon08/30/22 at 1826, Agitation, Routine OLANZapine (ZYPREXA) tablet 5 mg 5 mg, oral, 2 TIMES DAILY PRN, Starting on Mon08/15/22 at 1539, Until Mon08/23/22 at 1009, Agitation, Routine Given 08/18/2022 13:03 EST 5 mg Given 08/16/2022 14:22 EST 5 mg Given 08/16/2022 8:43 EST 5 mg OLANZapine (ZYPREXA) tablet 5 mg 5 mg, oral, DAILY, First dose on Mon08/17/22 at 0900, Until Discontinued, Routine Given 08/19/2022 10:08 EST 5 mg Given 08/18/2022 9:19 EST 5 mg Given 08/17/2022 8:40 EST 5 mg OLANZapine (ZYPREXA) tablet 5 mg 5 mg, oral, AT BEDTIME, First dose (after last modification) on Mon08/23/22 at 2100, Until Discontinued, Routine Given 08/23/2022 20:33 EST 5 mg risperiDONE (RISPERDAL) tablet 1 mg 1 mg, oral, EVERY 12 HOURS, First dose on Mon08/12/22 at 2100, Until Discontinued, Routine Given 08/15/2022 8:49 EST 1 mg Given 08/14/2022 20:52 EST 1 mg Given 08/14/2022 9:15 EST 1 mg senna (SENOKOT) tablet 1 Tablet 1 Tablet, oral, AT BEDTIME PRN, Starting on 07/30/22 at 1621, Until Mon08/30/22 at 1826, Constipation, Routine Given 08/15/2022 20:22 EST 1 Tablet sodium chloride 0.9 % (flush) flush 5 mL 5 mL, intravenous, EVERY 8 HOURS, First dose on Mon08/03/22 at 1600, Until Discontinued, Routine Given 08/05/2022 17:12 EST 5 mL Given 08/05/2022 8:33 EST 5 mL Given 08/04/2022 23:58 EST 5 mL thiamine (VITAMIN B-1) 250 mg in sodium chloride (NS) 0.9 % 100 mL IVPB 250 mg, intravenous, Administer over 30 Minutes, DAILY, 5 doses, First dose (after last modification) on Mon08/05/22 at 0900, Last dose on Mon08/09/22 at 0900, Routine Given 08/05/2022 9:57 EST 250 mg thiamine (VITAMIN B-1) 500 mg in sodium chloride (NS) 0.9 % 250 mL IVPB 500 mg, intravenous, Administer over 60 Minutes, 3 TIMES DAILY, 3 doses, First dose (after last modification) on Mon08/03/22 at 1400, Last dose on Mon08/04/22 at 0900, Routine Given 08/04/2022 8:26 EST 500 mg Given 08/03/2022 20:34 EST 500 mg IV Given 08/03/2022 15:21 EST 500 mg thiamine (VITAMIN B-1) injection 100 mg 100 mg, intramuscular, DAILY, 5 doses, First dose on Mon08/06/22 at 0900, Last dose on Mon08/10/22 at 0900, Routine Given 08/09/2022 9:05 EST 100 mg Given 08/08/2022 9:21 EST 100 mg Right Deltoid Given 08/07/2022 10:04 EST 100 mg thiamine (VITAMIN B1) tablet 100 mg 100 mg, oral, DAILY, First dose on Mon07/31/22 at 0900, Until Discontinued, Routine Given 08/02/2022 8:21 EST 100 mg Given 08/01/2022 8:51 EST 100 mg Given 07/31/2022 9:11 EST 100 mg thiamine (VITAMIN B1) tablet 100 mg 100 mg, oral, 3 TIMES DAILY, First dose (after last modification) on Mon08/02/22 at 2100, Until Discontinued, Routine Given 08/03/2022 11:35 EST 100 mg Given 08/02/2022 20:41 EST 100 mg thiamine (VITAMIN B1) tablet 100 mg 100 mg, oral, DAILY, First dose on Mon08/10/22 at 0900, Until Discontinued, Routine Given 08/30/2022 8:38 EST 100 mg Given 08/29/2022 9:53 EST 100 mg Given 08/28/2022 9:01 EST 100 mg traZODone (DESYREL) tablet 50 mg 50 mg, oral, AT BEDTIME, First dose on Mon08/03/22 at 2100, Until Discontinued, Routine Given 08/03/2022 21:02 EST 50 mg documented in this encounter Active and Recently Administered Medications Times are shown in EST. Scheduled Medication Order 08/28/2022 08/29/2022 08/30/2022 b [id number]-H-idggw acid (NEPHROCAPS) 1 mg capsule 1 Capsule 1 Capsule, oral, DAILY, First dose on Mon08/03/22 at 0900, Until Discontinued, Routine 900 (Given - Provider: Koki Porter RN) 0953 (Given - Provider: Koki Porter RN) 0838 (Given - Provider: Trixie Burroughs, JIAN) gabapentin (NEURONTIN) capsule 300 mg 300 mg, oral, 3 TIMES DAILY, First dose (after last modification) on Mon08/23/22 at 1400, Until Discontinued, Routine 09 (Given - Provider: Koki Porter RN)1430 (Not Given - Provider: Koki Porter RN - Reason: Patient/family refused)2004 (Given - Provider: Aidee Pereyra LPN) 0953 (Given - Provider: Koki Porter RN)174 (Not Given - Provider: Koki Porter RN - Reason: Patient/family refused)2039 (Given - Provider: Aidee Pereyra LPN) 0838 (Given - Provider: Trixie Burroughs, JIAN)144 (Given - Provider: Trixie Burroughs, RN) methadone (DOLOPHINE) concentrated solution 70 mg 70 mg, oral, DAILY, First dose (after last modification) on Mon07/31/22 at 0900, Until Discontinued, Routine 0902 (Given - Provider: Koki Porter RN) 0953 (Given - Provider: Koki Porter, RN) 0838 (Given - Provider: Trixie Burroughs, RN) mirtazapine (REMERON) tablet 7.5 mg 7.5 mg, oral, AT BEDTIME, First dose (after last modification) on Mon08/24/22 at 2100, Until Discontinued, Routine 2004 (Given - Provider: Aidee Pereyra LPN) 2040 (Given - Provider: Aidee Pereyra LPN) thiamine (VITAMIN B1) tablet 100 mg 100 mg, oral, DAILY, First dose on Mon08/10/22 at 0900, Until Discontinued, Routine 900 (Given - Provider: Koki Porter RN) 0953 (Given - Provider: Koki Porter RN) 0838 (Given - Provider: Trixie Burroughs, JIAN) PRN Medication Order 08/28/2022 08/29/2022 08/30/2022 acetaminophen (TYLENOL) tablet 650 mg 650 mg, oral, EVERY 4 HOURS PRN, Starting on 07/30/22 at 1620, Until Mon08/30/22 at 1826, Mild Pain 1-3, Routine aluminum & magnesium hydroxide-simethicone (MAALOX PLUS) 200-200-20 mg/5 mL suspension 30 mL 30 mL, oral, EVERY 4 HOURS PRN, Starting on 07/30/22 at 1621, Until Mon08/30/22 at 1826, Indigestion, Heartburn, Routine cyproheptadine (PERIACTIN) tablet 4 mg 4 mg, oral, EVERY 6 HOURS PRN, Starting on Mon08/12/22 at 1250, Until Mon08/30/22 at 1826, anxiety, Routine lidocaine (PF) 10 mg/mL (1 %) injection 2 mg 2 mg, intradermal, PRN, 4 doses, Starting on Mon08/03/22 at 1249, Until Mon08/30/22 at 1826, Other, peripheral intravenous catheter placement, Routine melatonin tablet 3 mg 3 mg, oral, AT BEDTIME PRN, Starting on Shobha 08/11/22 at 1630, Until Mon08/30/22 at 1826, Sleep, Routine 013 (Given - Provider: Aidee Pereyra LPN) nicotine (NICOTROL) 10 mg inhaler kit 1 Inhaler 1 Inhaler, inhalation, EVERY 2 HOURS PRN, Starting on 07/31/22 at 1442, Until Mon08/30/22 at 1826, Smoking Cessation, Routine nicotine inhaler (delivery device) 1 Each, inhalation, PRN, Starting on 07/31/22 at 1609, Until Mon08/30/22 at 1826, Smoking Cessation OLANZapine (ZYPREXA) tablet 2.5 mg 2.5 mg, oral, 2 TIMES DAILY PRN, Starting on Mon08/23/22 at 1009, Until Mon08/30/22 at 1826, Agitation, Routine senna (SENOKOT) tablet 1 Tablet 1 Tablet, oral, AT BEDTIME PRN, Starting on 07/30/22 at 1621, Until Mon08/30/22 at 1826, Constipation, Routine documented in this encounter Orders Medications Ordered That Phan ht Not Have Been Administered Count Last Ordered Date First Ordered Date mirtazapine (REMERON) tablet 15 mg 1 2021 OLANZapine (ZYPREXA) tablet 2.5 mg 1 2021 risperiDONE (RISPERDAL) tablet 2 mg 1 08/15 hydrOXYzine (ATARAX) tablet 25 mg 2 022 08/10/2022 hydrOXYzine (ATARAX) tablet 50 mg 1 022 lidocaine (PF) 10 mg/mL (1 % ) injection 2 mg 1 08/03/2022 melatonin tablet 9 mg 1 08/03/2022 thiamine (VITAMIN B-1) 250 m g in sodium chloride (NS) 0.9 % 100 mL IVPB 1 08/03/2022 thiamine (VITAMIN B-1) 500 m g in sodium chloride (NS) 0.9 % 250 mL IVPB 1 08/03/2022 nicotine inhaler (delivery device) 1 2021 aluminum & magnesium hydroxi de-simethicone (MAALOX PLUS) 200-200-20 mg/5 mL suspension 30 mL 1 07/30/2022 methadone (DOLOPHINE) concen trated solution 70 mg 1 07/30/2022 ondansetron (ZOFRAN-ODT) dis integrating tablet 4 mg 1 07/30/2022 Diet Count Last Ordered Date First Orde red Date DISCHARGE DIET 1 08/30/2022 Nursing Count Last Ordered Date First Orde red Date ACTIVITY INSTRUCTIONS 1 08/30/2022 PATIENT AT LOW RISK FOR VTE: RISK OF MECHANICAL PROPHYLAXIS OUTWEIGHS 1 07/30/2022 Admission Count Last Ordered Date First Orde red Date ADMIT TO IP PSYCH 1 07/30/2022 Discharge Count Last Ordered Date First Orde red Date DISCHARGE PATIENT 1 08/30/2022 Legal Count Last Ordered Date First Orde red Date MISCELLANEOUS DISCHARGE INSTRUCTIONS 8 08/18 Consult to Neurology Count Last Ordered Date Fi rst Ordered Date CONSULT NEUROLOGY 1 08/19/2022 documented in this encounter Care Teams Director Of Institutional Sales Relationship Specialty Start Date End Date None, Provider PCP - General 07/29/22 08/23/22 Esperanza Scott FNP [address] [place] [address] PCP - General Family Medicine - Primary Care 08/24/22 documented as of this encounter
--- OUTSIDE RECORDS SUMMARY | 2024-09-30 14:23 | XMS_ITS | Encounter Summary ---
Author Organization [facility] Address [address] [place] [address] Care Team Providers Care Registered Travel Nurse Name Role Phone Esperanza Scott COMPUTER LANGUAGE CODER Primary Care Provider [phone] Encounter Details Date Type Department Care Team (Late st Contact Info) Description 05/14/2024 Lab Requisition [facility] Pathology & Laboratory Medicine - [address] [address] Outr Resulting Lab, Provider Social History Tobacco Use Types Packs/Day Years [...] Procedure Name Priority Date/Time Associated Diagnosis Comments HIV 1/2 ANTIGEN AND ANTIBODY, 4TH GENERATION Routine 05/13/2024 17:00 EDT documented in this encounter Results * HIV 1/2 ANTIGEN AND ANTIBODY, 4TH GENERATION (05/13/2024 17:00 EDT) HIV 1 and 2 Antibody/p24 Antigen, 4th Generation Negative Negative 05/14/2024 20:11 EDT [facility] Comment:If acute HIV-1 infec tion is suspected in a high risk patient, submit plasma specimen for HIV-1 RNA quantitation test. Blood VENOUS BLOOD / Unknown 05/13/2024 17:00 EDT 05/14/2024 17:53 EDT Narrative [facility] - 05/14/2024 20:11 EDT Fourth Generation assay performed on the Siemens Centaur XPT. us Provider Outr Resulting Lab IMMUNOLOGY AND SEROL OGY ORDERABLES Final Result [facility] [address] [place] [address] documented in this encounter Visit Diagnoses Not on filedocumented in this encounter Care Teams Registered Travel Nurse Relationship Specialty Start Date End Date Esperanza Scott FNP [address] [place] [id number] PCP - General Family Medicine - Primary Care 08/24/22 documented as of this encounter
--- OUTSIDE RECORDS SUMMARY | 2024-09-30 14:23 | XMS_ITS | Encounter Summary ---
Author Organization [facility] Address [address] [place] [address] Care Team Providers Care Machine Operator General Name Role Phone Esperanza Scott UPHOLSTERED GOODS CRAFTER Primary Care Provider [phone] Encounter Details Date Type Department Care Team (Latest Contact Info) Description 03/02/2024 Travel Social History Tobacco Use Types Packs/Day Years [...] of Assessment Author No 07/30/2022 17:18 Ubaldo Radn documented as of this encounter Mental Status [...] on filedocumented in this encounter Care Teams Machine Operator General Relationship Specialty Start Date End Date Esperanza Scott FNP [address] [place] [phone] PCP - General Family Medicine - Primary Care 08/24/22 documented as of this encounter
--- OUTSIDE RECORDS SUMMARY | 2024-09-30 14:23 | XMS_ITS | Encounter Summary ---
Author Organization [facility] Address [address] [place] [address] Care Team Providers Care Rodent Exterminator Name Role Phone Esperanza Scott AVIATION PROJECT ENGINEER Primary Care Provider [phone] Encounter Details Date Type Department Care Team (Latest Contact Info) Description 09/17/2022 Travel Social History Tobacco Use Types Packs/Day [...] suspected to have Coronavirus/COVID-19? No / Unsure 09/17/2022 15:01 EST documented as of this encounter Functional [...] 17:18 Ubaldo Rand documented in this encounter Plan of Treatment Not on file documented as of this encounter Visit Diagnoses Not on filedocumented in this encounter Care Teams Rodent Exterminator Relationship Specialty Start Date End Date Esperanza Scott FNP [address] [place] [phone] PCP - General Family Medicine - Primary Care 08/24/22 documented as of this encounter
--- OUTSIDE RECORDS SUMMARY | 2024-09-30 14:23 | XMS_ITS | Encounter Summary ---
Author Organization [facility] Address [address] [place] [address] Care Team Providers Care Meat Stock Clerk Name Role Phone Esperanza Scott CHANGE AGENT Primary Care Provider [phone] Encounter Details Date Type Department Care Team (Late st Contact Info) Description 09/18/2022 Plan of Care Documentation [facility] Inpatient Psychiatry [address] [place] [address] Social History Tobacco Use Types Packs/Day Years [...] Date of Assessment Author No 09/17/2022 15:01 Akira Wayne RN * Are you blind or do [...] Jennyfer Bentley RN documented in this encounter Progress Notes * Leonardo Maria Alejandra - 09/18/2022 1050 EST Psychiatry Treatment Plan Admit Date: 09/17/22 Initial Observation Date (if different): 09/17/2022 Hospital day: LOS: 1 day Date of Service: 09/18/2022 Legal Status: Legal status: Voluntary Locus of Harm: Suicidal Ideation with active plan: No Patient's stated reason for hospitalization: having hard time Current Stressors: Illness or family illness Target Symptoms: Hypomanic/manic-reported, Anxiety moderate to high-observed, Illogical/loose-observed; Racing/pressured-observed; Confused,consistently or fluctuating-observed Problems being addressed this admission: Anxiety Behavioral Dyscontrol Psychosis Substance Abuse Identified strengths and barriers: Tuyet Edwards's Strengths:Interested in / accepting treatment, medically stable and prior response totreatment Tuyet Edwards's Barriers: substance use, limited supports and vulnerability to psychological stress Goals: 1. Tuyet Edwards will demonstrate stabilization of acute target signs and symptoms 2. Tuyet Edwards will increase understanding of her illness and treatment interventions 3. Tuyet Edwards will develop and implement aftercare plan for discharge Interventions / Plans: Psychiatry: Ongoing psychiatric evaluation and counseling Pharmacological management Appropriate medical studies and laboratory monitoring Daily contact with patient for evaluation and management Nursing: See Care Plan documentation Social Work: Assist patient with discharge planning, including identifying discharge options Assisting with referrals Facilitate collaboration with family / support network Conduct treatment groups and encourage participation Collaboration with outpatient providers Advanced Practice Provider: See CARLOS's Assessment and Treatment Plan under History and Physical Outpatient Providers information: Name Number Mental Health Agency Psychiatrist Therapist Solution Mixer PCP Esperanza Scott Guardian Family Contact Other Pt: Date: MD: Date: AP: Date: RN: Date: SW: Date: documented in this encounter Plan of Treatment Not on file documented as of this encounter Visit Diagnoses Not on filedocumented in this encounter Care Teams Meat Stock Clerk Relationship Specialty Start Date End Date Esperanza Scott FNP [address] [place] [phone] PCP - General Family Medicine - Primary Care 08/24/22 documented as of this encounter
--- OUTSIDE RECORDS SUMMARY | 2024-09-30 14:23 | XMS_ITS | Encounter Summary ---
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 time was spent in counseling and coordination of care as described in the note. Curtis Méndez DO 09/28/2022 15:48 * Sisi Mcmillan - 09/28/2022 0758 EST Pt, MD, student and SW met for a check in and discharge planning. Pt reports feeling more like herself and feeling ready to discharge home soon. SW spoke with Pt's partner Salvador and scheduled a phone family meeting today at 2:30 and a discharge tomorrow at 3:30. SW talked with Salvador about the importance of getting Pt to ALL of her follow up appointments along with staying away from substances and taking her medications. Salvador agreed that he would make it a priority. SW reviewed Pt's follow up appointments including the date, time, location and purpose. Pt, MD, SW meet in person and Pt's partner Salvador attended over the phone. SW and MD stressed the importance of the follow up appointments, staying away from substances and taking her medications as prescribed. Pt and her family agreed. Pt to discharge tomorrow at 3:30 with her partner picking her up. Pt will need a last dose letter. * Curtis Méndez DO - 09/27/2022 1502 EST Inpatient Psychiatry Daily Progress Note 09/27/2022 Admit Date: 09/17/22 Hospital day: LOS: 10 days Legal Status: Legal status: Voluntary Observation Level: Frequent observation Locus/Risk of Harm: IV Reason for Admission/Chief Complaint: Suicidal ideation Clinical Update/24-hour Events: Per nursing report, patient appearing better, attending groups, med adherent. Subjective: The patient is seen for follow-up. Patient presents with improving thought organization and mood. The topic of relapse prevention and importance of medication compliance. Patient denies SI, AH. Reports improving irritability. Current Facility-Administered Medications Medication Route Frequency ??? acetaminophen (TYLENOL) tablet 650 mg oral Q4H PRN ??? b [id number]-[id number]-[id number] acid (NEPHROCAPS) 1 mg capsule 1 Capsule oral DAILY ??? benztropine (COGENTIN) tablet 1 mg oral BID PRN ??? gabapentin (NEURONTIN) capsule 300 mg oral TID ??? haloperidoL (HALDOL) tablet 2 mg oral Q6H PRN ??? haloperidoL (HALDOL) tablet 2.5 mg oral BID ??? LORazepam (ATIVAN) tablet 0.5 mg oral BID ??? LORazepam (ATIVAN) tablet 0.5 mg oral Q6H PRN ??? methadone (DOLOPHINE) concentrated solution 70 mg oral DAILY ??? nicotine (NICOTROL) 10 mg inhaler kit 1 Inhaler inhalation Q1H PRN ??? nicotine inhaler (delivery device) inhalation PRN ??? polyethylene glycol 3350 (MIRALAX) packet 17 g oral Daily PRN ??? senna (SENOKOT) tablet 2 Tablet oral AT BEDTIME PRN ??? thiamine (VITAMIN B1) tablet 100 mg oral DAILY Objective: BP 121/70 (BP Cuff Location: Left arm, BP Patient Position: Sitting) Pulse 71 Temp 36.2 ??C (97.1 ??F) (Temporal) Resp 16 Ht 154.9 cm (61) Wt 58.6 kg (129 lb 3.2 oz) SpO2 97% BMI 24.41kg/m?? MSE: Appearance: 37 yo white female appearing chronological age, dressed in casual attire, with intact hygiene and grooming Arousal: awake, alert Behavior: Cooperative; good eye contact Attention/Concentration: attentive to conversation Orientation: grossly oriented Memory: recalls recent events and conversations Mood: better Affect: Fairly neutral and slightly anxious; restricted and range; mood congruent; appropriate Speech: regular to rate, rhythm, and volume Thought Process/Language: linear, logical, and goal-directed; organized Associations: no loosening Gait: steady, with normal station Motor: no psychomotor disturbances or abnormal movements Content,Peroccupations, Over-valued, Ideas, Delusions: No overt paranoia; no nimco delusions Perceptual: Reports ongoing improved AH; no VH Fund of Knowledge: fair Danger Self: denies Danger Other: denies no threatening statements or postures Insight/Judgement: improving; accepting care; cooperative and collaborative Data Review: Labs: No results found for this or any previous visit (from the past 24 hour(s)). Other studies:N/A Assessment/Formulation: Per previous, 37 y.o. woman with a history of depression and polysubstance use (opioid, alcohol, cannabinoid) who was recently admitted to [facility] for a month and discharged 2.5 weeks ago, who presents to [facility] due to worsening suicidal thoughts, anxiety, and internal preoccupation. Ms. Edwards has had increased confusion and disorganization over the past couple of months, with concerns for possible Korsakoff syndrome, protracted alcohol delirium, or alcohol-induced dementia/amnestic syndrome. Medical work-up, including neurology consultation, MRI, heavy metal screening, and RPR were unremarkable. She had trials of risperidone 2 mg twice daily and olanzapine up to 10 mg twice daily, both of whichresulted in apparent symptom exacerbation. At this time Ms. Edwards is in need of inpatient admissionfor stabilization and safety. ?? In addition to the above assessment, Tuyet exhibited a tense and labile affect, moderate psychomotor hyperactivity, decreased need for sleep (0 hours logged overnight), a tangential and disorganized thought process, paranoid ideas, disinhibited statements, and apparent significant distraction by unseen/unheard others. Her symptoms have arisen in the setting of alcohol relapse, UDS presumptive positive for cannabinoids, and reporting a recent use of street drugs to the admitting psychiatrist. Differential diagnosis includes bipolar I disorder, current episode manic/mixed with psychotic features and substance- induced psychotic disorder (alcohol vs. cannabis vs. a substance not found on UDS). Approximately two months ago, Tuyet was treated with phenobarbital at [facility] for CIWA scores in the 30s, and then during her recent [facility] hospitalization, risperidone and olanzapine were sequentially trialled without appreciable symptomatic benefits. Given current significant thought disorg anization, perceptual disturbances, and decreased need for sleep, with potential contribution by recent substance use, we discussed the potential risks and benefits of pursuing an anti-manic regimen of haloperidol and lorazepam at this time. Haloperidol also has some evidence for the treatment of alcohol-related psychosis. Empiric treatment with Haldol for psychotic symptoms is ongoing. YMRS 23 09/19/21 which may suggest mild shawna. Affective psychosis and alcohol related psychosis would be treated with Haldol. Patients mental status, including irritability, thought organization, and AH have improved. Patient has mild adverse side effects from Haldol including muscle stiffness which we are cautiously monitoring. As of 09/23 due to some ongoing muscle stiffness and possible cogwheeling, haldol reduced to 2.5mg BID (from 5mg BID) and cogentin PRN started. Patient citing and demonstrating improvement. Patient continues to have improving mental status. Likely discharge later this week pending outpatient follow up coordination Diagnostic Impression Psychiatric Diagnoses (including Personality Traits/Disorders): Unspecified psychotic disorder (Bipolar I disorder, current episode mixed with psychotic features vs. Substance-induced psychotic disorder). Alcohol use disorder, severe. Opioid use disorder, in reported sustained remission. Cannabis use disorder, severe. Other Medical Conditions: Principal Problem: Suicidal ideation Active Problems: Alcohol use disorder, severe, dependence ([facility] ([facility]) Opioid use disorder, moderate, dependence ([facility] ([facility] Tobacco use Depressive disorder Psychosis ([facility] ([facility]) Plan: -Level of Observation: Frequent observation -Locus Risk of Harm: IV -Medications: -C/w [employer] methadone 70mg daily. -C/w gabapentin 300mg TID. -Continue haloperidol 2.5 mg twice daily -Continue with as needed Cogentin -Continue lorazepam 0.5mg po bid with goal to taper prior to discharge. -Continue to review B/R/SE and alternatives to [...] described in the note. Curtis Méndez DO 09/27/2022 15:08 * Leida Pollard RN - 09/27/2022 1311 EST No complaints. Polite and cooperative. Good eye contact, full affect. Attending groups. * Sisi Mcmillan - 09/27/2022 0826 EST Pt, MD and LEATHA met for a check in and discharge planning. Pt reports not sleeping as well last nightbut also recognizes that because of another admission the unit was nosier. Pt reports other than that feeling more like herself and feeling closer to being ready for discharge. Pt asked for SW to reach out to Salvador to schedule a family meeting. SW left a message requesting a call back to schedule a family meeting. SW also reached out and spoke to a nurse at [facility] in [facility] to confirm that Pt can returning for dosing on discharge. The nurse requested a referral packet with MD notes, medication given and overall care for this hospitalization so that the MD could review prior to determining her return. SW to follow up tomorrow. LEATHA also spoke with BRADLY and got Pt rescheduled with provider Christi Fay on 10/06 at 9:45 and therapist peng Dawn 10/04 at 2pm. No discharge date is set at this time but will likely be by the end of the week. * Jennyfer Gregory, JIAN - 09/27/2022 0630 EST Pt attended group, social, grateful to talk with her daughter, good eye contact, mood calm, relaxedmuscle tone, no evidence of responding to internal stimuli. Pt awoke middle of the night reporting feeling restless by new peer who had watched tv later than peers had been doing but stated she knew it was ok. Walked briefly then back to sleep for total of 7+hrs. This shift. No report of pain. R/r senna for constipation with hs meds. * Curtis Méndez DO - 09/26/2022 0941 EST Inpatient Psychiatry Daily Progress Note 09/27/2022 Admit Date: 09/17/22 Hospital day: LOS: 10 days Legal Status: Legal status: Voluntary Observation Level: Frequent observation Locus/Risk of Harm: IV Reason for Admission/Chief Complaint: Suicidal ideation Clinical Update/24-hour Events: Per nursing report, patient appearing much clearer. Subjective: The patient is seen for follow-up. Patient reports feeling much more like her self. She presents with much improved thought organization. She makes jokes and appears to have an improved mood. She reports much improved irritability. She talks about intermittent difficulty with attention. She denies muscle stiffness. Current Facility-Administered Medications Medication Route Frequency ??? acetaminophen (TYLENOL) tablet 650 mg oral Q4H PRN ??? b ekzzzdw-U-kkyqx acid (NEPHROCAPS) 1 mg capsule 1 Capsule oral DAILY ??? benztropine (COGENTIN) tablet 1 mg oral BID PRN ??? gabapentin (NEURONTIN) capsule 300 mg oral TID ??? haloperidoL (HALDOL) tablet 2 mg oral Q6H PRN ??? haloperidoL (HALDOL) tablet 2.5 mg oral BID ??? LORazepam (ATIVAN) tablet 0.5 mg oral BID ??? LORazepam (ATIVAN) tablet 0.5 mg oral Q6H PRN ??? methadone (DOLOPHINE) concentrated solution 70 mg oral DAILY ??? nicotine (NICOTROL) 10 mg inhaler kit 1 Inhaler inhalation Q1H PRN ??? nicotine inhaler (delivery device) inhalation PRN ??? polyethylene glycol 3350 (MIRALAX) packet 17 g oral Daily PRN ??? senna (SENOKOT) tablet 2 Tablet oral AT BEDTIME PRN ??? thiamine (VITAMIN B1) tablet 100 mg oral DAILY Objective: BP 110/69 (BP Cuff Location: Right arm, BP Patient Position: Sitting) Pulse 72 Temp 36.9 ??C (98.4 ??F) (Oral) Resp 15 Ht 154.9 cm (61) Wt 58.6 kg (129 lb 3.2 oz) SpO2 98% BMI 24.41 kg/m?? MSE: Appearance: 37 yo white female appearing chronological age, dressed in casual attire, with intact hygiene and grooming Arousal: awake, alert Behavior: Cooperative; good eye contact Attention/Concentration: attentive to conversation Orientation: grossly oriented Memory: recalls recent events and conversations Mood: better Affect: Fairly neutral and slightly anxious; restricted and range; mood congruent; appropriate Speech: regular to rate, rhythm, and volume Thought Process/Language: linear, logical, and goal-directed; organized Associations: no loosening Gait: steady, with normal station Motor: no psychomotor disturbances or abnormal movements Content,Peroccupations, Over-valued, Ideas, Delusions: No overt paranoia; no nimco delusions Perceptual: Reports ongoing improved AH; no VH Fund of Knowledge: fair Danger Self: denies Danger Other: denies no threatening statements or postures Insight/Judgement: improving; accepting care; cooperative and collaborative Data Review: Labs: No results found for this or any previous visit (from the past 24 hour(s)). Other studies:N/A Assessment/Formulation: Per previous, 37 y.o. woman with a history of depression and polysubstance use (opioid, alcohol, cannabinoid) who was recently admitted to [facility] for a month and discharged 2.5 weeks ago, who presents to [facility] due to worsening suicidal thoughts, anxiety, and internal preoccupation. Ms. Edwards has had increased confusion and disorganization over the past couple of months, with concerns for possible Korsakoff syndrome, protracted alcohol delirium, or alcohol-induced dementia/amnestic syndrome. Medical work-up, including neurology consultation, MRI, heavy metal screening, and RPR were unremarkable. She had trials of risperidone 2 mg twice daily and olanzapine up to 10 mg twice daily, both of whichresulted in apparent symptom exacerbation. At this time Ms. Edwards is in need of inpatient admissionfor stabilization and safety. ?? In addition to the above assessment, Tuyet exhibited a tense and labile affect, moderate psychomotor hyperactivity, decreased need for sleep (0 hours logged overnight), a tangential and disorganized thought process, paranoid ideas, disinhibited statements, and apparent significant distraction by unseen/unheard others. Her symptoms have arisen in the setting of alcohol relapse, UDS presumptive positive for cannabinoids, and reporting a recent use of street drugs to the admitting psychiatrist. Differential diagnosis includes bipolar I disorder, current episode manic/mixed with psychotic features and substance- induced psychotic disorder (alcohol vs. cannabis vs. a substance not found on UDS). Approximately two months ago, Tuyet was treated with phenobarbital at [facility] for CIWA scores in the 30s, and then during her recent [facility] hospitalization, risperidone and olanzapine were sequentially trialled without appreciable symptomatic benefits. Given current significant thought disorg anization, perceptual disturbances, and decreased need for sleep, with potential contribution by recent substance use, we discussed the potential risks and benefits of pursuing an anti-manic regimen of haloperidol and lorazepam at this time. Haloperidol also has some evidence for the treatment of alcohol-related psychosis. Empiric treatment with Haldol for psychotic symptoms is ongoing. YMRS 23 09/19/21 which may suggest mild shawna. Affective psychosis and alcohol related psychosis would be treated with Haldol. Patients mental status, including irritability, thought organization, and AH have improved. Patient has mild adverse side effects from Haldol including muscle stiffness which we are cautiously monitoring. As of 09/23 due to some ongoing muscle stiffness and possible cogwheeling, haldol reduced to 2.5mg BID (from 5mg BID) and cogentin PRN started. Patient citing and demonstrating improvement. Patient continues to have improving mental status. Diagnostic Impression Psychiatric Diagnoses (including Personality Traits/Disorders): Unspecified psychotic disorder (Bipolar I disorder, current episode mixed with psychotic features vs. Substance-induced psychotic disorder). Alcohol use disorder, severe. Opioid use disorder, in reported sustained remission. Cannabis use disorder, severe. Other Medical Conditions: Principal Problem: Suicidal ideation Active Problems: Alcohol use disorder, severe, dependence ([facility]) ([facility]) Opioid use disorder, moderate, dependence ([facility]) ([facility]) Tobacco use Depressive disorder Psychosis ([facility] ([facility]) Plan: -Level of Observation: Frequent observation -Locus Risk of Harm: IV -Medications: -C/w [employer]EL[employer] methadone 70mg daily. -C/w gabapentin 300mg TID. -Continue haloperidol 2.5 mg twice daily -Continue with as needed Cogentin -Continue lorazepam 0.5mg po bid with goal to taper prior to discharge. -Continue to review B/R/SE and alternatives to [...] described in the note. Curtis Méndez DO 09/27/2022 10:06 * Sisi Mcmillan - 09/26/2022 0810 EST Pt, MD and SW met for a check in and discharge planning. Pt appears to be doing much better than onadmission. Pt reports sleeping well last night and feeling more like herself. Pt reports that the medication seems to be helping to slow her thoughts down. Pt also reports a more positive mood. Pt was dressed in her own clothing and had put on make up. Pt expressed interest in getting set up again with follow up and recognizes how important it is to attend at discharge. SW to start setting up follow up for Pt and Pt to talk with her partner and family regarding if she wants a family meeting before discharge. Pt to discharge by the end of the week. * Prasanna Mistry MD - 09/25/2022 1410 EST Inpatient Psychiatry Daily Progress Note 09/25/2022 Admit Date: 09/17/22 Hospital day: LOS: 8 days Legal Status: Legal status: Voluntary Observation Level: Frequent observation Locus/Risk of Harm: IV Reason for Admission/Chief Complaint: Suicidal ideation Clinical Update/24-hour Events: Per nursing report, patient improving and is much clearer. She continues to pace but has not been seen responding to internal stimuli. She slept overnight. Subjective: The patient is seen for follow-up. She reports symptom improvement and feels more like her usual self. She remains anxious and feels restless. She continues to experience achiness despite reductionin haloperidol. She denies issues with sleep or appetite but feels tired. Mood is described as fine, a little down. She continues to have self doubt, which is a chronic issue. She does not appear over the manic. She reports ongoing but diminished AH. She denies VH. We review that restlessness/achiness may be a symptom of anxiety vs medication SE. We ultimately agree to continue meds unchanged and continue to monitor closely. Current Facility-Administered Medications Medication Route Frequency ??? acetaminophen (TYLENOL) tablet 650 mg oral Q4H PRN ??? b jnmwppm-F-shzpf acid (NEPHROCAPS) 1 mg capsule 1 Capsule oral DAILY ??? benztropine (COGENTIN) tablet 1 mg oral BID PRN ??? gabapentin (NEURONTIN) capsule 300 mg oral TID ??? haloperidoL (HALDOL) tablet 2 mg oral Q6H PRN ??? haloperidoL (HALDOL) tablet 2.5 mg oral BID ??? LORazepam (ATIVAN) tablet 0.5 mg oral Q6H PRN ??? LORazepam (ATIVAN) tablet 0.5 mg oral TID ??? methadone (DOLOPHINE) concentrated solution 70 mg oral DAILY ??? nicotine (NICOTROL) 10 mg inhaler kit 1 Inhaler inhalation Q1H PRN ??? nicotine inhaler (delivery device) inhalation PRN ??? polyethylene glycol 3350 (MIRALAX) packet 17 g oral Daily PRN ??? senna (SENOKOT) tablet 2 Tablet oral AT BEDTIME PRN ??? thiamine (VITAMIN B1) tablet 100 mg oral DAILY Objective: BP 107/68 (BP Patient Position: Sitting) Pulse 66 Temp 36.4 ??C (97.6 ??F) (Oral) Resp 17 Ht 154.9 cm (61) Wt 58.6 kg (129 lb 3.2 oz) SpO2 98% BMI 24.41 kg/m?? MSE: Appearance: 37 yo white female appearing chronological age, dressed in casual attire, with intact hygiene and grooming Arousal: awake, alert Behavior: Cooperative; good eye contact Attention/Concentration: attentive to conversation Orientation: grossly oriented Memory: recalls recent events and conversations Mood: Fine, a little down. Affect: Fairly neutral and slightly anxious; restricted and range; mood congruent; appropriate Speech: regular to rate, rhythm, and volume Thought Process/Language: linear, logical, and goal-directed; organized Associations: no loosening Gait: steady, with normal station Motor: no psychomotor disturbances or abnormal movements Content,Peroccupations, Over-valued, Ideas, Delusions: No overt paranoia; no nimco delusions Perceptual: Reports ongoing improved AH; no VH Fund of Knowledge: fair Danger Self: denies Danger Other: denies no threatening statements or postures Insight/Judgement: improving; accepting care; cooperative and collaborative Data Review: Labs: No results found for this or any previous visit (from the past 24 hour(s)). Other studies:N/A Assessment/Formulation: Per previous, 37 y.o. woman with a history of depression and polysubstance use (opioid, alcohol, cannabinoid) who was recently admitted to [facility] for a month and discharged 2.5 weeks ago, who presents to [facility] due to worsening suicidal thoughts, anxiety, and internal preoccupation. Ms. Edwards has had increased confusion and disorganization over the past couple of months, with concerns for possible Korsakoff syndrome, protracted alcohol delirium, or alcohol-induced dementia/amnestic syndrome. Medical work-up, including neurology consultation, MRI, heavy metal screening, and RPR were unremarkable. She had trials of risperidone 2 mg twice daily and olanzapine up to 10 mg twice daily, both of whichresulted in apparent symptom exacerbation. At this time Ms. Edwards is in need of inpatient admissionfor stabilization and safety. ?? In addition to the above assessment, Tuyet exhibited a tense and labile affect, moderate psychomotor hyperactivity, decreased need for sleep (0 hours logged overnight), a tangential and disorganized thought process, paranoid ideas, disinhibited statements, and apparent significant distraction by unseen/unheard others. Her symptoms have arisen in the setting of alcohol relapse, UDS presumptive positive for cannabinoids, and reporting a recent use of street drugs to the admitting psychiatrist. Differential diagnosis includes bipolar I disorder, current episode manic/mixed with psychotic features and substance- induced psychotic disorder (alcohol vs. cannabis vs. a substance not found on UDS). Approximately two months ago, Tuyet was treated with phenobarbital at [facility] for CIWA scores in the 30s, and then during her recent [facility] hospitalization, risperidone and olanzapine were sequentially trialled without appreciable symptomatic benefits. Given current significant thought disorg anization, perceptual disturbances, and decreased need for sleep, with potential contribution by recent substance use, we discussed the potential risks and benefits of pursuing an anti-manic regimen of haloperidol and lorazepam at this time. Haloperidol also has some evidence for the treatment of alcohol-related psychosis. Empiric treatment with Haldol for psychotic symptoms is ongoing. YMRS 23 09/19/21 which may suggest mild shawna. Affective psychosis and alcohol related psychosis would be treated with Haldol. Patients mental status, including irritability, thought organization, and AH have improved. Patient has mild adverse side effects from Haldol including muscle stiffness which we are cautiously monitoring. As of 09/23 due to some ongoing muscle stiffness and possible cogwheeling, haldol reduced to 2.5mg BID (from 5mg BID) and cogentin PRN started. Patient citing and demonstrating improvement. Unclear if she is experience med SEs or symptoms of anxiety. No improvement noted with dose reduction although no cogwheeling noted on exam today. Given her overall symptom improvement, will continuemeds unchanged for today. Diagnostic Impression Psychiatric Diagnoses (including Personality Traits/Disorders): Unspecified psychotic disorder (Bipolar I disorder, current episode mixed with psychotic features vs. Substance-induced psychotic disorder). Alcohol use disorder, severe. Opioid use disorder, in reported sustained remission. Cannabis use disorder, severe. Other Medical Conditions: Principal Problem: Suicidal ideation Active Problems: Alcohol use disorder, severe, dependence ([facility]) ([facility]) Opioid use disorder, moderate, dependence ([facility] ([facility]) Tobacco use Depressive disorder Plan: -Level of Observation: Frequent observation -Locus Risk of Harm: IV -Medications: -C/w [employer] methadone 70mg daily. -C/w gabapentin 300mg TID. -Continue haloperidol 2.5 mg twice daily -Continue with as needed Cogentin -consider a trial of propranolol for akathisia -Continue lorazepam 0.5mg po bid with goal to taper prior to discharge. -Continue to review B/R/SE and alternatives to [...] described in the note. Prasanna Mistry MD 09/25/2022 14:10 * Leida Pollard RN - 09/24/2022 7523 EST No complaints. Full affect, good eye contact, smiling. Speaking in clear organized sentences. Minimal response to internal stimuli observed. Med complaint. * Laila Owens - 09/24/2022 1347 EST Patient met briefly with & LEATHA for check in and discharge planning. Patient was eating lunch in her room. Patient's affect was slightly restricted but clearly brightened with interaction. She stated that her mood is a bit better. Patient was alert, pleasant, and cooperative. No response to internal stim noted during the meeting. MD asked her about possible side effects of medication and sheresponded that she has not experienced stiffness or other side effects today. Patient denied SI andhad no questions or concerns for team. * Bud Nur MD - 09/24/2022 1128 EST Inpatient Psychiatry Daily Progress Note Date of Service: 09/24/2022 Admit Date: 09/17/22 Hospital day: LOS: 7 days Legal Status: Legal status: Voluntary Observation Level: Observation / visual check: Q 15 minutes (frequent) Locus/Risk of Harm: Current locus of harm: 4 Reason for Admission/Chief Complaint: SI Clinical Update/24-hour Events: Haloperidol reduced to 2.5 mg PO BID, Cogentin initiated. Slept 9. 5 hours. Subjective: Meets with me and LEATHA. No new complaints. Reports feeling a bit more optimistic. Current Facility-Administered Medications Medication Route Frequency ??? acetaminophen (TYLENOL) tablet 650 mg oral Q4H PRN ??? b [id number] acid (NEPHROCAPS) 1 mg capsule 1 Capsule oral DAILY ??? benztropine (COGENTIN) tablet 1 mg oral BID PRN ??? gabapentin (NEURONTIN) capsule 300 mg oral TID ??? haloperidoL (HALDOL) tablet 2 mg oral Q6H PRN ??? haloperidoL (HALDOL) tablet 2.5 mg oral BID ??? LORazepam (ATIVAN) tablet 0.5 mg oral Q6H PRN ??? LORazepam (ATIVAN) tablet 0.5 mg oral TID ??? methadone (DOLOPHINE) concentrated solution 70 mg oral DAILY ??? nicotine (NICOTROL) 10 mg inhaler kit 1 Inhaler inhalation Q1H PRN ??? nicotine inhaler (delivery device) inhalation PRN ??? polyethylene glycol 3350 (MIRALAX) packet 17 g oral Daily PRN ??? senna (SENOKOT) tablet 2 Tablet oral AT BEDTIME PRN ??? thiamine (VITAMIN B1) tablet 100 mg oral DAILY Review of Systems: (need 2 systems; may include sleep, appetite, medication side-effects) No stiffness today. No side effects. Reports thinking is more clear. Mental Status Exam: (need at least 9 findings) Awake Alert Pleasant and cooperative Attention intact to conversation Oriented??grossly Mood a bit better Affect??mildly restricted, multiple smiles Thought processes??logical Associations tight Thought content with no SI, no HI, no delusions elicited Physical Exam: NAD BP 118/71 (BP Cuff Location: Right arm, BP Patient Position: Sitting) Pulse 82 Temp 36 ??C (96.8 ??F) (Temporal) Resp 16 Ht 154.9 cm (61) Wt 58.6 kg (129 lb 3.2 oz) SpO2 98% BMI 24.41 kg/m?? Data Review: Labs: No results found for this or any previous visit (from the past 24 hour(s)). Other studies: None new Assessment/Formulation: (include vol/invol, mode of transport to hosp, who referred, risk to self/others) As documented by Estephanie Matt MD on 09/23/22 at 0833, copied text in this color, 37 y.o.?woman??with a history of depression and polysubstance use (opioid, alcohol, cannabinoid)who was recently admitted to [facility] for a month and discharged 2.5 weeks ago, who presents to [facility] dueto worsening suicidal thoughts, anxiety, and internal preoccupation. ??Ms. Edwards has had increased confusion and disorganization over the past couple of months, with concerns for possible Korsakoff syndrome, protracted alcohol delirium, or alcohol-induced dementia/amnestic syndrome. ??Medical work-up, including neurology consultation, MRI, heavy metal screening, and RPR were unremarkable. ??She had trials of risperidone 2 mg twice daily and olanzapine up to 10 mg twice daily, both of which resulted in apparent symptom exacerbation. ??At this time Ms. Edwards is in need of inpatient admission for stabilization and safety. ?? In addition to the above assessment, Tuyet exhibited a tense and labile affect, moderate psychomotor hyperactivity, decreased need for sleep (0 hours logged overnight), a tangential and disorganized thought process, paranoid ideas, disinhibited statements, and apparent significant distraction by unseen/unheard others. Her symptoms have arisen in the setting of alcohol relapse, UDS presumptive positive for cannabinoids, and reporting a recent use of street drugs to the admitting psychiatrist. Differential diagnosis includes bipolar I disorder, current episode manic/mixed with psychotic features and substance- induced psychotic disorder (alcohol vs. cannabis vs. a substance not found on UDS). Approximately two months ago, Tuyet was treated with phenobarbital at [facility] for CIWA scores in the 30s, and then during her recent [facility] hospitalization, risperidone and olanzapine were sequentially trialled without appreciable symptomatic benefits. Given current significant thought disorg anization, perceptual disturbances, and decreased need for sleep, with potential contribution by recent substance use, we discussed the potential risks and benefits of pursuing an anti-manic regimen of haloperidol and lorazepam at this time. Haloperidol also has some evidence for the treatment of alcohol-related psychosis. ?? Empiric treatment with Haldol for psychotic symptoms is ongoing. YMRS 23 09/19/21 which may suggest mild shawna. Affective psychosis and alcohol related psychosis would be treated with Haldol. Patients mental status, including irritability, thought organization, and AH have improved. Patient has mild adverse side effects from Haldol including muscle stiffness which we are cautiously monitoring. As of 09/23 due to some ongoing muscle stiffness and possible cogwheeling, haldol reduced to 2.5mg BID (from 5mg BID) and cogentin PRN started. Patient citing and demonstrating improvement. ?? Diagnostic Impression Psychiatric Diagnoses (including Personality Traits/Disorders): Unspecified psychotic disorder (Bipolar I disorder, current episode mixed with psychotic features vs. Substance-induced psychotic disorder). Alcohol use disorder, severe. Opioid use disorder, in reported sustained remission. Cannabis use disorder, severe. ?? Other Medical Conditions: Principal Problem: Suicidal ideation Active Problems: Alcohol use disorder, severe, dependence ([facility]) ([facility]) Opioid use disorder, moderate, dependence (HCC-CMS) (HCC) Tobacco use Depressive disorder I agree with the Assessment as documented by Dr. Matt. The patient appears a bit improved today.? Plan: (comment on changes in Level of Observation or Locus Risk of Harm) Continue current management. ?? Discharge Plan: Discharge planning per multidisciplinary team rounds. ?? Time Specifier:??I spent a total of 15??minutes with this patient and in direct floor time today. ??Over 50% of this time was spent in counseling and coordination of care as described in the note. Bud Nur MD 09/24/2022 11:28 * Laila Owens - 09/23/2022 1407 EST Patient did not wish to speak to SW today. She met with the MD earlier in the day. Patient's was lying in bed with covers over her body. The room was dark and SW was unable to assess affect. Patient did not make eye contact. * Laura Blue RN - 09/23/2022 1137 EST Patient has been out on the unit walking. Mostly keeps to herself. Makes her needs known. Came to the med window without prompting. Pleasant when spoken to. * Laura Blue RN - 09/23/2022 1132 EST Patient offered and given cogentin for complaints of muscle stiffness. * Lucio Matt MD - 09/23/2022 0829 EST Inpatient Psychiatry Daily Progress Note 09/23/2022 Admit Date: 09/17/22 Hospital day: LOS: 6 days Legal Status: Legal status: Voluntary Observation Level: Frequent observation Locus/Risk of Harm: IV Reason for Admission/Chief Complaint: Suicidal ideation Clinical Update/24-hour Events: Per nursing report, doing well better than previous admissions by all accounts. Eating, drinking and sleeping well. Subjective: The patient is seen individually. The patient reports that her thoughts are much clearer ... so maybe I can sort my life out now. Attributes to Haldol. Also reports muscle stiffness, which she may attribute to Haldol. Collaborates in a plan to decrease Haldol to 2.5mg BID and to trial the PRN cogentin. Mood remains depressed, but she states that this at least in part related to social factors which she plans to address later today with the nephrology social worker. Current Facility-Administered Medications Medication Route Frequency ??? acetaminophen (TYLENOL) tablet 650 mg oral Q4H PRN ??? folic acid (FOLVITE) tablet 1 mg oral DAILY ??? gabapentin (NEURONTIN) capsule 300 mg oral TID ??? haloperidoL (HALDOL) tablet 2 mg oral Q6H PRN ??? haloperidoL (HALDOL) tablet 5 mg oral BID ??? LORazepam (ATIVAN) tablet 0.5 mg oral TID ??? LORazepam (ATIVAN) tablet 0.5 mg oral Q4H PRN ??? methadone (DOLOPHINE) concentrated solution 70 mg oral DAILY ??? nicotine (NICOTROL) 10 mg inhaler kit 1 Inhaler inhalation Q1H PRN ??? nicotine inhaler (delivery device) inhalation PRN Objective: BP 120/78 (BP Cuff Location: Right arm, BP Patient Position: Sitting) Pulse 74 Temp 36.7 ??C (98 ??F) (Temporal) Resp 16 Ht 154.9 cm (61) Wt 58.6 kg (129 lb 3.2 oz) SpO2 98% BMI 24.41 kg/m?? MSE: Appearance: 37 y.o. woman who appears stated age, dressed in a hospital gown, with mildly decreasedgrooming and hygiene. Behavior: less guarded, improving distractibility. Improving eye contact. Mild- moderate psychomotorhyperactivity. Speech: normal rate and volume, slight latency Mood: depressed, lessening irritability Affect: restricted, dysthymic Motor: Possible mild (difficult to appreciate) cogwheeling in RUE Thought Process: linear during my interview Thought Content: states she is stressed about plan for discharge Perceptions: denies auditory and visual disturbances Insight: poor, improving. Judgment: poor, improving Data Review: Labs: No results found for this or any previous visit (from the past 24 hour(s)). Other studies:N/A Assessment/Formulation: 37 y.o. woman with a history of depression and polysubstance use (opioid, alcohol, cannabinoid) whowas recently admitted to [facility] for a month and discharged 2.5 weeks ago, who presents to [facility] due to worsening suicidal thoughts, anxiety, and internal preoccupation. Ms. Edwards has had increased confusion and disorganization over the past couple of months, with concerns for possible Korsakoff syndrome, protracted alcohol delirium, or alcohol-induced dementia/amnestic syndrome. Medical work-up, including neurology consultation, MRI, heavy metal screening, and RPR were unremarkable. She had trials of risperidone 2 mg twice daily and olanzapine up to 10 mg twice daily, both of which resulted in apparent symptom exacerbation. At this time Ms. Edwards is in need of inpatient admission for stabilization and safety. ?? In addition to the above assessment, Tuyet exhibited a tense and labile affect, moderate psychomotor hyperactivity, decreased need for sleep (0 hours logged overnight), a tangential and disorganized thought process, paranoid ideas, disinhibited statements, and apparent significant distraction by unseen/unheard others. Her symptoms have arisen in the setting of alcohol relapse, UDS presumptive positive for cannabinoids, and reporting a recent use of street drugs to the admitting psychiatrist. Differential diagnosis includes bipolar I disorder, current episode manic/mixed with psychotic features and substance- induced psychotic disorder (alcohol vs. cannabis vs. a substance not found on UDS). Approximately two months ago, Tuyet was treated with phenobarbital at [facility] for CIWA scores in the 30s, and then during her recent [facility] hospitalization, risperidone and olanzapine were sequentially trialled without appreciable symptomatic benefits. Given current significant thought disorg anization, perceptual disturbances, and decreased need for sleep, with potential contribution by recent substance use, we discussed the potential risks and benefits of pursuing an anti-manic regimen of haloperidol and lorazepam at this time. Haloperidol also has some evidence for the treatment of alcohol-related psychosis. Empiric treatment with Haldol for psychotic symptoms is ongoing. YMRS 23 09/19/21 which may suggest mild shawna. Affective psychosis and alcohol related psychosis would be treated with Haldol. Patients mental status, including irritability, thought organization, and AH have improved. Patient has mild adverse side effects from Haldol including muscle stiffness which we are cautiously monitoring. As of 09/23 due to some ongoing muscle stiffness and possible cogwheeling, haldol reduced to 2.5mg BID (from 5mg BID) and cogentin PRN started. Patient citing and demonstrating improvement. Diagnostic Impression Psychiatric Diagnoses (including Personality Traits/Disorders): Unspecified psychotic disorder (Bipolar I disorder, current episode mixed with psychotic features vs. Substance-induced psychotic disorder). Alcohol use disorder, severe. Opioid use disorder, in reported sustained remission. Cannabis use disorder, severe. Other Medical Conditions: Principal Problem: Suicidal ideation Active Problems: Alcohol use disorder, severe, dependence ([facility]) ([facility]) Opioid use disorder, moderate, dependence ([facility]) ([facility]) Tobacco use Depressive disorder Plan: -Level of Observation: Frequent observation -Locus Risk of Harm: IV -Medications: -C/w [employer] methadone 70mg daily. -C/w gabapentin 300mg TID. -Decrease haloperidol 5mg po q12hrs to 2.5mg -Start cogentin 1mg BID PRN EPS symptoms -Continue lorazepam 0.5mg po bid with goal to taper prior to discharge. -Continue to review B/R/SE and alternatives to [...] described in the note. Lucio Matt MD 09/23/2022 8:23 * Curtis Méndez DO - 09/22/2022 1326 EST Inpatient Psychiatry Daily Progress Note 09/22/2022 Admit Date: 09/17/22 Hospital day: LOS: 5 days Legal Status: Legal status: Voluntary Observation Level: Frequent observation Locus/Risk of Harm: IV Reason for Admission/Chief Complaint: Suicidal ideation Clinical Update/24-hour Events: Per nursing report, slept 9 hours. Patient reportedly appearing less internally preoccupied by staff. Subjective: Patient seen and examined. Patient reports less daytime somnolence. She reports periodic muscle stiffness that eases with movement, reports that this is a chronic problem that has been exacerbated recently which may be related partially to Haldol and anxiety. Discussed plan to continue to monitor these symptoms and inform team if worsens. Patient reports feeling like her thoughts are slowing down a little. She denies AH. She was observed by SW to be self- dialoguing in room and noted to be disorganized in her behavior (getting into bed and wandering around room after being asked to meet in her office). Current Facility-Administered Medications Medication Route Frequency ??? acetaminophen (TYLENOL) tablet 650 mg oral Q4H PRN ??? folic acid (FOLVITE) tablet 1 mg oral DAILY ??? gabapentin (NEURONTIN) capsule 300 mg oral TID ??? haloperidoL (HALDOL) tablet 2 mg oral Q6H PRN ??? haloperidoL (HALDOL) tablet 5 mg oral BID ??? LORazepam (ATIVAN) tablet 0.5 mg oral TID ??? LORazepam (ATIVAN) tablet 0.5 mg oral Q4H PRN ??? methadone (DOLOPHINE) concentrated solution 70 mg oral DAILY ??? nicotine (NICOTROL) 10 mg inhaler kit 1 Inhaler inhalation Q1H PRN ??? nicotine inhaler (delivery device) inhalation PRN Objective: BP 115/80 (BP Patient Position: Sitting) Pulse 74 Temp 36.5 ??C (97.7 ??F) (Temporal) Resp 16 Ht 154.9 cm (61) Wt 58.6 kg (129 lb 3.2 oz) SpO2 98% BMI 24.41 kg/m?? MSE: Appearance: 37 y.o. woman who appears stated age, dressed in a hospital gown, with mildly decreasedgrooming and hygiene. Behavior: less guarded, improving distractibility. Improving eye contact. Mild- moderate psychomotorhyperactivity. Speech: normal rate and volume, slight latency Mood: depressed, lessening irritability Affect: restricted, dysthymic Thought Process: slightly circumstantial, with occasional non-sequiturs Thought Content: ideas of distrust and confusion Perceptions: denies auditory and visual disturbances, although appears distracted at times and observed in room self-dialoguing (improving). Insight: poor. Judgment: poor. Data Review: Labs: No results found for this or any previous visit (from the past 24 hour(s)). Other studies:N/A Assessment/Formulation: Per assessment by Dr. Lizette Anguiano on 09/17/22: 37 y.o. woman with a history of depression and polysubstance use (opioid, alcohol, cannabinoid) who was recently admitted to [facility] for a month and discharged 2.5 weeks ago, who presents to [facility] due toworsening suicidal thoughts, anxiety, and internal preoccupation. Ms. Edwards has had increased confusion and disorganization over the past couple of months, with concerns for possible Korsakoff syndrome, protracted alcohol delirium, or alcohol-induced dementia/amnestic syndrome. Medical work-up, including neurology consultation, MRI, heavy metal screening, and RPR were unremarkable. She had trialsof risperidone 2 mg twice daily and olanzapine up to 10 mg twice daily, both of which resulted in apparent symptom exacerbation. At this time Ms. Edwards is in need of inpatient admission for stabilization and safety. ?? In addition to the above assessment, Tuyet exhibits a tense and labile affect, moderate psychomotorhyperactivity, decreased need for sleep (0 hours logged overnight), a tangential and disorganized thought process, paranoid ideas, disinhibited statements, and apparent significant distraction by unseen/unheard others. Her symptoms have arisen in the setting of alcohol relapse, UDS presumptive positive for cannabinoids, and reporting a recent use of street drugs to the admitting psychiatrist. Differential diagnosis includes bipolar I disorder, current episode manic/mixed with psychotic features and substance- induced psychotic disorder (alcohol vs. cannabis vs. a substance not found on UDS).Approximately two months ago, Tuyet was treated with phenobarbital at [facility] for CIWA scores in the 30s, and then during her recent [facility] hospitalization, risperidone and olanzapine were sequentially trialled without appreciable symptomatic benefits. Given current significant thought disorga nization, perceptual disturbances, and decreased need for sleep, with potential contribution by recent substance use, we discussed the potential risks and benefits of pursuing an anti-manic regimen of haloperidol and lorazepam at this time. Haloperidol also has some evidence for the treatment of alcohol-related psychosis. I agree with above assessment. Empiric treatment with Haldol for psychotic symptoms is indicated. Patient has no EPS. YMRS 23 09/19/21 which may suggest mild shawna. Affective psychosis and alcohol related psychosis would be treated with Haldol. Patients mental status, including irritability, thought organization, and AH have improved. Patient has mild adverse side effects from Haldol including muscle stiffness which we are cautiously monitoring. Diagnostic Impression Psychiatric Diagnoses (including Personality Traits/Disorders): Unspecified psychotic disorder (Bipolar I disorder, current episode mixed with psychotic features vs. Substance-induced psychotic disorder). Alcohol use disorder, severe. Opioid use disorder, in reported sustained remission. Cannabis use disorder, severe. Other Medical Conditions: Principal Problem: Suicidal ideation Active Problems: Alcohol use disorder, severe, dependence ([facility] ([facility]) Opioid use disorder, moderate, dependence ([facility]) ([facility]) Tobacco use Depressive disorder Plan: -Level of Observation: Frequent observation -Locus Risk of Harm: IV -Medications: -C/w [employer] methadone 70mg daily. -C/w gabapentin 300mg TID. -Continue haloperidol 5mg po q12hrs -Continue lorazepam 0.5mg po bid with goal to taper prior to discharge. -Continue to review B/R/SE and alternatives to [...] described in the note. Curtis Méndez DO 09/22/2022 13:26 * Sisi Mcmillan - 09/22/2022 0748 EST Pt, and SW met for a check in and discharge planning. Pt reports feeling slightly better today with her thoughts going a little slower at times. Pt remains depressed, hopeless and confused about how to spend her time, where she might go after discharge and if she is effecting others around her. Pt encouraged to spend as much time as possible outside of her room during the day time. Open her curtains and engage in a positive daily routine. Pt to work on this. No discharge plan is in place at this time as Pt remains symptomatic and is needing more time to see how the medication could be helpful. * Andreia Street - 09/21/2022 1523 EST Level 3 Nutrition Complexity Assessment: S: -Pt in Group; not interviewed. O: Pt has been screened for nutritional risk. Diet: Regular Meal intake: 50-100% overall Height: 154.9 cm (61) Weight : 58.6 kg (129 lb 3.2 oz) on 09/17/2022 Body mass index is 24.41 kg/m??. Weight Hx: 128# on 07/30/2022 Relevant Labs: Lab Results Component Value Date WBC 9.07 09/17/2022 RBC 4.00 09/17/2022 HGB 13.3 09/17/2022 HCT 39.9 09/17/2022 MCV 100 (H) 09/17/2022 MCH 33.3 09/17/2022 PLT 223 09/17/2022 NA 140 09/17/2022 K 4.0 09/17/2022 CL 101 09/17/2022 CO2 28 09/17/2022 BUN 12 09/17/2022 CREATININE 0.54 09/17/2022 CALCIUM 9.5 09/17/2022 MG 1.8 08/10/2022 Lab Results Component Value Date/Time LABALBU 4.6 09/17/2022 15:54 No results found for: HGBA1C, GLUCOSEPOC A: Patient is determined to be at minimal nutritional complexity, Level 3. Pt is receiving a Regular diet as ordered and with overall adequate intake noted. Pt with stable weight since July admission. Pt in Group, therefore unable to interview. P: Provide Regular diet as ordered. Continue to encourage intake of 50% or greater of each meal; document amount consumed. Monitor weight each Monday as ordered. No further clinical nutrition intervention necessary unless status changes. CAMRYN Jerez-DTR * Curtis Méndez, DO - 09/21/2022 1429 EST Inpatient Psychiatry Daily Progress Note 09/21/2022 Admit Date: 09/17/22 Hospital day: LOS: 4 days Legal Status: Legal status: Voluntary Observation Level: Frequent observation Locus/Risk of Harm: IV Reason for Admission/Chief Complaint: Suicidal ideation Clinical Update/24-hour Events: Per nursing report, slept 10 hours. Subjective: Patient seen and examined. Patient reports some daytime somnolence. She reports her mood as depressed. Her thoughts appear to be less disorganized today. She is observed to be self-dialoguing less frequently on unit. She does not endorse EPS. She reports struggling with emotional experience and identifies historically suppressing negative emotions. Current Facility-Administered Medications Medication Route Frequency ??? acetaminophen (TYLENOL) tablet 650 mg oral Q4H PRN ??? diazePAM (VALIUM) tablet 10-20 mg oral Q1H PRN ??? folic acid (FOLVITE) tablet 1 mg oral DAILY ??? gabapentin (NEURONTIN) capsule 300 mg oral TID ??? haloperidoL (HALDOL) tablet 2 mg oral Q6H PRN ??? haloperidoL (HALDOL) tablet 5 mg oral BID ??? LORazepam (ATIVAN) tablet 0.5 mg oral TID ??? LORazepam (ATIVAN) tablet 0.5 mg oral Q4H PRN ??? methadone (DOLOPHINE) concentrated solution 70 mg oral DAILY ??? multivitamin-iron fumarate-FA (THERA-M PLUS) 9 mg iron-400 mcg tablet 1 Tablet oral DAILY ??? nicotine (NICOTROL) 10 mg inhaler kit 1 Inhaler inhalation Q1H PRN ??? nicotine inhaler (delivery device) inhalation PRN Objective: BP 107/60 Pulse 76 Temp 36.8 ??C (98.2 ??F) (Temporal) Resp 16 Ht 154.9 cm (61) Wt 58.6 kg (129 lb 3.2 oz) SpO2 98% BMI 24.41 kg/m?? MSE: Appearance: 37 y.o. woman who appears stated age, dressed in a hospital gown, with mildly decreasedgrooming and hygiene. Behavior: less guarded, improving distractibility. Improving eye contact. Mild- moderate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 disorganized to answer. history: (VA benefits eligible?) None Legal Issues: (Competence, DPOA, Current Charges, TRO, RFA, PO, Criminal history) None Previous Treatment: (Substance abuse/ Mental Health) Inpatient: [facility] Outpatient: [facility] History of Substance abuse: (patterns of use, life consequences, family influences) Pt has been using alcohol (Vodka). It is unknown if other substances were being used prior to admission. Pt denies current abuse. Ethnic/ Cultural/ Spiritual factors and current Influence: Nothing stated Request Visit with photography coordinator: ____yes, __X__No Leisure/Recreation Activities: Unknown * Yordan Gibbons MD - 09/18/2022 0755 EST Inpatient Psychiatry Daily Progress Note 09/18/2022 Admit Date: 09/17/22 Hospital day: LOS: 1 day Legal Status: Legal status: Voluntary Observation Level: Frequent observation Locus/Risk of Harm: IV Reason for Admission/Chief Complaint: Suicidal ideation Clinical Update/24-hour Events: Per nursing report, Tuyet was admitted from the ED last night at approximately 20:15. Accepted haloperidol 1mg prn around 2am, with which it was noted that she used a quieter voice. Slept 0 hours overnight. Noted to appear really restless, with difficulty focusing due to apparent distraction by perceptual disturbances. Highest CIWA score overnight was 7; no medications given. Subjective: In an initial treatment team meeting with Magaly Martinez RN, Thalia Cantrell NP, and me, Tuyet statesthat over the past two and a half weeks since she was discharged, she has not been myself, I've been all over the place, I've been thinking that my clothes couldn't touch me because it didn't feel like things were mine. States that she didn't take my prescriptions, but then later states, I took most doses but missed a couple. States she felt like she needed a change in environment, and isnot sure that she wants to return to the home in which she lives with her partner and 9-year-old daughter. Shares that she resumed drinking vodka on a daily basis (quantified in meeting with Thalia gómez NP as approximately a pint per day). When asked about other recent recreational drug use, she responds, No... yes... no... good point. Reports ongoing thoughts of not wanting to be alive, but denies specific suicidal intent or plan while in the hospital. Denies perceptual disturbances. Reports minimal sleep over the past several nights, with a maximum of 1-2 hours in each 24-hour period.Denies fatigue and endorses racing thoughts. When I meet with Tuyet individually later to clarify the medication plan, she states that she foundthe overnight haloperidol prn dose to be more helpful than the hydroxyzine prn, albeit without clarification, but clearly denies side effects. Enquires if this typewriter repairer is seeing anyone and then immediately states that's an inappropriate question, good point. Identifies target symptoms of sleepand disorganized thoughts. Current Facility-Administered Medications Medication Route Frequency ??? acetaminophen (TYLENOL) tablet 650 mg oral Q4H PRN ??? diazePAM (VALIUM) tablet 10-20 mg oral Q1H PRN Or ??? diazePAM (VALIUM) syringe 5-10 mg intravenous Q1H PRN ??? folic acid (FOLVITE) tablet 1 mg oral DAILY Or ??? folic acid 1 mg in sodium chloride (NS) 0.9 % 50 mL IVPB intravenous DAILY ??? gabapentin (NEURONTIN) capsule 300 mg oral TID ??? haloperidoL (HALDOL) tablet 2 mg oral Q6H PRN ??? haloperidoL (HALDOL) tablet 5 mg oral QHS ??? LORazepam (ATIVAN) tablet 1 mg oral TID ??? methadone (DOLOPHINE) concentrated solution 70 mg oral DAILY ??? multivitamin-iron fumarate-FA (THERA-M PLUS) 9 mg iron-400 mcg tablet 1 Tablet oral DAILY ??? nicotine (NICOTROL) 10 mg inhaler kit 1 Inhaler inhalation Q1H PRN ??? nicotine inhaler (delivery device) inhalation PRN ??? thiamine (VITAMIN B1) tablet 100 mg oral DAILY Or ??? thiamine (VITAMIN B-1) injection 100 mg intramuscular DAILY Or ??? thiamine (VITAMIN B-1) 100 mg in sodium chloride (NS) 0.9 % 50 mL IVPB intravenous DAILY Objective: BP (!) 145/82 Pulse 96 Temp (!) 35.1 ??C (95.2 ??F) (Temporal) Resp 18 Ht 154.9 cm (61) Wt 58.6 kg (129 lb 3.2 oz) SpO2 97% BMI 24.41 kg/m?? MSE: Appearance: 37 y.o. woman who appears stated age, dressed in a hospital gown, with mildly decreasedgrooming and hygiene. Behavior: slightly guarded and intense, with easy distractibility, during the interview. Intermittent eye contact. Moderate psychomotor hyperactivity. Speech: slightly fast yet easily interruptible, increased spontaneity, slightly loud at times, and frequent repetition of the phrase good point. Mood: intense. Affect: congruently tense and briefly irritable, restricted, and somewhat labile. Thought Process: ranges from circumstantial to tangential, with several non- sequiturs and a couple instances of thought blocking. Thought Content: ongoing thoughts of not wanting to be alive, denying specific suicidal intent or plan while in the hospital. Voices concern that her personal items from her home have been replaced. Vague themes of distrust of her own impulses and surroundings. Perceptions: denies auditory and visual disturbances, although frequently appears distracted by (and occasionally responding to) unseen/unheard others in the room. Cognition: states she recognizes this typewriter repairer from her previous hospitalization. Oriented to person,place, date, and year. Insight: poor. Judgment: poor. Data Review: Labs: Results for orders placed or performed during the hospital encounter of 09/17/22 (from the past 24 hour(s)) COMPLETE BLOOD COUNT AND DIFFERENTIAL Result Value Ref Range WBC 9.07 4.00 - 12.40 K/cmm RBC 4.00 3.86 - 5.04 M/cmm Hemoglobin 13.3 11.6 - 15.2 gm/dL HCT 39.9 34.9 - 44.4 % MCV 100 (H) 81 - 98 fl MCH 33.3 26.7 - 33.3 pg MCHC 33.3 32.1 - 35.9 gm/dL RDW-CV 12.0 <14.7 % RDW-SD 44.2 <50.4 fl PLT 223 141 - 377 K/cmm MPV 10.8 9.5 - 12.7 fl Neutrophils 61.3 % Lymphocytes 24.8 % Monocytes 12.2 % Eosinophils 1.0 % Basophils 0.4 % Immature Grans 0.3 % Absolute Neutrophils 5.55 2.20 - 8.85 K/cmm Absolute Lymphocytes 2.25 1.09 - 3.30 K/cmm Absolute Monocytes 1.11 (H) 0.10 - 0.80 K/cmm Absolute Eosinophils 0.09 0.03 - 0.61 K/cmm Absolute Basophils 0.04 0.01 - 0.11 K/cmm Absolute Immature Grans 0.03 0.00 - 0.06 K/cmm Type of Differential: Auto COMPREHENSIVE METABOLIC PANEL (CMP) Result Value Ref Range Sodium 140 136 - 145 mmol/L Potassium 4.0 3.5 - 5.0 mmol/L Chloride 101 96 - 110 mmol/L CO2 Total 28 22 - 32 mmol/L Glucose 86 70 - 100 mg/dL BUN 12 10 - 26 mg/dL Creatinine 0.54 0.52 - 1.04 mg/dL eGFR 121 >60 mL/min/1.73m2 Total Protein 7.8 6.3 - 8.2 g/dL Albumin 4.6 3.4 - 4.9 g/dL Alkaline Phosphatase 71 38 - 126 U/L AST 32 15 - 46 U/L ALT 22 <35 U/L Bilirubin, Total 0.4 <1.4 mg/dL Calcium 9.5 8.5 - 10.5 mg/dL Albumin/Globulin Ratio 1.4 1.0 - 2.5 Anion Gap 11 5 - 14 ETHANOL, BLOOD Result Value Ref Range Ethanol, Blood <10 <10 mg/dL mg/dL THYROID CASCADE Result Value Ref Range TSH 1.08 0.47 - 4.68 mIU/L COVID-19 TESTING Specimen: Nasopharynx; Swab Result Value Ref Range COVID-19 rt-PCR Result Negative Negative Performing Lab [employer] [facility] Lab DRUG SCREEN 12, URINE Result Value Ref Range Amphetamine Screen, Ur Negative Negative, Negative Screen Barbiturates Screen, Ur Negative Negative, Negative Screen Benzodiazepine Screen, Ur Negative Negative, Negative Screen Cocaine Metabolites Screen, Ur Negative Negative, Negative Screen Methamphetamine Screen, Ur Negative Negative, Negative Screen Methadone Screen, Ur Presumptive Positive, interpret with caution. (A) Negative, Negative Screen Opiates Screen, Ur Negative Negative, Negative Screen Oxycodone Screen, Ur Negative Negative, Negative Screen Phencyclidine Screen, Ur Negative Negative Screen, Negative Cannabinoids Screen, Ur Presumptive Positive, interpret with caution. (A) Negative, Negative Screen Propoxyphene Screen, Ur Negative Negative, Negative Screen Tricyclics Screen, Ur Negative Negative Screen, Negative Other studies:N/A Assessment/Formulation: Per assessment by Dr. Lizette Anguiano on 09/17/22: 37 y.o. woman with a history of depression and polysubstance use (opioid, alcohol, cannabinoid) who was recently admitted to [facility] for a month and discharged 2.5 weeks ago, who presents to [facility] due toworsening suicidal thoughts, anxiety, and internal preoccupation. Ms. Edwards has had increased confusion and disorganization over the past couple of months, with concerns for possible Korsakoff syndrome, protracted alcohol delirium, or alcohol-induced dementia/amnestic syndrome. Medical work-up, including neurology consultation, MRI, heavy metal screening, and RPR were unremarkable. She had trialsof risperidone 2 mg twice daily and olanzapine up to 10 mg twice daily, both of which resulted in apparent symptom exacerbation. At this time Ms. Edwards is in need of inpatient admission for stabilization and safety. ?? In addition to the above assessment, Tuyet exhibits a tense and labile affect, moderate psychomotorhyperactivity, decreased need for sleep (0 hours logged overnight), a tangential and disorganized thought process, paranoid ideas, disinhibited statements, and apparent significant distraction by unseen/unheard others. Her symptoms have arisen in the setting of alcohol relapse, UDS presumptive positive for cannabinoids, and reporting a recent use of street drugs to the admitting psychiatrist. Differential diagnosis includes bipolar I disorder, current episode manic/mixed with psychotic features and substance- induced psychotic disorder (alcohol vs. cannabis vs. a substance not found on UDS).Approximately two months ago, Tuyet was treated with phenobarbital at [facility] for CIWA scores in the 30s, and then during her recent [facility] hospitalization, risperidone and olanzapine were sequentially trialled without appreciable symptomatic benefits. Given current significant thought disorga nization, perceptual disturbances, and decreased need for sleep, with potential contribution by recent substance use, we discussed the potential risks and benefits of pursuing an anti-manic regimen of haloperidol and lorazepam at this time. Haloperidol also has some evidence for the treatment of alcohol-related psychosis. Diagnostic Impression Psychiatric Diagnoses (including Personality Traits/Disorders): Unspecified psychotic disorder (Bipolar I disorder, current episode mixed with psychotic features vs. Substance-induced psychotic disorder). Alcohol use disorder, severe. Opioid use disorder, in reported sustained remission. Cannabis use disorder, severe. Other Medical Conditions: Principal Problem: Suicidal ideation Active Problems: Alcohol use disorder, severe, dependence ([facility]) ([facility]) Opioid use disorder, moderate, dependence ([facility]-CMS) ([facility]) Tobacco use Depressive disorder Plan: -Level of Observation: Frequent observation -Locus Risk of Harm: IV -Medications: -C/w LEAD SHAREPOINT DEVELOPER methadone 70mg daily. -C/w CIWA active withdrawal management protocol with diazepam, thiamine, folic acid, and MVM. -C/w gabapentin 300mg TID. -Start haloperidol 5mg at bedtime with 2mg q6h prn available for anxiety/agitation. -Start lorazepam 1mg TID with goal to taper prior to discharge. -Discontinue mirtazapine. -Continue to review B/R/SE and alternatives to [...] described in the note. Yordan Gibbons MD 09/18/2022 14:11 Financial Institution President, PGY-4 [facility] Pager #[phone] * Jennyfer Gregory RN - 09/18/2022 0581 EST Pt admitted at 2014. Declined pain. Reported having a hard time at home. Had ok zuleika but not sleeping well. Pt unable to answer most questions due to AH and constant responding to internal stimuli. CIWA scores 2 hourly until Q4. Pt given hs med then prn atarax due to anxiety then haldol for agitation. Pacing, talking loudly to AH and unable to sleep this shift. Tries to be cooperative but struggles when taking meds but ultimately able to. * Bud Christine - 09/17/2022 1850 EST PT in [facility], waiting transfer to [facility] * Bud Christine - 09/17/2022 1758 EST PT in [facility], dinner ordered, meeting with Psych via zoom call with T RV, PT has family at [facility] * Luis Fernando Mcknight - 09/17/2022 1538 EST PT changed into hospital scrubs, PT met with ER Doc, and nurse. PT pacing the kay and standing in front of observation window. PT given vanilla ice cream documented in this encounter H&P Notes * Thalia Cantrell, CHONG - 09/18/2022 1201 EST Date of Service: 09/18/2022 Admit Date : 09/17/2022 PCP: Esperanza Scott Reason for Admission: Suicidal ideation Subjective/HPI: Tuyet Edwards is a 37 year old female patient voluntarily admitted to inpatient psychiatry with a diagnosis of suicidal ideation. She was previously hospitalized in [facility] from 07/30/22-08/30/22 for altered mental status and depression following a 3 day hospitalization at [facility] for alcohol with drawal. She resumed alcohol use on discharge consuming about a pint of vodka daily, which is a decrease from the 1/5 bottle previously. She lives with her partner of more than 20 years, Salvador, their 9year old daughter Brittnee, and Salvador's mother. She describes the last few weeks at home as intense, and feeling disconnected from her home and belongings. She is sleeping poorly with c/o racing thoughts. She has been consistent with methadone for OUD, but sporadic compliance with other medications. She denies any significant medical concerns. A recent brain MRI and head CT scan are unremarkable and labs are fine including a CBC, CMP and TSH. Past Medical History: Diagnosis Date ??? Acne ??? Dermatitis ??? Eczema ??? Hives ??? Psoriasis ??? Rosacea Past Surgical History: Procedure Laterality Date ??? CARPAL TUNNEL RELEASE ??? SECTION 2012 ??? WISDOM TOOTH EXTRACTION 2002 Family History Problem Relation Age of Onset ??? Eczema Mother ??? Depression Mother ??? Diabetes Mother ??? Hypertension Mother ??? Eczema Father ??? Psoriasis Father ??? Hypertension Father Social History Tobacco Use ??? Smoking status: Some Days Packs/day: 0.25 Types: Cigarettes ??? Smokeless tobacco: Never Substance Use Topics ??? Alcohol use: Yes Alcohol/week: 35.0 standard drinks Types: 35 Shots of liquor per week Social History Social History Narrative She grew up [place] with her mother and older brother. Education: HS diploma, followed by [employer] in [place], [place]. She is living with her partner of > 2 decades Salvador and their 9 yearold daughter Brittnee. Salvador's mother also lives with them. ETOH: Daily, started at age 13, up to 1/5 liquor 1/2 gallon daily. Less recently, pint vodka daily in Aug 2022. Tobacco use: 1/2 ppd, more when drinking heavily. Marijuana use: prefers edibles, approximately 4-5 times/week. Other illicit drug use: None Medications (Current Hospital Medications) Medications Prior to Admission Medication Sig Dispense Refill Last Dose ??? acetaminophen (TYLENOL) 500 mg tablet Take 2 Tablets by mouth every 6 hours as needed for Feveror Pain. Past Month ??? gabapentin (NEURONTIN) 300 mg capsule Take 1 Capsule by mouth 3 times daily. 90 Capsule 0 Past Week ??? levonorgestrel (MIRENA INTRAUTERINE) by intrauterine route. ??? methadone (DOLOPHINE) 5 mg/5 mL oral solution Take 70 mg by mouth daily. Past Month ??? mirtazapine (REMERON) 7.5 mg tablet Take 1 Tablet by mouth at bedtime. 30 Tablet 0 09/16/2022 ??? Multivitamins with Minerals tablet tablet Take 1 Tablet by mouth daily. 30 Tablet 2 09/16/2022 ??? thiamine (VITAMIN B1) 100 mg tablet Take 1 Tablet by mouth daily. 30 Tablet 2 Past Month No Known Allergies Review of Systems Review of Systems Constitutional: Negative for activity change, chills, diaphoresis, fatigue and fever. HENT: Negative for dental problem, drooling, ear pain, hearing loss, mouth sores, nosebleeds, sinuspain, sneezing, sore throat and trouble swallowing. Nasal stuffiness occasionally. Eyes: Negative for photophobia, pain and redness. Respiratory: Negative for cough, choking, shortness of breath and wheezing. Cardiovascular: Negative for chest pain, palpitations and leg swelling. Gastrointestinal: Negative for abdominal pain, blood in stool, constipation, diarrhea, nausea and vomiting. Endocrine: Negative. Genitourinary: Negative for dysuria, flank pain, frequency, genital sores, hematuria, pelvic pain and urgency. Mirena IUD, no menses. Musculoskeletal: Negative. Skin: Negative. Allergic/Immunologic: Negative. Neurological: Negative. Hematological: Negative. Psychiatric/Behavioral: Feeling anxious, worried. Objective: VS: Patient Vitals for the past 8 hrs: BP 09/18/22 1135 (!) 145/82 09/18/22 0725 (!) 144/82 09/18/22 0500 97/72 Wt Readings from Last 3 Encounters: 09/17/22 58.6 kg (129 lb 3.2 oz) 08/20/22 58.1 kg (128 lb) 07/29/22 58.1 kg (128 lb) Exam: Physical Exam Vitals reviewed. Constitutional: General: She is not in acute distress. Appearance: She is not ill-appearing. HENT: Head: Normocephalic. Right Ear: Tympanic membrane and ear canal normal. Left Ear: Tympanic membrane and ear canal normal. Nose: Nose normal. Mouth/Throat: Mouth: Mucous membranes are moist. Pharynx: Oropharynx is clear. No oropharyngeal exudate. Eyes: General: No scleral icterus. Extraocular Movements: Extraocular movements intact. Conjunctiva/sclera: Conjunctivae normal. Pupils: Pupils are equal, round, and reactive to light. Cardiovascular: Rate and Rhythm: Normal rate and regular rhythm. Heart sounds: Normal heart sounds. Pulmonary: Effort: Pulmonary effort is normal. Breath sounds: No wheezing, rhonchi or rales. Abdominal: Palpations: Abdomen is soft. Tenderness: There is no abdominal tenderness. There is no guarding. Musculoskeletal: General: No swelling or deformity. Normal range of motion. Cervical back: Normal range of motion and neck supple. Right lower leg: No edema. Left lower leg: No edema. Lymphadenopathy: Cervical: No cervical adenopathy. Skin: General: Skin is warm and dry. Coloration: Skin is not jaundiced. Neurological: General: No focal deficit present. Mental Status: She is alert. Psychiatric: Comments: Speech rapid, disorganized. Labs: Results for orders placed or performed during the hospital encounter of 09/17/22 (from the past 24 hour(s)) COMPLETE BLOOD COUNT AND DIFFERENTIAL Result Value Ref Range WBC 9.07 4.00 - 12.40 K/cmm RBC 4.00 3.86 - 5.04 M/cmm Hemoglobin 13.3 11.6 - 15.2 gm/dL HCT 39.9 34.9 - 44.4 % MCV 100 (H) 81 - 98 fl MCH 33.3 26.7 - 33.3 pg MCHC 33.3 32.1 - 35.9 gm/dL RDW-CV 12.0 <14.7 % RDW-SD 44.2 <50.4 fl PLT 223 141 - 377 K/cmm MPV 10.8 9.5 - 12.7 fl Neutrophils 61.3 % Lymphocytes 24.8 % Monocytes 12.2 % Eosinophils 1.0 % Basophils 0.4 % Immature Grans 0.3 % Absolute Neutrophils 5.55 2.20 - 8.85 K/cmm Absolute Lymphocytes 2.25 1.09 - 3.30 K/cmm Absolute Monocytes 1.11 (H) 0.10 - 0.80 K/cmm Absolute Eosinophils 0.09 0.03 - 0.61 K/cmm Absolute Basophils 0.04 0.01 - 0.11 K/cmm Absolute Immature Grans 0.03 0.00 - 0.06 K/cmm Type of Differential: Auto COMPREHENSIVE METABOLIC PANEL (CMP) Result Value Ref Range Sodium 140 136 - 145 mmol/L Potassium 4.0 3.5 - 5.0 mmol/L Chloride 101 96 - 110 mmol/L CO2 Total 28 22 - 32 mmol/L Glucose 86 70 - 100 mg/dL BUN 12 10 - 26 mg/dL Creatinine 0.54 0.52 - 1.04 mg/dL eGFR 121 >60 mL/min/1.73m2 Total Protein 7.8 6.3 - 8.2 g/dL Albumin 4.6 3.4 - 4.9 g/dL Alkaline Phosphatase 71 38 - 126 U/L AST 32 15 - 46 U/L ALT 22 <35 U/L Bilirubin, Total 0.4 <1.4 mg/dL Calcium 9.5 8.5 - 10.5 mg/dL Albumin/Globulin Ratio 1.4 1.0 - 2.5 Anion Gap 11 5 - 14 ETHANOL, BLOOD Result Value Ref Range Ethanol, Blood <10 <10 mg/dL mg/dL THYROID CASCADE Result Value Ref Range TSH 1.08 0.47 - 4.68 mIU/L COVID-19 TESTING Specimen: Nasopharynx; Swab Result Value Ref Range COVID-19 rt-PCR Result Negative Negative Performing Lab [employer] [facility] Lab DRUG SCREEN 12, URINE Result Value Ref Range Amphetamine Screen, Ur Negative Negative, Negative Screen Barbiturates Screen, Ur Negative Negative, Negative Screen Benzodiazepine Screen, Ur Negative Negative, Negative Screen Cocaine Metabolites Screen, Ur Negative Negative, Negative Screen Methamphetamine Screen, Ur Negative Negative, Negative Screen Methadone Screen, Ur Presumptive Positive, interpret with caution. (A) Negative, Negative Screen Opiates Screen, Ur Negative Negative, Negative Screen Oxycodone Screen, Ur Negative Negative, Negative Screen Phencyclidine Screen, Ur Negative Negative Screen, Negative Cannabinoids Screen, Ur Presumptive Positive, interpret with caution. (A) Negative, Negative Screen Propoxyphene Screen, Ur Negative Negative, Negative Screen Tricyclics Screen, Ur Negative Negative Screen, Negative Assessment: Principal Problem: Suicidal ideation Active Problems: Alcohol use disorder, severe, dependence ([facility]) ([facility]) Opioid use disorder, moderate, dependence ([facility] ([facility]) Tobacco use Depressive disorder Plan: Suicidal ideation. Depression. - Admission to Inpatient Psychiatry per psychiatrist, [...] while on a antipsychotic Alcohol use disorder. On CIWA, most recent score 7. - CIWA protocol with diazepam if indicated. - Audit-C score of 12. - Brief intervention discussing the quantity of his consumption compared to a normal person. - Pt will benefit from residental tx IOP OP counceling math coach on discharge. - Continue thiamine and folic acid as prescribed. Opioid use disorder. - Continue methadone as prescribed. Tobacco use disorder. - Ordered nicotine inhaler, reviewed use. - Discussed acute nicotine withdrawal including insomnia, restlessness, and irritability. - Discussed cessation, including making smoking unpleasant, changing habits, using NRT. Covid-19 history: --Vaccine - none. - Discussed recommendations - She is considering it. FEN: Regular diet, encourage fluids, once a week weights Pain Management: -Acetaminophen available prn for mild-moderate [...] before asking for help. - Additional coffee not indicated - Flu shot offered and declined. VTE Prophylaxis: Ambulate Code status: Full Code Thalia Cantrell NP 09/18/2022 12:42 Cosigned by Harrison Reid MD at 09/20/2022 8:35 EST * Lizette Anguiano MD - 09/17/2022 1722 EST [facility] Inpatient Admission Psychiatric Evaluation Inpatient admit date: N/A Initial arrival date (if different): 09/17/2022 Date of service: 09/17/2022 Referral source: [facility] ED Outpatient providers: ROBERTO CARLOS Benson (intake appt was scheduled with Peng Dawn for therapy intake on 09/07/22; intake scheduled with Christi Fay on 10/06/22 for medication intake) PCP: Esperanza Scott Information obtained from: patient, family, child welfare social worker and hospital records Legal Status: Admission is voluntary The concept of ???Telemedicine?? has been described to the patient. Patient has been informed of the anticipated benefits and possible risks. Patient understands the information provided regarding telemedicine, has had the opportunity to ask questions about this information, and all questions havebeen answered to patient???s satisfaction. Patient consents for the use of telemedicine in his/her medical care and authorizes the transmission of any relevant medical information to providers and their staff involved in patient???s medical or mental health care. TELEMEDICINE VIDEO VISIT Today's visit was provided through telemedicine video conferencing: I have reviewed the appropriateness of using video technology with the patient with regards to today's visit. The location of the patient : [facility] ED Patient location state: Visit Location State: [place] The location of the provider: Home office Provider location state: Visit Location State: [place] The following people and their roles were present for today's visit: Appointment Provider: Lizette Anguiano MD Chief Complaint: I'm really nervous. A lot of anxiety. HPI: Patient is a 37 y.o. woman who lives with her partner of 20 years and her 9-year-old daughter. She has a history of depression, opioid use disorder (prescribed methadone 70 mg daily), alcohol use disorder, and cannabis use disorder. She was brought to [facility] ED by her brother and hvrqro-[id number] due to concerns of increased internal stimulation and suicidal ideation. Ms. Edwards presents as a somewhat limited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 relation to others, expression of needs, organization, responsibility for behavior, self- esteem and socialization. Assessment: Pt participated in group today which was focused on Dealing with Depression. Communication: was silent Behavior:was anxious, appropriate and disruptive Plan: Continue to attend group * Group Note - Jericho Gutierrez - 09/26/2022 1103 EST Communication skills process,education and task group. The group goals include: developing coping skills, expression of needs, organization, responsibility for behavior, self-control, self-esteem and socialization, accurately notes difference between good and poor communication faculties, and provides concrete examples of communication styles. Assessment: Pt attended group and participated fully. Communication: Pt was engaged and participated in conversation Behavior: Pt behavior was appropriate for group setting Plan: Continue to attend group * Plan of Care - Gabby Denny RN - 09/26/2022 0018 EST Problem: Alteration in thought process (psych) Goal: Improved Reality Testing Outcome: Met This Shift Tuyet is very pleasant this shift. Mood and affect are WNL. No observation of responding to IS. Attended wrap up group. Her bright spot was playing games and interacting with peers. Also having good unhurried conversation with her daughter. Her challenge was having a hard time reading which she always enjoyed. She is grateful for being here and all of you. Med compliant. Asked for a journal which was provided to her. Total sleep this shift: 7.5+ * Plan of Care - Laila Pisano RN - 09/25/2022 1540 EST Problem: Alteration in thought process (psych) Goal: Improved Reality Testing Outcome: Ongoing Patient cooperative this shift. Pt reported depression and anxiety both 4/10 and pain 5/10 (that'sabout my normal). Denies SI/HI or A/V hallucinations at this time. RN discussed challenging cognitive distortions worksheet with pt and provided active listening to pt's struggles and future goals. * Plan of Care - Gabby Denny RN - 09/25/2022 0540 EST Assumed care at 2300. Tuyet has been sleeping since that time. Total Sleep: 7.5+ * Plan of Care - Vandana Kohli RN - 09/24/2022 205 EST Patient was out and about in the milieu and hallway. Patient was not side talking and was appropriate with conversation. Patient denies pain. Eating well at supper. Ambulating in the hallway. Patienttook all hs medications and is now in bed. VSS Problem: High Fall Risk: Goal: Patient will Remain Free of Falls due to Med. Side Effects Outcome: Ongoing Problem: High Fall Risk: Goal: Patient Will Remain Free from Fall-Related Injury Outcome: Ongoing Problem: Alteration in thought process (psych) Goal: Improved Reality Testing Outcome: Ongoing Goal: Self care Outcome: Ongoing * Group Note - Laila Owens - 09/24/2022 1335 EST Meditation education, task and process group. The group goals include: developing coping skills, identifying feelings, increasing awareness of self in relation to others, increasing expression of needs, increasing relaxation, increasing responsibility for behavior, increasing self-esteem, increasing attention span, increasing organization, andincreasing self-control. Assessment: Patient left group before it began, then returned later. She fully participated when she returned. Communication: was silent Behavior:was appropriate and engaged Plan: Continue to attend group * Plan of Care - Leida Pollard RN - 09/24/2022 1123 EST Problem: Alteration in thought process (psych) Goal: Improved Reality Testing Outcome: Ongoing Problem: High Fall Risk: Goal: Patient Will Remain Free from Fall-Related Injury Outcome: Ongoing * Plan of Care - Gabby Denny RN - 09/24/2022 0245 EST Problem: Alteration in thought process (psych) Goal: Improved Reality Testing Outcome: Ongoing Tuyet isolated in her room this shift. Did not attend group. At 21:15 MHT reported that was asleep on last check so this nurse brought HS meds to the patient. Upon knocking, Tuyet responded that it was OK to come in. She was appreciative of having the meds brought to her. She was very clear and polite. Took the meds with water. Plastic water cup refilled. No responses to IS were observed. Her affect was bright in comparison to this nurses' last observation a few days ago. Total sleep this shift: 9.5+ * Plan of Care - Alma Jiang RN - 09/22/2022 1704 EST Pt reports feeling tired and anxious, seen to be tearful at times. Pt appears agitated and disorganized, seen walking around room and having self-dialogue. Pt denies SI and reports feeling safe in the hospital. Pt attended one group activity-an outside walk-and endorsed being grateful for the freshair. PRN tylenol given once for generalized pain with good effect. VSS on RA. RN WCTM. Problem: High Fall Risk: Goal: Patient will Remain Free of Falls due to Med. Side Effects Outcome: Met This Shift Problem: POTENTIAL FOR SUBSTANCE WITHDRAWAL Goal: Verbalizes Signs/Symptoms Of Withdrawal Outcome: Met This Shift Goal: Reports Signs/Symptoms Of Withdrawal Outcome: Met This Shift Goal: Free Of Withdrawal Symptoms Outcome: Met This Shift Problem: Alteration in thought process (psych) Goal: Improved Reality Testing Outcome: Ongoing Goal: Self care Outcome: Ongoing * Group Note - Maria Alejandra Leonardo - 09/22/2022 1353 EST Cognitive Behavioral Therapy Group. The group goals included: developing coping skills, identifying feelings and stressors/ problems; increasing attention span, awareness of self in relation to others, expression of needs, organization, responsibility for behavior, self- esteem and socialization. Assessment: Pt participated in group today which was focused on Emotion Regulation. Communication: was responsive Behavior:was disorganized, engaged and socially interactive Plan: Continue to attend group * Plan of Care - Koki Porter RN - 09/21/2022 1908 EST Problem: Alteration in thought process (psych) Goal: Improved Reality Testing Outcome: Ongoing At 1400 Patient stated, I'm just trying to stay out of the way. Sitting in a chair tearful. Behavior is more controlled. Does not appear to be responding to AH at this time. Scheduled medications including Ativan & Gabapentin were administered. * Group Note - Sisi Mcmillan - 09/21/2022 1432 EST [employer] Report task group. The group goals included: developing coping skills, increasing activity level, attention span, organization, relaxation, self-control, self-esteem and socialization. Assessment: *Pt attended and participated in group. Communication: Pt was an active participant in group; asking questions and participating in discussion. Behavior:Pt was appropriate in group. Plan: Continue to attend group * Plan of Care - Leida Pollard RN - 09/21/2022 1122 EST Problem: POTENTIAL FOR SUBSTANCE WITHDRAWAL Goal: Reports Signs/Symptoms Of Withdrawal Outcome: Ongoing Responded affirmatively to questions about MCKNIGHT. * Plan of Care - Yamile Ramirez RN - 09/20/2022 1744 EST Data: (crying) I'm confused, I don't know what to say . . . I'm worried about my daughter. . . Ptspontaneously woke this am at 1030; she was dysphoric, fairly coherent, no psychomotor agitation, oriented x 3, but sometimes has difficulty expressing herself. At times she talks aloud to unseen others. Endorses SI but denies intent or plan in IPP. CIWA 2 at 1040, 7 at 1400 (MCKNIGHT, tremor, anxiety, VS wnl). Ativan decreased to 0.5 mg, given at 1207, w/ haldol. Ate meals, got herself snacks. Declined to shower or change clothes. Napped . Did not attend grps. Action: 1:1 support, encouragement to drink more fluids Response: stable detox; dysphoria congruent w/ situation; more coherent, less anxious than 2 days ago when last seen by this typewriter repairer. Problem: Alteration in thought process (psych) Goal: Improved Reality Testing Outcome: Ongoing Problem: POTENTIAL FOR SUBSTANCE WITHDRAWAL Goal: Reports Signs/Symptoms Of Withdrawal Outcome: Ongoing Yamile Ramirez RN 09/20/2022 17:44 * Plan of Care - Koki Porter RN - 09/19/2022 2322 EST Problem: POTENTIAL FOR SUBSTANCE WITHDRAWAL Goal: Free Of Withdrawal Symptoms Outcome: Ongoing Patient slept for the majority of the shift (1715 -2300). CIWA was not obtained. Medications were not administered. This typewriter repairer is aware patient had difficulty sleeping when first arrived to the unit, to the extent of not sleeping at all one night. Therefore, allowing sleep to be a priority this shift. Oncoming nurse is aware medications are available to give when patient wakes up. * Group Note - Jericho Gutierrez - 09/19/2022 1115 EST Communication skills process,education and task group. The group goals include: developing coping skills, expression of needs, organization, responsibility for behavior, self-control, self-esteem and socialization, accurately notes difference between good and poor communication faculties, and provides concrete examples of communication styles. Assessment: Pt was present in group and participated fully Communication: Pt engaged in conversation Behavior:Pt's behavior was appropriate for group setting Plan: Continue to attend group * Plan of Care - Leida Pollard RN - 09/19/2022 1041 EST Problem: Alteration in thought process (psych) Goal: Improved Reality Testing Outcome: Ongoing Still struggling with internal stimuli as evidenced by looking away and talking as if to someone else. * Plan of Care - Yamile Ramirez RN - 09/18/2022 1356 EST Problem: Alteration in thought process (psych) Goal: Improved Reality Testing Outcome: Ongoing Data: At start of shift, pt extremely disorganized, psychomotor agitation, appeared to be talking to unseen others, affect irritable. CIWA 7, 9 (AH/VH not scored as she has AH/VH at baseline). Too disorganized to eat bkfst. Action: attempts to provide reality-based input, attempts to assist w/ ADLs; ativan 1 mg at 1130 asordered Response: Good response to ativan: calmer, more coherent, able to complete a menu w/ typewriter repairer, able to eat some lunch, drink more fluid, CIWA = 3 at 1525; presently sleeping at 1615 Yamile Ramirez RN 09/18/2022 13:56 * Plan of Care - Kendal Gaytan - 09/17/2022 1530 EST Images from the original note were not included. [place] Medicaid Admission Notification Form for Inpatient Psychiatric & Detoxification Services The following information and justification must be provided to the [facility] ([facility]) (toll-free fax [phone]) within 24 hours or next business day of an urgent or emergent hospital admission. All elective (planned) admissions require notification prior to admission for authorization.The Billing Representative will contact the facility after notification is received by the [facility] to begin the authorization process. There will be no authorization unless the following information is provided in full to [facility] Date of Admission: 09/17/2022 Current Unit / Bed: / 316-01 Admission diagnosis (ICD code): Suicidal ideation [R45.851] Depressive disorder [F32.A] 311 Patient's Name: Tuyet Edwards Medicaid ID Number: [id number] : 1985 Gender: female Physical Address: [address] [46] [id number] County: [place] Work Phone: Mobile Phone: Is the patient being admitted involuntarily? Yes Does the patient have Medicare? No Other insurance coverage? No Is the patient homeless upon admission? No Is the patient ? No Does the patient have a guardian (DCF, or Public Guardian)? No If ???Yes?? , guardian???s name: Is the patient receiving mental health services in [place] from a [facility] ([facility])? Yes If yes, name of agency: [facility] If the answer to the previous question is ???No?? , is the patient receiving other mental health services in [place]?If Yes, name of provider: Referral Source (if applicable): ED Facility Name: [facility] Medicaid Provider Number: [id number] Senior Telecommunications Technician for Authorizations: Kendal Phone #: [phone] Return Fax #: [phone] Anticipated Discharge Date: 09/29/22 Anticipated Discharge Referral to a CMHC? yes Please attach the admissions assessment to include justification for psychiatric inpatient admission, diagnoses and medications. documented in this encounter Plan of Treatment Not on file documented as of this encounter Procedures Procedure Name Priority Date/Time Associated Diagnosis Comments DRUG SCREEN 12, URINE STAT 09/18/2022 9:17 EST [id number] [facility] (TESTING ONLY) STAT 09/17/2022 15:54 EST COVID-19 TESTING STAT 09/17/2022 15:5 4 EST THYROID CASCADE STAT 09/17/2022 15:54 EST COMPLETE BLOOD COUNT AND DIFFERENTIAL STAT 09/17/2022 15:54 EST ETHANOL, BLOOD STAT 09/17/2022 15:54 EST COMPREHENSIVE METABOLIC PANEL (CMP) STAT 09/17/2022 15:54 EST documented in this encounter Results * (ABNORMAL) DRUG SCREEN 12, URINE (09/18/2022 9:17 EST) Amphetamine Screen, Ur Negative Negative, Negative Screen 09/18/2022 9:46 [facility] Barbiturates Screen, Ur Negative Negative, Negative Screen 09/18/2022 9:46 [facility] Benzodiazepine Screen, Ur Negative Negative, Negative Screen 09/18/2022 9:46 [facility] Cocaine Metabolites Screen, Ur Negative Negative, Negative Screen 09/18/2022 9:46 [facility] Methamphetamine Screen, Ur Negative Negative, Negative Screen 09/18/2022 9:46 [facility] Methadone Screen, Ur Presumptive Positive, interpret with caution.(A) Negative, Negative Screen 09/18/2022 9:46 [facility] Opiates Screen, Ur Negative Negative, Negative Screen 09/18/2022 9:46 [facility] Oxycodone Screen, Ur Negative Negative, Negative Screen 09/18/2022 9:46 [facility] Phencyclidine Screen, Ur Negative Negative Screen, Negative 09/18/2022 9:46 EST [facility] Cannabinoids Screen, Ur Presumptive Positive, interpret with caution.(A) Negative, Negative Screen 09/18/2022 9:46 EST [facility] Propoxyphene Screen, Ur Negative Negative, Negative Screen 09/18/2022 9:46 EST [facility] Tricyclics Screen, Ur Negative Negative Screen, Negative 09/18/2022 9:46 EST [facility] Urine URINE / Unknown Urine Collect / Unknown 09/18/2022 9:17 EST 09/18/2022 9:24 EST [facility] - 09/18/2022 9:46 EST Drug Class Cutoff Concentrations: Amphetamines - 500 ng/mL Barbiturates - 200 ng/mL Benzodiazepines - 150 ng/mL Cocaine - 150 ng/mL Methamphetamine - 500 ng/mL Methadone - 200 ng/mL Opiates - 100 ng/mL Oxycodone - 100 ng/mL Phencyclidine (PCP) - 25 ng/mL Tetrahydrocannabinol (THC) - 50 ng/mL Propoxyphene - 300 ng/mL Tricyclic Antidepressants - 300 ng/mL This is a screening assay only, intended for use in clinical monitoring or management of patients. False positive or false negative results can occur. ??If confirmation testing is needed, please place order as Add-On order in Epic. ??Specimens are retained in the laboratory for 7 days. London Alvarado MD GEN LAB UNIT COLLECT ORDERABLES Final Result Performing Organization Address City/[facility] Co de Phone Number [facility] [address] [place] [address] * COVID-19 [facility] (TESTING ONLY) (09/17/2022 15:54 EST) Swab ENTIRE NASOPHARYNX / Unknown Swab / Unknown 09/17/2022 15:54 EST 09/17/2022 15:56 EST London Alvarado MD MICROBIOLOGY - GENERAL ORDERABLE S Final Result [facility] [address] [place] [address] * COVID-19 TESTING (09/17/2022 15:54 EST) Pathologist [facility] COVID-19 rt-PCR Result Negative Negative 09/17/2022 16:55 EST [facility] Comment: This test has not been FDA cleared or approved. This test has been authorized by FDA under an EUA for use by authorized laboratories. This test has been authorized only for detection of nucleic acid from 2019-nCoV, not for any other viruses or pathogens. This test is only authorized for the duration of the declaration that circumstances exist justifying the authorization of emergency use of in vitro diagnostic tests for detection and/or diagnosis of 2019-nCoV under section 564(b)(1) of Act, 21 U.S.C ?? 360bbb-3(b) (1), unless the authorization is terminated or revoked sooner. Performed on the [employer] GeneXpert Instrument The 2019 novel coronavirus (SARS-CoV-2) target nucleic acids are not detected. Performing Lab [employer] GeneXpert [facility] Lab 09/17/2022 16:55 EST [facility] Swab ENTIRE NASOPHARYNX / Unknown Swab / Unknown 09/17/2022 15:54 EST 09/17/2022 15:56 EST London Alvarado MD MICROBIOLOGY - GENERAL ORDERABLE S Final Result Performing Organization Address [facility] Co de Phone Number [facility] [address] [place] [address] * THYROID CASCADE (09/17/2022 15:54 EST) Pathologist [facility] TSH 1.08 0.47 - 4.68 mIU/L 09/17/2022 16:58 EST [facility] Blood VENOUS BLOOD / Unknown Venipuncture / Unknown 09/17/2022 15:54 EST 09/17/2022 16:04 EST Narrative [facility] - 09/17/2022 16:58 EST NOTE: The results of this assay can be falsely lowered due to the consumption of Biotin. London Alvarado MD CHEMISTRY & BLOOD GAS ORDERABLES Final Result Performing Organization Address [facility]/ZIP Co de Phone Number [facility] [address] [place] [address] * ETHANOL, BLOOD (09/17/2022 15:54 EST) Pathologist [facility] Ethanol, Blood <10 <10 mg/dL mg/dL 09/17/2022 16:23 [facility] Comment:Healthy, non-drinkin g individuals will have an ethanol concentration of <10 mg/dL. Blood VENOUS BLOOD / Unknown Venipuncture / Unknown 09/17/2022 15:54 EST 09/17/2022 16:04 [facility] - 09/17/2022 16:23 [facility] legal blood alcohol limit = 80 mg/dl (0.08%) London Alvarado MD CHEMISTRY & BLOOD GAS ORDERABLES Final Result Performing Organization Address [facility] Co de Phone Number [facility] [address] [place] [address] * COMPREHENSIVE METABOLIC PANEL (CMP) (09/17/2022 15:54 EST) [facility] Sodium 140 136 - 145 mmol/L 09/17/2022 16:23 [facility] Potassium 4.0 3.5 - 5.0 mmol/L 09/17/2022 16:23 [facility] Chloride 101 96 - 110 mmol/L 09/17/2022 16:23 [facility] CO2 Total 28 22 - 32 mmol/L 09/17/2022 16:23 [facility] Glucose 86 70 - 100 mg/dL 09/17/2022 16:23 [facility] BUN 12 10 - 26 mg/dL 09/17/2022 16:23 [facility] Creatinine 0.54 0.52 - 1.04 mg/dL 09/17/2022 16:23 [facility] eGFR 121 >60 mL/min/1.7 3m2 09/17/2022 16:23 [facility] Total Protein 7.8 6.3 - 8.2 g/dL 09/17/2022 16:23 [facility] Albumin 4.6 3.4 - 4.9 g/dL 09/17/2022 16:23 [facility] Alkaline Phosphatase 71 38 - 126 U/L 09/17/2022 16:23 [facility] AST 32 15 - 46 U/L 09/17/2022 16:23 [facility] ALT 22 <35 U/L 09/17/2022 16:23 [facility] Bilirubin, Total 0.4 <1.4 mg/dL 09/17/20 16:23 [facility] Calcium 9.5 8.5 - 10.5 mg/dL 09/17/2022 16:23 [facility] Albumin/Globulin Ratio 1.4 1.0 - 2.5 09/17/2022 16:23 [facility] Anion Gap 11 5 - 14 09/17/2022 16:23 [facility] Blood VENOUS BLOOD / Unknown Venipuncture / Unknown 09/17/2022 15:54 EST 09/17/2022 16:04 EST London Alvarado MD CHEMISTRY & BLOOD GAS ORDERABLES Final Result [facility] [address] [place] [address] * (ABNORMAL) COMPLETE BLOOD COUNT AND DIFFERENTIAL (09/17/2022 15:54 EST) WBC 9.07 4.00 - 12.40 K/cmm 09/17/2022 16:19 [facility] RBC 4.00 3.86 - 5.04 M/cmm 09/17/2022 16:19 [facility] Hemoglobin 13.3 11.6 - 15.2 gm/dL 09/17/2022 16:19 [facility] HCT 39.9 34.9 - 44.4 % 09/17/2022 16:19 [facility] MCV 100(H) 81 - 98 fl 09/17/2022 16:19 [facility] MCH 33.3 26.7 - 33.3 pg 09/17/2022 16:19 [facility] MCHC 33.3 32.1 - 35.9 gm/dL 09/17/2022 16:19 [facility] RDW-CV 12.0 <14.7 % 09/17/2022 16:19 [facility] RDW-SD 44.2 <50.4 fl 09/17/2022 16:19 [facility] PLT 223 141 - 377 K/cmm 09/17/2022 16:19 [facility] MPV 10.8 9.5 - 12.7 fl 09/17/2022 16:19 [facility] % Neutrophils 61.3 % 09/17/2022 16:19 [facility] % Lymphocytes 24.8 % 09/17/2022 16:19 [facility] % Monocytes 12.2 % 09/17/2022 16:19 [facility] % Eosinophils 1.0 % 09/17/2022 16:19 [facility] % Basophils 0.4 % 09/17/2022 16:19 [facility] % Immature Grans 0.3 % 09/17/20 16:19 [facility] Absolute Neutrophils 5.55 2.20 - 8.85 K/cmm 09/17/2022 16:19 [facility] Absolute Lymphocytes 2.25 1.09 - 3.30 K/cmm 09/17/2022 16:19 [facility] Absolute Monocytes 1.11(H) 0.10 - 0.80 K/cmm 09/17/2022 16:19 [facility] Absolute Eosinophils 0.09 0.03 - 0.61 K/cmm 09/17/2022 16:19 [facility] ABS Basophils 0.04 0.01 - 0.11 K/cmm 09/17/2022 16:19 [facility] Absolute Immature Grans 0.03 0.00 - 0.06 K/cmm 09/17/2022 16:19 EST [facility] Type of Differential: Auto 09/17/2022 16:19 EST [facility] Blood VENOUS BLOOD / Unknown Venipuncture / Unknown 09/17/2022 15:54 EST 09/17/2022 16:04 EST us London Alvarado MD PACKAGES & DNA PROBE ORDERABLES Final Result Performing Organization Address City/State/[facility] Co de Phone Number [facility] [address] [place] [address] documented in this encounter Visit Diagnoses Diagnosis Suicidal ideation- Primary Suicidal ideation Alcohol use disorder, severe, dependence (HCC-CMS) Opioid use disorder, moderate, dependence (HCC-CMS) Tobacco use Tobacco use disorder Depressive disorder Depressive disorder, not elsewhere classified Psychosis, unspecified psychosis type (HCC-CMS) Depressive disorder Depressive disorder, not elsewhere classified Alcohol use disorder, severe, dependence (HCC-CMS) Opioid use disorder, moderate, dependence ([facility]-CMS) Tobacco use Tobacco use disorder Psychosis ([facility]-CMS) Unspecified psychosis documented in this encounter Admitting Diagnoses Diagnosis Depressive disorder Depressive disorder, not elsewhere classified documented in this encounter Administered Medications Inactive Administered Medications - up to 3 most recent administrations Medication Order MAR Action Action Date Dose Rate Site acetaminophen (TYLENOL) tablet 650 mg 650 mg, oral, EVERY 4 HOURS PRN, Starting on 09/17/22 at 1856, Until Shobha 09/29/22 at 1814, Mild Pain 1-3, Routine Given 09/22/2022 8:48 EST 650 mg Given 09/21/2022 9:54 EST 650 mg Given 09/20/2022 18:29 EST 650 mg b lablmpp-K-sarbw acid (NEPHROCAPS) 1 mg capsule 1 Capsule 1 Capsule, oral, DAILY, First dose on 09/24/22 at 0900, Until Discontinued, Routine Given 09/29/2022 8:44 EST 1 Capsule Given 09/28/2022 8:13 EST 1 Capsule Given 09/27/2022 8:44 EST 1 Capsule benztropine (COGENTIN) tablet 1 mg 1 mg, oral, 2 TIMES DAILY PRN, Starting on Mon09/23/22 at 1124, Until Shobha 09/29/22 at 1814, muscle stiffness, Routine Given 09/23/2022 11:30 EST 1 mg folic acid (FOLVITE) tablet 1 mg 1 mg, oral, DAILY, First dose on 09/17/22 at 1945, Until Discontinued, Routine, Release Given 09/23/2022 8:13 EST 1 mg Given 09/22/2022 8:47 EST 1 mg Given 09/21/2022 9:51 EST 1 mg gabapentin (NEURONTIN) capsule 300 mg 300 mg, oral, 3 TIMES DAILY, First dose on 09/17/22 at 2100, Until Discontinued, Routine Given 09/29/2022 14:[address] 300 mg Given 09/29/2022 8:44 EST 300 mg Given 09/28/2022 20:04 EST 300 mg haloperidoL (HALDOL) tablet 1 mg 1 mg, oral, EVERY 1 HOUR PRN, Starting on 09/17/22 at 1917, Until Mon09/18/22 at 1050, Agitation, Confusion/Mental Status Changes, due to concern of deliruim tremens, Routine Given 09/18/2022 2:05 EST 1 mg haloperidoL (HALDOL) tablet 2 mg 2 mg, oral, EVERY 6 HOURS PRN, Starting on Mon09/18/22 at 1100, Until Mon09/29/22 at 1814, Agitation, Routine haloperidoL (HALDOL) tablet 2.5 mg 2.5 mg, oral, 2 TIMES DAILY, First dose (after last modification) on Mon09/23/22 at 2100, Until Discontinued, Routine Given 09/29/2022 8:45 EST 2.5 mg Given 09/28/2022 20:03 EST 2.5 mg Given 09/28/2022 8:14 EST 2.5 mg haloperidoL (HALDOL) tablet 5 mg 5 mg, oral, AT BEDTIME, First dose on Mon09/18/22 at 2100, Until Discontinued, Routine Given 09/18/2022 20:45 EST 5 mg haloperidoL (HALDOL) tablet 5 mg 5 mg, oral, 2 TIMES DAILY, First dose on Mon09/20/22 at 1230, Until Discontinued, Routine Given 09/23/2022 8:14 EST 5 m g Given 09/22/2022 20:27 EST 5 mg Given 09/22/2022 8:46 EST 5 mg hydrOXYzine (ATARAX) tablet 25 mg 25 mg, oral, EVERY 4 HOURS PRN, Starting on 09/17/22 at 1857, Until Mon09/18/22 at 1049, Anxiety, Routine Given 09/18/2022 1:04 EST 25 mg LORazepam (ATIVAN) tablet 0.5 mg 0.5 mg, oral, 3 TIMES DAILY, First dose on Mon09/20/22 at 1230, Until Discontinued, Routine Given 09/26/2022 20:27 EST 0. 5 mg Given 09/26/2022 14:18 EST 0.5 mg Given 09/26/2022 8:25 EST 0.5 mg LORazepam (ATIVAN) tablet 0.5 mg 0.5 mg, oral, EVERY 4 HOURS PRN, Starting on Mon09/20/22 at 1209, Until 09/24/22 at 0830, Anxiety, Routine Given 09/20/2022 18:40 EST 0.5 mg LORazepam (ATIVAN) tablet 0.5 mg 0.5 mg, oral, 2 TIMES DAILY, First dose (after last modification) on Mon09/27/22 at 0900, Until Discontinued, Routine Given 09/28/2022 8:12 EST 0.5 mg Given 09/27/2022 20:23 EST 0.5 mg Given 09/27/2022 8:45 EST 0.5 mg LORazepam (ATIVAN) tablet 1 mg 1 mg, oral, 3 TIMES DAILY, First dose (after last modification) on Mon09/18/22 at 1145, Until Discontinued, Routine Given 09/19/2022 13:13 EST 1 mg Given 09/19/2022 9:05 EST 1 mg Given 09/18/2022 20:44 EST 1 mg magnesium oxide (MAG-OX) tablet 400 mg 400 mg, oral, DAILY, 1 dose, First dose on 09/17/22 at 1945, Routine, Release Given 09/17/2022 20:31 EST 400 mg methadone (DOLOPHINE) concentrated solution 70 mg 70 mg, oral, DAILY, First dose on Mon09/18/22 at 0900, Until Discontinued, Routine Given 09/29/2022 8:45 EST 70 mg Given 09/28/2022 8:12 EST 70 mg Given 09/27/2022 8:44 EST 70 mg mirtazapine (REMERON) tablet 7.5 mg 7.5 mg, oral, AT BEDTIME, First dose on Mon09/17/22 at 2100, Until Discontinued, Routine Given 09/17/2022 20:[address] 7.5 mg multivitamin-iron fumarate-FA (THERA-M PLUS) 9 mg iron-400 mcg tablet 1 Tablet 1 Tablet, oral, DAILY, 5 doses, First dose on Mon09/18/22 at 0900, Last dose on Mon09/22/22 at 0900, Routine, Release Given 09/22/2022 8:46 EST 1 Tablet Given 09/21/2022 9:51 EST 1 Tablet Given 09/20/2022 10:51 EST 1 Tablet nicotine (NICOTROL) 10 mg inhaler kit 1 Inhaler 1 Inhaler, inhalation, EVERY 1 HOUR PRN, Starting on Mon09/17/22 at 1857, Until Mon09/29/22 at 1814, Smoking Cessation, nicotine craving, Routine nicotine inhaler (delivery device) 1 Each, inhalation, PRN, Starting on Mon09/17/22 at 1857, Until Mon09/29/22 at 1814, Smoking Cessation, nicotine craving polyethylene glycol 3350 (MIRALAX) packet 17 g 17 g, oral, DAILY PRN, Starting on Mon09/23/22 at 1238, Until Mon09/29/22 at 1814, Constipation, Routine Given 09/25/2022 13:08 EST 17 g Given 09/23/2022 13:25 EST 17 g senna (SENOKOT) tablet 2 Tablet 2 Tablet, oral, AT BEDTIME PRN, Starting on Mon09/23/22 at 1240, Until Mon09/29/22 at 1814, Constipation, Use if no improvement with Miralax, Routine Given 09/26/2022 20:27 EST 2 Tablets Given 09/25/2022 20:32 EST 2 Tablets thiamine (VITAMIN B1) tablet 100 mg 100 mg, oral, DAILY, 5 doses, First dose on Mon09/17/22 at 1945, Last dose on Mon09/21/22 at 0900, Routine, Release Given 09/21/2022 9:52 EST 100 mg Given 09/20/2022 10:51 EST 100 mg Given 09/19/2022 9:05 EST 100 mg thiamine (VITAMIN B1) tablet 100 mg 100 mg, oral, DAILY, First dose on 09/24/22 at 0900, Until Discontinued, Routine Given 09/29/2022 8:45 EST 100 mg Given 09/28/2022 8:12 EST 100 mg Given 09/27/2022 8:45 EST 100 mg documented in this encounter Discontinued Medications Medication Sig Discontinue Reason Start Date End Da te haloperidoL (HALDOL) 0.5 mg tablet Take 5 Tablets by mouth 2 times daily for 30 days. Reorder 09/28/2022 09/28/2022 gabapentin (NEURONTIN) 300 mg capsule Take 1 Capsule by mouth 3 times daily. 08/30/2022 09/29/2022 mirtazapine (REMERON) 7.5 mg tablet Take 1 Tablet by mouth at bedtime. 08/30/2022 09/29/2022 documented as of this encounter Active and Recently Administered Medications Times are shown in EST. Scheduled Medication Order 09/27/2022 09/28/2022 09/29/2022 b jopqxys-O-ssxbf acid (NEPHROCAPS) 1 mg capsule 1 Capsule 1 Capsule, oral, DAILY, First dose on 09/24/22 at 0900, Until Discontinued, Routine 0844 (Given - Provider: Cindy Burroughs RN) 0813 (Given - Provider: Laila Lemon, JIAN) 0844 (Given - Provider: Juanjose Razo, RN) gabapentin (NEURONTIN) capsule 300 mg 300 mg, oral, 3 TIMES DAILY, First dose on 09/17/22 at 2100, Until Discontinued, Routine 0845 (Given - Provider: Cindy Burroughs RN)1419 (Given - Provider: Cindy Burroughs RN)2022 (Given - Provider: Gabby Denny, JIAN) 0812 (Given - Provider: Laila Lemon, JIAN)1319 (Given - Provider: Laila Lemon, JIAN)2003 (Given - Provider: Gabby Denny, JIAN) 0844 (Given - Provider: Juanjose Razo, RN)1402 (Given - Provider: Leida Pollard RN) haloperidoL (HALDOL) tablet 2.5 mg 2.5 mg, oral, 2 TIMES DAILY, First dose (after last modification) on Mon09/23/22 at 2100, Until Discontinued, Routine 0845 (Given - Provider: Cindy Burroughs RN)2022 (Given - Provider: Gabby Denny, JIAN) 08 (Given - Provider: Laila Lemon, JIAN)2002 (Given - Provider: Gabby Denny, JIAN) 0845 (Given - Provider: Juanjose Razo RN) LORazepam (ATIVAN) tablet 0.5 mg (CANCELED) 0.5 mg, oral, 2 TIMES DAILY, First dose (after last modification) on Mon09/27/22 at 0900, Until Discontinued, Routine 0845 (Given - Provider: Cindy Burroughs RN)2022 (Given - Provider: Gabby Denny RN) 08 (Given - Provider: Laila Lemon RN) methadone (DOLOPHINE) concentrated solution 70 mg 70 mg, oral, DAILY, First dose on Mon09/18/22 at 0900, Until Discontinued, Routine 0844 (Given - Provider: Cindy Burroughs RN) 08 (Given - Provider: Laila Lemon, JIAN) 0845 (Given - Provider: Juanjose Razo RN) thiamine (VITAMIN B1) tablet 100 mg 100 mg, oral, DAILY, First dose on Mon09/24/22 at 0900, Until Discontinued, Routine 0845 (Given - Provider: Cindy Burroughs RN) 0812 (Given - Provider: Laila Lemon, JIAN) 0845 (Given - Provider: Juanjose Razo RN) PRN Medication Order 09/27/2022 09/28/2022 09/29/2022 acetaminophen (TYLENOL) tablet 650 mg 650 mg, oral, EVERY 4 HOURS PRN, Starting on 09/17/22 at 1856, Until Shobha 09/29/22 at 1814, Mild Pain 1-3, Routine benztropine (COGENTIN) tablet 1 mg 1 mg, oral, 2 TIMES DAILY PRN, Starting on Mon09/23/22 at 1124, Until Mon09/29/22 at 1814, muscle stiffness, Routine haloperidoL (HALDOL) tablet 2 mg 2 mg, oral, EVERY 6 HOURS PRN, Starting on Mon09/18/22 at 1100, Until Mon09/29/22 at 1814, Agitation, Routine 0813 (Canceled Entry - Provider: Laila Lemon RN) nicotine (NICOTROL) 10 mg inhaler kit 1 Inhaler 1 Inhaler, inhalation, EVERY 1 HOUR PRN, Starting on 09/17/22 at 1857, Until Shobha 09/29/22 at 1814, Smoking Cessation, nicotine craving, Routine nicotine inhaler (delivery device) 1 Each, inhalation, PRN, Starting on 09/17/22 at 1857, Until Shobha 09/29/22 at 1814, Smoking Cessation, nicotine craving polyethylene glycol 3350 (MIRALAX) packet 17 g 17 g, oral, DAILY PRN, Starting on Mon09/23/22 at 1238, Until Shobha 09/29/22 at 1814, Constipation, Routine senna (SENOKOT) tablet 2 Tablet 2 Tablet, oral, AT BEDTIME PRN, Starting on Mon09/23/22 at 1240, Until Shobha 09/29/22 at 1814, Constipation, Use if no improvement with Miralax, Routine documented in this encounter Orders Medications Ordered That Phan ht Not Have Been Administered Count Last Ordered Date First Ordered Date LORazepam (ATIVAN) tablet 0.5 mg 1 09/24/19 benztropine (COGENTIN) tablet 1 mg 1 2022 LORazepam (ATIVAN) tablet 1 mg 2 09/20/2022 09/18/2022 haloperidoL (HALDOL) tablet 2 mg 1 09/18/19 diazePAM (VALIUM) syringe 5-10 mg 1 diazePAM (VALIUM) tablet 10-20 mg 1 022 folic acid 1 mg in sodium ch loride (NS) 0.9 % 50 mL IVPB 1 09/17/2022 magnesium sulfate 2 g in water 50 mL 1 08/20 nicotine (NICOTROL) 10 mg in haler kit 1 Inhaler 1 09/17/2022 nicotine inhaler (delivery device) 1 2021 thiamine (VITAMIN B-1) 100 m g in sodium chloride (NS) 0.9 % 50 mL IVPB 1 09/17/2022 thiamine (VITAMIN B-1) injection 100 mg 1 1 Nursing Count Last Ordered Date First Orde red Date PATIENT AT LOW RISK FOR VTE: RISK OF MECHANICAL PROPHYLAXIS OUTWEIGHS 1 09/17/2022 Admission Count Last Ordered Date First Orde red Date ADMIT TO IP PSYCH 1 09/17/2022 PSYCH BED REQUEST 1 09/17/2022 Discharge Count Last Ordered Date First Orde red Date DISCHARGE PATIENT 1 09/28/2022 documented in this encounter Care Teams Menu Planner Relationship Specialty Start Date End Date Esperanza Scott FNP [address] [place] [phone] PCP - General Family Medicine - Primary Care 08/24/22 documented as of this encounter
--- OUTSIDE RECORDS SUMMARY | 2024-09-30 14:23 | XMS_ITS | Encounter Summary ---
Author Organization [facility] Address [address] [place] [address] Care Team Providers Care Programming Director Name Role Phone Esperanza Scott HIGHER LEVEL TEACHING ASSISTANT Primary Care Provider [phone] Encounter Details Date Type Department Care Team (Late st Contact Info) Description 05/14/2024 Lab Requisition [facility] - [address] [address] Outr Resulting Lab, Provider Social History Tobacco [...] RNA BY PCR Routine 05/13/2024 17:00 EDT documented in this encounter Results * HEPATITIS C AB W REFLEX TO HCV RNA BY PCR (05/13/2024 17:00 EDT) Hep C Antibody Negative Negative 05/14/2024 20:[address] [facility] Blood VENOUS BLOOD / Unknown 05/13/2024 17:00 EDT 05/14/2024 17:53 EDT us Provider Outr Resulting Lab CHEMISTRY & BLOOD GA S ORDERABLES Final Result [facility] [address] [place] [id number] documented in this encounter Visit Diagnoses Not on filedocumented in this encounter Care Teams Programming Director Relationship Specialty Start Date End Date Esperanza Scott FNP [address] [place] [phone] PCP - General Family Medicine - Primary Care 08/24/22 documented as of this encounter
--- OUTSIDE RECORDS SUMMARY | 2024-09-30 14:24 | XMS_ITS | Encounter Summary ---
Author Organization [facility] Address [address] [place] [address] Care Team Providers Care Information Scientist Name Role Phone Unavailable Primary Care Provider Unavailabl e Encounter Details Date Type Department Care Team (Late st Contact Info) Description 05/06/2013 Results Only [facility] [phone] Vance Owens MD [address] [place] [address] Social History Tobacco Use Types Packs/Day Years Used Date Smoking Tobacco: Never Assessed Comments Unknown Sex and Gender Information Value Date Recorded Sex Assigned at Not on file Legal Sex Female 18:18 EST Gender Identity Female 07/18/2019 11:32 EDT Sexual Orientation Not on file documented as of this encounter Plan of Treatment Not on file documented as of this encounter Procedures Procedure Name Priority Date/Time Associated Diagnosis Comments PAP TEST- RESULT ONLY Routine 05/06/2013 0:00 EDT documented in this encounter Results * PAP TEST- RESULT ONLY (05/06/2013 0:00 EDT) Pathology Report: CYTOPATHOLOGY REPORT Reports generated via electronic interface contain original data; however they are lacking the format of the original report. Caution should be taken when reading/interpreti ng unformatted reports. Name: ? TUYET VALVERDE ? Accession #: ? [id number] : ? 1985 (Age: 27) ??F ?Collect Date: ? 05/06/2013 Location: ? [facility] ? Receive Date: ? 05/07/2013 Provider: ?VANCE OWENS MD Copy to: ?ROSEANNA IVAN MD ? Specimen/Source: ?Pap Test, Cervix/Endocervix, ThinPrep Imaging System with manual evaluation Last Menstrual Period: ? Menstrual/Pregnanc y Status: ? Post ? SPECIMEN ADEQUACY ? Satisfactory for Evaluation - transformation zone component present GENERAL CATEGORIZATION ? Negative for Intraepithelial Lesion or Malignancy INTERPRETATION ? Reactive cellular changes associated with inflammation present (includes repair). Shift in raisa present suggestive of bacterial vaginosis. ? Document reviewed and electronically signed by: ? LAST DAS MD PHD ? Report Date: ??05/14/2013 15:11 End of Report YOLANDA MCGILL 05/06/2013 05/07/2013 us Vance Owens MD PATHOLOGY ORDERABLES Final Resu lt [facility] [address] [place] [address] documented in this encounter Visit Diagnoses Not on filedocumented in this encounter
--- OUTSIDE RECORDS SUMMARY | 2024-09-30 14:24 | XMS_ITS | Encounter Summary ---
Author Organization [facility] Address [address] [place] [address] Care Team Providers Care Payroll Accountant Name Role Phone Unavailable Primary Care Provider Unavailabl e Encounter Details Date Type Department Care Team (Late st Contact Info) Description 08/22/2002 14:05 EST Hospital Encounter [facility] - Other [address] [place] [address] Chloe Garcia MD [address] [place] [address] Unknown, Provider, Discharge Disposition: Auto Discharge Social History Tobacco Use Types Packs/Day Years Used Date Smoking Tobacco: Never Assessed Comments Unknown Sex and Gender Information Value Date Recorded Sex Assigned at Not on file Legal Sex Female 18:18 EST Gender Identity Female 07/18/2019 11:32 EDT Sexual Orientation Not on file documented as of this encounter Discharge Disposition Disposition Code Departure Means Destination Auto Discharge documented in this encounter Plan of Treatment Not on file documented as of this encounter Procedures Procedure Name Priority Date/Time Associated Diagnosis Comments CYTOPATHOLOGY Routine 08/22/2002 0:00 EST documented in this encounter Results * CYTOPATHOLOGY (08/22/2002 0:00 EST) Pathology Report: CYTOPATHOLOGY REPORT Reports generated via electronic interface contain original data; however they are lacking the format of the original report. Caution should be taken when reading/interpreti ng unformatted reports. Name: ? TUYET VALVERDE ? Accession #: ? [id number] : ? 1985 (Age: 17) ??F ?Collect Date: ? 08/22/2002 Location: ? [facility] ? Receive Date: ? 08/23/2002 Provider: ?CHLOE GARCIA MD Copy to: ? Specimen/Source: ?ThinPrep Pap Test, Vagina/Cervix/Endo cervix Last Menstrual Period: ? 08/08/02 Hormonal/Contracep tive Status: ? Control Pills ? SPECIMEN ADEQUACY ? Satisfactory for Evaluation - transformation zone component present GENERAL CATEGORIZATION ? Negative for Intraepithelial Lesion or Malignancy INTERPRETATION ? Shift in raisa present suggestive of bacterial vaginosis. ? Document reviewed and electronically signed by: ? YUMIKO Mcneill(ASCP) ? Report Date: ??08/26/2002 12:40 End of Report YOLANDA MCGILL 08/22/2002 08/23/2002 us Chloe Garcia MD PATHOLOGY ORDERABLES Final Resul t [facility] [address] [place] [address] documented in this encounter Visit Diagnoses Not on filedocumented in this encounter
--- OUTSIDE RECORDS SUMMARY | 2024-09-30 14:24 | XMS_ITS | Encounter Summary ---
Author Organization [facility] Address [address] [place] [address] Care Team Providers Care Carrot Grader Inspector Name Role Phone Unavailable Primary Care Provider Unavailabl e Encounter Details Date Type Department Care Team (Late st Contact Info) Description 07/18/2000 11:20 EST Hospital Encounter [facility] - Other [address] [place] [address] Chloe Garcia MD [address] [place] [address] Unknown, Provider, Social History Tobacco Use Types Packs/Day Years [...] 15:01 EST documented as of this encounter Plan of Treatment Not on file documented as of this encounter Procedures Procedure Name Priority Date/Time Associated Diagnosis Comments CYTOPATHOLOGY Routine 07/18/2000 0:00 EST documented in this encounter Results * CYTOPATHOLOGY (07/18/2000 0:00 EST) Pathology Report: CYTOPATHOLOGY REPORT Reports generated via electronic interface contain original data; however they are lacking the format of the original report. Caution should be taken when reading/interpreti ng unformatted reports. Name: ? NICOLLE, TUYET ? Accession #: ? [id number] : ? 1985 (Age: 15) ??F ?Collect Date: ? 07/18/2000 Location: ? [facility] ? Receive Date: ? 07/19/2000 Provider: ?CHLOE GARCIA MD Copy to: ? Specimen/Source: ?ThinPrep Pap Test, Vagina/Cervix/Endo cervix Last Menstrual Period: ? Hormonal/Contracep tive Status: ? Yes ? SPECIMEN ADEQUACY ? Satisfactory for evaluation. GENERAL CATEGORIZATION ? Benign Cellular Changes DESCRIPTIVE DIAGNOSIS ? Predominance of coccobacilli present consistent with shift in vaginal raisa. ? Document reviewed and electronically signed by: ? YUMIKO Schmitt(ASCP) ? Report Date: ??07/27/2000 08:46 End of Report YOLANDA MCGILL 07/18/2000 07/19/2000 us Chloe Garcia MD PATHOLOGY ORDERABLES Final Resul t Performing Organization Address City/State/[facility] Co de Phone Number [address] [address] documented in this encounter Visit Diagnoses Not on filedocumented in this encounter
--- OUTSIDE RECORDS SUMMARY | 2024-09-30 14:24 | XMS_ITS | Encounter Summary ---
Author Organization [facility] Address [address] [place] [address] Care Team Providers Care Material Flow Analyst Name Role Phone Emerson Perez [facility]- Primary Care Provider [phone] Reason for Visit * Reason Comments Follow-up Encounter Details Date Type Department Care Team (Late st Contact Info) Description 08/21/2019 16:00 EST Office Visit [facility] [address] [place], [place] [id number] Andria Gamboa PA-C [address] [facility] [address] [place] [address] Right carpal tunnel syndrome (Primary Dx) Social History Tobacco Use Types Packs/Day Years Used Date Smoking Tobacco: Some Days Cigarettes Smokeless Tobacco: Never Comments Unknown Sex and Gender Information Value Date Recorded Sex Assigned at Not on file Legal Sex Female 18:18 EST Gender Identity Female 07/18/2019 11:32 EDT Sexual Orientation Not on file documented as of this encounter Last Filed Vital Signs Vital Sign Reading Time Taken Comments Blood Pressure - - Pulse - - Temperature - - Respiratory Rate - - Oxygen Saturation - - Inhaled Oxygen Concentration - - Weight 68.9 kg (152 lb) 08/21/2019 1606 EST Height 170.2 cm (5' 7) 08/21/2019 1606 EST Body Mass Index 23.81 08/21/2019 1606 EST documented in this encounter Progress Notes * Andria Gamboa PA - 08/21/2019 1600 EST PROBLEM: Right carpal tunnel syndrome PROCEDURE: Right ECTR Meriam 08/08/19 SUBJECTIVE: Debora Edwards is a 34 y.o. right hand dominant female who is here today for a post operative visit. They are now 2 weeks out from their surgery with Dr. Shook. Patient is doing well today, her carpal tunnel symptoms have completely resolved. She has little soreness, but otherwise feels well. Removed her own stitch, last week. OBJECTIVE: There were no vitals taken for this visit. On physical exam, the patient is found to be a pleasant and cooperative female who appears to be alert and oriented x 3. She is well-developed, well-nourished and in no significant distress. Breathing is unlabored. Skin is warm, pink and dry to inspection and palpation. Neurovascularly intact with good capillary refill. Sensation to light touch in the distribution of the median, radial and ulnar nerves is normal in the right hand. On physical exam of the palm the wound along the palm appears to be healing well. The wound edges are clean, dry and intact. There is no erythema or purulent drainage. Range of motion of the wrist appears full, some tenderness to palpation along the carpal tunnel, and incisions. The past medical, family and social history have been reviewed in the patient chart. Past Medical History: Diagnosis Date ??? Acne ??? Dermatitis ??? Eczema ??? Hives ??? Psoriasis ??? Rosacea Medications Prior to Today's Visit Medication Sig ??? methadone (DOLOPHINE) 5 mg/5 mL oral solution Take 80 mg by mouth once. ??? metroNIDAZOLE (METROCREAM) 0.75 % cream Apply to face once daily after cleansing. ??? triamcinolone (KENALOG) 0.1 % cream Apply to affected areas on trunk and extremities twice daily for 1 week then once daily PRN for itch. Do not apply to face, armpit or groin. (Patient not taking: Reported on 08/02/2019) ??? UNABLE TO FIND Take 1 tablet by mouth daily. Med Name: Oral control - unsure of name No facility-administered medications prior to visit. ASSESSMENT: Right carpal tunnel release PLAN: Tuyet is doing well today, follow-up as needed for the left side. Signs of infection were discussed with the patient, she will present to the office if any of these should occur. Note was givenfor back to work. Dr. De La Torre was the attending physician available in the clinic today if needed. A consultation was not required. This note was prepared using voice recognition software and the EMR. There may be inadvertent errors and omissions. AMARILYS Vides 08/21/2019 documented in this encounter Plan of Treatment Not on file documented as of this encounter Visit Diagnoses Diagnosis Right carpal tunnel syndrome- Primary Carpal tunnel syndrome documented in this encounter Historical Medications * This list may reflect changes made after this encounter. levonorgestrel (MIRENA INTRAUTERINE) by intrauterine route. added in this encounter Care Teams Material Flow Analyst Relationship Specialty Start Date End Date Ana [facility] [address] [place] [address] PCP - General 07/18/19 07/28/22 documented as of this encounter
--- OUTSIDE RECORDS SUMMARY | 2024-09-30 14:24 | XMS_ITS | Encounter Summary ---
Author Organization [facility] Address [address] [place] [address] Care Team Providers Care Telephone Surveyor Name Role Phone Emerson Perez [facility]- Primary Care Provider [phone] Reason for Visit * Reason Onset Date Comments Medications Refill 10/11/2019 Encounter Details Date Type Department Care Team (Late st Contact Info) Description 10/11/2019 Refill [facility] Dermatology [address]rd [address] [id number] Larissa Orellana PA-C [address] [facility] [place] [address] Medications Refill Social History Tobacco Use Types Packs/Day Years Used Date Smoking Tobacco: Some Days Cigarettes Smokeless Tobacco: Never Comments Unknown Sex and Gender Information Value Date Recorded Sex Assigned at Not on file Legal Sex Female 18:18 EST Gender Identity Female 07/18/2019 11:32 EDT Sexual Orientation Not on file documented as of this encounter Ordered Prescriptions Prescription Sig Dispense Quantity Refills Last Filled Start Date End Date triamcinolone (KENALOG) 0.1 % cream SEE NOTES 60 g 1 10/14/2019 10/01/2020 documented in this encounter Miscellaneous Notes * Telephone Encounter - Gil Cano MA - 10/14/2019 1101 EST Medication: triamcinolone (KENALOG) 0.1 % cream Diagnosis: Other eczema (L30.8) Last Office Visit: 01/23/2019 Next Office Visit: None Scheduled Last Refill: 11/14/2018 documented in this encounter Plan of Treatment Not on file documented as of this encounter Visit Diagnoses Not on filedocumented in this encounter Discontinued Medications Medication Sig Discontinue Reason Start Date End Da te triamcinolone (KENALOG) 0.1 % cream Apply to affected areas on trunk and extremities twice daily for 1 week then once daily PRN for itch. Do not apply to face, armpit or groin. 11/14/2018 10/14/2019 documented as of this encounter Care Teams Telephone Surveyor Relationship Specialty Start Date End Date Ana [facility] [address] [facility] [place] [address] PCP - General 07/18/19 07/28/22 documented as of this encounter
--- OUTSIDE RECORDS SUMMARY | 2024-09-30 14:24 | XMS_ITS | Encounter Summary ---
Author Organization [facility] Address [address] [place] [address] Care Team Providers Care Medical Geneticist Name Role Phone FaustChelsea Shanon GALLOWAY Primary Care Provider + Encounter Details Date Type Department Care Team (Late st Contact Info) Description 02/04/2019 Results Only [facility] [phone] Linda Steve, [address] [place] [address] Social History Tobacco Use Types Packs/Day Years [...] Diagnosis Comments PAP TEST- RESULT ONLY Routine 02/04/2019 0:00 EDT documented in this encounter Results * PAP TEST- RESULT ONLY (02/04/2019 0:00 EDT) Pathology Report: CYTOPATHOLOGY REPORT Reports generated via electronic interface contain original data; however they are lacking the format of the original report. Caution should be taken when reading/interpreti ng unformatted reports. Name: ? RENITA VALVERDE ? Accession #: ? [id number] ? : ? 1985 (Age: 33) ??F ?Collect Date: ? 02/04/2019 ? Location: ? [facility] ? Receive Date: ? 02/04/2019 ? Provider: LINDA STEVE CHECK PROCESSING CLERK Copy to: ? Final Report SPECIMEN ADEQUACY ? Satisfactory for Evaluation - transformation zone component present GENERAL CATEGORIZATION ? Negative for Intraepithelial Lesion or Malignancy ?? Last Menstrual Period: 10/2018 Hormonal/Contracep tive status: Oral contraceptives Specimen/Source: ??Pap Test, Cervix, ThinPrep Imaging System with manual evaluation Document reviewed and electronically signed by: ? YUMIKO Schmitt(ASCP) ? Report ??Date: 02/07/2019 10:26 HPV with Pap Test ? Date Ordered: ? 02/07/2019 ? Status: ?? Signed Out ?Date Complete: ? 02/08/2019 ? By: ??System Interface ? Date Reported: ? 02/08/2019 ? Interpretation RESULT: Negative for HPV. No E6 or E7 mRNA is detected from HPV types 16,18,31,33,35, 39,45,51,52,56,58, 59,66, and 68 by can carrier mediated amplification. Comments Document reviewed and electronically signed by: ? System Interface ? Report date: 02/08/2019 By the signature above, the attending physician certifies that he/she has personally conducted a gross and/or microscopic examination of the described specimens and rendered or confirmed the above diagnosis. End of Report [facility] 02/04/2019 02/04/2019 us Linda Steve CHECK PROCESSING CLERK PATHOLOGY ORDERABLES Final R esult [facility] [address] [place] [address] documented in this encounter Visit Diagnoses Not on filedocumented in this encounter Care Teams Medical Geneticist Relationship Specialty Start Date End Date Chelsea Faust, [employer] [address] [place] [address] PCP - General 11/07/18 07/17/19 documented as of this encounter
--- OUTSIDE RECORDS SUMMARY | 2024-09-30 14:24 | XMS_ITS | Encounter Summary ---
Author Organization [facility] Address [address] [place] [address] Care Team Providers Care Coating Mixer Supervisor Name Role Phone None, Provider Primary Care Provider Unavailabl e Reason for Visit * Reason Comments Alcohol Intoxication Pt accompanied with mother and sister states she needs alcohol withdrawal, mother reports she was recently admitted at [facility], denies drug use, last known drink prior to hospitalization, admits to SI * Auth/Cert (Routine) Specialty Diagnoses / Procedures Referred By Andres osuna Referred To Contact Diagnoses Depression, unspecified depression type Delirium Referral ID Status Reason Start Date Expiration Date Visits Re quested Visits Authorized [id number] 07/30/2022 08/30/2022 1 1 Encounter Details Date Type Department Care Team (Late st Contact Info) Description 07/29/2022 11:22 EST - 07/30/2022 15:05 [facility] Hospital Encounter [facility] Medical / Surgical Department [address] [place] [id number] Inessa Wagner PA-C [address] [facility], Level [address] [place] [address] Phuc Sorto, PA-C [address] [place] [phone] Louis Monique MD [address] [place] [phone] London Owens MD [address] [place] [phone] Darin Shane MD [address] [place] [phone] Delirium (Primary Dx) Discharge Disposition: Psychiatric Hospital Social History Tobacco Use Types Packs/Day Years Used Date Smoking Tobacco: Some Days Cigarettes Smokeless Tobacco: Never AUDIT-C Answer Date Recorded Q1: How often [...] Sign Reading Time Taken Comments Blood Pressure 120/78 07/30/2022 1316 EST Pulse 83 07/29/2022 1600 EST Temperature 36.1 ??C (97 ??F) 07/30/2022 0539 EST Respiratory Rate 20 07/30/2022 0539 EST Oxygen Saturation 100% 07/30/2022 0539 EST Inhaled Oxygen Concentration - - Weight 58.1 kg (128 lb) 07/29/2022 2253 EST Height 167.6 cm (5' 5.98) 07/29/2022 2253 EST Body Mass Index 20.67 07/29/2022 2253 EST documented in this encounter Functional Status * Are you deaf or do you have serious difficulty hearing? Answer Date of Assessment Author No 07/29/2022 23:00 EST Marguerite Pena , JIAN * Are you blind or do you have serious difficulty seeing, even when wearing glasses? Answer Date of Assessment Author No 07/29/2022 23:00 Marguerite Chi RN * Do you have serious difficulty walking or climbing stairs? (5 years old or older) Answer Date of Assessment Author No 07/29/2022 23:00 Marguerite Chi RN * Do you have difficulty dressing or bathing? (5 years old or older) Answer Date of Assessment Author No 07/29/2022 23:00 Marguerite Chi RN * Because of a physical, mental, or emotional condition, do you have difficulty doing errands alone such as visiting a doctor's office or shopping? (15 years old or older) Answer Date of Assessment Author No 07/29/2022 23:00 Marguerite Chi RN documented as of this encounter Mental Status * Because of a physical, mental, or emotional condition, do you have serious difficulty concentrating, remembering, or making decisions? (5 years old or older) Answer Entry Date Author No 07/29/2022 23:00 Marguerite Chi RN documented in this encounter Discharge Summaries * Darin Shane MD - 07/30/2022 1505 EST HOSPITAL MEDICINE DISCHARGE SUMMARY Primary Care Provider: Provider None Attending Physician: Darin Shane MD Admit Date: 07/29/22 Discharge Date: 07/30/22 Disposition (location): Discharge to P Condition at Discharge: Improved Reason for Admission (chief complaint): Delirium Principal/Final Diagnosis: Delirium Additional Problems Managed in the Hospital: Active Hospital Problems Diagnosis Date Noted ??? *Delirium 07/29/2022 ??? Alcohol use disorder, severe, dependence ([facility]) ([facility]) 07/30/2022 ??? Depression 07/30/2022 ??? Delirium due to another medical condition 07/29/2022 Resolved Hospital Problems No resolved problems to display. Transition of care: [facility] Transition of Care report automatically routed to PCP office on discharge. Clinical Issues Needing Follow-up 1. Pertinent medication changes: -Tylenol - MVM - Thiamine 2. Recommended follow-up tests/procedures needed: - Per inpatient psychiatry 3. Anticoagulation on discharge: No 4. Changes to goals of care at time of discharge (if applicable): None. Hospital Course: From the H&P by Dr. Monique on 07/29: Tuyet Edwards is a 37 y.o. female with a PMHx of severe alcohol abuse with recent alcohol withdrawal, who presents to the ED with family members for agitation and inability to care for herself. Per her family in the room (sister and [id number]), the patient had been drinking about a half-gallon of hard alcohol a day for about a decade and had tried to quit on her own near the end of last month.They think that her last drink was either 07/22 or 07/23. She had severe alcohol withdrawal and was admitted at [facility] for 3 days and was discharged [...] and Dr. Abraham recommended admission for further workup and MRI. MRI was normal. She was admitted to the [facility] service and monitored overnight. She had rapid improvement in her mental status. Most recent use of alcohol was 1 week prior, low risk of further complications of alcohol withdrawal. However, we discussed her mood in depth. She reported very low mood and though she feels safe at home she has had severe anxiety and depressive symptoms including troubl e with sleep, losing interest in her usual activities, significant guilt. She denied any active suicidal ideation or plan for self-harm. However, she expressed a strong interest in IPP given her significant depressive symptoms. She feels that she has been treating for mood and anxiety with alcohol for years. She has previously seen a mental therapist though not since January. Her case was discussed with on-call psychiatry, who evaluated her and accepted her to the inpatientpsychiatry team. She was medically stable and ready for discharge on 07/30, earlier than anticipated with rapid resolution and her delirium. She was prescribed thiamine, Tylenol, and multivitamin at discharge. Her family was kept apprised of her treatment plan. Relevant Imaging/Procedures Performed: CT HEAD WO CONTRAST Result Date: 07/29/2022 No acute intracranial findings. THIS DOCUMENT HAS BEEN ELECTRONICALLY SIGNED BY JS TINOCO MD FOR ANY QUESTIONS OR CONCERNS REGARDING THIS REPORT PLEASE CALL [facility] AT [phone] MR HEAD WO CONTRAST Result Date: 07/29/2022 No acute intracranial findings. No evidence of acute infarct. THIS DOCUMENT HAS BEEN ELECTRONICALLYSIGNED BY JS TINOCO MD FOR ANY QUESTIONS OR CONCERNS REGARDING THIS REPORT PLEASE CALL [facility] [phone] Results Pending at Discharge: Test results still pending from this admission None I personally spent > 30 minutes reviewing the chart, evaluating and examining the patient, counseling and preparing the patient for discharge, and coordinating follow up. Darin Shane MD 07/31/2022 18:07 documented in this encounter Medications at Time [...] Refills Last Filled Start Date End Date Multivitamins with Minerals tablet tablet Take 1 Tablet by mouth daily. 30 Tablet 2 07/30/2022 thiamine (VITAMIN B1) 100 mg tablet Take 1 Tablet by mouth daily. 30 Tablet 2 07/30/2022 acetaminophen (TYLENOL) 500 mg tablet Take 2 Tablets by mouth every 6 hours as needed for Fever or Pain. 07/30/2022 documented in this encounter Discharge Disposition Disposition Code Departure Means Destination [facility] documented in this encounter Progress Notes * Marguerite Pena RN - 07/30/2022 0109 EST FOUR EYES SKIN ASSESSMENT Four Eyes skin assessment was performed on admission to the unit by Marguerite Pena RN and Bri VILLAR. All skin intact verified by: Marguerite Pena RN. Patient has the following bruising noted to bilateral knees and right forearm. Instructions: ??? Add LDA for any identified wounds ??? Add Homer image for any suspected PI ??? Order wound consult if suspected PI identified 07/30/2022 1:09 documented in this encounter H&P Notes * Louis Monique MD - 07/29/2022 1734 EST Hospital Medicine Admission History & Physical Service Date: 07/29/2022 Admit Date: 07/29/22 Primary Care Provider: Provider None Chief Complaint: Agitation HPI Tuyet Edwards is a 37 y.o. female with a PMHx of severe alcohol abuse with recent alcohol withdrawal,who presents to the ED with family members for agitation and inability to care for herself. Per herfamily in the room (sister and [id number]), the patient had been drinking about a half-gallon ofhard alcohol a day for about a decade and had tried to quit on her own near the end of last month. They think that her last drink was either 07/22 or 07/23. She had severe alcohol withdrawal and was admitted at [facility] for 3 days and was discharged [...] and Dr. Abraham recommended admission for further workup and MRI. Review of Systems A complete 10 point ROS was performed and pertinent positive and negative findings listed in HPI, otherwise negative. Past Medical History: Diagnosis Date ??? Acne ??? Dermatitis ??? Eczema ??? Hives ??? Psoriasis ??? Rosacea Past Surgical History: Procedure Laterality Date ??? CARPAL TUNNEL RELEASE ??? SECTION 2012 ??? WISDOM TOOTH EXTRACTION 2001 Social History Tobacco Use ??? Smoking status: Some Days Packs/day: 0.25 Types: Cigarettes ??? Smokeless tobacco: Never Substance Use Topics ??? Alcohol use: Not on file Family History Problem Relation Age of Onset ??? Eczema Mother ??? Depression Mother ??? Diabetes Mother ??? Hypertension Mother ??? Eczema Father ??? Psoriasis Father ??? Hypertension Father Current Outpatient Medications Medication Sig ??? levonorgestrel (MIRENA INTRAUTERINE) by intrauterine route. ??? methadone (DOLOPHINE) 5 mg/5 mL oral solution Take 70 mg by mouth daily. ??? metroNIDAZOLE (METROCREAM) 0.75 % cream Apply to face once daily after cleansing. (Patient not taking: Reported on 07/29/2022) ??? triamcinolone (KENALOG) 0.1 % cream SEE NOTES (Patient not taking: No sig reported) ??? UNABLE TO FIND Take 1 tablet by mouth daily. Med Name: Oral control - unsure of name (Patient not taking: No sig reported) No Known Allergies Objective Vitals Temp: [36.1 ??C (97 ??F)] , Heart Rate: [86 BPM-98 BPM] , Pulse: [83-98] , Resp: [16-20] , BP: (152-188)/(91-112) , SpO2: [96 %-98 %] , Numeric Pain Level (Scale 1-10): 8 Weight: Weight : 58.4 kg (128 lb 12.8 oz) Body mass index is 20.79 kg/m??. Physical Exam GEN: alert, cooperative, unable to sit still, appears older than stated age HEENT: MMM, PERRL, EOMI NECK: Supple, no JVD LUNG: CTA BL, good air movement, no increased work of breathing, on room air CV: RRR, Normal S1/S2, No M/R/G ABD: soft, NT/ND; nl bowel sounds; no rebound or guarding, no organomegaly EXTRM: no edema, extremities warm, no cyanosis SKIN: skin color, temperature, turgor normal. No rashes or lesions. NEURO: A&Ox3, CN 2-12 grossly intact, mild horizontal nystagmus with left-sided gaze, moving all extremities. No tremor, aphasia, or slurred speech PSYCH: Normal memory, abnormal judgement and insight Labs I have personally reviewed Recent Labs 07/29/22 1206 WBC 6.92 RBC 3.73* HGB 13.5 HCT 39.0 MCV 105* MCH 36.2* MCHC 34.6 PLT 203 NEUTROABS 5.36 Recent Labs 07/29/22 1206 NA 140 K 3.6 CL 104 CO2 27 BUN 4* CREATININE 0.41* CALCIUM 9.4 LABALBU 4.3 Recent Labs 07/29/22 1206 TBIL 0.4 ALKPHOS 98 AST 45 ALT 33 Imaging I have independently visualized images No results found.. Assessment Tuyet Edwards is a 37 y.o. female with a PMHx significant for severe alcohol abuse with recent alcohol withdrawal, who is admitted for acute agitated delirium. Per family she had her last drink about 7days ago and has been agitated since the sedating medications from [facility] wore off yesterday. Wernicke's encephalopathy is a concern at this time but she had a normal gait on evaluation in the ED, min imal nystagmus, and is A&O x3. However, given her extensive history of heavy alcohol abuse, it should remain within the differential. She may also have an underlying psychiatric condition that she has been self-treating with alcohol. Plan Acute Agitated Delirium: - Psychiatry consult - Neurology consult - Head MRI - 1:1 sitter Alcohol Abuse/Recent Withdrawal: Now at the window for active withdrawal and delirium tremens. Given concern for possible Warnicke's will treat with IV thiamine. -IV thiamine daily for 5 days -Social work consult Opioid dependence: Unable to verify methadone dosing with [facility] today since the clinic was already closed by the time [facility] tried to reach out. -Continue methadone 70 mg daily, will need to confirm the dose over the weekend VTE Prophylaxis Seqential Compression Device Code: Full Code (The patient requested DNR/DNI but her sister and [id number] argued that the patient is not in her right mind and has a 9-yr-old daughter at home and would request full code if she was thinking clearly. This will likely need to be readdressed if the patient's mental status improves. Discharge Plan Home or self care Consults Neurology and Psychiatry Admission status Inpatient admission due to anticipated duration of hospitalization is two midnights or greater due to Agitated delirium. Louis Monique MD 07/29/2022 17:35 documented in this encounter ED Notes * Светлана Cali, RN - 07/29/2022 1643 EST PT restless and uncomfortable in room. PT continues to pace and move throughout room but is cooperative with the IV and fluids. PT given Tylenol to help with pain and extra warm blankets, heating packs and more water. * Lisbeth Balderrama - 07/29/2022 1422 EST Pt became increasingly more restless. Just grabbed her pocketbook and attempted to leave the ED. Was able to verbally escort pt back to her stretcher. Pt was agreeable to take the 2mg PO Ativan. Was asked if there was anything that she needed she declined. * Allison Bronson - 07/29/2022 1411 EST Pt very anxious. Put on hoodie and purse as if to leave the ED. * Lisbeth Balderrama - 07/29/2022 1410 EST Pt is sitting up in stretcher, pt just went to the bathroom and forgot to leave a urine sample. Education provided on staff needing this. Pt shakes her head during this conversation. Pt states green means go and that means I can go now. Pt then pointed to the exit sign. Discussed with pt the plan for her to see MD Nur from psychiatry and then a plan will be made with her. * Lisbeth Balderrama - 07/29/2022 1205 EST Pt provided with a gingerale and crackers. * Lisbeth Balderrama - 07/29/2022 1155 EST Pts mother in law came to find this RN in the hallway. She expressed that pt has been frantically looking around the house for liquor and pills. That she has not ate for several days. Reports that ptwas drinking a fifth of hard liquor daily for a long time at least ten years. Recently decided toself wean. Pt reports that she did not take her Methadone today, her family reports that she did. Pts mother in law also reports that she has been recently confused and at times speaking in a nonsensical manner. Recent three day stay at [facility] per pts family. Pts mother in law is very ailment that pt will if she does not stay here. This information was relayed to AMARILYS Wagner. * Inessa Wagner PA-C - 07/29/2022 1148 EST Emergency Department Visit Assessment and ED Course 37 yo female with recent admission to [facility] for severe alcohol w/d w/ hallucinations, discharged yesterday and here regarding ongoing behavior changes very concerning to family. on exam she has ciwa score of 10-13, she has very poor memory of recent events and does not offer clear history, is able to cooperate but is irritable with psychomotor agitation. no oculomotor abn or gait abnormalities but still at risk for wernickes per chano criteria. labs reassuring. discussed case with Jennifer Pearson and also with Dr. Abraham of Neurology. plan for head ct to r/o bleed and will work on getting her more calm to tolerate an MRI. will treatwith thiamine and ivf. Dr. Abraham recommends trying to help her sleep as she has been awake aside from when she was sedated. she does agree with medical admission for agitated delirium that started when she went into withdrawal. she does not endorse active si here, but reports her anxiety and agitation symptoms were intolerable to her at home, making her want to . she denies any plan or intent. I do worry that her disorganization does make her a risk to herself. admitted to medicine with planfor psychiatry consult. care transferred to amy sorto at change of shift. Final diagnoses: Delirium Disposition: Admitted Chief complaint: altered mental status HPI Tuyet Edwards is a 37 y.o. female with a history of AUD, OUD on methadone who presents to the ED for evaluation of behavior changes noted by friends and family. she offers history that about a month ago she tried to self taper from alcohol too quickly and was hallucinating for a few days, then resumed drinking about a pint, states she wants help tapering from this. she had been drinking about a 1/2 gallon of liquor daily for about a decade. friends with her offer the history that she was admitted to [facility] for 3 days until yesterday for alcohol withdrawal and are worried about her behavior. they note she is not eating or sleeping, does seem to be having hallucinations, and the patient does agree that maybe she is having hallucinations, she does feel depressed, and endorses intermitent suicidality, but mostly anxiety and difficulty tolerating this. she is irritable with poor memory and seems disorgnized, not remembering if she tookmedication etc. they feel strongly that she is not safe to return home. she reports taking methadone today but not her full dose. family reports she did take her full 70 mg. no known alcohol use. her mother reportedly has bipolar d/o and they wonder if she is having symptoms of shawna. spoke w/ nursing telemarketing supervisor at [facility] regarding her admission: admitted 07/25-07/28 for alcohol w/d w/ hallucinations. had tried to stop or decrease alcohol use 3 days prior. . ciwa score initially high 20's-low 30's. treated with phenobarbtol and transitioned tooral ativan, resolution of hallucinations and other w/d symptoms reported. slept most of her time there, was reportedly awake for several days prior to the admission. her methadone was restarted on 07/27. she did not have any neuro imaging there. thiamine was given twice as part of banana bag. after 2 mg po ativan, patient continued to be agitated, but was more straightforward with her answers. she denies active si, more relating anxiety and irritability difficult to tolerate. she does report ongoing tactile hallucinations of feeling she is physically being pulled, some itching and crawling sensations. no further auditory hallucinations. History was provided by: patient, family, records from [facility] Patient's pertinent PMH, FH, SH were reviewed and edited as necessary. ROS A 10-point review of systems was performed. The patient answered negative to all questions with theexceptions of those explicitly detailed as positives in the HPI. Pertinent negatives are also explicitly stated. Physical Exam BP (!) 144/99 (BP Cuff Location: Right arm, BP Patient Position: Sitting) Pulse 83 Temp 36.2 ??C (97.1 ??F) (Oral) Resp 22 Ht 167.6 cm (65.98) Wt 58.1 kg (128 lb) SpO2 99% BMI 20.67 kg/m?? A medical screening exam was performed. Physical Exam Constitutional: Well appearing in no acute distress HEENT: Normocephalic, atraumatic, pupils equal and reactive to light, no scleral icterus. Mouth: Moist oral mucosa without apparent lesions Neck: Full ROM, no cervical LAD Heart: RRR without MRG. Symmetric pulses Lungs: Clear to auscultation. No respiratory distress. Abdomen: Soft, nontender, nondistended Skin: No overt rashes on exposed skin Extremities: Moving spontaneously, warm and well perfused. Neuro: Awake, alert, oriented. Speech is fluent. Movements show normal coordination, no tremor. poor memory as she does not accurately relate recent history. gait is normal. Psych: withdrawn affect, appropriate speech, poor eye contact. vaguely endorses si, but does not say if plan or intent. vaguely endorses possible hallucinations but no e/o responding to these. Imaging obtained was reviewed and independently interpreted. Laboratory data was reviewed and independently interpreted. Procedures Procedures * Lisbeth Balderrama - 07/29/2022 1128 EST Pt is meeting with AMARILYS Wagner who is at bedside. Pts mother in law and sister in law are also at bedside. documented in this encounter Miscellaneous Notes * Plan of Care - Maksim Downing RN - 07/30/2022 1505 EST Problem: Daily Care Plan Goals Goal: Care Plan Documentation Flowsheets (Taken 07/30/2022 1316) Area of Focus: Pain/ Comfort Goal This Shift: pt will be comfortable Problem: High Fall Risk: Goal: Patient will Remain Free of Falls due to Dizziness/Vertigo Outcome: Completed Problem: High Fall Risk: Goal: Patient Will Remain Free from Fall-Related Injury Outcome: Completed Pt AxOx2-3, flat affect and withdrawn. Makes needs known. Independent in room and was compliant with care provided. Head to toe assessment completed. Pt stated 8-10 pain but declined pain meds. Report was given to Leonard VILLAR. IV was removed before transfer. Pt was transferred to [facility] at 1500. Piedad walked pt to unit. Pt expressed slight agitation with transfer but safely walked to unit with staff. * Plan of Care - Marguerite Pena RN - 07/30/2022 0108 EST Patient very busy. Medicated with ativan prior to mri received toradol iv and melatonin for bedtime. Patient has sitter. Patient was restless no sleep . Patient noted a little off balance. PIV in left forearm. Patient voiding well in the bathroom. Patient makes needs noted rings appropriately safety maintained call jones in reach Problem: NEUROLOGICAL FUNCTION Goal: Neurological Status is Stable or Improving Outcome: Ongoing Problem: SAFETY Goal: Free From Accidental Physical Injury Outcome: Met This Shift documented in this encounter Plan of Treatment Not on file documented as of this encounter Procedures Procedure Name Priority Date/Time Associated Diagnosis Comments THYROID CASCADE Add-On 07/30/2022 6:50 EST COMPLETE BLOOD COUNT Routine 07/30/2022 6:50 EST BASIC METABOLIC PANEL (BMP) Routine 07/30/2022 6:50 EST DRUG SCREEN 12, URINE STAT 07/29/2022 21:26 EST MR HEAD WO CONTRAST STAT 07/29/2022 2 0:[address] HEAD WO CONTRAST STAT 07/29/2022 1 8:35 EST [facility]OVID-[facility] (TESTING ONLY) Today 07/29/2022 15:52 EST COVID-19 TESTING Routine 07/29/2022 15:5 2 EST COMPLETE BLOOD COUNT AND DIFFERENTIAL STAT 07/29/2022 12:06 EST C REACTIVE PROTEIN STAT 07/29/2022 12 :06 EST QUANT BETA HCG, STAT Add-on 07/29/2022 12:06 EST AMMONIA STAT 07/29/2022 12:06 EST ETHANOL, BLOOD STAT 07/29/2022 12:06 EST COMPREHENSIVE METABOLIC PANEL (CMP) STAT 07/29/2022 12:06 EST documented in this encounter Results * THYROID CASCADE (07/30/2022 6:50 EST) TSH 0.70 0.47 - 4.68 mIU/L 07/30/2022 12:35 EST [facility] Blood VENOUS BLOOD / Unknown Venipuncture / Unknown 07/30/2022 6:50 EST 07/30/2022 7:06 EST [facility] - 07/30/2022 12:35 EST NOTE: The results of this assay can be falsely lowered due to the consumption of Biotin. us Darin Shane MD CHEMISTRY & BLOOD GAS ORDERAB LES Final Result [facility] [address] [place] [address] * (ABNORMAL) COMPLETE BLOOD COUNT (07/30/2022 6:50 EST) Pathologist [facility] WBC 5.03 4.00 - 12.40 K/cmm 07/30/2022 7:26 [facility] RBC 3.85(L) 3.86 - 5.04 M/cmm 07/30/2022 7:26 [facility] Hemoglobin 13.8 11.6 - 15.2 gm/dL 07/30/2022 7:26 [facility] HCT 39.4 34.9 - 44.4 % 07/30/2022 7:26 [facility] MCV 102(H) 81 - 98 fl 07/30/2022 7:26 [facility] MCH 35.8(H) 26.7 - 33.3 pg 07/30/2022 7:26 [facility] [facility] MCHC 35.0 32.1 - 35.9 gm/dL 07/30/2022 7:26 [facility] RDW-CV 11.6 <14.7 % 07/30/2022 7:26 [facility] RDW-SD 44.0 <50.4 fl 07/30/2022 7:26 [facility] PLT 170 141 - 377 K/cmm 07/30/2022 7:26 [facility] MPV 11.3 9.5 - 12.7 fl 07/30/2022 7:26 [facility] Blood VENOUS BLOOD / Unknown Venipuncture / Unknown 07/30/2022 6:50 EST 07/30/2022 7:06 EST us Louis Monique MD HEMATOLOGY & PF4 ORDERABLES F inal Result Performing Organization Address City/[facility]/ZIP Co de Phone Number [facility] [address] [place] [address] * (ABNORMAL) BASIC METABOLIC PANEL (BMP) (07/30/2022 6:50 EST) Sodium 138 136 - 145 mmol/L 07/30/2022 7:42 [facility] Potassium 3.6 3.5 - 5.0 mmol/L 07/30/2022 7:42 [facility] Chloride 105 96 - 110 mmol/L 07/30/2022 7:42 [facility] CO2 Total 24 22 - 32 mmol/L 07/30/2022 7:42 [facility] Anion Gap 9 5 - 14 07/30/2022 7:42 [facility] Glucose 115(H) 70 - 100 mg/dL 07/30/2022 7:42 [facility] Calcium 9.3 8.5 - 10.5 mg/dL 07/30/2022 7:42 [facility] BUN 4(L) 10 - 26 mg/dL 07/30/2022 7:42 [facility] Creatinine 0.38(L) 0.52 - 1.04 mg/dL 07/30/2022 7:42 [facility] eGFR 131 >60 mL/min/1.73 m2 07/30/2022 7:42 [facility] Blood VENOUS BLOOD / Unknown Venipuncture / Unknown 07/30/2022 6:50 EST 07/30/2022 7:06 EST us Louis Monique MD CHEMISTRY & BLOOD GAS ORDERAB LES Final Result Performing Organization Address City/[facility]/ZIP Co de Phone Number [facility] [address] [place] [address] * (ABNORMAL) DRUG SCREEN 12, URINE (07/29/2022 21:26 EST) Pathologist [facility] Amphetamine Screen, Ur Negative Negative, Negative Screen 07/29/2022 22:11 [facility] Barbiturates Screen, Ur Presumptive Positive, interpret with caution.(A) Negative, Negative Screen 07/29/2022 22:11 [facility] Benzodiazepine Screen, Ur Presumptive Positive, interpret with caution.(A) Negative, Negative Screen 07/29/2022 22:11 [facility] Cocaine Metabolites Screen, Ur Negative Negative, Negative Screen 07/29/2022 22:11 [facility] Methamphetamine Screen, Ur Negative Negative, Negative Screen 07/29/2022 22:11 [facility] Methadone Screen, Ur Presumptive Positive, interpret with caution.(A) Negative, Negative Screen 07/29/2022 22:11 [facility] Opiates Screen, Ur Negative Negative, Negative Screen 07/29/2022 22:11 [facility] Oxycodone Screen, Ur Negative Negative, Negative Screen 07/29/2022 22:11 [facility] Phencyclidine Screen, Ur Negative Negative Screen, Negative 07/29/2022 22:11 [facility] Cannabinoids Screen, Ur Negative Negative, Negative Screen 07/29/2022 22:11 [facility] Propoxyphene Screen, Ur Negative Negative, Negative Screen 07/29/2022 22:11 [facility] Tricyclics Screen, Ur Negative Negative Screen, Negative 07/29/2022 22:11 [facility] Urine URINE / Unknown Urine Collect / Unknown 07/29/2022 21:26 EST 07/29/2022 21:29 [facility] - 07/29/2022 22:11 [facility] Drug Class Cutoff Concentrations: Amphetamines - 500 [...] retained in the laboratory for 7 days. Inessa Wagner PA-C GEN LAB UNIT COLLECT OR DERABLES Final Result [facility] [address] [place] [address] * MR HEAD WO CONTRAST (07/29/2022 20:49 EST) Anatomical Region Laterality Modality Head Magnetic Resonan ce 07/29/2022 21:1 8 EST Impressions 07/29/2022 21:18 EST No acute intracranial findings. ??No evidence of acute infarct. THIS DOCUMENT HAS BEEN ELECTRONICALLY SIGNED BY JS TINOCO MD FOR ANY QUESTIONS OR CONCERNS REGARDING THIS REPORT PLEASE CALL [facility] AT [phone] Narrative 07/29/2022 21:18 EST PROCEDURE INFORMATION: Exam: MR Head Without Contrast Exam date and time: 07/29/2022 8:44 PM Age: 37 years old Clinical indication: Altered mental status TECHNIQUE: Imaging protocol: Magnetic resonance imaging of the head without contrast. COMPARISON: CT HEAD WO CONTRAST 07/29/2022 6:24 PM FINDINGS: Brain: On diffusion weighted images, no abnormal areas of increased signal intensity to suggest acute or subacute infarct. Possible prominent right perivascular space / Virschow-Leonard space (image 13, series 6). No acute intracranial hemorrhage. No mass effect or midline shift. No acute extra-axial fluid collection. Cerebral ventricles: No ventriculomegaly. Bones/joints: Unremarkable. Paranasal sinuses: No significant disease of the paranasal sinuses. Partial maxillary, ethmoid, and sphenoid sinusitis. Mastoid air cells: Normal as visualized. No mastoid effusion. Orbital cavities: Unremarkable. Soft tissues: Unremarkable. Procedure Note Js Tinoco MD - 07/29/2022 PROCEDURE INFORMATION: Exam: MR Head Without Contrast Exam date and time: 07/29/2022 8:44 PM Age: 37 years old Clinical indication: Altered mental status TECHNIQUE: Imaging protocol: Magnetic resonance imaging of the head without contrast. COMPARISON: CT HEAD WO CONTRAST 07/29/2022 6:24 PM FINDINGS: Brain: On diffusion weighted images, no abnormal areas of increased signal intensity to suggest acute or subacute infarct. Possible prominent right perivascular space / Virschow-Leonard space (image 13, series 6). No acute intracranial hemorrhage. No mass effect or midline shift. No acute extra-axial fluid collection. Cerebral ventricles: No ventriculomegaly. Bones/joints: Unremarkable. Paranasal sinuses: No significant disease of the paranasal sinuses. Partial maxillary, ethmoid, and sphenoid sinusitis. Mastoid air cells: Normal as visualized. No mastoid effusion. Orbital cavities: Unremarkable. Soft tissues: Unremarkable. IMPRESSION No acute intracranial findings. No evidence of acute infarct. THIS DOCUMENT HAS BEEN ELECTRONICALLY SIGNED BY JS TINOCO MD FOR ANY QUESTIONS OR CONCERNS REGARDING THIS REPORT PLEASE CALL [facility] [phone] Inessa Wagner PA-C IM MRI ORDERABLES Bhakti l Result * CT HEAD WO CONTRAST (07/29/2022 18:35 EST) Anatomical Region Laterality Modality Head Computed Tomogra phy 07/29/2022 19:0 4 EST Impressions 07/29/2022 19:04 EST No acute intracranial findings. THIS DOCUMENT HAS BEEN ELECTRONICALLY SIGNED BY JS TINOCO MD FOR ANY QUESTIONS OR CONCERNS REGARDING THIS REPORT PLEASE CALL [facility] AT [phone] Narrative 07/29/2022 19:04 EST PROCEDURE INFORMATION: Exam: CT Head Without Contrast Exam date and time: 07/29/2022 6:24 PM Age: 37 years old Clinical indication: Altered mental status TECHNIQUE: Imaging protocol: Computed tomography of the head without contrast. Radiation optimization: All CT scans at this facility use at least one of these dose optimization techniques: automated exposure control; mA and/or kV adjustment per patient size (includes targeted exams where dose is matched to clinical indication); or iterative reconstruction. COMPARISON: No relevant prior studies available. FINDINGS: Brain: No hemorrhage. Unremarkable white matter. No mass effect. Cerebral ventricles: No ventriculomegaly. Paranasal sinuses: ??Partial ethmoid, sphenoid, and maxillary sinusitis. Mastoid air cells: Visualized mastoid air cells are well aerated. Bones/joints: Unremarkable. No acute fracture. Soft tissues: Unremarkable. Procedure Note Js Tinoco MD - 07/29/2022 PROCEDURE INFORMATION: Exam: CT Head Without Contrast Exam date and time: 07/29/2022 6:24 PM Age: 37 years old Clinical indication: Altered mental status TECHNIQUE: Imaging protocol: Computed tomography of the head without contrast. Radiation optimization: All CT scans at this facility use at least one of these dose optimization techniques: automated exposure control; mA and/or kV adjustment per patient size (includes targeted exams where dose is matched to clinical indication); or iterative reconstruction. COMPARISON: No relevant prior studies available. FINDINGS: Brain: No hemorrhage. Unremarkable white matter. No mass effect. Cerebral ventricles: No ventriculomegaly. Paranasal sinuses: Partial ethmoid, sphenoid, and maxillary sinusitis. Mastoid air cells: Visualized mastoid air cells are well aerated. Bones/joints: Unremarkable. No acute fracture. Soft tissues: Unremarkable. IMPRESSION No acute intracranial findings. THIS DOCUMENT HAS BEEN ELECTRONICALLY SIGNED BY JS TINOCO MD FOR ANY QUESTIONS OR CONCERNS REGARDING THIS REPORT PLEASE CALL [facility] [phone] Inessa Wagner PA-C IMG CT ORDERABLES Final Result * COVID-19 [facility] (TESTING ONLY) (07/29/2022 15:52 EST) Swab ENTIRE NASOPHARYNX / Unknown Swab / Unknown 07/29/2022 15:52 EST 07/29/2022 15:53 EST Inessa Wagner PA-C MICROBIOLOGY - GENERAL ORDERABLES Final Result [facility] [address] [place] [address] * COVID-19 TESTING (07/29/2022 15:52 EST) COVID-19 rt-PCR Result Negative Negative 07/29/2022 16:39 EST [facility] Performing Lab Cepheid GeneXpert [facility] 07/29/2022 16:39 EST [facility] Swab ENTIRE NASOPHARYNX / Unknown Swab / Unknown 07/29/2022 15:52 EST 07/29/2022 15:53 EST Inessa Mike Wagner PA-C MICROBIOLOGY - GENERAL ORDERABLES Final Result Performing Organization Address [facility] Co de Phone Number [facility] [address] [place] [address] * QUANT BETA HCG, (07/29/2022 12:06 EST) Beta HCG Quant, <5 <5 mIU/mL 07/29/2022 14:14 EST [facility] Comment: NOTE: : Negative: Less than 5mIU/mL Indeterminant: Between 5 and 25 mIU/mL, recommend repeat testing in 48 hours Positive: Greater than 25 mIU/mL The results of this assay can be falsely lowered due to the consumption of Biotin. Blood VENOUS BLOOD / Unknown Venipuncture / Unknown 07/29/2022 12:06 EST 07/29/2022 12:14 EST Inessa Wagner PA-C CHEMISTRY & BLOOD GAS O RDERABLES Final Result Performing Organization Address [facility] de Phone Number [facility] [address] [place] [address] * AMMONIA (07/29/2022 12:06 EST) Ammonia 30 <34 umol/L 07/29/2022 12:36 EST [facility] Blood VENOUS BLOOD / Unknown Venipuncture / Unknown 07/29/2022 12:06 EST 07/29/2022 12:14 EST Inessa Mike Hughesale PA-C CHEMISTRY & BLOOD GAS O RDERABLES Final Result Performing Organization Address [facility]/ZIP Co de Phone Number [facility] [address] [place] [address] * ETHANOL, BLOOD (07/29/2022 12:06 EST) Ethanol, Blood <10 <10 mg/dL mg/dL 07/29/2022 12:32 [facility] Comment:Healthy, non-drinkin g individuals will have an ethanol concentration of <10 mg/dL. Blood VENOUS BLOOD / Unknown Venipuncture / Unknown 07/29/2022 12:06 EST 07/29/2022 12:14 EST Narrative [facility] - 07/29/2022 12:32 [facility] legal blood alcohol limit = 80 mg/dl (0.08%) Inessa Wagner PA-C CHEMISTRY & BLOOD GAS O RDERABLES Final Result Performing Organization Address [facility]/ZIP Co de Phone Number [facility] [address] [place] [address] * (ABNORMAL) C REACTIVE PROTEIN (07/29/2022 12:06 EST) Pathologist [facility] C-Reactive Protein 15.8(H) <10.0 mg/L 07/29/2022 12:32 [facility] Blood VENOUS BLOOD / Unknown Venipuncture / Unknown 07/29/2022 12:06 EST 07/29/2022 12:14 EST Inessa Wagner PA-C CHEMISTRY & BLOOD GAS O RDERABLES Final Result Performing Organization Address City/[facility]/ZIP Co de Phone Number [facility] [address] [place] [address] * (ABNORMAL) COMPREHENSIVE METABOLIC PANEL (CMP) (07/29/2022 12:06 EST) Pathologist [facility] Sodium 140 136 - 145 mmol/L 07/29/2022 12:32 [facility] Potassium 3.6 3.5 - 5.0 mmol/L 07/29/2022 12:32 [facility] Chloride 104 96 - 110 mmol/L 07/29/2022 12:32 [facility] CO2 Total 27 22 - 32 mmol/L 07/29/2022 12:32 [facility] Glucose 119(H) 70 - 100 mg/dL 07/29/2022 12:32 [facility] BUN 4(L) 10 - 26 mg/dL 07/29/2022 12:32 [facility] Creatinine 0.41(L) 0.52 - 1.04 mg/dL 07/29/2022 12:32 [facility] eGFR 129 >60 mL/min/1.7 3m2 07/29/2022 12:32 [facility] Total Protein 7.4 6.3 - 8.2 g/dL 07/29/2022 12:32 [facility] Albumin 4.3 3.4 - 4.9 g/dL 07/29/2022 12:32 [facility] Alkaline Phosphatase 98 38 - 126 U/L 07/29/2022 12:32 [facility] AST 45 15 - 46 U/L 07/29/2022 12:32 [facility] ALT 33 <35 U/L 07/29/2022 12:32 [facility] Bilirubin, Total 0.4 <1.4 mg/dL 07/29/20 12:32 [facility] Calcium 9.4 8.5 - 10.5 mg/dL 07/29/2022 12:32 [facility] Albumin/Globulin Ratio 1.4 1.0 - 2.5 07/29/2022 12:32 [facility] Anion Gap 9 5 - 14 07/29/2022 12:32 [facility] Blood VENOUS BLOOD / Unknown Venipuncture / Unknown 07/29/2022 12:06 EST 07/29/2022 12:14 EST us Inessa Wagner PA-C CHEMISTRY & BLOOD GAS O RDERABLES Final Result [facility] [address] [place] [address] * (ABNORMAL) COMPLETE BLOOD COUNT AND DIFFERENTIAL (07/29/2022 12:06 EST) [facility] WBC 6.92 4.00 - 12.40 K/cmm 07/29/2022 12:17 [facility] RBC 3.73(L) 3.86 - 5.04 M/cmm 07/29/2022 12:17 [facility] Hemoglobin 13.5 11.6 - 15.2 gm/dL 07/29/2022 12:17 [facility] HCT 39.0 34.9 - 44.4 % 07/29/2022 12:17 [facility] MCV 105(H) 81 - 98 fl 07/29/2022 12:17 [facility] MCH 36.2(H) 26.7 - 33.3 pg 07/29/2022 12:17 [facility] MCHC 34.6 32.1 - 35.9 gm/dL 07/29/2022 12:17 [facility] RDW-CV 11.6 <14.7 % 07/29/2022 12:17 [facility] RDW-SD 44.5 <50.4 fl 07/29/2022 12:17 [facility] PLT 203 141 - 377 K/cmm 07/29/2022 12:17 [facility] MPV 10.5 9.5 - 12.7 fl 07/29/2022 12:17 [facility] % Neutrophils 77.4 % 07/29/2022 12:17 [facility] % Lymphocytes 12.6 % 07/29/2022 12:17 [facility] % Monocytes 9.0 % 07/29/2022 12:17 [facility] % Eosinophils 0.4 % 07/29/2022 12:17 [facility] % Basophils 0.3 % 07/29/2022 12:17 [facility] % Immature Grans 0.3 % 07/29/20 12:17 [facility] Absolute Neutrophils 5.36 2.20 - 8.85 K/cmm 07/29/2022 12:17 [facility] Absolute Lymphocytes 0.87(L) 1.09 - 3.30 K/cmm 07/29/2022 12:17 [facility] Absolute Monocytes 0.62 0.10 - 0.80 K/cmm 07/29/2022 12:17 [facility] Absolute Eosinophils 0.03 0.03 - 0.61 K/cmm 07/29/2022 12:17 [facility] ABS Basophils 0.02 0.01 - 0.11 K/cmm 07/29/2022 12:17 [facility] Absolute Immature Grans 0.02 0.00 - 0.06 K/cmm 07/29/2022 12:17 [facility] Type of Differential: Auto 07/29/2022 12:17 [facility] Blood VENOUS BLOOD / Unknown Venipuncture / Unknown 07/29/2022 12:06 EST 07/29/2022 12:14 EST Inessa Wagner PA-C PACKAGES & DNA PROBE OR DERABLES Final Result [facility] [address] [place] [address] documented in this encounter Visit Diagnoses Diagnosis Delirium- Primary Other alteration of consciousness Delirium Other alteration of consciousness Delirium due to another medical condition Delirium due to conditions classified elsewhere Alcohol use disorder, severe, dependence ([facility]) Depression Depressive disorder, not elsewhere classified documented in this encounter Admitting Diagnoses Diagnosis Delirium due to another medical condition Delirium due to conditions classified elsewhere documented in this encounter Administered Medications Inactive Administered Medications - up to 3 most recent administrations Medication Order MAR Action Action Date Dose Rate Site acetaminophen (TYLENOL) tablet 650 mg 650 mg, oral, EVERY 6 HOURS PRN, Starting on Mon07/29/22 at 1918, Until 07/30/22 at 1511, Pain, Mild Pain 1-3, Moderate Pain 4-6, Severe Pain 7-10, Routine acetaminophen (TYLENOL) tablet 975 mg 975 mg, oral, NOW X1, 1 dose, On Mon07/29/22 at 1645, Routine Given 07/29/2022 16:37 EST 975 mg diazePAM (VALIUM) syringe 10 mg 10 mg, intravenous, NOW X1, 1 dose, On Mon07/29/22 at 1630, STAT Given 07/29/2022 16:16 EST 10 mg ketOROLAC (TORADOL) injection 15 mg 15 mg, intravenous, EVERY 6 HOURS PRN, Starting on Mon07/29/22 at 2020, Until Mon07/30/22 at 1511, Moderate Pain 4-6, Severe Pain 7-10, Pain, Routine Given 07/29/2022 21:12 EST 15 mg lactated ringers BOLUS 1,000 mL 1,000 mL, intravenous, NOW X1, 1 dose, On Mon07/29/22 at 1545, STAT Given 07/29/2022 15:51 EST 1,000 mL LORazepam (ATIVAN) tablet 2 mg 2 mg, sublingual, NOW X1, 1 dose, On Mon07/29/22 at 1445, STAT Given 07/29/2022 14:20 EST 2 mg LORazepam (ATIVAN) tablet 2 mg 2 mg, oral, ONCE PRN, 1 dose, Starting on Mon07/29/22 at 2021, Until Mon07/29/22 at 2035, Anxiety, Give prior to MRI, Routine Given 07/29/2022 20:35 EST 2 mg melatonin tablet 3 mg 3 mg, oral, AT BEDTIME, First dose on Mon07/29/22 at 2100, Until Discontinued, Routine Given 07/29/2022 21:12 EST 3 mg methadone (DOLOPHINE) concentrated solution 70 mg 70 mg, oral, DAILY, First dose (after last reorder) on 07/30/22 at 0900, Until Discontinued, Routine Given 07/30/2022 9:59 EST 70 mg nicotine (NICODERM CQ) 14 mg/24 hr patch 1 Patch 1 Patch, transdermal, DAILY, First dose (after last modification) on 07/30/22 at 1215, Until Discontinued, Routine Patch Applied 07/30/2022 13:10 EST 1 Patch Right Arm nicotine (NICOTROL) 10 mg inhaler kit 1 Inhaler 1 Inhaler, inhalation, EVERY 2 HOURS PRN, Starting on Mon07/29/22 at 1802, Until Mon07/30/22 at 1511, Smoking Cessation, Routine Given 07/29/2022 18:09 EST 1 Inhaler thiamine (VITAMIN B-1) 500 mg in sodium chloride (NS) 0.9 % 100 mL IVPB 500 mg, intravenous, Administer over 15 Minutes, NOW X1, 1 dose, On Mon07/29/22 at 1530, STAT Given 07/29/2022 15:40 EST 500 mg thiamine (VITAMIN B-1) injection 100 mg 100 mg, intramuscular, DAILY, 5 doses, First dose on Mon07/30/22 at 0900, Last dose on Mon08/03/22 at 0900, Routine Given 07/30/2022 9:58 EST 100 mg Right Gluteus Medius/Ventroglut eal documented in this encounter Discontinued Medications Medication Sig Discontinue Reason Start Date End Da te metroNIDAZOLE (METROCREAM) 0.75 % cream Apply to face once daily after cleansing. Discontinued by another clinician 10/02/2020 07/30/2022 triamcinolone (KENALOG) 0.1 % cream SEE NOTES 10/02/2020 07/30/2022 UNABLE TO FIND Take 1 tablet by mouth daily. Med Name: Oral control - unsure of name Discontinued by another clinician 07/30/2022 documented as of this encounter Active and Recently Administered Medications Times are shown in EST. Scheduled Medication Order 07/28/2022 07/29/2022 07/30/2022 acetaminophen (TYLENOL) tablet 975 mg (COMPLETED) 975 mg, oral, NOW X1, 1 dose, On Mon07/29/22 at 1645, Routine 1637 (Given - Provider: Светлана Cali, JIAN) diazePAM (VALIUM) syringe 10 mg (COMPLETED) 10 mg, intravenous, NOW X1, 1 dose, On Mon07/29/22 at 1630, STAT 1616 (Given - Provider: Bart Myers, JIAN) lactated ringers BOLUS 1,000 mL (COMPLETED) 1,000 mL, intravenous, NOW X1, 1 dose, On Mon07/29/22 at 1545, STAT 1551 (Given - Provider: Светлана Cali, JIAN) LORazepam (ATIVAN) tablet 2 mg (COMPLETED) 2 mg, sublingual, NOW X1, 1 dose, On Mon07/29/22 at 1445, STAT 1420 (Given - Provider: Lisbeth Balderrama) melatonin tablet 3 mg 3 mg, oral, AT BEDTIME, First dose on Mon07/29/22 at 2100, Until Discontinued, Routine 2111 (Given - Provider: Marguerite Shuart, RN) methadone (DOLOPHINE) concentrated solution 70 mg 70 mg, oral, DAILY, First dose (after last reorder) on Mon07/30/22 at 0900, Until Discontinued, Routine 0959 (Given - Provid er: Maksim Downing RN) nicotine (NICODERM CQ) 14 mg/24 hr patch 1 Patch 1 Patch, transdermal, DAILY, First dose (after last modification) on Mon07/30/22 at 1215, Until Discontinued, Routine 1310 (Patch Applied - Provider: Maksim Downing RN)1505 (Due: Patch Removed - Provider: Martín Job User Admin - Comment: Time automatically adjusted from order being discontinued) thiamine (VITAMIN B-1) 500 mg in sodium chloride (NS) 0.9 % 100 mL IVPB (COMPLETED) 500 mg, intravenous, Administer over 15 Minutes, NOW X1, 1 dose, On Mon07/29/22 at 1530, STAT 1540 (Given - Provider: Светлана Cali, JIAN)1555 (Due: Completed - Provider: Светлана Clai RN) thiamine (VITAMIN B-1) injection 100 mg 100 mg, intramuscular, DAILY, 5 doses, First dose on Mon07/30/22 at 0900, Last dose on Mon08/03/22 at 0900, Routine 0958 (Given - Provid er: Maksim Downing RN) PRN Medication Order 07/28/2022 07/29/2022 07/30/2022 acetaminophen (TYLENOL) tablet 650 mg 650 mg, oral, EVERY 6 HOURS PRN, Starting on Mon07/29/22 at 1918, Until Mon07/30/22 at 1511, Pain, Mild Pain 1-3, Moderate Pain 4-6, Severe Pain 7-10, Routine ketOROLAC (TORADOL) injection 15 mg 15 mg, intravenous, EVERY 6 HOURS PRN, Starting on Mon07/29/22 at 2020, Until 07/30/22 at 1511, Moderate Pain 4-6, Severe Pain 7-10, Pain, Routine 2112 (Given - Provider: Marguerite Pena, RN) lidocaine (PF) 10 mg/mL (1 %) injection 2 mg 2 mg, intradermal, PRN, 4 doses, Starting on Mon07/29/22 at 1843, Until Mon07/30/22 at 1511, Other, peripheral intravenous catheter placement, Routine LORazepam (ATIVAN) tablet 2 mg (COMPLETED) 2 mg, oral, ONCE PRN, 1 dose, Starting on Mon07/29/22 at 2021, Until Mon07/29/22 at 2035, Anxiety, Give prior to MRI, Routine 2034 (Given - Provider: Marguerite Pena, RN) nicotine (NICOTROL) 10 mg inhaler kit 1 Inhaler 1 Inhaler, inhalation, EVERY 2 HOURS PRN, Starting on Mon07/29/22 at 1802, Until 07/30/22 at 1511, Smoking Cessation, Routine 1809 (Given - Provider: Светлана Cali, JIAN) polyethylene glycol 3350 (MIRALAX) packet 17 g 17 g, oral, DAILY PRN, Starting on Mon07/29/22 at 1843, Until 07/30/22 at 1511, Constipation, Routine documented in this encounter Orders Medications Ordered That Phan ht Not Have Been Administered Count Last Ordered Date First Ordered Date nicotine (NICODERM CQ) 14 mg /24 hr patch 1 Patch 1 07/30/2022 acetaminophen (TYLENOL) tablet 650 mg 1 07/2022 lidocaine (PF) 10 mg/mL (1 % ) injection 2 mg 1 07/29/2022 methadone (DOLOPHINE) oral solution 70 mg 1 07/29/2022 olanzapine zydis (ZYPREXA) d isintegrating tablet 10 mg 1 07/29/2022 polyethylene glycol 3350 (AL RALAX) packet 17 g 1 07/29/2022 thiamine (VITAMIN B-1) 500 m g in sodium chloride (NS) 0.9 % 50 mL IVPB 1 07/29/2022 Diet Count Last Ordered Date First Orde red Date DISCHARGE DIET 1 07/30/2022 Nursing Count Last Ordered Date First Orde red Date ACTIVITY INSTRUCTIONS 1 07/30/2022 BATHING INSTRUCTIONS 1 07/30/2022 DRIVING INSTRUCTIONS 1 07/30/2022 CALL HOSPITALIST FOR ADM/REF [facility] TO [facility] NURSE 1 07/29/2022 CALL PHYSICIAN SPECIALTY CONSULT 2 07/29/20 Admission Count Last Ordered Date First Orde red Date ADMIT TO INPATIENT 1 07/29/2022 Transfer Count Last Ordered Date First Orde red Date ED BED REQUEST 1 07/29/2022 Discharge Count Last Ordered Date First Orde red Date DISCHARGE PATIENT 1 07/30/2022 Legal Count Last Ordered Date First Orde red Date MISCELLANEOUS DISCHARGE INSTRUCTIONS 2 07/19 documented in this encounter Care Teams Coating Mixer Supervisor Relationship Specialty Start Date End Date None, Provider PCP - General 07/29/22 08/23/22 documented as of this encounter
--- OUTSIDE RECORDS SUMMARY | 2024-09-30 14:24 | XMS_ITS | Encounter Summary ---
Author Organization [facility] Address [address] [place] [address] Care Team Providers Care Dentures Lab Technician Name Role Phone Unavailable Primary Care Provider Unavailabl e Encounter Details Date Type Department Care Team (Late st Contact Info) Description 08/29/2012 Results Only [facility] [phone] Ruby Ellis, [facility] [address] [place] [address] Social History Tobacco Use Types Packs/Day Years [...] Diagnosis Comments PAP TEST- RESULT ONLY Routine 08/29/2012 0:00 EST documented in this encounter Results * PAP TEST- RESULT ONLY (08/29/2012 0:00 EST) Pathology Report: CYTOPATHOLOGY REPORT Reports generated via electronic interface contain original data; however they are lacking the format of the original report. Caution should be taken when reading/interpreti ng unformatted reports. Name: ? TUYET VALVERDE ? Accession #: ? [id number] ? : ? 1985 (Age: 27) ??F ?Collect Date: ? 08/29/2012 ? Location: ? [facility] ? Receive Date: ? 08/30/2012 ? Provider: RUBY ELLIS CNM Copy to: ? Final Report SPECIMEN ADEQUACY ? Satisfactory for Evaluation - transformation zone component present GENERAL CATEGORIZATION ? Negative for Intraepithelial Lesion or Malignancy ?? Last Menstrual Period: 06/25/12 Menstrual/Pregnanc y Status: ?? Specimen/Source: ??Pap Test, Cervix/Endocervix, ThinPrep Imaging System with manual evaluation Document reviewed and electronically signed by: ? Lynda Ramires, [place](ASCP) ? Report ??Date: 09/06/2012 08:08 HPV with Pap Test ? Date Ordered: ? 09/06/2012 ? Status: ?? Signed Out ?Date Complete: ? 09/10/2012 ? By: ??System Interface ? Date Reported: ? 09/10/2012 ? Interpretation RESULT: Negative for HPV. No E6 or E7 mRNA is detected from HPV types 16,18,31,33,35, 39,45,51,52,56,58, 59,66, and 68 by pot maker mediated amplification. Comments Document reviewed and electronically signed by: ? System Interface ? Report date: 09/10/2012 By the signature above, the attending physician certifies that he/she has personally conducted a gross and/or microscopic examination of the described specimens and rendered or confirmed the above diagnosis. End of Report [facility] 08/29/2012 08/30/2012 us Ruby Ellis CNM PATHOLOGY ORDERABLES Bhakti garcia Result [facility] [address] [place] [address] documented in this encounter Visit Diagnoses Not on filedocumented in this encounter
--- OUTSIDE RECORDS SUMMARY | 2024-09-30 14:24 | XMS_ITS | Encounter Summary ---
Author Organization [facility] Address [address] [place] [address] Care Team Providers Care Husbandry Technician Name Role Phone Govind Chelseakinjal Claudio APRN Primary Care Provider + Reason for Visit * Reason Comments Follow-up Rash spots on face Encounter Details Date Type Department Care Team (Late st Contact Info) Description 01/23/2019 13:00 EDT Office Visit [facility] Dermatology 3rd Floor [address] [id number] Larissa Orellana PA-C [address] [place] [address] Rosacea (Primary Dx); Other eczema Social History Tobacco Use Types Packs/Day Years [...] Refills Last Filled Start Date End Date metroNIDAZOLE (METROCREAM) 0.75 % cream Apply to face once daily after cleansing. 45 g 3 01/23/2019 10/01/2020 documented in this encounter Progress Notes * Areli Nazario - 01/23/2019 1300 EDT Review of Systems Constitutional: Positive for fatigue. Negative for fever and unexpected weight change. HENT: Negative for mouth sores. Eyes: Negative for pain. Respiratory: Negative for cough and shortness of breath. Cardiovascular: Negative for chest pain and palpitations. Gastrointestinal: Negative for abdominal pain, blood in stool, constipation, diarrhea, nausea and vomiting. Genitourinary: Negative for dysuria, frequency and hematuria. Musculoskeletal: Negative for myalgias, joint swelling, arthralgias and muscle stiffness in the morning. Skin: Negative for rash. Neurological: Negative for numbness and headaches. Endo/Heme/Allergies: Does not bruise/bleed easily. Psychiatric/Behavioral: Positive for sleep disturbance. The patient is not nervous/anxious. Areli Nazario 01/23/2019 13:05 * Larissa Quiles PA-C - 01/23/2019 1300 EDT Dermatology Outpatient Visit Note Chief Complaint Patient presents with ??? Follow-up ??? Rash spots on face Dermatologic History: 1. Eczematous dermatitis Last Dermatology office visit: 11/14/2018 SUBJECTIVE Ms. Edwards is a 33 y.o. female who presents for a follow up for previously biopsied eczematous dermatitis with a dermatologic history as listed above. She has been using triamcinolone once daily on her arms as needed for dry itchy patches. The prn use of triamcinolone is effective in clearing her eczema. In addition to her eczema she would like to discuss the redness and pimples of her nose and cheeks. She has had these skin changes for a couple of years and notices that they wax and wane. Her mother has rosacea and she is wondering if this is the same thing. She is in her usual state of health and has no other questions or concerns other than the above stated. Please see this encounter in the electronic chart which I have personally reviewed for full medical, surgical, family, and social histories, review of systems, medications, and allergies. OBJECTIVE Ms. Edwards is healthy and in no acute distress female, with a normal affect, sitting on the examination table. She has Yost type II skin. Cutaneous head, neck and arms examined including the hair, scalp, face, eyelids, lips, neck, upper extremities, hands, digits and nails was performed.The examination was normal with the addition of the following comments: - inflammatory papules scattered over the nose and medial cheeks, telangiectasias and erythema are not appreciated due to the thick layers of foundation - upper extremities have hyperpigmented scars without pink, scaling papules or plaques ASSESSMENT/PLAN 1. Rosacea - Reassured patient of benign nature of this skin condition. Treatment options including topical metronidazole vs azelaic acid vs oral doxycyline vs pulse dye laser were discussed. Discussed potential triggers for flushing including extremes of temperatures, sunlight, spicy foods, alcohol, exercise, acute emotional stressors, certain medications and menopausal hot flashes.Encouraged good sun protection with SPF 30+. - Rx: metroNIDAZOLE (METROCREAM) 0.75 % cream; Apply to face once daily after cleansing. 2. Eczematous dermatitis of forearms, improved, responds to triamcinolone - Continue using triamcinolone 0.1% cream once daily as needed for eczematous papules and plaques. Never use on face or groin. Patient can call for refills without being seen for 2.5 years. She will f/u in in the next 3 years as planned or in the interim should problems arise. The attending physician was available for this visit. Larissa Quiles PA-C, 01/23/2019, 13:07 documented in this encounter Plan of Treatment Not on file documented as of this encounter Visit Diagnoses Diagnosis Rosacea- Primary Other eczema documented in this encounter Care Teams Husbandry Technician Relationship Specialty Start Date End Date Chelsea Faust, [place] [address] [place] [id number] PCP - General 11/07/18 07/17/19 documented as of this encounter
--- OUTSIDE RECORDS SUMMARY | 2024-09-30 14:24 | XMS_ITS | Encounter Summary ---
Author Organization [facility] Address [address] [place] [address] Care Team Providers Care Director Of Kids Name Role Phone None, Provider Primary Care Provider Unavailabl e Encounter Details Date Type Department Care Team (Latest Contact Info) Description 07/29/2022 Travel Social History Tobacco Use Types Packs/Day Years Used Date Smoking Tobacco: Some Days Cigarettes Smokeless Tobacco: Never Interpersonal Safety Answer Date Record ed Physically [...] Answer Date of Assessment Author No 07/29/2022 11:17 EST Nicole Ferguson ra, RN documented as of this encounter Plan of Treatment Not on file documented as of this encounter Visit Diagnoses Not on filedocumented in this encounter Care Teams Director Of Kids Relationship Specialty Start Date End Date None, Provider PCP - General 07/29/22 08/23/22 documented as of this encounter
--- OUTSIDE RECORDS SUMMARY | 2024-09-30 14:24 | XMS_ITS | Encounter Summary ---
Author Organization [facility] Address [address] [place] [address] Care Team Providers Care Change Number Operator Name Role Phone Emerson Perez [facility]- Primary Care Provider [phone] Reason for Visit * Reason Comments Pre-op Exam Numbness Encounter Details Date Type Department Care Team (Late st Contact Info) Description 11/08/2019 10:00 EST Office Visit [facility] [address] [place] [address] Tim Shook MD [address] [place] [address] Left carpal tunnel syndrome (Primary Dx) Social History Tobacco Use Types Packs/Day Years Used Date Smoking Tobacco: Some Days Cigarettes Smokeless Tobacco: Never Tobacco Cessation:Ready to Q uit: Yes Comments Unknown Sex and Gender Information Value Date Recorded Sex Assigned at Not on file Legal Sex Female 18:18 EST Gender Identity Female 07/18/2019 11:32 EDT Sexual Orientation Not on file documented as of this encounter Last Filed Vital Signs Vital Sign Reading Time Taken Comments Blood Pressure 138/58 11/08/2019 1008 EST Pulse 84 11/08/2019 1008 EST Temperature - - Respiratory Rate - - Oxygen Saturation 98% 11/08/2019 1008 EST Inhaled Oxygen Concentration - - Weight - - Height - - Body Mass Index - - documented in this encounter Progress Notes * Tim Shook MD - 11/08/2019 1000 EST CHIEF COMPLAINT: Left hand numbness/pain SUBJECTIVE: Tuyet Edwards is a 34 y.o. female . Tuyet Edwards is a 34 y.o. female who is here today to discuss surgical release of her left carpal tunnel syndrome. She has a history of EMG which showed severe bilateral carpal tunnel syndrome and she has had endoscopic release on the right with Dr. Shook. She is very pleased with the results and would like to get on the schedule for release on her left. Persistent symptoms left hand involving medial three diigits. No changes. Past Medical History: Diagnosis Date ??? Acne ??? Dermatitis ??? Eczema ??? Hives ??? Psoriasis ??? Rosacea Social History Tobacco Use ??? Smoking status: Current Some Day Smoker Packs/day: 0.25 Types: Cigarettes ??? Smokeless tobacco: Never Used Substance Use Topics ??? Alcohol use: Not on file Past Surgical History: Procedure Laterality Date ??? CARPAL TUNNEL RELEASE ??? SECTION 2012 ??? WISDOM TOOTH EXTRACTION 2001 No Known Allergies Medications Prior to Today's Visit Medication Sig ??? levonorgestrel (MIRENA INTRAUTERINE) by intrauterine route. ??? methadone (DOLOPHINE) 5 mg/5 mL oral solution Take 80 mg by mouth once. ??? metroNIDAZOLE (METROCREAM) 0.75 % cream Apply to face once daily after cleansing. ??? triamcinolone (KENALOG) 0.1 % cream SEE NOTES ??? UNABLE TO FIND Take 1 tablet by mouth daily. Med Name: Oral control - unsure of name No facility-administered medications prior to visit. Review of Systems Constitutional: Negative. HENT: Negative. Respiratory: Negative. Musculoskeletal: Negative. Neurological: Positive for tingling and sensory change. OBJECTIVE: There were no vitals taken for this visit. General Exam: GENERAL APPEARANCE: no acute distress, pleasant, cooperative. Alert and Oriented X 3, well developed HEENT EYES:, conjunctiva clear, EARS:,no discharge, NOSE:, unremarkable, THROAT:, pharynx no redness. NECK: supple, no lymphadenopathy. CHEST: normal shape and expansion. HEART: regular rate and rhythm, no murmurs. LUNGS: clear to auscultation, unlabored. ABDOMEN: soft, NT/ND, BS present,,no masses. SKIN: pink, warm, and dry to inspection and palpation. Neuro: Normal sensation right hand. Decreased sensation left thumb, Index and long finger Vasc: Normal radial pulse left wrist Ext: No gross abnormalities to inspection left wrist or hand. No tenderness. FROM. ASSESSMENT/PLAN Left carpal tunnel syndrome The patient and I discussed treatment for their carpal tunnel syndrome. I reviewed with him the nonoperative options including medications, splinting, and injections. I explained that for many people, if they have moderate to severe symptoms, surgery is a much more predictable treatment. I reviewed the operative procedure. We discussed open versus endoscopic carpal tunnel release. I explained the potential risks, including, but not limited to, infection, nerve injury, arterial injury, failure to relieve symptoms, and recurrence. Talked about the postoperative recovery and rehabilitation. I explained that I recommend use of a splint for the first 7-14 days. In my opinion, this helps the incisions heal faster. I explained that endoscopic carpal tunnel release has the potential advantage of quicker recovery. However, if visualization is not adequate, an endoscopic procedure would need to be converted to an open procedure. After discussion of the above, patient has elected to proceed with carpal tunnel surgery. Informed consent obtained today. Office will schedule the surgical procedure at patient's convenience. This note was prepared using voice recognition software and the EMR. There may be inadvertent errors and omissions. Tim Shook MD 11/08/2019 documented in this encounter Plan of Treatment Not on file documented as of this encounter Visit Diagnoses Diagnosis Left carpal tunnel syndrome- Primary Carpal tunnel syndrome documented in this encounter Care Teams Change Number Operator Relationship Specialty Start Date End Date [facility] [address] [place] [address] PCP - General 07/18/19 07/28/22 documented as of this encounter
--- OUTSIDE RECORDS SUMMARY | 2024-09-30 14:24 | XMS_ITS | Encounter Summary ---
Author Organization [facility] Address [address] [place] [address] Care Team Providers Care Buttonhole Maker Name Role Phone Emerson Perez [facility]- Primary Care Provider [phone] [phone] Reason for Visit * Reason Comments Skin Problem Encounter Details Date Type Department Care Team (Late st Contact Info) Description 05/20/2021 13:00 EDT Walk-In [facility] [address] [place] [id number] Lizette Jordan, CH[address] [place] [phone] Cellulitis and abscess of head (Primary Dx) Social History Tobacco Use Types [...] Sign Reading Time Taken Comments Blood Pressure 140/85 05/20/2021 1303 EDT Pulse 73 05/20/2021 1303 EDT Temperature 36.7 ??C (98.1 ??F) 05/20/2021 1303 EDT s canner Respiratory Rate 18 05/20/2021 1303 EDT Oxygen Saturation 100% 05/20/2021 1303 EDT Inhaled Oxygen Concentration - - Weight - - Height - - Body Mass Index - - documented in this encounter Patient Instructions * Patient Instructions* Lizette Jordan - 05/20/2021 13:00 EDT Images from the original note were not included. You are being treated for a cellulitis and abscess of the left side of the face. Take antibiotics (Bactrim) as prescribed, take a daily source of probiotic (may be in the form of yogurt) daily for at least the next 2 weeks. Use warm, wet compresses to the affected area for 15-20 min 3-4x daily. You may use ibuprofen and/or Tylenol per dosage guidelines for management of discomfort. Wash the area twice daily with mild soap and water, do not apply anything else topically such as hydrogen peroxide, rubbing alcohol, or cosmetic make-up. A culture of the fluid from the abscess has been collected and sent to the lab for analysis. We will follow-up with these results when available in 2 to 3 days only if a change in course of treatmentis necessary. You are advised to present to the EMERGENCY DEPARTMENT for ANY new/worsening signs and symptoms such as fever, worsening pain, swelling in the mouth or throat, difficulty swallowing, nausea vomiting,inability to eat or drink, difficulty opening the mouth fully, any other new or worsening signs or s ymptoms, or for symptoms that fail to improve with 24-36hrs of antibiotic use. Follow up for reassessment for symptoms that persist past current course of treatment. [facility] Patient Instructions Cellulitis: Care Instructions Your Care Instructions Cellulitis is a skin infection caused by bacteria, most often strep or staph. It often occurs aftera break in the skin from a scrape, cut, bite, or puncture, or after a rash. Cellulitis may be treated without doing tests to find out what caused it. But your doctor may do tests, if needed, to look for a specific bacteria, like methicillin-resistant Staphylococcus aureus (MRSA). The doctor has checked you carefully, but problems can develop later. If you notice any problems ornew symptoms, get medical treatment right away. Follow-up care is a larson part of your treatment and safety. Be sure to make and go to all appointments, and call your doctor if you are having problems. It's also a good idea to know your test resultsand keep a list of the medicines you take. How can you care for yourself at home? ?? Take your antibiotics as directed. Do not stop taking them just because you feel better. You need to take the full course of antibiotics. ?? Prop up the infected area on pillows to reduce pain and swelling. Try to keep the area above thelevel of your heart as often as you can. ?? If your doctor told you how to care for your wound, follow your doctor's instructions. If you did not get instructions, follow this general advice: ? Wash the wound with clean water 2 times a day. Don't use hydrogen peroxide or alcohol, which can slow healing. ? You may cover the wound with a thin layer of petroleum jelly, such as Vaseline, and a nonstick bandage. ? Apply more petroleum jelly and replace the bandage as needed. ?? Be safe with medicines. Take pain medicines exactly as directed. ? If the doctor gave you a prescription medicine for pain, take it as prescribed. ? If you are not taking a prescription pain medicine, ask your doctor if you can take an cfmv-kki-eryxabp medicine. To prevent cellulitis in the future ?? Try to prevent cuts, scrapes, or other injuries to your skin. Cellulitis most often occurs wherethere is a break in the skin. ?? If you get a scrape, cut, mild burn, or bite, wash the wound with clean water as soon as you michael help avoid infection. Don't use hydrogen peroxide or alcohol, which can slow healing. ?? If you have swelling in your legs (edema), support stockings and good skin care may help preventleg sores and cellulitis. ?? Take care of your feet, especially if you have diabetes or other conditions that increase the risk of infection. Wear shoes and socks. Do not go barefoot. If you have athlete's foot or other skin problems on your feet, talk to your doctor about how to treat them. When should you call for help? Call your doctor now or seek immediate medical care if: ? You have signs that your infection is getting worse, such as: ? Increased pain, swelling, warmth, or redness. ? Red streaks leading from the area. ? Pus draining from the area. ? A fever. ? You get a rash. Watch closely for changes in your health, and be sure to contact your doctor if: ? You do not get better as expected. Where can you learn more? Go to https://www.makexyz.net/BOSS MetricsealPeopleMatter or log into your [employer] account at https://VISup.Ayannah.org Enter X309 in the search box to learn more about Cellulitis: Care Instructions. Current as of: March 19, 2020?Content Version: 12.6 ?? [id number] [employer]. Care instructions adapted under license by [facility]. If you have questions about a medical condition or this instruction, always ask your healthcare professional. [employer] disclaims any warranty or liability for your use of this information. documented in this encounter Ordered Prescriptions Prescription Sig Dispense Quantity Refills Last Filled Start Date End Date sulfamethoxazole-t rimethoprim (BACTRIM/CO-TRIMOX AZOLE DS) 800-160 mg per tabletIndications: Cellulitis and abscess of head Take 1 Tablet by mouth 2 times daily for 10 days. 20 Tablet 05/20/2021 05/30/2021 documented in this encounter Progress Notes * Gena Farley - 05/20/2021 1300 EDT CC/HPI: Patient had an infection on her jawline one week ago, which broke open and has resolved. She now has the same issue under her left ear and it is very painful. She has been using hot compresses Covid Screening: In the last 72 hours, has the patient had: New or unusual cough, shortness of breath, new nasal congestion, sore throat, fever, chills, body aches, or new loss of taste or smell without a reasonable alternative diagnosis*? (If yes, assign patient to ARC schedule) NO In the past 14 days, has the patient had a confirmed close Covid exposure (<6ft for > 15mins in 24hr period)? NO In the past 14 days, has the patient returned from international travel? NO Is the patient fully Covid vaccinated? (If close exposure or international travel but fully vaccinated, remains NRC. If close exposure or international travel and unvaccinated, assign to ARC) NO *may be determined by RN or in discussion with available provider (PENS AND PENCILS REPAIRER's and CCA's can defer to Charge Nurse to complete triage when appropriate) PCP: Emerson Hou-Bennie Perez * Lizette Jordan - 05/20/2021 1300 EDT [facility] Chief Complaint(s): Chief Complaint Patient presents with ??? Skin Problem Assessment & Plan: Tuyet was seen today for skin problem. Diagnoses and all orders for this visit: Cellulitis and abscess of head - sulfamethoxazole-trimethoprim (BACTRIM/CO-TRIMOXAZOLE DS) 800-160 mg per tablet; Take 1 Tablet bymouth 2 times daily for 10 days. - BACTERIAL CULTURE/SMEAR Tuyet Edwards is a 36 y.o. yr old female with purulent cellulitis. Bacterial Cx ordered and collected. Bactrim initiated . Very strict ED precautions are reviewed in detail. Patient demonstrates good understanding. Patient is generally well appearing, afebrile, non toxic, well hydrated, stable on exam. I printed material and reviewed home management and follow up in detail with patient, see patient instructions below. Patient is advised in use of [employer] Apps to access any lab results or other pertinentvisit information. All questions are answered. Patient is advised to follow up for urgent reassessment for any new/worsening signs and symptoms, otherwise, follow up with PCP or at [facility] for symptoms that persist past current course of treatment or expected resolution as discussed. Patient verbalizes understanding and agreement with this plan of care. HPI: Tuyet Edwards is a 36 y.o. yr old female who is here with chief complaint of redness, swelling and thick, yellow drainage from the L side of her face, just inferior to the earlobe. She notes symptoms for the past 4-5 days. She had similar symptoms on the R side of her face approximately one week ago,which resolved. She has been using hot compresses to the affected L side of the face and taking acetaminophen and ibuprofen. She otherwise feels well, she denies: fever, chills, oropharyngeal swelling, dysphagia, shortness of breath, nausea/vomiting/diarrhea, dental pain, ear pain. She notes history of cellulitis, but no known history of MRSA. Patient reports normal PO intake of food and fluids. Social History Tobacco Use Smoking Status Current Some Day Smoker ??? Packs/day: 0.25 ??? Types: Cigarettes Smokeless Tobacco Never Used I have reviewed current problem list, current medications and allergies. ROS: Review of Systems Constitutional: Negative for chills and fever. HENT: Negative for ear pain. Gastrointestinal: Negative for diarrhea, nausea and vomiting. See HPI for details Objective: Vitals and nursing notes reviewed Examination: BP 140/85 (BP Cuff Location: Left arm, BP Patient Position: Sitting, BP Cuff Sizes: Adult, long) Pulse 73 Temp 36.7 ??C (98.1 ??F) Comment: scanner Resp 18 SpO2 100% Physical Exam Vitals and nursing note reviewed. Constitutional: General: She is not in acute distress. Appearance: She is not ill-appearing, toxic-appearing or diaphoretic. HENT: Head: Jaw: No trismus or tenderness (No bony tenderness). Right Ear: Tympanic membrane, ear canal and external ear normal. Left Ear: Tympanic membrane and ear canal normal. Mouth/Throat: Mouth: Mucous membranes are moist. Dentition: No dental tenderness or gingival swelling. Pharynx: Oropharynx is clear. Uvula midline. No pharyngeal swelling, oropharyngeal exudate, posterior oropharyngeal erythema or uvula swelling. Comments: No sublingual edema Eyes: Conjunctiva/sclera: Conjunctivae normal. Pupils: Pupils are equal, round, and reactive to light. Musculoskeletal: Cervical back: Neck supple. Lymphadenopathy: Cervical: Cervical adenopathy (L side) present. Skin: General: Skin is warm and dry. Comments: The left earlobe is mildly edematous and erythematous, just inferior to the earlobe thereis a small 0.25 cm opening of the skin with slight purulent drainage. There is a 4 cm area of surrounding erythema that is warm and slightly indurated, very slight fluctuance palpated in area of purulent drainage, area is tender to palpation. Neurological: Mental Status: She is alert. Gait: Gait is intact. Gait normal. Psychiatric: Behavior: Behavior is cooperative. documented in this encounter Plan of Treatment Scheduled Orders Name Type Priority Associated Diagnoses Orde r Schedule BACTERIAL CULTURE/SMEAR Microbiology Routine Cellulitis and abscess of head Ordered: 05/20/2021 documented as of this encounter Procedures Procedure Name Priority Date/Time Associated Diagnosis Comments ROUTINE CULTURE - [facility] Routine 05/20/2021 13:22 EDT Cellulitis and abscess of head GRAM SMEAR Routine 05/20/2021 13:22 EDT Cellulitis and abscess of head documented in this encounter Results * ROUTINE CULTURE - [facility] (05/20/2021 13:22 EDT) Pathologist [facility] Culture The mecA gene product was NOT detected in this coagulase positive Staph isolate. It is SUSCEPTIBLE to oxacillin, cephalosporins and other beta lactam antibiotics. 05/23/2021 7:50 EDT [facility] STAPHYLOCOCCUS SP COAG POSITIVE - [facility] STAPHYLOCOCCUS SP COAG POS 05/23/2021 7:50 EDT [facility] QUANT - [facility] MODERATE 05/23/2021 7:50 EDT [facility] Face 05/20/2021 13:2 2 EDT 05/20/2021 17:40 EDT Narrative Organism Antibiotic Method Susceptibility Staphylococcus sp coag pos Azithromycin GRAM POSITIVE SUSCEPTIBILITY - [facility] Susceptible Staphylococcus sp coag pos Clindamycin GRAM POSITIVE SUSCEPTIBILITY - [facility] <=0.25: Susceptible Staphylococcus sp coag pos Cefpodoxime GRAM POSITIVE SUSCEPTIBILITY - [facility] Susceptible Staphylococcus sp coag pos Cefazolin GRAM POSITIVE SUSCEPTIBILITY - [facility] Susceptible Staphylococcus sp coag pos Erythromycin GRAM POSITIVE SUSCEPTIBILITY - [facility] <=0.25: Susceptible Staphylococcus sp coag pos Levofloxacin GRAM POSITIVE SUSCEPTIBILITY - [facility] 4: Intermediate Staphylococcus sp coag pos Oxacillin GRAM POSITIVE SUSCEPTIBILITY - [facility] <=0.25: Susceptible Staphylococcus sp coag pos Trimethoprim-Sulfame thoxazole GRAM POSITIVE SUSCEPTIBILITY - [facility] <=10: Susceptible Staphylococcus sp coag pos Tetracycline GRAM POSITIVE SUSCEPTIBILITY - [facility] <=1: Susceptible Staphylococcus sp coag pos Vancomycin GRAM POSITIVE SUSCEPTIBILITY - [facility] 1: Susceptible Comment: Tetracycline susceptible Coag positive staph is also susceptible to doxycycline and minocycline. Comment:INFECTION ON SIDE OF FACE [phone] [place] [employer] Lizette Jordan NP CHEMISTRY & BLOOD GAS ORDERABLE S Edited Result - Final Performing Organization Address [facility]/ZIP Co de Phone Number [facility] [address] [place] [address] * GRAM SMEAR (05/20/2021 13:22 EDT) GRAM STAIN - [facility] TWO SWABS RECEIVED FOR CULTURE AND GRAM STAIN 05/20/2021 21:53 EDT [facility] GRAM POSITIVE COCCI - [facility] FEW 05/20/2021 21:53 EDT [facility] WBC NO 05/20/2021 21:53 EDT [facility] Face 05/20/2021 13:2 2 EDT 05/20/2021 17:40 EDT Lizette Jordan NP MICROBIOLOGY - GENERAL ORDERABL ES Final Result Performing Organization Address [facility]/ZIP Co de Phone Number [facility] [address] [place] [phone] documented in this encounter Visit Diagnoses Diagnosis Cellulitis and abscess of head- Primary Cellulitis and abscess of other specified site documented in this encounter Care Teams Buttonhole Maker Relationship Specialty Start Date End Date [facility] [address] [place] [address] PCP - General 07/18/19 07/28/22 documented as of this encounter
--- OUTSIDE RECORDS SUMMARY | 2024-09-30 14:24 | XMS_ITS | Encounter Summary ---
Author Organization [facility] Address [address] [place] [address] Care Team Providers Care Indigo Mixer Name Role Phone Unavailable Primary Care Provider Unavailabl e Encounter Details Date Type Department Care Team (Late st Contact Info) Description 06/29/2015 Results Only [facility] [phone] Vance Owens MD [address] [place] [address] Social History Tobacco Use Types Packs/Day Years [...] Diagnosis Comments PAP TEST- RESULT ONLY Routine 06/29/2015 0:00 EDT documented in this encounter Results * PAP TEST- RESULT ONLY (06/29/2015 0:00 EDT) Pathology Report: CYTOPATHOLOGY REPORT Reports generated via electronic interface contain original data; however they are lacking the format of the original report. Caution should be taken when reading/interpreti ng unformatted reports. Name: ? TUYET VALVERDE ? Accession #: ? [id number] ? : ? 1985 (Age: 30) ??F ?Collect Date: ? 06/29/2015 ? Location: ? [facility] ? Receive Date: ? 06/30/2015 ? Provider: VANCE OWENS MD Copy to: [facility] ? Final Report SPECIMEN ADEQUACY ? Satisfactory for Evaluation - transformation zone component present GENERAL CATEGORIZATION ? Negative for Intraepithelial Lesion or Malignancy INTERPRETATION ? Shift in raisa present suggestive of bacterial vaginosis. Previous Gynecologic Pathology: HPV: + 2015 HR Other: Additional clinical information: Pap negative Specimen/Source: ??Pap Test, Cervix/Endocervix, ThinPrep Imaging System with manual evaluation Document reviewed and electronically signed by: ? Yolis Nails, YUMIKO(ASCP) ? Report ??Date: 07/02/2015 13:05 HPV with Pap Test ? Date Ordered: ? 07/02/2015 ? Status: ?? Signed Out ?Date Complete: ? 07/06/2015 ? By: ??System Interface ? Date Reported: ? 07/06/2015 ? Interpretation RESULT: Negative for HPV. No E6 or E7 mRNA is detected from HPV types 16,18,31,33,35, 39,45,51,52,56,58, 59,66, and 68 by binder stripper hand mediated amplification. Comments Document reviewed and electronically signed by: ? System Interface ? Report date: 07/06/2015 By the signature above, the attending physician certifies that he/she has personally conducted a gross and/or microscopic examination of the described specimens and rendered or confirmed the above diagnosis. End of Report [facility] 06/29/2015 06/30/2015 us Vance Owens MD PATHOLOGY ORDERABLES Final Resu lt [facility] [address] [place] [address] documented in this encounter Visit Diagnoses Not on filedocumented in this encounter
--- OUTSIDE RECORDS SUMMARY | 2024-09-30 14:24 | XMS_ITS | Encounter Summary ---
Author Organization Health system Address [address] [place] [address] Care Team Providers Care Multicut Line Operator Name Role Phone Unavailable Primary Care Provider Unavailabl e Encounter Details Date Type Department Care Team (Late st Contact Info) Description 05/27/2014 Results Only [facility] [phone] Vance Owens MD [address] [place] [address] Social History Tobacco Use Types Packs/Day Years [...] Diagnosis Comments PAP TEST- RESULT ONLY Routine 05/27/2014 0:00 EDT documented in this encounter Results * PAP TEST- RESULT ONLY (05/27/2014 0:00 EDT) Pathology Report: CYTOPATHOLOGY REPORT Reports generated via electronic interface contain original data; however they are lacking the format of the original report. Caution should be taken when reading/interpreti ng unformatted reports. Name: ? TUYET VALVERDE ? Accession #: ? [id number] ? : ? 1985 (Age: 29) ??F ?Collect Date: ? 05/27/2014 ? Location: ? [facility] ? Receive Date: ? 05/28/2014 ? Provider: VANCE OWENS MD Copy to: ROSEANNA IVAN MD ? Final Report SPECIMEN ADEQUACY ? Satisfactory for Evaluation - transformation zone component present GENERAL CATEGORIZATION ? Negative for Intraepithelial Lesion or Malignancy INTERPRETATION ? Reactive cellular changes associated with inflammation present (includes repair). Shift in raisa present suggestive of bacterial vaginosis. Specimen/Source: ??Pap Test, Cervix/Endocervix, ThinPrep Imaging System with manual evaluation Document reviewed and electronically signed by: ? ILAN MALONE MD [facility] ? Report ??Date: 06/05/2014 16:44 HPV with Pap Test ? Date Ordered: ? 06/05/2014 ? Status: ?? Signed Out ?Date Complete: ? 06/09/2014 ? By: ??System Interface ? Date Reported: ? 06/09/2014 ? 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 E6 OR E7 mRNA from one or more types of HPV types 16,18,31, 33,35,39,45,51,52, 56,58,59,66, and 68 is detected by pipe and boiler covers supervisor mediated amplification. High and intermediate risk HPV types are associated with most squamous intraepithelial lesions and cervical cancers. Comments Document reviewed and electronically signed by: ? System Interface ? Report date: 06/09/2014 By the signature above, the attending physician certifies that he/she has personally conducted a gross and/or microscopic examination of the described specimens and rendered or confirmed the above diagnosis. End of Report [facility] 05/27/2014 05/28/2014 us Vance Owens MD PATHOLOGY ORDERABLES Final Resu lt [facility] [address] [place] [address] documented in this encounter Visit Diagnoses Not on filedocumented in this encounter
--- OUTSIDE RECORDS SUMMARY | 2024-09-30 14:24 | XMS_ITS | Encounter Summary ---
Author Organization [facility] Address [address] [place] [address] Care Team Providers Care Medical Radiation Therapist Name Role Phone Chelsea Faust APRN Primary Care Provider + Emerson Perez-Bennie Primary Care Provider [phone] Reason for Visit * Reason Onset Date Comments Appointment Related 11/20/2018 Encounter Details Date Type Department Care Team (Late st Contact Info) Description 11/20/2018 Telephone [facility] Dermatology 3rd Floor [facility] [address] [place], [place] [phone] Larissa Orellana PA-C [address] [facility] [place] [address] Appointment Related Social History Tobacco Use Types Packs/Day Years Used Date Smoking Tobacco: Some Days Cigarettes Smokeless Tobacco: Never Comments Unknown Sex and Gender Information Value Date Recorded Sex Assigned at Not on file Legal Sex Female 18:18 EST Gender Identity Female 07/18/2019 11:32 EDT Sexual Orientation Not on file documented as of this encounter Miscellaneous Notes * Telephone Encounter - Gil Cano - 11/20/2018 1501 EST Called Patient & left a message; she needs a follow up in 2 months. If/when she calls back please offer her an appointment in early/mid january that works for her schedule, any FUR is fine even if frozen. Gil Cano 11/20/2018 15:01 * Telephone Encounter - Gil Cano - 11/20/2018 1500 EST ----- Message from Larissa Quiles PA-C sent at 11/19/2018 8:20 EST ----- Gil, Patient notified of pathology result by phone. Biopsy showed eczema. Patient reports triamcinolone cream is helping. Encouraged her to stop picking and to apply daily moisturizer and triamcinolone twice a day for one week and then only a couple times a week as needed for itching. Please schedule her for a FUR in 2ish months with me. Thank you, Larissa Quiles PA-C, 11/19/2018, 8:15 documented in this encounter Plan of Treatment Not on file documented as of this encounter Visit Diagnoses Not on filedocumented in this encounter Care Teams Medical Radiation Therapist Relationship Specialty Start Date End Date Chelsea Faust, LAVERNE [address] [place] [phone] PCP - General 11/07/18 07/17/19 [facility] [address] [place] [address] PCP - General 07/18/19 07/28/22 documented as of this encounter
--- OUTSIDE RECORDS SUMMARY | 2024-09-30 14:24 | XMS_ITS | Encounter Summary ---
Author Organization [facility] Address [address] [place] [address] Care Team Providers Care Home Child Care Provider Name Role Phone Emerson Perez [facility]- Primary Care Provider [phone] Reason for Visit * Reason Comments Post-OP Follow Up Encounter Details Date Type Department Care Team (Late st Contact Info) Description 11/27/2019 11:45 EDT Post-op Visit [facility] [address] [place] [address] Andria Gamboa PA-C [address] [facility] [address] [place] [address] Left carpal tunnel syndrome (Primary Dx) Social History Tobacco Use Types Packs/Day Years Used Date Smoking Tobacco: Some Days Cigarettes Smokeless Tobacco: Never Comments Unknown Sex and Gender Information Value Date Recorded Sex Assigned at Not on file Legal Sex Female 18:18 EST Gender Identity Female 07/18/2019 11:32 EDT Sexual Orientation Not on file documented as of this encounter Progress Notes * Andria Gamboa PA-C - 11/27/2019 1145 EDT Tuyet presents for her first post op s/p 11/[address] Shook. PROBLEM: Left carpal tunnel syndrome PROCEDURE: Left ECTR [place] SUBJECTIVE: Tuyet Edwards is a 34 y.o. right hand dominant female who is here today for a post operative visit. They are now 2 weeks out from their surgery with Dr. Shook. Patient is doing well today,her carpal tunnel symptoms have nearly completely resolved. She has little soreness, but [...] No facility-administered medications prior to visit. ASSESSMENT: Leftcarpal tunnel release PLAN: Tuyet is doing well today. Signs of infection were discussed with the patient, she will present to the office if any of these should occur. Note was given for back to work. Dr. De La Torre was the attending physician available in the clinic today if needed. A consultation was not required. This note was prepared using voice recognition software and the EMR. There may be inadvertent errors and omissions. AMARILYS Vides 11/27/2019 documented in this encounter Plan of Treatment Not on file documented as of this encounter Visit Diagnoses Diagnosis Left carpal tunnel syndrome- Primary Carpal tunnel syndrome documented in this encounter Care Teams Home Child Care Provider Relationship Specialty Start Date End Date [facility] [address] [place] [address] PCP - General 07/18/19 07/28/22 documented as of this encounter
--- OUTSIDE RECORDS SUMMARY | 2024-09-30 14:24 | XMS_ITS | Encounter Summary ---
Author Organization [facility] Address [address] [place] [address] Care Team Providers Care Employment Program Representative Name Role Phone Unavailable Primary Care Provider Unavailabl e Encounter Details Date Type Department Care Team (Late st Contact Info) Description 10/23/2003 13:18 EST Hospital Encounter [facility] - Other [address] [place] [address] Chloe Garcia MD [address] [place] [address] Social History Tobacco Use Types Packs/Day Years [...] Priority Date/Time Associated Diagnosis Comments CYTOPATHOLOGY Routine 10/23/2003 0:00 EST documented in this encounter Results * CYTOPATHOLOGY (10/23/2003 0:00 EST) Pathology Report: CYTOPATHOLOGY REPORT Reports generated via electronic interface contain original data; however they are lacking the format of the original report. Caution should be taken when reading/interpreti ng unformatted reports. Name: ? NICOLLE, TUYET ? Accession #: ? [id number] : ? 1985 (Age: 18) ??F ?Collect Date: ? 10/23/2003 Location: ? [facility] ? Receive Date: ? 10/24/2003 Provider: ?CHLOE GARCIA MD Copy to: ? Specimen/Source: ?ThinPrep Pap Test, Vagina/Cervix/Endo cervix Last Menstrual Period: ? 10/03/03 Hormonal/Contracep tive Status: ? Control Pills ? SPECIMEN ADEQUACY ? Satisfactory for Evaluation - transformation zone component present GENERAL CATEGORIZATION ? Negative for Intraepithelial Lesion or Malignancy ? Document reviewed and electronically signed by: ? YUMIKO Montez(ASCP) ? Report Date: ??10/29/2003 08:37 End of Report [facility] 10/23/2003 10/24/2003 us Chloe Garcia MD PATHOLOGY ORDERABLES Final Resul t [facility] [address] [place] [address] documented in this encounter Visit Diagnoses Not on filedocumented in this encounter
--- OUTSIDE RECORDS SUMMARY | 2024-09-30 14:24 | XMS_ITS | Encounter Summary ---
Author Organization [facility] Address [address] [place] [address] Care Team Providers Care Web Editor Name Role Phone Emerson Perez [facility]- Primary Care Provider [phone] Reason for Visit * Reason Onset Date Comments Medications Refill 10/01/2020 Encounter Details Date Type Department Care Team (Late st Contact Info) Description 10/01/2020 [facility] [address] [address] [id number] Larissa Orellana PA-C [address] [facility] [place] [address] Medications Refill Social History Tobacco [...] % cream SEE NOTES 60 g 1 10/02/2020 07/30/2022 metroNIDAZOLE (METROCREAM) 0.75 % cream Apply to face once daily after cleansing. 45 g 3 10/02/2020 07/30/2022 documented in this encounter Miscellaneous Notes * Telephone Encounter - Dinah Hdez MA - 10/01/2020 1528 EST Medication: metroNIDAZOLE (METROCREAM) 0.75 % cream Diagnosis: Eczematous dermatitis Last Office Visit: 01/23/2019 Next Office Visit: n/a Last Refill: 01/23/2019 DINAH HDEZ MA 15:28 10/01/2020 * Telephone Encounter - Dinah Hdez MA - 10/01/2020 1525 EST Medication: triamcinolone (KENALOG) 0.1 % cream Diagnosis: Eczema Last Office Visit: 01/23/2019 Next Office Visit: n/a Last Refill: 11/14/2018 DINAH HDEZ MA 15:26 10/01/2020 * Telephone Encounter - Whit Gonzalez - 10/01/2020 1502 EST Patient called requesting refill. [facility] [place] is preferred pharmacy. Last visit: 01/23/19 No visits scheduled Patient requests phone call when prescription is sent to pharmacy Confirmed contact: [phone] documented in this encounter Plan of Treatment Not on file documented as of this encounter Visit Diagnoses Not on filedocumented in this encounter Discontinued Medications Medication Sig Discontinue Reason Start Date End Da te metroNIDAZOLE (METROCREAM) 0.75 % cream Apply to face once daily after cleansing. Reorder 01/23/2019 10/01/2020 triamcinolone (KENALOG) 0.1 % cream SEE NOTES Reorder 10/14/2019 10/01/2020 documented as of this encounter Care Teams Web Editor Relationship Specialty Start Date End Date [facility] [address] [place] [address] PCP - General 07/18/19 07/28/22 documented as of this encounter
--- OUTSIDE RECORDS SUMMARY | 2024-09-30 14:24 | XMS_ITS ---
Author Organization Unknown Address [address] [place] [phone] Phone Care Team Providers Care Criminal Attorney Name Role Phone JULIO Bonilla Attending Unavailable Social History Type Status Start Date End Date Code Code Syst em Smoking History Unknown if ever smoked [id number] Sex Female Medications Medication Start [...] Status Code Code System OPIATE ABUSE active 7732097 SNOMED- CT ALCOHOL ABUSE active 04725941 SNOMED -CT ALCOHOL ABUSE WITH WITHDRAWA L DELIRIUM active 1416079 SNOMED-CT Allergies and Adverse Reactions Allergy Substance Reaction Severity Start Date Concern Status Co de Code System No Known Drug Allergies Active 625997741 SNOMED-CT Plan of Treatment No Data Found Encounters Encounter Diagnosis Start Date Code Code Sys tem Alcohol abuse with withdrawal delirium 07/25/2022 SNOMED-CT Personal Care Team Section Performer Name Performer Role Active Date Inactive Da te
--- OUTSIDE RECORDS SUMMARY | 2024-09-30 14:24 | XMS_ITS | Encounter Summary ---
Author Organization [facility] Address [address] [place] [address] Care Team Providers Care Asbestos Coverer Name Role Phone Chelsea Faust APRN Primary Care Provider + Reason for Visit * Reason Comments New Patient Visit itchy spots on manuelito ateral forearms * Referral (Routine) - Closed Specialty Diagnoses / Procedures Referred By Andres osuna Referred To Contact Dermatology Diagnoses Rash Chelsea Faust, [address] [place] [address] Phone: tel: fax: [facility] Dermatology [address] [address] Phone: tel: fax: Referral ID Status Reason Start Date Expiration Date Visits Re quested Visits Authorized [id number] Closed 1 1 Encounter Details Date Type Department Care Team (Late st Contact Info) Description 11/14/2018 13:20 EST Office Visit [facility] Dermatology 3rd Floor [address] [phone] Larissa Orellana PA-C [address] [place] [address], [facility] [address] [place] [address] Rash (Primary Dx) Discharge Disposition: Auto Discharge Social History Tobacco Use Types Packs/Day Years Used Date Smoking Tobacco: Some Days Cigarettes Smokeless Tobacco: Never Comments Unknown Sex and Gender Information Value Date Recorded Sex Assigned at Not on file Legal Sex Female 18:18 EST Gender Identity Female 07/18/2019 11:32 EDT Sexual Orientation Not on file documented as of this encounter Discharge Diagnoses Diagnosis R21 Rash and other nonspecific skin eruption-R21[ICD-10-CM] documented in this encounter Patient Instructions * Patient Instructions* Larissa Robertson PA-C - 11/14/2018 13:20 EST Images from the original note were not included. WOUND CARE INSTRUCTIONS FOR A PUNCH SKIN BIOPSY The DRESSING/BANDAID should remain in place for 24 hours. You may shower or bathe after 24 hours; remove the bandage and replace it after the shower. You will have 1-3 stiches that were placed to close the biopsy wound. DISCOMFORT: Expect some discomfort. Tylenol, taken as directed by the sports medicine specialist, will help relieve pain. If Tylenol does not provide sufficient relief, you may also take Ibuprofen alternating every four hours with the Tylenol. If the pain is severe and not relieved by the above measures, please c all the office. BLEEDING: You may notice some blood on the edges of the dressing the first day and this is NORMAL. If the bleeding soaks through the dressing, remove the dressing, and apply firm, steady pressure with a moist clean wash cloth for fifteen minutes. If the bleeding stops, redress the wound, if not, call our office at . ACTIVITY: You may resume normal activity in 2 day unless instructed otherwise. WOUND CARE: ?? Wash hands with soap and water before changing the dressing. ?? Change the dressing daily and when it becomes wet. Clean the wound daily with mild soap and water. You may gently loosen any crusts that form around the stiches with a cotton swab. The wound may be slightly tender and may bleed a small amount. A small amount of discharge is normal. Apply a thin layer of sterile petroleum jelly over the stiches. Cover the area with a Telfa (non-stick) dressing or bandage. It is important to keep the wound covered. You will need to return to the office in 7 days for suture removal unless otherwise instructed. CONTACT THE OFFICE IF YOU EXPERIENCE: ?? increased redness ?? warmth to touch ?? increased pain ?? drainage with a foul odor ?? rapid swelling of the wound ?? fever or chills Please call our office or . Dry Skin 101 - Wash your body with bland soaps like Dove body wash and only wash your entire body if needed. Avoid very hot water as this drys your skin out more. - You should apply a moisturizer to your skin EVERY DAY. The best time apply it is immediately after the shower when your skin is still a little wet. Some suggestions for body moisturizers are below (in no specific order): 1. Curel hydra therapy is meant to be used right after the shower: 2. CeraVe moisturizing cream has ceramides in it. Skin ceramides are components in the outermost layer of the skin. Loss of ceramides result in the outermost layer of the skin not being able to keep in moisture, which leaves the skin dry, rough and itchy. 3. Cetaphil moisturizing cream 4. Aveeno moisture repair cream 5. Coconut oil has been shown to be quite effective for dry itchy skin as well. documented in this encounter Ordered Prescriptions Prescription Sig Dispense Quantity Refills Last Filled Start Date End Date triamcinolone (KENALOG) 0.1 % cream Apply to affected areas on trunk and extremities twice daily for 1 week then once daily PRN for itch. Do not apply to face, armpit or groin. 60 g 1 11/14/2018 0 documented in this encounter Discharge Disposition Disposition Code Departure Means Destination Auto Discharge documented in this encounter Progress Notes * Larissa Robertson PA-C - 11/14/2018 1320 EST Images from the original note were not included. Dermatology Outpatient New Patient Visit Note Chief Complaint Patient presents with ??? New Patient Visit itchy spots on bilateral forearms Last Dermatology office visit: NPV SUBJECTIVE Ms. Valverde is a 33 y.o. female who presents for new evaluation and treatment for a rash that startedin August 2018. The patient describes the rash as extremely pruritic pink dry skin that appeared on her shoulders and hips. She also describes pink pimple like bumps that appeared on her forearms at the same time. She reports that today is a good day and that the rash has been much worse. She admits to picking at these bumps which have left many scars. She has tried using a tanning bed to treat her rash which did not help her rash and only made her scars dark and purple. She has also tried calamine lotion, coconut oil, hydrocortisone cream, dermasil, castor oil and apple cider vinegar (orally and topically). She found that the topical castor oil and apple cider vinegar seems to help reduce the itch but not the appearance of the rash. She denies any new medications in the past 3 months. She has tried switching her laundry detergent and dryer sheets but has not noticed a drastic change. They were referred to Dermatology by Chelsea Faust APRN. 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 For full Medical, Surgical, Family, and Social histories, please see the History section of this encounter in the electronic chart which I have personally reviewed. For Review of Systems, Medications and Allergies, please see those sections of this encounter in the electronic chart which I have also reviewed. She currently has no medications in their medication list. She has no allergies on file. OBJECTIVE VS: There were no vitals taken for this visit. Ms. Valverde is healthy, well developed, well-nourished and in no acute distress female sitting on theexamination table with a normal affect. She is alert and oriented to person, place and time. She has Yost type II skin. Cutaneous waist-up examination with bra on including the hair, scalp, face, eyelids, lips, neck, chest, back, abdomen, upper extremities, hands, digits and nails was performed. The examination was normal with the addition of the following comments: - there are pink eczematous patches on the shoulders and hips - the bilateral arms have subtle pink, scaling patches with excoriated pink papules and hyperpigmented scars ASSESSMENT/PLAN 1. Rash, shoulders, arms and hips - Differential diagnosis includes excoriated eczema vs contact dermatitis vs drug eruption vs other - Recommended biopsy of the rash located on the right upper arm, given the diagnostic uncertainty. Patient was advised of the risks of biopsy, including pain, infection, bleeding and inevitability ofscar formation. Patient was made aware he/she will be called with biopsy results when available, atwhich time further treatment recommendations will be made based on the results attained. The patient understood and was in agreement with this plan. - Discontinue applying vinegar. Encouraged patient to moisturize their entire body daily. Avoid taking hot showers and apply lotion immediately after showering. A list of recommended moisturizers wasprovided in the patients after visit summary. - Rx for triamcinolone (KENALOG) 0.1 % cream; Apply to affected areas on trunk and extremities twice daily for 1 week then once daily PRN for itch. Do not apply to face, armpit or groin. PROCEDURE NOTE PUNCH BIOPSY PATIENT : Renita Valverde : MRN: [id number] SURGEON: Larissa Robertson PA-C The indication, risks, benefits and alternatives to this procedure were discussed in detail in withthe patient and all questions were answered. Informed consent was obtained in writing. PROCEDURE NOTE: Specimen A Procedure: Punch Biopsy Site: right and upper arm Anesthesia: 1% lidocaine with epinephrine 1:100,000 local infiltration Prep: Alcohol The lesion was prepped and anesthetized with local anesthesia. The specimen was removed with a 4.0 mm punch trephine. Hemostasis was achieved with pressure. The wound was closed with 4.0 Prolene (polypropylene) suture. A sterile dressing was applied over petrolatum ointment. Verbal and written wound care instructions were given. The specimen was submitted to pathology for histological evaluation.The patient was provided with a sterile suture removal kit which she will use to remove her own stiches in 7 days. She will f/u based on biopsy results as planned or in the interim should problems arise. The attending physician was available for this visit. Larissa Robertson PA-C, 11/14/2018, 13:13 * Gil Cano - 11/14/2018 1320 EST Review of Systems Constitutional: Negative for fatigue, fever and unexpected weight change. HENT: Negative for mouth sores. Eyes: Negative for pain. Respiratory: Positive for cough. Negative for shortness of breath. Cardiovascular: Negative for chest pain and palpitations. Gastrointestinal: Negative for abdominal pain, blood in stool, constipation, diarrhea, nausea and vomiting. Genitourinary: Negative for dysuria, frequency and hematuria. Musculoskeletal: Negative for myalgias, joint swelling, arthralgias and muscle stiffness in the morning. Skin: Negative for rash. Neurological: Negative for numbness and headaches. Endo/Heme/Allergies: Does not bruise/bleed easily. Psychiatric/Behavioral: Negative for sleep disturbance. The patient is not nervous/anxious. Gil Cano 11/14/2018 13:17 documented in this encounter Plan of Treatment Scheduled Orders Name Type Priority Associated Diagnoses Orde r Schedule SURGICAL PATHOLOGY- ORDER ONLY Pathology Routine Rash Ordered: 11/14/2018 documented as of this encounter Procedures Procedure Name Priority Date/Time Associated Diagnosis Comments SURGICAL PATHOLOGY Routine 11/14/2018 11 :04 EST documented in this encounter Results * SURGICAL PATHOLOGY (11/14/2018 11:04 EST) Pathology Report: SURGICAL PATHOLOGY REPORT Reports generated via electronic interface contain original data; however they are lacking the format of the original report. Caution should be taken when reading/interpreting unformatted reports. Name: ? RENITA VALVERDE ? Accession #: ? [id number] ? : ? 1985 (Age: 33) ??F ? Collect Date: ? 11/14/2018 ? Location: ? [facility] ? Receive Date: ? 11/15/2018 ? Provider: LARISSA ROBERTSON PA-C Copy to: ? Final Pathologic Diagnosis: SKIN OF ARM, RIGHT UPPER, PUNCH BIOPSY: - Subacute spongiotic dermatitis. ??See microscopic and comment. Comment: The findings are most consistent with an eczematous process. ??The typical density of eosinophils seen in the context of an allergic contact etiology is not present. ??The findings could be consistent with atopic dermatitis, although other forms of eczematous dermatitis would be within the differential. ??The findings are not typical for a drug-related eruption. ??Dr. Osborne/[facility] Microscopic Description: Sections consist of a punch biopsy of skin. ??There is compacted orthokeratosis with parakeratosis and serum crust. ??The epidermis shows acanthosis with mild spongiosis. ??There is a superficial, predominantly perivascular, lymphomononuclear infiltrate. ??There is a superficial, predominantly perivascular, lymphomononuclear infiltrate. ??There is an exocytosis into the overlying epidermis. ?? Dr. Osborne/[facility] Document reviewed and electronically signed by: MAGEN OSBORNE MD Report ??Date: 11/16/2018 13:08 By the signature above, the attending physician certifies that he/she has personally conducted a gross and/or microscopic examination of the described specimens and rendered or confirmed the above diagnosis. Specimen(s) Received: Right upper arm Clinical History: Pruritic pink scaling patches on arms and hips, many of which have been excoriated; DDx: Atopic vs contact vs drug vs other; clinical diagnosis code: R21 Gross Description: ? Received in formalin labelled with proper patient identification (initials N, A) and right upper arm is a punch biopsy of pearly white skin (0.4 cm in diameter x 0.3 cm in thickness). The specimen is entirely submitted in 1. AMARILYS Davey (ASCP) 11/15/2018 1:19 PM End of Report [facility] 11/14/2018 11:0 4 EST 11/15/2018 11:04 EST us Larissa Orellana PA-C PATHOLOGY ORDERABLES Final Resu lt [facility] [address] [place] [address] documented in this encounter Visit Diagnoses Diagnosis Rash- Primary Rash and other nonspecific skin eruption documented in this encounter Historical Medications * This list may reflect changes made after this encounter. UNABLE TO FIND Take 1 tablet by mouth daily. Med Name: Oral control - unsure of name 07/30/2022 added in this encounter Care Teams Asbestos Coverer Relationship Specialty Start Date End Date Chelsea Faust, [address] [place] [address] PCP - General 11/07/18 07/17/19 documented as of this encounter
--- OUTSIDE RECORDS SUMMARY | 2024-09-30 14:24 | XMS_ITS | Encounter Summary ---
Author Organization [facility] Address [address] [place] [address] Care Team Providers Care Special Ed Assistant Name Role Phone Emerson Perez [facility]- Primary Care Provider [phone] Reason for Visit * Reason Comments Pain Encounter Details Date Type Department Care Team (Late st Contact Info) Description 10/28/2019 16:15 EST Office Visit [facility] [address], [address] [place], [place] [phone] Sisi Alfaro, GIMP TACKER [address] [facility] [address] [place] [id number] Left carpal tunnel syndrome (Primary Dx) Social History Tobacco Use Types Packs/Day Years Used Date Smoking Tobacco: Some Days Cigarettes Smokeless Tobacco: Never Comments Unknown Sex and Gender Information Value Date Recorded Sex Assigned at Not on file Legal Sex Female 18:18 EST Gender Identity Female 07/18/2019 11:32 EDT Sexual Orientation Not on file documented as of this encounter Progress Notes * Sisi Alfaro, RAIL TRANSIT OPERATOR - 10/28/2019 1615 EST PROBLEM: Left carpal tunnel syndrome SUBJECTIVE: Tuyet Edwards is a 34 y.o. [...] the schedule for release on her left. The past medical, family and social history have been reviewed in the patient chart. She is a smoker. OBJECTIVE: There were no vitals taken for this visit. General appearance: Well-developed, well nourished, no acute distress. pleasant and cooperative. HEENT: normocephalic, atraumatic Lungs: no increased work of breathing Skin: clean, dry and intact Msk: Focused exam of the left upper extremity reveals intact skin without interosseous or thenar wasting. She is able to flex and extend her wrist without discomfort. She can make an OK sign, thumbs up, peace sign, cross fingers, abduct and adduct all digits. No trigger digits. Positive Phalens, positive compression and positive Tinel's at the wrist. DIAGNOSTICS: Review of EMG peak latency on the left was 9.5 ms and 8.46 ms on the right. Distal latencies 8.9 ms on the left and 7.4 ms on the right. Impression was moderately severe bilateral medianneuropathy more prominent on the left with acute denervation changes limited to the left abductor pollicis brevis ASSESSMENT: 34yoF with bilateral carpal tunnel syndrome and s/p eCTR on the right with relief of symptoms. She is ready to proceed with endoscopic release on the left. PLAN: Booking slip filled out today. Will call patient tomorrow to pick surgical date and schedule preop appointment with Dr. Shook. Continue night splints in the interim. Tuyet voices understanding and agrees with the plan. This note was prepared using voice recognition software and the EMR. There may be inadvertent errors and omissions. Sisi Alfaro APRN 10/28/2019 documented in this encounter Plan of Treatment Not on file documented as of this encounter Visit Diagnoses Diagnosis Left carpal tunnel syndrome- Primary Carpal tunnel syndrome documented in this encounter Care Teams Special Ed Assistant Relationship Specialty Start Date End Date [facility] [address] [facility] [place] [address] PCP - General 07/18/19 07/28/22 documented as of this encounter
--- OUTSIDE RECORDS SUMMARY | 2024-09-30 14:24 | XMS_ITS | Encounter Summary ---
Author Organization [facility] Address [address] [place] [address] Care Team Providers Care Acetone Button Paster Name Role Phone Unavailable Primary Care Provider Unavailabl e Encounter Details Date Type Department Care Team (Late st Contact Info) Description 06/18/1999 16:44 EDT Hospital Encounter [facility] - Other [address] [place] [address] Chloe Gallardo MD [address] [place] [phone] Unknown, Provider, Discharge Disposition: Auto Discharge [...]
--- OUTSIDE RECORDS SUMMARY | 2024-09-30 14:24 | XMS_ITS | Encounter Summary ---
Author Organization [facility] Address [address] [place] [address] Care Team Providers Care Manager Dental Name Role Phone Unavailable Primary Care Provider Unavailabl e Encounter Details Date Type Department Care Team (Late st Contact Info) Description 06/26/2001 10:14 EDT Hospital Encounter [facility] - Other [address] [place] [address] Chloe Garcia MD [address] [place] [phone] Unknown, Provider, Social History Tobacco Use [...] Priority Date/Time Associated Diagnosis Comments CYTOPATHOLOGY Routine 06/26/2001 0:00 EDT documented in this encounter Results * CYTOPATHOLOGY (06/26/2001 0:00 EDT) Pathology Report: CYTOPATHOLOGY REPORT Reports generated via electronic interface contain original data; however they are lacking the format of the original report. Caution should be taken when reading/interpreti ng unformatted reports. Name: ? NICOLLE, TUYET ? Accession #: ? [id number] : ? 1985 (Age: 16) ??F ?Collect Date: ? 06/26/2001 Location: ? [facility] ? Receive Date: ? 06/27/2001 Provider: ?CHLOE GARCIA MD Copy to: ? Specimen/Source: ?ThinPrep Pap Test, Vagina/Cervix/Endo cervix Last Menstrual Period: ? 06/16/01 Hormonal/Contracep tive Status: ? Yes ? SPECIMEN ADEQUACY ? Satisfactory for evaluation. GENERAL CATEGORIZATION ? Within Normal Limits ? Document reviewed and electronically signed by: ? YUMIKO Ayala(ASCP) ? Report Date: ??06/28/2001 13:17 End of Report [facility] 06/26/2001 06/27/2001 us Chloe Garcia MD PATHOLOGY ORDERABLES Final Resul t [facility] [address] [place] [address] documented in this encounter Visit Diagnoses Not on filedocumented in this encounter
--- OUTSIDE RECORDS SUMMARY | 2024-09-30 14:24 | XMS_ITS | Encounter Summary ---
Author Organization [facility] Address [address] [place] [address] Care Team Providers Care Polymerization Supervisor Name Role Phone Emerson Perez [facility]- Primary Care Provider [phone] Reason for Visit * Reason Comments Numbness Numbness Encounter Details Date Type Department Care Team (Late st Contact Info) Description 08/02/2019 13:30 EST Office Visit [facility] [address], [address] [place], [place] [phone] Akira Schneider PA-C [address] [facility] [address] [place] [address] Bilateral carpal tunnel syndrome (Primary Dx) Social History [...] Sign Reading Time Taken Comments Blood Pressure 130/80 08/02/2019 1342 EST Pulse 98 08/02/2019 1342 EST Temperature - - Respiratory Rate - - Oxygen Saturation 99% 08/02/2019 1342 EST Inhaled Oxygen Concentration - - Weight - - Height - - Body Mass Index - - documented in this encounter Progress Notes * Akira Schneider PA - 08/02/2019 1330 EST CHIEF COMPLAINT: Bilateral hand numbness SUBJECTIVE: Tuyet presents with greater than 2-year history of worsening numbness to both hands. Attimes the hands forearms and upper arm also painful. Complains of numbness primarily along the median nerve distribution of the thumb, index and long finger but some slight numbness in the ring finger also. She has been wearing a wrist brace at nighttime which gives a little improvement. Often has frequent nocturnal symptoms and shakes to wake the hand. She has been dropping things lately. 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 She did have EMGs done 07/24/2019 which showed severe median nerve entrapment at the carpal tunnel A 10-point review of systems has been reviewed from the new patient intake sheet and all are negative The past medical, family and social history [...] Past Surgical History: Procedure Laterality Date ??? SECTION 2012 ??? WISDOM TOOTH EXTRACTION [...] name No facility-administered medications prior to visit. OBJECTIVE: There were no vitals taken for this visit. On physical exam, the patient is found to be a cooperative female who appears to be alert and oriented x 3. She is well-developed, well-nourished and in no significant distress. Breathing is unlabored. Skin is warm and dry to inspection and palpation. Appears to be neurovascularly intact. Exam of bilateral hands was quite similar. No significant swelling. Without erythema or ecchymosis.Full range of motion of all digits and wrist. Median nerve compression, Phalen's and Tinel's worsenthe numbness. Without thenar wasting. Interosseous of the index and little finger 5/5 against resistance. No trigger digits. The cubital tunnel was benign to elbow flexion and Tinel's. GENERAL APPEARANCE: No acute distress, pleasant, cooperative. HEENT: EYES: Conjunctiva clear, no drainage. EARS: Normal pinnae. NOSE: Unremarkable. THROAT: Pharynx normal no exudate ORAL CAVITY: No lesions, moist mucous membranes NECK: Supple, no lymphadenopathy CHEST: Normal shape and expansion HEART: Regular rate and rhythm without murmur LUNGS: Clear to auscultation, unlabored ABDOMEN: Soft, nontender/nondistended, bowel sounds present, without hepatosplenomegaly NEUROLOGIC: Alert and oriented, normal gait, no distress. Appropriate speech ASSESSMENT: Bilateral carpal tunnel syndrome PLAN: Review of EMG peak latency on the left was 9.5 ms and 8.46 ms on the right. Distal latencies 8.9 ms on the left and 7.4 ms on the right. Impression was moderately severe bilateral median neuropathy more prominent on the left with acute denervation changes limited to the left abductor pollicisbrevis. We discussed treatments including endoscopic versus open carpal tunnel release. Since her symptoms have been persistent and now with constant numbness and moderately severe findings on EMG recommend release of the carpal tunnel. She was made aware that this may not resolve all the numbness immediately and it could take several months. Carpal tunnel release is also more predictable for the numbness and tingling as opposed to pain. Preoperative history and physical along with informed consent was done today. Dr. Traore was also in to see and examine patient and signed consent. Tuyet was agreeable to start with surgery on the right hand. She will probably need 10 to 14 days off work and hopefully can return after suture removal Osbaldo Schneider PA-C 08/02/2019 documented in this encounter Plan of Treatment Not on file documented as of this encounter Visit Diagnoses Diagnosis Bilateral carpal tunnel syndrome- Primary Carpal tunnel syndrome documented in this encounter Historical Medications * This list may reflect changes made after this encounter. methadone (DOLOPHINE) 5 mg/5 mL oral solution Take 70 mg by mouth daily. added in this encounter Care Teams Polymerization Supervisor Relationship Specialty Start Date End Date [facility] [address] [place] [address] PCP - General 07/18/19 07/28/22 documented as of this encounter
--- OUTSIDE RECORDS SUMMARY | 2024-09-30 14:25 | XMS_ITS ---
Author Organization Unknown Address [address] [place] [phone] Phone Care Team Providers Care Bulb Tester Name Role Phone CINDY CONDE Registered Nurse Unavailable Unavailable Xwatchlist Unavailable JULIO Bonilla Attending Unavailable DAY[facility] Unavailable YUSEF Claudio Primary Unavailable UNLISTED PROVIDER - REQUESTED Xhandoff Un available Results BASIC METABOLIC PANEL (BMP) - Collect Date/Time: 07/27/2022 06:35 [facility] ID: [id number] - [id number] [address] [place] [address], [address] LOINC: 80608-0 Test Value Unit Reference Range Code Code [...] H=34 2028-9 LOINC ANION GAP 5.7 mmol/L 65221-2 LOINC CALCIUM SERUM 7.9 mg/dL L=8.2 H=10.2 13440-0 LOINC L AGE 37 years eGFR (non-Afr.Amer.) > 120 mL/min 88099-4 LOINC eGFR (Afr-Marshallese) > 120 mL/min 56229-3 LOINC CBC W/ DIFFERENTIAL* - Colle ct Date/Time: 07/27/2022 06:35 [facility] ID: [id number] [address] [place] [address], [address] LOINC: 50646-2 Test Value Unit Reference Range Code Code System Flag WBC 5.81 th/cmm L=5.00 H=10.00 6690-2 LOINC NEUT % 71.5 % L=40.0 H=80.0 LYMPH % 16.7 % L=10.0 H=50.0 MONO % 10.0 % L=2.0 H=12.0 61058-9 LOINC EOS % 1.2 % L=0.0 H=8.0 BASO % 0.3 % L=0.0 H=3.0 IG % 0.3 % L=0.0 H=1.1 2514-8 LOINC NRBC % 0.0 % L=0.0 H=0.0 16481-7 LOINC NEUT abs count 4.2 th/cmm L=1.6 H=8.4 751-8 LOINC LYMPH abs count 1.0 th/cmm L=1.5 H=4.0 731-0 LOINC L MONO abs count 0.6 th/cmm L=0.2 H=1.0 742-7 LOINC EOS abs count 0.1 th/cmm L=0.0 H=0.5 711-2 LOINC BASO abs count 0.0 th/cmm L=0.0 H=0.2 704-7 LOINC IG abs count 0.0 th/cmm L=0.0 H=0.1 58011-5 LOINC NRBC abs count 0.0 mil/cmm L=0.0 H=0.0 06572-3 LOINC RBC 3.29 mil/cmm L=3.90 H=5.40 789-8 [...] SERUM* - Collect D ate/Time: 07/26/2022 06:15 [facility] ID: [id number] - [id number] [address] [place] [address], [address] LOINC: 16244-5 Test Value Unit Reference Range Code Code System Flag MAGNESIUM 1.8 mg/dL L=1.8 H=2.4 17404-9 LOINC URINALYSIS WITH REFLEX CULT IF POSITIVE* - Collect Date/Time: 07/25/2022 12:30 [facility] ID: [id number] - [id number] [address] [place] [address], [address] LOINC: 30588-8 Test Value Unit Reference Range Code Code System Flag COLLECTION MODE: CLEAN CATCH 07712-3 LOINC Color YELLOW yellow 5778-6 LOINC Appearance CLEAR clear 5767-9 LOINC Glucose urine NEGATIVE negative mg/dl 30658-8 LOINC Bilirubin NEGATIVE negative 5770-3 LOINC Ketones TRACE negative mg/dl 2514-8 LOINC A Spec gravity >=1.030 1.003 - 1.030 5811-5 LOINC pH urine 6.0 5.0 - 7.0 2756-5 LOINC Protein TRACE negative mg/dl 66424-9 LOINC Urobilinogen 4.0 <or= 1 EU/dl 21349-0 LOINC A Nitrite. NEGATIVE negative 5802-4 LOINC Blood NEGATIVE negative 5794-3 LOINC Leukocytes. NEGATIVE negative MICROSCOPIC NOT INDICAT TEST QUAL (URINE) - Collect Date/Time: 07/25/2022 12:30 [facility] ID: [id number] - [id number] [address] [place] [address], [address] LOINC: 6-3 Test Value Unit Reference Range Code Code System Flag TEST NEGATIVE 2106-3 LOINC DRUG SCN 13 PANEL (MEDTOX)* - Collect Date/Time: 07/25/2022 12:30 [facility] ID: [id number] [address] [place] [address], [id number] LOINC: 12745-8 Test Value Unit Reference Range Code Code System Flag CANNABINOIDS POSITIVE Cutoff = 50 ng/mL 36737-0 LOINC A PHENCYCLIDINE NEGATIVE Cutoff = 25 ng/mL 34588-8 LOINC COCAINE NEGATIVE Cutoff = 150 ng/mL 26734-3 LOINC METHAMPHETAMINES NEGATIVE Cutoff = 50 0 ng/mL 88226-8 LOINC OPIATES NEGATIVE Cutoff = 100 ng/mL 90921-2 LOINC AMPHETAMINES NEGATIVE Cutoff = 500 ng/mL 90929-6 LOINC BENZODIAZEPINES NEGATIVE Cutoff = 150 ng/mL 34455-7 LOINC TRICYCLIC ANTIDEP NEGATIVE Cutoff = 3 00 ng/mL 3533-7 LOINC METHADONE POSITIVE Cutoff = 200 ng/mL 34636-9 LOINC A BARBITURATES POSITIVE Cutoff = 200 ng/mL 49672-6 LOINC A OXYCODONE NEGATIVE Cutoff = 100 ng/mL 13437-1 LOINC PROPOXYPHENE NEGATIVE Cutoff = 300 ng/mL 95987-6 LOINC BUPRENORPHINE NEGATIVE Cutoff = 10 mg/mL 3414-0 INC GATO COVID RHEONIX* - Viral ect Date/Time: 07/25/2022 11:00 [facility] ID: [id number] - [id number] [address] [place] [address], [id number] LOINC: 17320-8 Test Value Unit Reference Range Code Code System Flag Tier- INPATIENT/ED 04475-4 LOINC SARS COV2 RNA: NEGATIVE REFERENCE RAN GE: NEGAT 51724-7 LOINC PT PROTHROMBIN TIME* - Colle ct Date/Time: 07/25/2022 08:45 [facility] ID: [id number] - [id number] [address] [place] [address], [address] LOINC: 5902-2 Test Value Unit Reference Range Code Code System Flag PROTIME 10.1 seconds L=9.3 H=11.4 5902-2 LOINC INR 1.01 L=2.00 H=3.00 90809-9 LOINC L ALCOHOL (ETHANOL)* - Collect Date/Time: 07/25/2022 08:45 [facility] ID: [id number] [address] [place] [address], [address] LOINC: 50218-4 Test Value Unit Reference Range Code Code System Flag ALCOHOL (ETHANOL) 222 mg/dL 14341-4 LOINC MAGNESIUM SERUM* - Collect D ate/Time: 07/25/2022 08:45 [facility] ID: [id number] - [id number] [address] [place] [address], [address] LOINC: 21702-1 Test Value Unit Reference Range Code Code System Flag MAGNESIUM 1.7 mg/dL L=1.8 H=2.4 35900-3 LOINC L COMPREHENSIVE METABOLIC PANE L (CMP) - Collect Date/Time: 07/25/2022 08:45 [facility] ID: [id number] - [id number] [address] [place] [address], [address] LOINC: 37752-7 Test Value Unit Reference Range Code Code [...] H=34 2028-9 LOINC ANION GAP 10.1 mmol/L 74036-9 LOINC CALCIUM SERUM 8.8 mg/dL L=8.2 H=10.2 47672-3 LOINC BILIRUBIN TOTAL 0.6 mg/dL L=0.0 H=1.3 1975-2 LOINC ALK. PHOS. 108 U/L L=46 H=116 6768-6 LOINC SGOT (AST) 109 U/L L=15 H=37 1920-8 LOINC H SGPT (ALT) 79 U/L L=12 H=78 1742-6 LOINC H TOTAL PROTEIN 8.5 gm/dL L=6.0 H=8.0 2885-2 LOINC H ALBUMIN 4.1 gm/dL L=3.4 H=5.0 1751-7 LOINC AGE 37 years eGFR (non-Afr.Amer.) 78 mL/min 19914-4 LOINC eGFR (Afr-Marshallese) 94 mL/min 24511-1 LOINC CBC W/ DIFFERENTIAL* - Colle ct Date/Time: 07/25/2022 08:45 [facility] ID: [id number] - [id number] [address] [place], [place], [address] LOINC: 83705-3 Test Value Unit Reference Range Code Code System Flag WBC 7.54 th/cmm L=5.00 H=10.00 6690-2 LOINC NEUT % 66.4 % L=40.0 H=80.0 LYMPH % 19.2 % L=10.0 H=50.0 MONO % 13.0 % L=2.0 H=12.0 04277-8 LOINC H EOS % 0.5 % L=0.0 H=8.0 BASO % 0.5 % L=0.0 H=3.0 IG % 0.4 % L=0.0 H=1.1 2514-8 LOINC NRBC % 0.0 % L=0.0 H=0.0 28079-9 LOINC NEUT abs count 5.0 th/cmm L=1.6 H=8.4 751-8 LOINC LYMPH abs count 1.5 th/cmm L=1.5 H=4.0 731-0 LOINC MONO abs count 1.0 th/cmm L=0.2 H=1.0 742-7 LOINC EOS abs count 0.0 th/cmm L=0.0 H=0.5 711-2 LOINC BASO abs count 0.0 th/cmm L=0.0 H=0.2 704-7 LOINC IG abs count 0.0 th/cmm L=0.0 H=0.1 11945-3 LOINC NRBC abs count 0.0 mil/cmm L=0.0 H=0.0 94134-0 LOINC RBC 3.94 mil/cmm L=3.90 H=5.40 789-8 [...] Smoking History Unknown if ever smoked [address] Sex Female Vital Signs Vital Sign Value Unit [place] Value [place] Unit Date/Time Recent/Initial? Code Code System Body Mass Index 22.13 kg/m2 07/25/2022 08:48 Initial 20083 -5 INC Systolic Blood Pressure 146 mm[Hg] [...] Saturation 100 % 2021 11:45 Most Recent 82017 -5 LOINC O2 Saturation 97 % 2021 08:48 Initial 15868 -5 LOINC Pulse 91.0 /min 07/28/2022 11:45 [...] 60.33 kg 133.00 lbs 07/25/2022 08:48 Initial 19608 -7 LOINC Medications Medication Start Date End [...] Status Code Code System OPIATE ABUSE active 2339827 SNOMED- CT ALCOHOL ABUSE active 64339482 SNOMED -CT ALCOHOL ABUSE WITH WITHDRAWA L DELIRIUM active 6027853 SNOMED-CT Allergies and Adverse Reactions Allergy Substance Reaction Severity Start Date Concern Status Co de Code System No Known Drug Allergies Active 014209685 SNOMED-CT Plan of Treatment No Data Found Encounters Encounter Diagnosis Start Date Code Code Sys tem Alcohol abuse with withdrawal delirium 07/25/2022 SNOMED-CT Personal Care Team Section Performer Name Performer Role Active Date Inactive Da te Discharge Summary Notes [facility] 07/28/2022 14:27 All Demographics Patient Name Age Sex Visit Number Admission Date/Time Attending Physician Date of Service Room and Bed Emergency Contact NICOLLEGRETA Bonilla 1985 37 years Female [id number] 07/25/2022 11:31 JALEESA KIM 07/25/2022 [id number] 07/28/2022 14:24 Discharge Date: 07/28/2022 Admission Diagnosis: Acute alcohol withdrawal Altered mental status Alcohol use disorder Opiate use disorder Discharge Diagnosis: Acute alcohol withdrawal Altered mental status Alcohol use disorder Opiate use disorder Primary Care Physician: Primary Care Physician: No Demographics Available Consulting Physician(s): Procedures: Recommendations: Discharge to home Follow- up at the [facility] Follow-up with the [facility] telephone [phone]. She prefers to make the appointment herself. [...] Of note, she was seen by the diving coach as well as by social work program coordinator on the day of discharge. She declines referral for inpatient rehab. She agrees to follow-up with a primary care physician, is decided she would prefer to follow-up in [place] as she already goes to the [facility] clinic there. She has been provided with the phone number for the [facility]. Of note, her last dose of phenobarbital [...] bilaterally. She is not tremulous. Progress Notes [facility] 07/26/2022 16:41 07/26/2022, 12:35 SUBJECTIVE: 37-year-old female [...] she has not taken anything p.o. today. [facility] 07/27/2022 11:39 07/27/2022, 11:37 SUBJECTIVE: 37-year-old female [...]
[2024-09-30 19:03] LABS: FREE T4 0.62 ng/dL (0.76-1.46); TSH 3.79 uIU/mL (0.36-3.74)
== END 2024-09-30 14:21 | disposition home or self-care (01) ==
LOC: NCHCN 14:20
PROVIDERS: PCP Family Medicine; Visit Provider Family Medicine
DX: R63.5 Abnormal weight gain (principal)
CPT/HCPCS: 84439; 84443

== ENCOUNTER 2024-10-22 01:07 | Outpatient (CLI) | payer MEDICAID, SELFPAY ==
--- OUTSIDE RECORDS SUMMARY | 2024-10-22 01:21 | XMS_ITS | Encounter Summary ---
Author Organization [facility] Address [address] [place] [address] Care Team Providers Care Photograph Finisher Name Role Phone Esperanza Scott BUSINESS SERVICES ASSISTANT Primary Care Provider [phone] Encounter Details Date Type Department Care Team [...] on filedocumented in this encounter Care Teams Photograph Finisher Relationship Specialty Start Date End Date Esperanza Scott FNP [address] [place] [phone] PCP - General Family Medicine - Primary Care 08/24/22 documented as of this encounter
--- OUTSIDE RECORDS SUMMARY | 2024-10-22 01:21 | XMS_ITS | Encounter Summary ---
Author Organization [facility] Address [address] [place] [address] Care Team Providers Care Home Visitor [employer] Name Role Phone Esperanza Scott SENIOR IT ASSISTANT Primary Care Provider [phone] Encounter Details Date Type Department Care Team [...] on filedocumented in this encounter Care Teams Home Visitor [employer] Relationship Specialty Start Date End Date Esperanza Scott FNP [address] [place] [phone] PCP - General Family Medicine - Primary Care 08/24/22 documented as of this encounter
--- OUTSIDE RECORDS SUMMARY | 2024-10-22 01:21 | XMS_ITS | Encounter Summary ---
Author Organization [facility] Address [address] [place] [address] Care Team Providers Care Promotional Representative Name Role Phone None, Provider Primary Care Provider Unavailabl e Encounter Details Date Type Department Care Team (Late st Contact Info) Description 07/31/2022 Plan of Care Documentation [facility] Inpatient Psychiatry [address] [place], [place] [address] Social History Tobacco Use Types Packs/Day Years [...] Name Number [facility] Agency Psychiatrist Therapist Dry Cleaning Supervisor PCP Guardian Family Contact Other [facility] Pt: Date: MD: Date: AP: Date: RN: Date: SW: Date: documented in this encounter Plan of Treatment Not on file documented as of this encounter Visit Diagnoses Not on filedocumented in this encounter Care Teams Promotional Representative Relationship Specialty Start Date End Date None, Provider PCP - General 07/29/22 08/23/22 documented as of this encounter
--- OUTSIDE RECORDS SUMMARY | 2024-10-22 01:21 | XMS_ITS | Encounter Summary ---
Author Organization [facility] Address [address] [place] [address] Care Team Providers Care Finisher Hot Strip Name Role Phone Esperanza Scott ARCHITECTURE INTERN Primary Care Provider [phone] Reason for Visit * Reason Comments Psychiatric Evaluation Pt here for psych iatric eval, previous admission ~ August 2022. Encounter Details Date Type Department Care Team (Late st Contact Info) Description 03/02/2024 11:49 EDT - 03/04/2024 14:34 EDT Emergency [facility] Emergency Department [address] [place], [place] [id number] London Alvarado MD [address] [place] [address] Moises Barba MD [address] [phone] Jeovanny Self MD [address] [place] [address] Leida Baltazar DO [address] [place] [address] Jennifer Pearson MD [address] [phone] Manic behavior ([facility]) (Primary Dx); Cannabis use disorder, moderate, dependence ([facility]) [F12.20]; Alcohol use disorder [F10.90] Discharge Disposition: [...] from ED, CM made referrals today to [facility], [facility], and [facility]. These were faxed and CM also called all facilities listed to confirm referralwas being made. Paperwork can be found on BRIGIDA's desk. CM will continue to follow. * Blade Wisdom MD - 03/02/2024 4994 EDT Received call from nursing staff that [...] follow * Curtis Méndez DO - 03/02/2024 1233 EDT Psychiatric consultation Source of referral: Dr. [...] tell what she is thinking including this commercial loan underwriter and her . She endorses AH. She [...] prescribed an antidepressant by Millicent Mancera at [facility] 1 month ago and taking it daily [...] - 03/04/2024 1357 EDT Pt accepted to [facility]. Transport via [facility] Pt in agreement. * Verenice Dowd RN - 03/04/2024 1325 EDT Patient informed that she would be going to [facility] today. Patient is agreeable at this time. [...] Bela Sky LMSW - 03/04/2024 1006 EDT [facility] Full. Referral to [facility] and [facility]. * Tim Cassidy - 03/04/2024 0958 EDT [...] - 03/03/2024 2238 EDT Pt arrived in [facility] around 2234. Pt was wearing a hoddie [...] - patient needs Psych clearance. call center coordinator psych MD paged. Updated patient about plan [...] that whenthe patient was moved to the [facility] and the locker by B side was cleaned out, the patient's partner asked the JIAN Becerra if he could take the lockbox home and was granted permission by Mariam RN. * Luisana Lynne RN - 03/02/2024 1356 EDT Psych MD at bedside. * Kati Mayorga - 03/02/2024 1241 EDT Pt came to [facility] after triage, appears disorganized, rapid speech, with [...] first few hours after her arrival in [facility]. Pt was encouraged to settle down and assured of support, pt was offered to request for lunch when she is ready, which [facility] and meeting briefly [...] bread man. reports he took patient to [facility] 2 days ago when COURTNEY recommended, however she was discharged. He went to go worm picker patient and found her downtown. On the [...] be reassessed prn for dispo change [GK] [facility] Mar 04, 2024 0705 Pt signed out to me by Dr. Baltazar pending reeval by psych [ES] 1306 Dr. [facility]. [ES] Relevant Data [...] and was medically cleared for evaluation by [facility]. Patient evaluated by [facility] and by Dr. Méndez of psychiatry. Plan for voluntary admission but should be reevaluated by psychiatry should she decide she would like to leave. She will board in the emergency department awaiting placement. Medical Decision Making Problems Addressed: Manic behavior ([facility]): complicated acute illness or injury Amount and/or [...] He took her to the hospital in [place] a few days ago assuming she would [...] [ES] 1306 Dr. Mark [facility] patient. [ES] Relevant Data User Index [ES] Jennifer Pearson MD [GK] Moises Barba MD documented in this encounter Miscellaneous Notes * ED Consult - Bud Nur MD - 03/04/2024 1139 EDT Referral source: [facility] ED Case d.von Pearson MD. I discussed [...] * ED Consult - TrungQuyen - 03/02/2024 5874 EDT Supervisor Cutting Department Initial Assessment Note Clinical Interpretation: The patient [...] admission on a voluntary basis. Referrals placed to:[facility] Consultation with: Dr Alvarado and Dr Ménedz. Please see full note in scanned media. Quyen Nino Supervisor Cutting Department [facility] documented in this encounter Plan of Treatment [...] 136 - 145 mmol/L 03/03/2024 22:49 EDT [facility] Potassium 4.4 3.5 - 5.0 mmol/L 03/03/2024 22:49 EDT [facility] Chloride 108 96 - 110 mmol/L 03/03/2024 22:49 EDT [facility] CO2 Total 24 22 - 32 mmol/L 03/03/2024 22:49 EDT [facility] Glucose 102(H) 70 - 99 mg/dl 03/03/2024 22:49 EDT [facility] BUN 15 10 - 26 mg/dL 03/03/2024 22:49 [facility] Creatinine 0.44(L) 0.52 - 1.04 mg/dL 03/03/2024 22:49 [facility] eGFR 126 >60 mL/min/1.7 3m2 03/03/2024 22:49 [facility] Total Protein 7.5 6.3 - 8.2 g/dL 03/03/2024 22:49 [facility] Albumin 4.2 3.4 - 4.9 g/dL 03/03/2024 22:49 [facility] Alkaline Phosphatase 80 38 - 126 U/L 03/03/2024 22:49 [facility] AST 57(H) 15 - 46 U/L 03/03/2024 22:49 [facility] ALT 35(H) <35 U/L 03/03/2024 22:49 [facility] Bilirubin, Total 0.7 <1.4 mg/dL 03/03/20 22:49 [facility] Calcium 9.7 8.5 - 10.5 mg/dL 03/03/2024 22:49 [facility] Albumin/Globulin Ratio 1.3 1.0 - 2.5 03/03/2024 22:49 [facility] Anion Gap 8 5 - 14 mmol/L 03/03/2024 22:49 [facility] Blood VENOUS BLOOD / Unknown Venipuncture / Unknown 03/03/2024 22:31 EDT 03/03/2024 22:34 EDT us London Alvarado MD CHEMISTRY & BLOOD GAS ORDERABLES Final Result [facility] [address] [place] [id number] * (ABNORMAL) COMPLETE BLOOD COUNT (03/03/2024 22:31 EDT) WBC 6.96 4.00 - 12.40 K/cmm 03/03/2024 22:37 [facility] RBC 3.90 3.86 - 5.04 M/cmm 03/03/2024 22:37 [facility] Hemoglobin 13.1 11.6 - 15.2 g/dL 03/03/2024 22:37 [facility] HCT 39.5 34.9 - 44.4 % 03/03/2024 22:37 [facility] MCV 101(H) 81 - 98 fL 03/03/2024 22:37 [facility] MCH 33.6(H) 26.7 - 33.3 pg 03/03/2024 22:37 [facility] MCHC 33.2 32.1 - 35.9 g/dL 03/03/2024 22:37 [facility] RDW-CV 14.9(H) <14.7 % 03/03/2024 22:37 [facility] RDW-SD 55.0(H) <50.4 fl 03/03/2024 22:37 [facility] PLT 166 141 - 377 K/cmm 03/03/2024 22:37 [facility] MPV 10.2 9.5 - 12.7 fL 03/03/2024 22:37 [facility] Blood VENOUS BLOOD / Unknown Venipuncture / Unknown 03/03/2024 22:31 EDT 03/03/2024 22:34 EDT us London Alvarado MD HEMATOLOGY & PF4 ORDERABLES Bhakti l Result [facility] [address] [place] [address] * POCT TEST, VISUAL READ (03/03/2024 17:26 EDT) Test, Urine, POC Negative Negative Control Line Present Yes Background Clear? Yes Urine URINE SPECIMEN OBTAINED BY CLEAN CATCH PROCEDURE / Unknown 03/03/2024 17:26 EDT us London Alvarado MD POINT OF CARE TEST ORDERABLES Fi nal Result * (ABNORMAL) DRUG SCREEN 12, URINE (03/02/2024 11:55 EDT) Amphetamine Screen, Ur Negative Screen Negative Screen 03/02/2024 12:11 [facility] Barbiturates Screen, Ur Negative Screen Negative Screen 03/02/2024 12:11 [facility] Benzodiazepine Screen, Ur Negative Screen Negative Screen 03/02/2024 12:11 [facility] Cocaine Metabolites Screen, Ur Negative Screen Negative Screen 03/02/2024 12:11 [facility] Methamphetamine Screen, Ur Negative Screen Negative Screen 03/02/2024 12:11 [facility] Methadone Screen, Ur Presumptive Positive, interpret with caution.(A) Negative Screen 03/02/2024 12:11 [facility] Opiates Screen, Ur Negative Screen Negative Screen 03/02/2024 12:11 [facility] Oxycodone Screen, Ur Negative Screen Negative Screen 03/02/2024 12:11 [facility] Phencyclidine Screen, Ur Negative Screen Negative Screen 03/02/2024 12:11 [facility] Cannabinoids Screen, Ur Negative Screen Negative Screen 03/02/2024 12:11 [facility] Buprenorphine and Metabolites Screen, Ur Negative Screen Negative Screen 03/02/2024 12:11 [facility] Tricyclics Screen, Ur Negative Screen Negative Screen 03/02/2024 12:11 [facility] Urine URINE / Unknown Urine Collect / Unknown 03/02/2024 11:55 EDT 03/02/2024 11:58 [facility] - 03/02/2024 12:11 EDT [...] GEN LAB UNIT COLLECT ORDERABLES Final Result [facility] [address] [place] [address] documented in this encounter Visit Diagnoses Diagnosis [...] Patient/family refused) 1005 (Given - Provider: Verenice Dwod RN)1328 (Given - Provider: Verenice Dowd RN) [...] Ordered Date First Orde red Date CALL [facility]/SCREENER 1 03/02/2024 documented in this encounter Care Teams Finisher Hot Strip Relationship Specialty Start Date End Date Esperanza Scott FNP [address] [place] [phone] PCP - General Family Medicine - Primary Care 08/24/22 documented as of this encounter
--- OUTSIDE RECORDS SUMMARY | 2024-10-22 01:21 | XMS_ITS | Encounter Summary ---
Author Organization [facility] Address [address] [place] [address] Care Team Providers Care Machine Edge Bander Name Role Phone Esperanza Scott PRINCIPAL ELECTRICAL ENGINEER Primary Care Provider [phone] Encounter Details Date Type Department Care Team (Late st Contact Info) Description 09/18/2022 Plan of Care Documentation [facility] Inpatient Psychiatry [address] [place] [address] Social History Tobacco Use Types Packs/Day Years [...] Name Number [facility] Psychiatrist Therapist [place] PCP Esperanza Scott Guardian Family Contact Other Pt: Date: MD: Date: AP: Date: RN: Date: SW: Date: documented in this encounter Plan of Treatment Not on file documented as of this encounter Visit Diagnoses Not on filedocumented in this encounter Care Teams Machine Edge Bander Relationship Specialty Start Date End Date Esperanza Scott FNP [address] [place] [phone] PCP - General Family Medicine - Primary Care 08/24/22 documented as of this encounter
--- OUTSIDE RECORDS SUMMARY | 2024-10-22 01:21 | XMS_ITS | Encounter Summary ---
Author Organization [facility] Address [address] [place] [address] Care Team Providers Care Cytology Technologist Name Role Phone Esperanza Scott INSPECTOR PLUG SEAM Primary Care Provider [phone] Encounter Details Date Type Department Care Team (Late st Contact Info) Description 05/14/2024 Lab Requisition [facility] Pathology & Laboratory Medicine - [address] [address] Outr Resulting Lab, Provider Social History Tobacco [...] C Antibody Negative Negative 05/14/2024 20:05 EDT [facility] Blood VENOUS BLOOD / Unknown 05/13/2024 17:00 EDT 05/14/2024 17:53 EDT us Provider Outr Resulting Lab CHEMISTRY & BLOOD GA S ORDERABLES Final Result [facility] [address] [place] [address] documented in this encounter Visit Diagnoses Not on filedocumented in this encounter Care Teams Cytology Technologist Relationship Specialty Start Date End Date Esperanza Scott FNP [address] [place] [address] PCP - General Family Medicine - Primary Care 08/24/22 documented as of this encounter
--- OUTSIDE RECORDS SUMMARY | 2024-10-22 01:21 | XMS_ITS | Clinical Summary ---
Author Organization [facility] Address [address] [place] [address] Care Team Providers Care Cat Scanner Operator Name Role Phone SaschaEsperanza hernandez TREE SAPPER Primary Care Provider Allergies No known active allergies Medications methadone [...] Diagnosed Date Cannabis use disorder, moderate, dependence ([facility]) 03/04/2024 Alcohol use disorder 03/04/2024 Manic behavior ([facility]) 03/02/2024 Depressive disorder 09/17/2022 Alcohol use disorder, severe, dependence (HCC-CM S) 07/30/2022 Depression 07/30/2022 Depression, unspecified depression type 07/30/20 22 Delirium 07/29/2022 Right carpal tunnel syndrome 08/21/2019 Opioid use disorder, moderate, dependence ([facility]CC-C MS) Alcohol withdrawal syndrome, with delirium ([facility]) Resolved Problems Problem Noted Date Diagnosed Date Resolved Date Suicidal ideation 09/17/2022 09/28/2022 Tobacco dependence 07/31/2022 Delirium due to another medical condition 07/29/2022 09/28/2022 Tobacco use 09/28/2022 Elevated BP without diagnosis of hypertension 08/30/2022 Psychosis ([facility]) 09/28/19 23 Immunizations Name Administration Dates Next [...] C Antibody Negative Negative 05/14/2024 20:05 EDT [facility] Blood VENOUS BLOOD / Unknown 05/13/2024 17:00 EDT 05/14/2024 17:53 EDT us Provider Outr Resulting Lab CHEMISTRY & BLOOD GA S ORDERABLES Final Result [facility] [address] [place] [address] from Last 3 Months or Most Recently Relevant to Health Maintenance Insurance [place]ID [place] Advance Directives For more information, please contact: [phone] * Full Code (Latest Code Status on File) Date Activated Date Inactivated Comments 09/17/2022 19:16 09/29/2022 18:14 Question Answer Comments When the patient has NO PULSE: Full Code / CPR [facility]: Refer to current pap er/scanned MOLST [...] Made the Decision? Default/Not Discussed Care Teams Cat Scanner Operator Relationship Specialty Start Date End Date Esperanza Scott FNP [address] [place] [address] PCP - General Family Medicine - Primary Care 08/24/22
--- OUTSIDE RECORDS SUMMARY | 2024-10-22 01:21 | XMS_ITS | Encounter Summary ---
Author Organization [facility] Address [address] [place] [address] Care Team Providers Care Dip Painter Name Role Phone Esperanza Scott METAL STAMPER Primary Care Provider [phone] Encounter Details Date Type Department Care Team (Late st Contact Info) Description 05/14/2024 Lab Requisition [facility] Pathology & Laboratory Medicine - [address] [address] Outr Resulting Lab, Provider Social History Tobacco [...] 4th Generation Negative Negative 05/14/2024 20:11 EDT [facility] Comment:If acute HIV-1 infec tion is suspected in a high risk patient, submit plasma specimen for HIV-1 RNA quantitation test. Blood VENOUS BLOOD / Unknown 05/13/2024 17:00 EDT 05/14/2024 17:53 EDT Narrative [facility] - 05/14/2024 20:11 EDT Fourth Generation assay performed on the Siemens Centaur XPT. us Provider Outr Resulting Lab IMMUNOLOGY AND SEROL OGY ORDERABLES Final Result [facility] [address] [place] [address] documented in this encounter Visit Diagnoses Not on filedocumented in this encounter Care Teams Dip Painter Relationship Specialty Start Date End Date Esperanza Scott FNP [address] [place] [phone] PCP - General Family Medicine - Primary Care 08/24/22 documented as of this encounter
--- OUTSIDE RECORDS SUMMARY | 2024-10-22 01:21 | XMS_ITS | Referral Summary ---
Author Organization [facility] Address [address] [place] [address] Care Team Providers Care Electric Meter Repairer Helper Name Role Phone SaschaEsperanza hernandez MAINTENANCE SHOP CLERK Primary Care Provider [phone] Allergies No known active allergies Medications methadone [...] Date Cannabis use disorder, moderate, dependence ([facility]) 03/04/2024 Alcohol use disorder 03/04/2024 Manic behavior ([facility]) 03/02/2024 Depressive disorder 09/17/2022 Alcohol use disorder, severe, dependence (HCC-CM S) 07/30/2022 Depression 07/30/2022 Depression, unspecified depression type 07/30/20 22 Delirium 07/29/2022 Right carpal tunnel syndrome 08/21/2019 Opioid use disorder, moderate, dependence ([facility]CC-C MS) Alcohol withdrawal syndrome, with delirium ([facility]) Resolved Problems Problem Noted Date Diagnosed Date Resolved Date Suicidal ideation 09/17/2022 09/28/2022 Tobacco dependence 07/31/2022 Delirium due to another medical condition 07/29/2022 09/28/2022 Tobacco use 09/28/2022 Elevated BP without diagnosis of hypertension 08/30/2022 Psychosis ([facility]) 09/28/19 23 Immunizations Name Administration Dates Next [...] C Antibody Negative Negative 05/14/2024 20:05 EDT [facility] Blood VENOUS BLOOD / Unknown 05/13/2024 17:00 EDT 05/14/2024 17:53 EDT us Provider Outr Resulting Lab CHEMISTRY & BLOOD GA S ORDERABLES Final Result [facility] [address] [place], [place] [address] from Last 3 Months or Most Recently Relevant to Health Maintenance Insurance [place] [facility] Address: [address] [place] [address] Advance Directives For more information, please contact: [phone] * Full Code (Latest Code Status on File) Date Activated Date Inactivated Comments 09/17/2022 19:16 09/29/2022 18:14 Question Answer Comments When the patient has NO PULSE: Full Code / CPR [facility]: Refer to current pap er/scanned MOLST [...] Made the Decision? Default/Not Discussed Care Teams Electric Meter Repairer Helper Relationship Specialty Start Date End Date Esperanza Scott FNP [address] [place] [phone] PCP - General Family Medicine - Primary Care 08/24/22
--- OUTSIDE RECORDS SUMMARY | 2024-10-22 01:21 | XMS_ITS | Encounter Summary ---
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 after ETOH withdrawal, now being transferred to [facility]. A recent brain MRI and head CT [...] History Social History Narrative She grew up [place] with her mother and older brother. Education: HS diploma, followed by [employer] in [place], [place]. 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 Opioid use disorder. Question [...] care with a PCP near home in [place] or [place], [place]. Covid-19 history: --Vaccine - never received. [...] and decreased self-care. Patient was treated at [facility] for 3 days for alcohol withdrawal and discharged 07/28/22. She was noted to have hallucinations at that time and CIWA scores in the 30s. She was treated with phenobarbital and Ativan. MRI completed was unremarkable. Patient seen by this video games storywriter. Patient reports upon returning from [facility] she visited her step mother and went to lunch with her. She reports returning to her home with her partner. She reports not being able to sleep at home. She reports that her partner, Salvador and step mother were concernedabout her and brought her to [facility]. Patient presents very anxious. She reports feeling [...] having this experience during encounter with this video games storywriter. She reports poor sleep and drinks 16 oz red bull daily and 2 cups of coffee. She reports having a persistently low appetite. She denies current tremors, nausea, or fever. Reason for Failure of Outpatient Treatment: Increased severity of psychiatric symptoms Current Support System: Partner and step mother HISTORY Psychiatric History: Patient reports seeing counselor at [facility] infrequently. She denies prior trials of antidepressants and anxiolytics. She reports being prescribed a sleep medication in the past. She reports being in therapy in the past but not currently. She denies history of self-harm or suicide attempts. [facility] Past Medical History: Diagnosis Date ??? [...] about recent hospital course or treatment at [facility] Memory: recalls past 4 [facility] presidents accurately in order Language: normal Fund of Knowledge: primary care sales representative of education level Capacity for Abstraction: [...] expresses interest in transitioning to rehab from [facility]. Patient denies active suicidal ideas. Patient would [...] PLAN: Immediate Plan of Treatment: Admit to [facility] [address] [facility] level 4 with frequent observation Usual labs [...] or memory loss) due to an acute [place] I disorder that endangersthe welfare of the patient or others. PLAN TO RESTRICT ACCESS TO FIREARMS (outpatient setting): Access to firearms? Denies Curtis Méndez DO 07/30/2022 20:33 documented in this encounter Consult Notes * Luiz Figueroa MD - 08/19/2022 1343 ESTAssociated Order(s): CONSULT NEUROLOGY [facility] Neurology Inpatient Consultation PATIENT NAME: Tuyet [...] Delirium ??? Alcohol use disorder, severe, dependence ([facility]) ([facility]) ??? Depression ??? Depression, unspecified depression type ??? Opioid use disorder, moderate, dependence ([facility]) ([facility]) ??? Tobacco use ??? Elevated BP without diagnosis of hypertension ??? Alcohol withdrawal syndrome, with delirium ([facility]) Past Medical History: Diagnosis Date ??? Acne [...] Q4H PRN Curtis Méndez, DO ??? b mwkkitf-F-jlhcq acid (NEPHROCAPS) 1 mg capsule 1 Capsule [...] y.o. female who is currently admitted to [facility] psychiatry voluntarily initially for alcohol withdrawal, and [...] polite with relaxed body body language during social media content manager, but unclear content, I'm justtrying to figure [...] kay briefly otherwise calm out of room. [place] responding to internal stimuli, mostly in her [...] did better at lunch and dinner when video games storywriter re-directed her and sat with her. Action: [...] responding to internal stim; frustrated, anxious Yamile Raimrez RN 08/20/2022 11:30 * Plan of Care [...] the room (pretty hard). Then proceeded to pharmacy picking tech the blanket she just placed on the [...] of Care - Leonard Najera - 08/17/2022 7039 EST Problem: Coping: Goal: Ability to cope will improve Outcome: Met This Shift This patient able to utilize exercise to cope with disorganization. Patients thoughts were more connected today. Seemed to have insight into her illness. * Group Note - Oliver Martinez - 08/16/2022 2537 EST Cognitive Behavioral Therapy Group. The group [...] by Koki Porter RN Outcome: Ongoing This video games storywriter observed patient talking to the closet in her room. Patient unable to form complete sentences or respond to this video games storywriter's questions in a logical manner. Patient is [...] on task. * Group Note - Oliver Martinez - 08/14/2022 1447 EST Coping with Anxiety [...] Staff When Experiencing Hallucinations/Delusions Outcome: Ongoing This video games storywriter observed patient to responding to internal stimuli throughout the day. Patient unable to formulate complete thoughts or complete sentences when this video games storywriter would attempt to talk with the patient. [...] bag Container with Q tips Small bag [place] purse [place] To[employer] VALUABLES ENVELOPE [place] drivers License Mis cards Hunting license Safety pin Eye liner sharpener Metal case 2x Golf Course Manager Billy 2 malachi pins [place] purse Small bag SECURITY Pocket knife Dimes [...] stared at her for several seconds. This video games storywriter messaged her psychiatrist and he ordered x1 [...] Social with roommate. Appeared to sleep from [id number] then back to sleep again for total [...] is eating her meals in Dining Room. Pulmonologist Intensivist came in to meet with some of the patients and Tuyet expressed that she would like to meet with the . Action: Encourage attendance and participation in groups and activities Response: Guarded TRIXIE BURROUGHS RN 08/02/2022 13:41 * Group Note - Sisi Mcmillan - 08/01/2022 9628 EST Cognitive Behavioral Therapy Group. The group [...] Work Assessment - Jericho Gutierrez - 07/31/2022 1096 EST LEATHA Psychosocial Assessment and Initial Note Admit Date: 07/30/22 In attendance: LEATHA KIM, LEATHA Sales Representative [employer], AP, RN Individuals providing info: (family, sig. others, community providers) Information provided by Patient and EMR Pt presentation and discharge plan: Pt reported a recent three day admission at [facility] for alcohol withdrawal and was discharged on 07/28. Upon her discharge, Pt slept poorly, presented with increased anxiety. Pt was brought to [facility] by family out of concern. Pt discussed how she has been self tapering methadone without support from [facility]. 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 Pt sta channing she stopped drinking approximately 1.5 weeks ago, but prior to this had a lengthy alcohol use history and was drinking 1/2 gallon a day of alcohol. Pt denied SI and is agreeable to admission. SW talked with Pt about referral to [facility]. Pt is amenable to this referral. SW to connect Pt with PCP. Pt signed release for [facility]. SW to talk with Pt further about [facility] treatment options. Current Outpatient Providers: Agency: [employer]: Provider/ psychiatrist: Therapist: Assistant Portfolio Manager: PCP: Guardian: Other: [facility] Current [...] abuse) Pt reported she was raised in [place] by her Mother. Pt stated she has [...] gallonper day. Pt is a client at [facility] and does not state how long she has been there beyond stating years. Ethnic/ Cultural/ Spiritual factors and current Influence: Pt said she used to attend [employer] and reports she still identifies as a believer. Request Visit with coordinator of genetic services: ____yes, ____No SW to talk with Pt [...] effective in the past. Call placed to stonecutter apprentice hand but no response yet. Heat pack given [...] 09/01/2022 10:2 8 EST us Scan 2 Anesthesiologist Assistant Certified PROCEDURE/MINOR SURGICAL OR DERABLES Final Result * HEAVY METAL SCREEN WITH DEMOGRAPHICS, B (08/22/2022 16:26 EST) Arsenic Blood <1 <13 ng/mL 08/23/2022 14:12 [facility] Jajah Comment: ADDITIONAL INFORMATION This test was developed and its performance characteristics determined by [facility] in a manner consistent with CLIA requirements. This test has not been cleared or approved by the U.S. Food and Drug Administration. Lead <1.0 <5.0 mcg/dL 08/23/2022 14:12 [facility] Jajah Comment: ADDITIONAL INFORMATION Testing performed by Inductively Coupled Plasma-Mass Spectrometry (ICP-MS). This test was developed and its performance characteristics determined by [facility] in a manner consistent with CLIA requirements. This test has not been cleared or approved by the U.S. Food and Drug Administration. Cadmium, Blood 0.7 <5.0 ng/mL 08/23/2022 14:12 [facility] [employer] Interactive Comment: ADDITIONAL INFORMATION This test was developed and its performance characteristics determined by [facility] in a manner consistent with CLIA requirements. This test has not been cleared or approved by the U.S. Food and Drug Administration. Mecury, Blood <1 <10 ng/mL 08/23/2022 14:12 [facility] Comment: ADDITIONAL INFORMATION This test was developed and its performance characteristics determined by [facility] in a manner consistent with CLIA requirements. This test has not been cleared or approved by the U.S. Food and Drug Administration. Venous,Capillary Venous 08/23/20 14:12 [facility] Patient Street Address x 08/23/2022 14:12 [facility] Patient City x 08/23/2022 14:12 [facility] PATIENTSTATE x 08/23/2022 14:12 [facility] Patientzip x 08/23/2022 14:12 [facility] PATCOUNTY x 08/23/2022 14:12 [facility] Home Phone x 08/23/2022 14:12 [facility] Patient Race x 08/23/2022 14:12 [facility] Patient Ethnicity x 022 14:12 [facility] Patient Occupation x 2021 14:12 [facility] Patient Employer x 08/23/20 14:12 [facility] Guardian First Name x 08/23 14:12 [facility] Guardian Last Name x 2021 14:12 [facility] Health Care Provider Name x 08/23/2022 14:12 [facility] Health Care Provider St Address x 08/23/2022 14:12 [facility] Health Care Provider City x 08/23/2022 14:12 [facility] Health Care Provider State x 08/23/2022 14:12 [facility] Health Care Provider Zip x 08/23/2022 14:12 [facility] Health Care Provider Phone x 08/23/2022 14:12 [facility] Submitting Laboratory Phone x 08/23/2022 14:12 EST [facility] Comment: Test Performed by: [facility] [address] [place] [address] Actuarial Science Professor: Chris Flores M.D. Ph.D.; CLIA# [id number] Blood VENOUS BLOOD / Unknown Venipuncture / Unknown 08/22/2022 16:26 EST 08/22/2022 17:00 EST Curtis Méndez DO CHEMISTRY & BLOOD GAS ORDERAB LES Final Result [facility] [address] [place] [address] * ANTI NUCLEAR AB (ABBEY), IFA (08/22/2022 16:26 EST) Pathologist [facility] ABBEY Interpretation Negative Negative 2021 14:35 EST [facility] Comment:No titer performed, ABBEY Screen is negative. Blood VENOUS BLOOD / Unknown Venipuncture / Unknown 08/22/2022 16:26 EST 08/22/2022 17:02 EST Narrative [facility] - 08/23/2022 14:35 EST Results were obtained with the INOVA NOVA Lite HEp-2 ABBEY Kit by indirect immunofluorescence. us Curtis Méndez DO IMMUNOLOGY AND SEROLOGY ORDER RITA Final Result Performing Organization Address [facility]/ZIP Co de Phone Number [facility] [address] [place] [address] * SYPHILIS RPR SCREEN W/REFLEX (08/22/2022 16:26 EST) Pathologist [facility] Rapid Plasma Reagin Screen (RPR) Nonreactive Nonreactive 08/25/2022 9:31 EST [facility] Blood VENOUS BLOOD / Unknown Venipuncture / Unknown 08/22/2022 16:26 EST 08/22/2022 17:02 EST us Curtis Méndez DO IMMUNOLOGY AND SEROLOGY ORDER RITA Final Result Performing Organization Address City/[facility]/ZIP Co de Phone Number [facility] [address] [place] [address] * VITAMIN B12 (08/22/2022 16:26 EST) Vitamin [...] ORDERAB LES Final Result Performing Organization Address City/[facility]/ZIP Co de Phone Number [facility] [address] [place] [address] * COPPER, SERUM (08/22/2022 16:26 EST) Pathologist [facility] Copper, Serum 103 77 - 206 mcg/dL 08/24/2022 10:56 EST [facility] Comment: ADDITIONAL INFORMATION This test was developed and its performance characteristics determined by [facility] in a manner consistent with CLIA requirements. This test has not been cleared or approved by the U.S. Food and Drug Administration. Test Performed by: [facility] - [address] [address] Actuarial Science Professor: Chris Flores M.D. Ph.D.; CLIA# [id number] Blood VENOUS BLOOD / Unknown Venipuncture / Unknown 08/22/2022 16:26 EST 08/22/2022 17:00 EST Curtis Méndez CHEMISTRY & BLOOD GAS ORDERAB LES Final Result Performing Organization Address City/[facility]/ZIP Co de Phone Number [facility] [address] [place] [address] * CERULOPLASMIN, S (08/22/2022 16:26 EST) Ceruloplasmin, S 24.9 20.0 - 51.0 mg/dL 08/23/2022 14:34 EST [facility] Comment: Test Performed by: [facility] - [facility] [address] [place] [address] Actuarial Science Professor: Chris Flores M.D. Ph.D.; CLIA# [id number] Blood VENOUS BLOOD / Unknown Venipuncture / Unknown 08/22/2022 16:26 EST 08/22/2022 17:02 EST us Curtis Méndez DO CHEMISTRY & BLOOD GAS ORDERAB LES Final Result [facility] [address] [place] [address] * ECG REPORT - SCANNED (08/18/2022 20:35 EST) 08/18/2022 20:3 5 EST us Scan 2 Anesthesiologist Assistant Certified PROCEDURE/MINOR SURGICAL OR DERABLES Final Result * ECG REPORT - SCANNED (08/15/2022 12:06 EST) 08/15/2022 12:0 6 EST us Scan 2 Anesthesiologist Assistant Certified PROCEDURE/MINOR SURGICAL OR DERABLES Final Result * EKG 12-LEAD (08/15/2022 10:26 EST) 08/15/2022 10:[address] [facility] - 08/15/2022 11:59 EST ? CV ? Test Date: ?2022-08-15 Pat Name: ? TUYET NICOLLE ?Department: ? Room: ? 323 Gender: ? Female ? Supervisor Delivery Department: ?? JW : ?1985 ? Requested By: DEBBIE SUSU A Order Number: [id number] ? Reading MD: ?? GIL CEDILLO MD ? Measurements Intervals ?[place] ? Rate: ? 73 ? P: ?52 CO: ? 150 ?QRS: ?57 QRSD: ? 94 [...] Procedure Note Gil Cedillo MD - 08/15/2022 [facility] Test Date: 2022-08-15 Pat Name: TUYET EDWARDS Department: Room: 323 Gender: Female Supervisor Delivery Department: RANI : 1985 Requested By: DEBBIE Nazario Order Number: [id number] Reading MD: GIL CEDILLO MD Measurements Intervals [place] Rate: 73 P: 52 CO: 150 QRS: 57 QRSD: 94 T: 48 QT: 384 QTc: 423 Interpretive Statements Normal sinus rhythm Compared to ECG 08/05/1997 09:53:00 Sinus bradycardia no longer present I reviewed the tracing and have either agreed or edited the findings inthis report. Electronically Signed On 08-15-2022 11:59:40 EST by GIL MASON. Susu Morris LABORATORY SAMPLE CARRIER CARDIAC ECG ORDERABLES Fin al Result [facility] * EKG 12-LEAD (08/13/2022 13:43 EST) 08/13/2022 13:4 3 EST Narrative [facility] - 08/18/2022 12:39 EST ? [facility] ? Test Date: ?2022-08-13 Pat Name: ? TUYET NICOLLE ?Department: ? Room: ? Gender: ? Female ? Supervisor Delivery Department: ?? BARNARDD : ?1985 ? Requested By: Order Number: [id number] ? Reading MD: ?? GIL CEDILLO MD ? Measurements Intervals ?[place] ? Rate: ? 79 ? P: ? CO: ? 165 ?QRS: ?42 QRSD: ? 76 ? T: ?50 QT: ? 382 ? QTc: ?438 ? Interpretive Statements Sinus rhythm Compared to ECG 08/05/1997 09:53:00 Sinus bradycardia no longer present I reviewed the tracing and have either agreed or edited the findings in this report. Electronically Signed On 08-18-2022 12:39:35 EST by GIL CEDILLO MD. Procedure Note Gil Cedillo MD - 08/18/2022 [facility] Test Date: 2022-08-13 Pat Name: TUYET EDWARDS Department: Room: Gender: Female Supervisor Delivery Department: GINNY : 1985 Requested By: Order Number: [id number] Reading MD: GIL CEDILLO MD Measurements Intervals [place] Rate: 79 P: CO: 165 QRS: 42 QRSD: 76 T: 50 QT: 382 QTc: 438 Interpretive Statements Sinus rhythm Compared to ECG 08/05/1997 09:53:00 Sinus bradycardia no longer present I reviewed the tracing and have either agreed or edited the findings inthis report. Electronically Signed On 08-18-2022 12:39:35 EST by GIL MASON. us Adriana Camargo MD CARDIAC ECG ORDERABLE S Final Result [facility] * (ABNORMAL) COMPREHENSIVE METABOLIC PANEL (CMP) (08/12/2022 12:59 EST) Sodium 143 136 - 145 mmol/L 08/12/2022 14:15 [facility] Potassium 4.5 3.5 - 5.0 mmol/L 08/12/2022 14:15 [facility] Chloride 104 96 - 110 mmol/L 08/12/2022 14:15 [facility] CO2 Total 27 22 - 32 mmol/L 08/12/2022 14:15 [facility] Glucose 94 70 - 100 mg/dL 08/12/2022 14:15 [facility] BUN 14 10 - 26 mg/dL 08/12/2022 14:15 [facility] Creatinine 0.53 0.52 - 1.04 mg/dL 08/12/2022 14:15 [facility] eGFR 121 >60 mL/min/1.7 3m2 08/12/2022 14:15 [facility] Total Protein 7.5 6.3 - 8.2 g/dL 08/12/2022 14:15 [facility] Albumin 4.4 3.4 - 4.9 g/dL 08/12/2022 14:15 [facility] Alkaline Phosphatase 81 38 - 126 U/L 08/12/2022 14:15 [facility] AST 45 15 - 46 U/L 08/12/2022 14:15 [facility] ALT 58(H) <35 U/L 08/12/2022 14:15 [facility] Bilirubin, Total 0.3 <1.4 mg/dL 08/12/20 14:15 [facility] Calcium 9.6 8.5 - 10.5 mg/dL 08/12/2022 14:15 [facility] Albumin/Globulin Ratio 1.4 1.0 - 2.5 08/12/2022 14:15 [facility] Anion Gap 12 5 - 14 08/12/2022 14:15 [facility] Blood VENOUS BLOOD / Unknown Venipuncture / Unknown 08/12/2022 12:59 EST 08/12/2022 13:09 EST Curtis Méndez DO CHEMISTRY & BLOOD GAS ORDERAB LES Final Result [facility] [address] [place] [address] * (ABNORMAL) COMPLETE BLOOD COUNT (08/12/2022 12:59 EST) WBC 5.75 4.00 - 12.40 K/cmm 08/12/2022 13:12 [facility] RBC 3.89 3.86 - 5.04 M/cmm 08/12/2022 13:12 [facility] Hemoglobin 13.9 11.6 - 15.2 gm/dL 08/12/2022 13:12 [facility] HCT 40.6 34.9 - 44.4 % 08/12/2022 13:12 [facility] MCV 104(H) 81 - 98 fl 08/12/2022 13:12 [facility] MCH 35.7(H) 26.7 - 33.3 pg 08/12/2022 13:12 [facility] MCHC 34.2 32.1 - 35.9 gm/dL 08/12/2022 13:12 [facility] RDW-CV 11.6 <14.7 % 08/12/2022 13:12 [facility] RDW-SD 44.4 <50.4 fl 08/12/2022 13:12 [facility] PLT 274 141 - 377 K/cmm 08/12/2022 13:12 [facility] MPV 10.3 9.5 - 12.7 fl 08/12/2022 13:12 [facility] Blood VENOUS BLOOD / Unknown Venipuncture / Unknown 08/12/2022 12:59 EST 08/12/2022 13:09 EST Curtis Méndez DO HEMATOLOGY & PF4 ORDERABLES F inal Result Performing Organization Address City/[facility]/ZIP Co de Phone Number [facility] [address] [place] [address] * MAGNESIUM (08/10/2022 7:39 EST) Magnesium 1.8 1.7 - 2.8 mg/dL 08/10/2022 8:44 EST [facility] Blood VENOUS BLOOD / Unknown Venipuncture / Unknown 08/10/2022 7:39 EST 08/10/2022 8:00 EST Susu Morris LABORATORY SAMPLE CARRIER CHEMISTRY & BLOOD GAS ORDE MYRA Final Result Performing Organization Address City/[facility]/ZIP Co de Phone Number [facility] [address] [place] [address] * C REACTIVE PROTEIN (08/10/2022 7:39 EST) [facility] C-Reactive Protein <5.0 <10.0 mg/L 08/10/2022 8:44 [facility] Blood VENOUS BLOOD / Unknown Venipuncture / Unknown 08/10/2022 7:39 EST 08/10/2022 8:00 EST Susu Morris LABORATORY SAMPLE CARRIER CHEMISTRY & BLOOD GAS RANDY RENTERIA Final Result [facility] [address] [place] [address] * (ABNORMAL) BASIC METABOLIC PANEL (BMP) (08/10/2022 7:39 EST) [facility] Sodium 143 136 - 145 mmol/L 08/10/2022 8:44 [facility] Potassium 4.3 3.5 - 5.0 mmol/L 08/10/2022 8:44 [facility] Chloride 100 96 - 110 mmol/L 08/10/2022 8:44 [facility] CO2 Total 32 22 - 32 mmol/L 08/10/2022 8:44 [facility] Anion Gap 11 5 - 14 08/10/2022 8:44 [facility] Glucose 116(H) 70 - 100 mg/dL 08/10/2022 8:44 [facility] Calcium 9.9 8.5 - 10.5 mg/dL 08/10/2022 8:44 [facility] BUN 12 10 - 26 mg/dL 08/10/2022 8:44 [facility] Creatinine 0.50(L) 0.52 - 1.04 mg/dL 08/10/2022 8:44 [facility] eGFR 123 >60 mL/min/1.73 m2 08/10/2022 8:44 [facility] Blood VENOUS BLOOD / Unknown Venipuncture / Unknown 08/10/2022 7:39 EST 08/10/2022 8:00 EST Susu Mansi Morris LABORATORY SAMPLE CARRIER CHEMISTRY & BLOOD GAS RANDY RENTERIA Final Result [facility] [address] [place] [address] documented in this encounter Visit Diagnoses Diagnosis [...] Mon08/30/22 at 1826, Indigestion, Heartburn, Routine b mgqhhrg-D-sookk acid (NEPHROCAPS) 1 mg capsule 1 Capsule [...] Scheduled Medication Order 08/28/2022 08/29/2022 08/30/2022 b ucyxtnc-Q-tyzie acid (NEPHROCAPS) 1 mg capsule 1 Capsule 1 Capsule, oral, DAILY, First dose on Mon08/03/22 at 0900, Until Discontinued, Routine 900 (Given - Provider: Koki Porter RN) 0953 (Given - Provider: Koki Porter RN) 0838 (Given - Provider: Trxiie Burroughs, JIAN) gabapentin (NEURONTIN) capsule 300 mg [...] 08/19/2022 documented in this encounter Care Teams Plywood Matcher Relationship Specialty Start Date End Date None, Provider PCP - General 07/29/22 08/23/22 Esperanza Scott FNP [address] [place] [id number] PCP - General Family Medicine - Primary Care 08/24/22 documented as of this encounter
--- OUTSIDE RECORDS SUMMARY | 2024-10-22 01:21 | XMS_ITS | Encounter Summary ---
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 EST 09/17/2022 15:56 EST London Alvarado MD MICROBIOLOGY - GENERAL ORDERABLE S Final Result [facility] [address] [place] [address] * COVID-19 TESTING (09/17/2022 15:54 EST) Pathologist [facility] COVID-19 rt-PCR Result Negative Negative 09/17/2022 16:55 EST [facility] Comment: This test has [...] terminated or revoked sooner. Performed on the [employer] GeneXpert Instrument The 2019 novel coronavirus (SARS-CoV-2) target nucleic acids are not detected. Performing Lab Cepheid GeneXpert [facility] 09/17/2022 16:55 EST [facility] Swab ENTIRE NASOPHARYNX / Unknown Swab / Unknown 09/17/2022 15:54 EST 09/17/2022 15:56 EST London Alvarado MD MICROBIOLOGY - GENERAL ORDERABLE S Final Result Performing Organization Address [facility] Co de Phone Number [facility] [address] [place] [address] * THYROID CASCADE (09/17/2022 15:54 EST) Pathologist [facility] TSH 1.08 0.47 - 4.68 mIU/L 09/17/2022 16:58 EST [facility] Blood VENOUS BLOOD / Unknown Venipuncture / Unknown 09/17/2022 15:54 EST 09/17/2022 16:04 EST Narrative [facility] - 09/17/2022 16:58 EST NOTE: The results of this assay can be falsely lowered due to the consumption of Biotin. London Alvarado MD CHEMISTRY & BLOOD GAS ORDERABLES Final Result Performing Organization Address [facility]/ZIP Co de Phone Number [facility] [address] [place] [address] * ETHANOL, BLOOD (09/17/2022 15:54 EST) Pathologist [facility] Ethanol, Blood <10 <10 mg/dL mg/dL 09/17/2022 16:23 [facility] Comment:Healthy, non-drinkin g individuals will have an ethanol concentration of <10 mg/dL. Blood VENOUS BLOOD / Unknown Venipuncture / Unknown 09/17/2022 15:54 EST 09/17/2022 16:04 [facility] - 09/17/2022 16:23 [facility] legal blood alcohol limit = 80 mg/dl (0.08%) London Alvarado MD CHEMISTRY & BLOOD GAS ORDERABLES Final Result Performing Organization Address [facility] Co de Phone Number [facility] [address] [place] [address] * COMPREHENSIVE METABOLIC PANEL (CMP) (09/17/2022 15:54 EST) [facility] Sodium 140 136 - 145 mmol/L 09/17/2022 16:23 [facility] Potassium 4.0 3.5 - 5.0 mmol/L 09/17/2022 16:23 [facility] Chloride 101 96 - 110 mmol/L 09/17/2022 16:23 [facility] CO2 Total 28 22 - 32 mmol/L 09/17/2022 16:23 [facility] Glucose 86 70 - 100 mg/dL 09/17/2022 16:23 [facility] BUN 12 10 - 26 mg/dL 09/17/2022 16:23 [facility] Creatinine 0.54 0.52 - 1.04 mg/dL 09/17/2022 16:23 [facility] eGFR 121 >60 mL/min/1.7 3m2 09/17/2022 16:23 [facility] Total Protein 7.8 6.3 - 8.2 g/dL 09/17/2022 16:23 [facility] Albumin 4.6 3.4 - 4.9 g/dL 09/17/2022 16:23 [facility] Alkaline Phosphatase 71 38 - 126 U/L 09/17/2022 16:23 [facility] AST 32 15 - 46 U/L 09/17/2022 16:23 [facility] ALT 22 <35 U/L 09/17/2022 16:23 [facility] Bilirubin, Total 0.4 <1.4 mg/dL 09/17/20 16:23 [facility] Calcium 9.5 8.5 - 10.5 mg/dL 09/17/2022 16:23 [facility] Albumin/Globulin Ratio 1.4 1.0 - 2.5 09/17/2022 16:23 [facility] Anion Gap 11 5 - 14 09/17/2022 16:23 [facility] Blood VENOUS BLOOD / Unknown Venipuncture / Unknown 09/17/2022 15:54 EST 09/17/2022 16:04 EST London Alvarado MD CHEMISTRY & BLOOD GAS ORDERABLES Final Result [facility] [address] [place] [address] * (ABNORMAL) COMPLETE BLOOD COUNT AND DIFFERENTIAL (09/17/2022 15:54 EST) WBC 9.07 4.00 - 12.40 K/cmm 09/17/2022 16:19 [facility] RBC 4.00 3.86 - 5.04 M/cmm 09/17/2022 16:19 [facility] Hemoglobin 13.3 11.6 - 15.2 gm/dL 09/17/2022 16:19 [facility] HCT 39.9 34.9 - 44.4 % 09/17/2022 16:19 [facility] MCV 100(H) 81 - 98 fl 09/17/2022 16:19 [facility] MCH 33.3 26.7 - 33.3 pg 09/17/2022 16:19 [facility] MCHC 33.3 32.1 - 35.9 gm/dL 09/17/2022 16:19 [facility] RDW-CV 12.0 <14.7 % 09/17/2022 16:19 [facility] RDW-SD 44.2 <50.4 fl 09/17/2022 16:19 [facility] PLT 223 141 - 377 K/cmm 09/17/2022 16:19 [facility] MPV 10.8 9.5 - 12.7 fl 09/17/2022 16:19 [facility] % Neutrophils 61.3 % 09/17/2022 16:19 [facility] % Lymphocytes 24.8 % 09/17/2022 16:19 [facility] % Monocytes 12.2 % 09/17/2022 16:19 [facility] % Eosinophils 1.0 % 09/17/2022 16:19 [facility] % Basophils 0.4 % 09/17/2022 16:19 [facility] % Immature Grans 0.3 % 09/17/20 16:19 [facility] Absolute Neutrophils 5.55 2.20 - 8.85 K/cmm 09/17/2022 16:19 [facility] Absolute Lymphocytes 2.25 1.09 - 3.30 K/cmm 09/17/2022 16:19 [facility] Absolute Monocytes 1.11(H) 0.10 - 0.80 K/cmm 09/17/2022 16:19 [facility] Absolute Eosinophils 0.09 0.03 - 0.61 K/cmm 09/17/2022 16:19 [facility] ABS Basophils 0.04 0.01 - 0.11 K/cmm 09/17/2022 16:19 [facility] Absolute Immature Grans 0.03 0.00 - 0.06 K/cmm 09/17/2022 16:19 EST [facility] Type of Differential: Auto 09/17/2022 16:19 EST [facility] Blood VENOUS BLOOD / Unknown Venipuncture / Unknown 09/17/2022 15:54 EST 09/17/2022 16:04 EST us London Alvarado MD PACKAGES & DNA PROBE ORDERABLES Final Result Performing Organization Address City/State/[facility] Co de Phone Number [facility] [address] [place] [address] documented in this encounter Visit Diagnoses Diagnosis Suicidal ideation- Primary Suicidal ideation Alcohol use disorder, severe, dependence (HCC-CMS) Opioid use disorder, moderate, dependence (HCC-CMS) Tobacco use Tobacco use disorder Depressive disorder Depressive disorder, not elsewhere classified Psychosis, unspecified psychosis type (HCC-CMS) Depressive disorder Depressive disorder, not elsewhere classified Alcohol use disorder, severe, dependence (HCC-CMS) Opioid use disorder, moderate, dependence ([facility]-CMS) Tobacco use Tobacco use disorder Psychosis ([facility]-CMS) Unspecified psychosis documented in this [...] Given 09/20/2022 18:29 EST 650 mg b krxhieo-G-ndudj acid (NEPHROCAPS) 1 mg capsule 1 Capsule [...] Scheduled Medication Order 09/27/2022 09/28/2022 09/29/2022 b ttddnrz-Y-mgtya acid (NEPHROCAPS) 1 mg capsule 1 Capsule [...] Provider: Laila Lemon, JIAN)1319 (Given - Provider: Liala Lemon, JIAN)2003 (Given - Provider: Gabby Denny, [...] 09/28/2022 documented in this encounter Care Teams Power Brake Rebuilder Relationship Specialty Start Date End Date Esperanza Scott FNP [address] [place] [phone] PCP - General Family Medicine - Primary Care 08/24/22 documented as of this encounter
--- OUTSIDE RECORDS SUMMARY | 2024-10-22 01:21 | XMS_ITS | Encounter Summary ---
Author Organization [facility] Address [address] [place] [address] Care Team Providers Care Obiee Report Developer Name Role Phone Esperanza Scott BURN OUT SCARFING OPERATOR Primary Care Provider [phone] Encounter Details Date Type Department Care Team (Late st Contact Info) Description 10/30/2023 Lab Requisition [facility] Pathology & Laboratory Medicine - [address] [address] Krystyna Person [address] [place] [address] [place] [address] Encounter for other general examination [...] types, PCR Negative Negative 11/09/2023 13:55 EST [facility] Comment:No E6 or E7 mRNA is detected from HPV types 16,18,31,33,35,39,45,51,52,56,58,59,66, and 68 by wholesale manager mediated amplification. Pap Test CERVIX UTERI STRUCTURE / Unknown 10/27/2023 11:30 EST 11/08/2023 10:49 EST us Krystyna Person MICROBIOLOGY - GENERAL ORDERABLE S Final Result Performing Organization Address City/[facility]/ZIP Co de Phone Number [facility] [address] [place] [address] * PAP TEST (10/27/2023 11:30 EST) Specimens A. Cervix and/or Endocervix , ThinPrep Imaging System with Manual Evaluation 11/09/2023 13:55 [facility] Specimen Adequacy Satisfactory for Evaluation - transformation zone component present 11/09/2023 13:55 [facility] General Categorization Negative for intraepithelial lesion or malignancy 11/09/2023 13:55 [facility] Descriptive Diagnosis Shift in raisa present suggestive of bacterial vaginosis. 11/09/2023 13:55 [facility] Attestation . 11/09/2023 13:55 [facility] at 1355 Clinical History See below 11/09/19 24 13:55 [facility] HPV The result for the Human Papillomavirus (HPV) Detection-High Risk Types is Negative. No E6 or E7 mRNA is detected from HPV types 16,18,31,33,35,39 ,45,51,52,56,58,5 9,66, and 68 by wholesale manager mediated amplification.Emerald ting was performed on specimen [id number] and was resulted on 11/09/2023 1355 EST by JAM, LAB INSTRUMENT RESULTS IN 11/09/2023 13:55 EST [facility] Performing Lab [facility] 11/09/2023 13:55 [facility] Scanned Images 11/09/2023 13:55 [facility] Pap Test CERVIX UTERI STRUCTURE / Unknown 10/27/2023 11:30 EST 10/30/2023 10:53 EST us Krystyna Person PATHOLOGY ORDERABLES Final Resul t Performing Organization Address City/[facility]/ZIP Co de Phone Number [facility] [address] [place] [address] documented in this encounter Visit Diagnoses Diagnosis Encounter for other general examination documented in this encounter Care Teams Obiee Report Developer Relationship Specialty Start Date End Date Esperanza Scott FNP [address] [place] [phone] PCP - General Family Medicine - Primary Care 08/24/22 documented as of this encounter
--- OUTSIDE RECORDS SUMMARY | 2024-10-22 01:22 | XMS_ITS | Encounter Summary ---
Author Organization [facility] Address [address] [place] [address] Care Team Providers Care Perch Machine Inspector Name Role Phone Emerson Perez [facility]- Primary Care Provider [phone] Reason for Visit * Reason Comments Pain Encounter Details Date Type Department Care Team (Late st Contact Info) Description 10/28/2019 16:15 EST Office Visit [facility] Orthopedics & Sport Medicine [address], [address] [place], [place] [phone] Sisi Alfaro, CITY AUDITOR [address] [facility] [address] [place] [phone] Left carpal tunnel syndrome (Primary Dx) Social [...] this encounter Progress Notes * Sisi Alfaro, SCREEDMAN - 10/28/2019 1615 EST PROBLEM: Left carpal [...] syndrome documented in this encounter Care Teams Perch Machine Inspector Relationship Specialty Start Date End Date [facility] [address] [facility] [place] [address] PCP - General 07/18/19 07/28/22 documented as of this encounter
--- OUTSIDE RECORDS SUMMARY | 2024-10-22 01:22 | XMS_ITS | Encounter Summary ---
Author Organization [facility] Address [address] [place] [address] Care Team Providers Care Train Attendant Name Role Phone Chelsea Faust APRN Primary Care Provider + Reason for Visit * Reason Comments New Patient Visit itchy spots on manuelito ateral forearms * Referral (Routine) - Closed Specialty Diagnoses / Procedures Referred By Andres osuna Referred To Contact Dermatology Diagnoses Rash Chelsea Faust APRN [address] [place] [address] Phone: tel: fax: [facility] Dermatology [address] [address] Phone: tel: fax: Referral ID Status Reason Start Date Expiration Date Visits Re quested Visits Authorized [id number] Closed 1 1 Encounter Details Date Type Department Care Team (Late st Contact Info) Description 11/14/2018 13:20 EST Office Visit [facility] Dermatology 3rd Floor [address] [address] Larissa Orellana PA-C [address] [place] [address] [place] [phone] Rash (Primary Dx) Discharge Disposition: Auto Discharge [...] discomfort. Tylenol, taken as directed by the asset protection detective, will help relieve pain. If Tylenol does [...] Faust APRN. 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 For full Medical, Surgical, Family, and Social [...] PATIENT : Renita Valverde : MRN: [id number] SURGEON: Larissa Robertson PA-C The indication, risks, [...] ? RENITA VALVERDE ? Accession #: ? [id number] ? : ? 1985 (Age: 33) ??F [...] not typical for a drug-related eruption. ??Dr. Osborne/[facility] Microscopic Description: Sections consist of a punch biopsy of skin. ??There is compacted orthokeratosis with parakeratosis and serum crust. ??The epidermis shows acanthosis with mild spongiosis. ??There is a superficial, predominantly perivascular, lymphomononuclear infiltrate. ??There is a superficial, predominantly perivascular, lymphomononuclear infiltrate. ??There is an exocytosis into the overlying epidermis. ?? Dr. Osborne/[facility] Document reviewed and electronically signed by: MAGEN [...] is entirely submitted in 1. AMARILYS Davey (ASC) 11/15/2018 1:19 PM End of Report [facility] 11/14/2018 11:0 4 EST 11/15/2018 11:04 EST us Larissa Orellana PA-C PATHOLOGY ORDERABLES Final Resu lt [facility] [address] [place] [address] documented in this encounter Visit Diagnoses Diagnosis Rash- Primary Rash and other nonspecific skin eruption documented in this encounter Historical Medications * This list may reflect changes made after this encounter. UNABLE TO FIND Take 1 tablet by mouth daily. Med Name: Oral control - unsure of name 07/30/2022 added in this encounter Care Teams Train Attendant Relationship Specialty Start Date End Date Chelsea Faust APRN [address] [place] [address] PCP - General 11/07/18 07/17/19 documented as of this encounter
--- OUTSIDE RECORDS SUMMARY | 2024-10-22 01:22 | XMS_ITS | Encounter Summary ---
Author Organization [facility] Address [address] [place] [address] Care Team Providers Care Body Make Up Artist Name Role Phone Unavailable Primary Care Provider Unavailabl e Encounter Details Date Type Department Care Team (Late st Contact Info) Description 07/18/2000 11:20 EST Hospital Encounter [facility] - Other [address] [place] [address] Chloe Garcia MD [address] [place] [address] Unknown, Provider, Social History Tobacco [...] ? NICOLLE, TUYET ? Accession #: ? [id number] : ? 1985 (Age: 15) ??F ?Collect [...] ORDERABLES Final Resul t Performing Organization Address City/State/[facility] Co de Phone Number [address] [address] documented in this encounter Visit Diagnoses Not on filedocumented in this encounter
--- OUTSIDE RECORDS SUMMARY | 2024-10-22 01:22 | XMS_ITS | Encounter Summary ---
Author Organization [facility] Address [address] [place] [address] Care Team Providers Care Breadman Name Role Phone Unavailable Primary Care Provider Unavailabl e Encounter Details Date Type Department Care Team (Late st Contact Info) Description 10/23/2003 13:18 EST Hospital Encounter [facility] - Other [address] [place] [address] Chloe Garcia MD [address] [place] [address] Social History Tobacco Use Types [...] ? NICOLLE, TUYET ? Accession #: ? [id number] : ? 1985 (Age: 18) ??F ?Collect [...] Garcia MD PATHOLOGY ORDERABLES Final [facility]ul t [facility] [address] [place] [address] documented in this encounter Visit Diagnoses Not on filedocumented in this encounter
--- OUTSIDE RECORDS SUMMARY | 2024-10-22 01:22 | XMS_ITS | Encounter Summary ---
Author Organization [facility] Address [address] [place] [address] Care Team Providers Care Form Tamper Operator Name Role Phone Unavailable Primary Care Provider Unavailabl e Encounter Details Date Type Department Care Team (Late st Contact Info) Description 08/22/2002 14:05 EST Hospital Encounter [facility] - Other [address] [place] [address] Chloe Garcia MD [address] [place] [address] Unknown, Provider, Discharge Disposition: Auto [...] ? TUYET VALVERDE ? Accession #: ? [id number] : ? 1985 (Age: 17) ??F ?Collect [...] Final Resul t [facility] [address] [place] [address] documented in this encounter Visit Diagnoses Not on filedocumented in this encounter
--- OUTSIDE RECORDS SUMMARY | 2024-10-22 01:22 | XMS_ITS | Encounter Summary ---
Author Organization [facility] Address [address] [place] [address] Care Team Providers Care Log Roper Name Role Phone Unavailable Primary Care Provider Unavailabl e Encounter Details Date Type Department Care Team (Late st Contact Info) Description 06/18/1999 16:44 EDT Hospital Encounter [facility] - Other [address] [place] [address] Chloe Gallardo MD [address] [place] [phone] Unknown, Provider, Discharge Disposition: Auto Discharge [...]
--- OUTSIDE RECORDS SUMMARY | 2024-10-22 01:22 | XMS_ITS | Encounter Summary ---
Author Organization [facility] Address [address] [place] [address] Care Team Providers Care Flare Maker Name Role Phone Unavailable Primary Care Provider Unavailabl e Encounter Details Date Type Department Care Team (Late st Contact Info) Description 06/29/2015 Results Only [facility] [phone] Vance Owens MD [address] [place] [address] Social History Tobacco Use Types Packs/Day Years [...] ? TUYET VALVERDE ? Accession #: ? [id number] ? : ? 1985 (Age: 30) ??F ?Collect Date: ? 06/29/2015 ? Location: ? [facility] ? Receive Date: ? 06/30/2015 ? Provider: VANCE OWENS MD Copy to: [facility] C ? Final Report SPECIMEN ADEQUACY ? [...] types 16,18,31,33,35, 39,45,51,52,56,58, 59,66, and 68 by splash line operator mediated amplification. Comments Document reviewed and electronically signed by: ? System Interface ? Report date: 07/06/2015 By the signature above, the attending physician certifies that he/she has personally conducted a gross and/or microscopic examination of the described specimens and rendered or confirmed the above diagnosis. End of Report [facility] 06/29/2015 06/30/2015 us Vance Owens MD PATHOLOGY ORDERABLES Final Resu lt [facility] [address] [place] [address] documented in this encounter Visit Diagnoses Not on filedocumented in this encounter
--- OUTSIDE RECORDS SUMMARY | 2024-10-22 01:22 | XMS_ITS | Encounter Summary ---
Author Organization [facility] Address [address] [place] [address] Care Team Providers Care X Ray Control Equipment Repairer Name Role Phone Chelsea Faust APRN Primary Care Provider + Emerson Perez-Bennie Primary Care Provider [phone] Reason for Visit * Reason Onset Date Comments Appointment Related 11/20/2018 Encounter Details Date Type Department Care Team (Late st Contact Info) Description 11/20/2018 Telephone [facility] Dermatology 3rd Floor [facility] [address] [place], [place] [address] Larissa Orellana PA-C [address] [place] [phone] Appointment Related Social History Tobacco Use Types [...] on filedocumented in this encounter Care Teams X Ray Control Equipment Repairer Relationship Specialty Start Date End Date Chelsea Faust APRN [address] [place] [phone] PCP - General 11/07/18 07/17/19 [facility] [address] [place] [address] PCP - General 07/18/19 07/28/22 documented as of this encounter
--- OUTSIDE RECORDS SUMMARY | 2024-10-22 01:22 | XMS_ITS | Encounter Summary ---
Author Organization [facility] Address [address] [place] [address] Care Team Providers Care Marketing Coordinator Name Role Phone None, Provider Primary Care [...] on filedocumented in this encounter Care Teams Marketing Coordinator Relationship Specialty Start Date End Date None, Provider PCP - General 07/29/22 08/23/22 documented as of this encounter
--- OUTSIDE RECORDS SUMMARY | 2024-10-22 01:22 | XMS_ITS | Encounter Summary ---
Author Organization [facility] Address [address] [place] [address] Care Team Providers Care Lamp Decorator Name Role Phone Unavailable Primary Care Provider Unavailabl e Encounter Details Date Type Department Care Team (Late st Contact Info) Description 08/29/2012 Results Only [facility]- [facility] [phone] Ruby Ellis, [facility] [address] [place] [address] Social History Tobacco Use Types Packs/Day Years [...] ? TUYET VALVERDE ? Accession #: ? [id number] ? : ? 1985 (Age: 27) ??F [...] types 16,18,31,33,35, 39,45,51,52,56,58, 59,66, and 68 by dedicated regional driver mediated amplification. Comments Document reviewed and electronically [...] Bhakti garcia Result [facility] [address] [place] [address] documented in this encounter Visit Diagnoses Not on filedocumented in this encounter
--- OUTSIDE RECORDS SUMMARY | 2024-10-22 01:22 | XMS_ITS | Encounter Summary ---
Author Organization [facility] Address [address] [place] [address] Care Team Providers Care Counseling Center Manager Name Role Phone Unavailable Primary Care Provider Unavailabl e Encounter Details Date Type Department Care Team (Late st Contact Info) Description 06/26/2001 10:14 EDT Hospital Encounter [facility] - Other [address] [place] [address] Chloe Garcia MD [address] [place] [phone] Unknown, Provider, Social History Tobacco Use [...] ? NICOLLE, TUYET ? Accession #: ? [id number] : ? 1985 (Age: 16) ??F ?Collect [...] Garcia MD PATHOLOGY ORDERABLES Final [facility]ul [facility] [address] [place] [address] documented in this encounter Visit Diagnoses Not on filedocumented in this encounter
--- OUTSIDE RECORDS SUMMARY | 2024-10-22 01:22 | XMS_ITS | Encounter Summary ---
Author Organization [facility] Address [address] [place] [address] Care Team Providers Care Party Plan Sales Host/Hostess Name Role Phone Unavailable Primary Care Provider Unavailabl e Encounter Details Date Type Department Care Team (Late st Contact Info) Description 05/27/2014 Results Only [facility] [phone] Vance Owens MD [address] [place] [address] Social History Tobacco Use Types Packs/Day Years [...] ? TUYET VALVERDE ? Accession #: ? [id number] ? : ? 1985 (Age: 29) ??F [...] electronically signed by: ? [facility] ? Report ??Date: 06/05/2014 16:44 HPV with Pap Test ? Date Ordered: ? 06/05/2014 ? Status: ?? Signed Out ?Date Complete: ? 06/09/2014 ? By: ??System Interface ? Date Reported: ? 06/09/2014 ? 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 E6 OR E7 mRNA from one or more types of HPV types 16,18,31, 33,35,39,45,51,52, 56,58,59,66, and 68 is detected by senior health physics technician mediated amplification. High and intermediate risk HPV [...] Final Resu lt [facility] [address] [place] [address] documented in this encounter Visit Diagnoses Not on filedocumented in this encounter
--- OUTSIDE RECORDS SUMMARY | 2024-10-22 01:22 | XMS_ITS | Continuity of Care Document ---
Author Organization [place] [facility] [place] [address] Assessment No assessment recorded. Plan of Treatment Reminders Order Date Submit Date Provider Last Modified By Organization Details Last Modified Time Details Appointments Annual Wellness Exam 40 2024 09:00A M Ruby Salazar Not available Not available Not available Lab TSH + free T4, serum 2024 025 [facility] (Registration ), [address] [place] [address] [place], [address], 10/07/2024 08:46:51 Referral None recorded. Procedures None recorded. Surgeries None recorded. Imaging None recorded. Medication Orders None recorded. Patient TargetsNo targets recorded. Patient Instructions Encounter Date Encounter Id Patient Instructions Last Modified By Organization Details Last Modified Time 09/30/2024 [id number] diet Not available 09/30 15:08:23 Reason for Referral None Reported. Results Created Date Observation Date Name Description Value Unit Range Abnormal Flag Note LastModifiedBy Organization Detail LastModifiedTime 09/26/1909/26/2024 ultra sound imagi ng repor t Patien t Name: Tuyet Edwards Unit #: [id number] Loc: DI Orderi ng Provid er: Krystyna Armstrong DO Accoun t #: [id number] Status : REG CLI Primar y Care Provid er: Ruby Salazar M.D. Date of Exam: 06/12 Sex: F Admiss ion Date: : 1984 Age: 39 Exam(s ) US PELVIS TRANSV AGINAL EXAM: US PELVIS TRANSV AGINAL CLINIC AL HISTOR Y: locate IUD,iu d string s lost,T 83.32x a. TECHNI QUE: Transa bdomin al and transv aginal pelvic ultras ound was perfor med using standa rd protoc ol. COMPAR DONNELL: No priors for compar donnell. FINDIN GS: UTERUS : Positi on: Anteve rted. Size: 6.5 long by 2.2 AP by 3.0 transv erse cm Endome trium: 0.2 cm. Normal for patien t's menstr ual status . There is no IUD visual ized. Myomet rium: Unrema rkable . Cervix : Unrema rkable . OVARIE S: The left ovary was not visual ized on this examin ation. Right: 1.9 x 1.4 x 1.1 cm Cyst or mass: No suspic ious cystic or solid masses . CUL-DE -SAC: Free fluid: There is a trace amount of free fluid in the cul-de -sac. Other: None. IMPRES FACUNDO: 1. Examin ation is limite d. The left ovary was not visual ized on this examin ation. 2. The uterus is unrema rkable . 3. No IUD is visual ized. DATA REPOSI TORY: Yosef reyes By: Krystyna Armstrong DO CC: ------ ------ ------ ------ ------ ------ ------ ------ ------ ------ ------ ------ - Dictat ed By: Gerard Martinez M.D. 1238 1238 Transc ribed By: Gerard Martinez 1238 This is privil eged, confid ential inform ation intend ed only for the provid er named. Any use or distri bution by any person other than this provid er is strict ly prohib ited. If you receiv e this report in error, please notify us immedi radhaly at and return the origin al report to us at the addres s above. Thank- you. INTERFACE [facility] [address] [place], [address] 09/26/2024 12:50:54 09/30/1909/30/2024 x-ray imagi ng simeon t Patidiamond t Name: Tuyet Edwards Unit #: [id number] Loc: DI Orderi ng Provid er: Krystyna Armstrong DO Accoun t #: [id number] Status : REG CLI Primar y Care Provid er: Ruby Salazar M.D. Date of Exam: Sex: F Admiss ion Date: : 1984 Age: 39 Exam(s ) XR ABDOME N FLAT PLATE EXAM: 2D digita l imagin g was perfor med. CLINIC AL HISTOR Y: lost iud,IU D STRING S LOST,T 83.32X A. COMPAR DONNELL: US US PELVIS TRANSV AGINAL from 2024 TECHNI QUE: Supine views of the abdome n perfor med. FINDIN GS: BOWEL GAS PATTER N: Nondis tended . CALCIF ICATIO NS: No radiop aque calcif icatio ns. OSSEOU S STRUCT URES: Unrema rkable for age. OTHER FINDIN GS: An IUD is visual ized which projec ts on the right side of the low pelvis , in a horizo ntal orient ation. This consis tent with migrat ion of the IUD outsid e of the uterus . No IUD was noted on the prior pelvic ultras ound. IMPRES FACUNDO: 1. Nonobs tructi ve bowel gas patter n. 2. IUD is in abnorm al positi on on the right lower pelvis . DATA REPOSI TORY: RADIAT ION DOSE DELIVE RED: Yosef d By: Krystyna Armstrong DO CC: ------ ------ ------ ------ ------ ------ ------ ------ ------ ------ ------ ------ - Dictat ed By: Chucky Ding 1204 1204 Transc ribed By: Teressa Benitez e 1204 This is privil eged, confid ential inform ation intend ed only for the provid er named. Any use or distri bution by any person other than this provid er is strict ly prohib ited. If you receiv e this report in error, please notify us immedi ately at [phone] and return the origin al report to us at the addres s above. Thank- you. INTERFACE [facility] [address] , [place], [address] 09/30/2024 12:18:34 Result Notes None recorded. Problems Name Problem SNOMED Code Status Onset Date Resolution Date Notes Provider Name and Address Organization Details Recorded Time Obesity 404219980 Active 2024 multiple weight inducing medicati ons. MD Aleyda [address], [facility] [address] , [facility] 5 15:08:04 Drug-ind uced constipa tion 02625464 Active [address], [facility] [address] , [facility] 5 15:07:36 Anxiety disorder 082692766 Active [address], [facility] [address] , [facility] 4 22:13:54 Elevated blood-pr essure reading without diagnosi s of hyperten facundo 724900456 Completed 201804/09/[address], [facility] [address] , [facility] 4 22:22:24 Nicotine dependen ce 05903659 Active [address], [facility] [address] , [facility] 4 22:14:15 Neck pain 93884339 Completed 201808/12/2019 Problem Code: M54.2; Problem Code Type: ICD-10; Not Available [facility] 3 05:57:31 Alcohol withdraw al delirium 3117966 Completed 202104/10/[address], [facility] [address] , [facility] 4 10:23:35 Restless ness and agitatio n 024828311 Completed 202204/09/[address], [address] 4 22:22:05 Psychoac tive substanc e abuse 14791781 Active 2022 distant use of cocaine, regular MJ use. MD Aleyda [address], [place] [address] , [facility] 4 10:16:35 Alcohol abuse 94834906 Active [address], [place] [address] , [facility] 22:13:30 Abnormal cervical Papanico laou smear with human papillom avirus deoxyrib onucleic acid detected 773767343 Completed 201310/12/2022 Problem Code: 795.05; Problem Code Type: ICD-9; Not Available [facility] 3 05:57:32 Localize d eruption of skin 164789004 Completed 201810/12/2022 Problem Code: R21; Problem Code Type: ICD-10; Not Available [facility] 3 05:57:32 Disorder of soft tissue 62213816 Completed 201810/12/2022 Problem Code: M79.89; Problem Code Type: ICD-10; Not Available [facility] 3 05:57:32 Bipolar disorder 38387656 Active 2023 [facility] admissio n for shawna- paranoid delusion s 02/2024, [facility] provider MD [address], [place], [address] , [facility] 5 15:03:51 Opioid dependen ce, on agonist therapy 99862366707 05 Active 2023 Methdaon e through [facility] in ST, 100 mg daily MD Aleyda [address], [facility] [address] , [facility] 5 15:04:03 Lacerati on of palm of hand 964692175 Completed 202309/30/[address], [facility] [address] , [facility] 15:07:40 Problem Notes None recorded. Procedures Surgical History Date Name Laterality Status Provider Name and Address Organization Details Recorded Time Laceration Repair completed [address], [place], [address], [facility] 04/25/2024 10:47:10 Imaging Results None [...] triamcino lone acetonide 0.1 % topical cream Apply thin layer to affected area twice a day 2024 active Not Available Not Available Not Avai lable amoxicill in 500 mg tablet Take one [...] methadone 5 mg/5 mL oral solution Take 100 mg by mouth once a day active [facility] Not Available Not Available No t Available hydroxyzi ne pamoate 25 mg capsule TAKE ONE CAPSULE BY MOUTH EVERY 12 HOURS NEEDED DO NOT EXCEED 2 DOSES IN 24 HOURS active Not Available Not Available No t Available escitalop robson 10 mg tablet TAKE ONE TABLET BY MOUTH EVERY DAY 03/25 completed Not Available Not Available Not Available escitalop robson 20 mg tablet TAKE ONE TABLET BY MOUTH EVERY DAY active Not Available Not Available No t Available quetiapin e 50 mg tablet TAKE 1-2 TABLETS BY MOUTH AT BEDTME FOR SLEEP/AG ITATION 2023 active Not Available Not Available Not Avai lable Stimulant Laxative Plus 8.6 mg-50 mg tablet TAKE 1 TABLET BY MOUTH DAILY 2023 active Not Available Not Available Not Avai lable Vitals Date Recorded Body height Body mass index (BMI) Body weight Body temperature Heart rate Respiratory rate Oxygen saturation Oxygen saturation in Arterial blood by Pulse oximetry Systolic blood pressure Diastolic blood pressure Provider Name and Address Organization Details Last Updated DateTime 5 154.43 cm 33.5 kg/m2 40845.2 6 g 98.3 [degF] 86 /min 18 /min 97 % 97 % 122 mm[Hg] 80 mm[Hg] TERRY KERN LPN [place] [facility] 13:04:49 Social History Question Answer Notes LastModified by Organizat ion Details LastModified Time Tobacco Smoking Status Current Every Day Smoker NAYANA HEARD RN [facility], [place] [facility] 03/25/2024 11:24:44 What Was The Date Of Your Most Recent Tobacco Screening? 09/30/2024 Information not available 09/30/2024 What Is Your Current Pack Years? 10-19packye ars Information not available 03/25/2024 How Much Tobacco Do You Smoke? 0.5 PPD Information not available 03/25/2024 Has Tobacco Cessation Counseling Been Provided? Yes Information not available 03/25/2024 On What Date Was Tobacco Cessation Counseling Provided? 09/30/2024 Interested In Quitting, But Wants To Deal W/ Wght Gain First. Information not available 09/30/2024 How Many Years Have You Smoked Tobacco? 18 Information not available 03/25/2024 Do You Or Have You Ever Used Any Other Forms Of Tobacco Or Nicotine? No Information not available 03/25/2024 Sex: Female Functional Status None recorded. Mental Status None recorded. Family History Relationship Description Onset Age of this Age Resolved Age Notes LastModified by Organization Details LastModified Time Maternal Uncle Bipolar disorder ?? not clear exact diagno sis. Not available 04/10/2024 09:55:26 Father Psoriasis Not available 04/10/2024 09:55:54 Father Diabetes mellitus Not available 2023 09:56:13 Mother Diabetes mellitus Not available 2023 09:56:13 Maternal Grandmother Cerebrovascu lar accident Not available 09:56:48 Notes:*Problem: family hx DM , stroke, psoriasis Medical History No medical history recorded. Gynecological HistoryNo gynecological history recorded. Obstetrics History GPAL:G 0 P 0 0 0 0 Immunizations Vaccine Type Date Status Note Provider Nam e and Address Organization Details Recorded Time Tdap 3 completed Not Available [facility] 07/28/2023 06:09:48 Influenza, split virus, quadrivalent, preservative 9 completed Not Available [facility] 07/28/2023 06:09:48 Pneumococcal conjugate PCV20, polysaccharide LBP110 conjugate, adjuvant, PF 3 completed Not Available [facility] 07/28/2023 06:09:48 pneumococcal polysaccharide PPV23 9 completed Not Available [facility] 07/28/2023 06:09:49 Past Encounters Encounter ID Performer Location Encounter Start Date Encounter Closed Date Diagnosis/Indication Diagnosis SNOMED-CT Code Diagnosis ICD10 Code Diagnosis Note [id number] RUBY SALAZAR MD [facility] [address] [place] [address] 09/30/2024 12:56:58 09/30/2024 13:32:54 Bipolar disorder 69289055 F31.9 Significan t improvemen t. She asks about returning to some sort of work and I suggested that she discuss this with her psychiatri c provider. Abnormal weight gain 161 139285 R63.5 and constipati on- likely due to meds, but rule out hypothyroi d. Obesity 519389940 E66.9 Weight gain likely due to her medication s. Make sure to get lots of fiber. Drug-induc ed constipation 38456860 K59.03 Likely combinatio n of multiple medication s. Suggest miralax, increased fiber in diet. Health Concerns Section Related Observation LastModified by Organization Detai ls LastModified Time None Recorded Concern Status LastModified by Organization Details LastModified Time None Recorded Payers Encounter Date Sequence Insurance Name Policy Number Policy Bernal Covered Member ID Bernal Member ID Guarantor Name 09/30/2024 1 [facility] (MEDICAID) Tuyet Edwards [id number] Tuyet Edwards Notes Date Note Type Note Provider Name and Address Organization Details Recorded Time 09/30/2024 text/html Here for follow up of multiple problems as noted below: c/o constipation, she has had issues since last summer. She is bloated, takes stool softeners. c/o weight gain. Last TSH was 08/2022 and was normal. She has gained 20 pounds in the last 4-5 months. She is now on olanzapine and quetiapine and gabapentin. BAll 3 of these medications can cause both weight gain and constipation. Sees London Boyd at [facility].Anxiety is much better. She uses the hydroxyzine prn, not needing often. Much less antsy. No hallucinations. Doing a lot of projects at home, deep cleaning. Gets her daughter ready for school, makes her snacks and dinner. She is 10. Usually able to start and complete a project. Methadone dose was increased to 100 mg. HM-Mammogram scheduled 10/08/24. RUBY SALAZAR MD [address], [place], [address], [facility]. 09/30/2024 16:28:16 OBGyn Episode No OBEpisode recorded.
--- OUTSIDE RECORDS SUMMARY | 2024-10-22 01:22 | XMS_ITS | Encounter Summary ---
Author Organization [facility] Address [address] [place] [address] Care Team Providers Care Oil Lease Operator Name Role Phone Emerson Perez [facility]- Primary Care Provider [phone] Reason for Visit * Reason Onset Date Comments Medications Refill 10/11/2019 Encounter Details Date Type Department Care Team (Late st Contact Info) Description 10/11/2019 Refill [facility] Dermatology 3rd Floor [facility] [address] [place], [place] [id number] Larissa Orellana PA-C [address] [place] [address] [place] [phone] Medications Refill Social History Tobacco Use Types [...] documented as of this encounter Care Teams Oil Lease Operator Relationship Specialty Start Date [facility] [address] [place] [address] PCP - General 07/18/19 07/28/22 documented as of this encounter
--- OUTSIDE RECORDS SUMMARY | 2024-10-22 01:22 | XMS_ITS | Encounter Summary ---
Author Organization [facility] Address [address] [place] [address] Care Team Providers Care Aircraft Ordnance Technician Name Role Phone None, Provider Primary Care Provider Unavailabl e Reason for Visit * Reason Comments Alcohol Intoxication Pt accompanied with mother and sister states she needs alcohol withdrawal, mother reports she was recently admitted at [facility], denies drug use, last known drink prior to hospitalization, admits to SI * Auth/Cert (Routine) Specialty Diagnoses / Procedures Referred By Andres osuna Referred To Contact Diagnoses Depression, unspecified depression type Delirium Referral ID Status Reason Start Date Expiration Date Visits Re quested Visits Authorized [id number] 07/30/2022 08/30/2022 1 1 Encounter Details Date Type Department Care Team (Late st Contact Info) Description 07/29/2022 11:22 EST - 07/30/2022 15:05 [facility] Hospital Encounter [facility] Medical / Surgical Department [address] [place] [address] Inessa Wagner PA-C [address] [facility], [address] [place] [address] Phuc Sorto, PA-C [address] [place] [address] Louis Monique MD [address] [place] [phone] London Owens MD [address] [place] [phone] Darin Shane MD [address] [place] [phone] Delirium (Primary Dx) Discharge Disposition: Psychiatric [...] 07/29/2022 ??? Alcohol use disorder, severe, dependence ([facility]) ([facility]) 07/30/2022 ??? Depression 07/30/2022 ??? Delirium due to another medical condition 07/29/2022 Resolved Hospital Problems No resolved problems to display. Transition of care: [facility] Transition of Care report automatically routed [...] her family in the room (sister and qxovzd-xy-vzy), the patient had been drinking about a half-gallon of hard alcohol a day for about a decade and had tried to quit on her own near the end of last month.They think that her last drink was either 07/22 or 07/23. She had severe alcohol withdrawal and was admitted at [facility] for 3 days and was discharged [...] to the [facility] service and monitored overnight. She had rapid [...] REGARDING THIS REPORT PLEASE CALL [facility] AT [phone] MR HEAD WO CONTRAST Result Date: 07/29/2022 No acute intracranial findings. No evidence of acute infarct. THIS DOCUMENT HAS BEEN ELECTRONICALLYSIGNED BY JS TINOCO MD FOR ANY QUESTIONS OR CONCERNS REGARDING THIS REPORT PLEASE CALL [facility] [phone] Results Pending at Discharge: Test results still [...] Discharge Disposition Disposition Code Departure Means Destination [facility] documented in this encounter Progress Notes * [...] LDA for any identified wounds ??? Add Anvik image for any suspected PI ??? Order [...] Per herfamily in the room (sister and yidkpv-[id number]), the patient had been drinking about a half-gallon ofhard alcohol a day for about a decade and had tried to quit on her own near the end of last month. They think that her last drink was either 07/22 or 07/23. She had severe alcohol withdrawal and was admitted at [facility] for 3 days and was discharged [...] clinic was already closed by the time [employer] tried to reach out. -Continue methadone 70 mg daily, will need to confirm the dose over the weekend VTE Prophylaxis Seqential Compression Device Code: Full Code (The patient requested DNR/DNI but her sister and tgagjv-az-buv argued that the patient is not in [...] nonsensical manner. Recent three day stay at [facility] per pts family. Pts mother in law is very ailment that pt will if she does not stay here. This information was relayed to AMARILYS Wagner. * Inessa Wagner PA-C - 07/29/2022 1148 EST Emergency Department Visit Assessment and ED Course 37 yo female with recent admission to [facility] for severe alcohol w/d w/ hallucinations, [...] the history that she was admitted to [facility] for 3 days until yesterday for [...] having symptoms of shawna. spoke w/ nursing breakfast supervisor at [facility] regarding her admission: admitted 07/25-07/28 for [...] was provided by: patient, family, records from [facility] Patient's pertinent PMH, FH, SH were [...] removed before transfer. Pt was transferred to [facility] at 1500. Piedad walked pt [...] 0.47 - 4.68 mIU/L 07/30/2022 12:35 EST [facility] Blood VENOUS BLOOD / Unknown Venipuncture / Unknown 07/30/2022 6:50 EST 07/30/2022 7:06 EST [facility] - 07/30/2022 12:35 EST NOTE: The results of this assay can be falsely lowered due to the consumption of Biotin. us Darin Shane MD CHEMISTRY & BLOOD GAS ORDERAB LES Final Result [facility] [address] [place] [address] * (ABNORMAL) COMPLETE BLOOD COUNT (07/30/2022 6:50 EST) Pathologist [facility] WBC 5.03 4.00 - 12.40 K/cmm 07/30/2022 7:26 [facility] RBC 3.85(L) 3.86 - 5.04 M/cmm 07/30/2022 7:26 [facility] Hemoglobin 13.8 11.6 - 15.2 gm/dL 07/30/2022 7:26 [facility] HCT 39.4 34.9 - 44.4 % 07/30/2022 7:26 [facility] MCV 102(H) 81 - 98 fl 07/30/2022 7:26 [facility] MCH 35.8(H) 26.7 - 33.3 pg 07/30/2022 7:26 [facility] MCHC 35.0 32.1 - 35.9 gm/dL 07/30/2022 7:26 [facility] RDW-CV 11.6 <14.7 % 07/30/2022 7:26 [facility] RDW-SD 44.0 <50.4 fl 07/30/2022 7:26 [facility] PLT 170 141 - 377 K/cmm 07/30/2022 7:26 [facility] MPV 11.3 9.5 - 12.7 fl 07/30/2022 7:26 [facility] Blood VENOUS BLOOD / Unknown Venipuncture / Unknown 07/30/2022 6:50 EST 07/30/2022 7:06 EST us Louis Monique MD HEMATOLOGY & PF4 ORDERABLES F inal Result Performing Organization Address City/[facility]/ZIP Co de Phone Number [facility] [address] [place] [address] * (ABNORMAL) BASIC METABOLIC PANEL (BMP) (07/30/2022 6:50 EST) Sodium 138 136 - 145 mmol/L 07/30/2022 7:42 [facility] Potassium 3.6 3.5 - 5.0 mmol/L 07/30/2022 7:42 [facility] Chloride 105 96 - 110 mmol/L 07/30/2022 7:42 [facility] CO2 Total 24 22 - 32 mmol/L 07/30/2022 7:42 [facility] Anion Gap 9 5 - 14 07/30/2022 7:42 [facility] Glucose 115(H) 70 - 100 mg/dL 07/30/2022 7:42 [facility] Calcium 9.3 8.5 - 10.5 mg/dL 07/30/2022 7:42 [facility] BUN 4(L) 10 - 26 mg/dL 07/30/2022 7:42 [facility] Creatinine 0.38(L) 0.52 - 1.04 mg/dL 07/30/2022 7:42 [facility] eGFR 131 >60 mL/min/1.73 m2 07/30/2022 7:42 [facility] Blood VENOUS BLOOD / Unknown Venipuncture / Unknown 07/30/2022 6:50 EST 07/30/2022 7:06 EST us Louis Monique MD CHEMISTRY & BLOOD GAS ORDERAB LES Final Result Performing Organization Address City/[facility]/ZIP Co de Phone Number [facility] [address] [place] [address] * (ABNORMAL) DRUG SCREEN 12, URINE (07/29/2022 21:26 EST) Pathologist [facility] Amphetamine Screen, Ur Negative Negative, Negative Screen 07/29/2022 22:11 [facility] Barbiturates Screen, Ur Presumptive Positive, interpret with caution.(A) Negative, Negative Screen 07/29/2022 22:11 [facility] Benzodiazepine Screen, Ur Presumptive Positive, interpret with caution.(A) Negative, Negative Screen 07/29/2022 22:11 [facility] Cocaine Metabolites Screen, Ur Negative Negative, Negative Screen 07/29/2022 22:11 [facility] Methamphetamine Screen, Ur Negative Negative, Negative Screen 07/29/2022 22:11 [facility] Methadone Screen, Ur Presumptive Positive, interpret with caution.(A) Negative, Negative Screen 07/29/2022 22:11 [facility] Opiates Screen, Ur Negative Negative, Negative Screen 07/29/2022 22:11 [facility] Oxycodone Screen, Ur Negative Negative, Negative Screen 07/29/2022 22:11 [facility] Phencyclidine Screen, Ur Negative Negative Screen, Negative 07/29/2022 22:11 [facility] Cannabinoids Screen, Ur Negative Negative, Negative Screen 07/29/2022 22:11 [facility] Propoxyphene Screen, Ur Negative Negative, Negative Screen 07/29/2022 22:11 [facility] Tricyclics Screen, Ur Negative Negative Screen, Negative 07/29/2022 22:11 [facility] Urine URINE / Unknown Urine Collect / Unknown 07/29/2022 21:26 EST 07/29/2022 21:29 [facility] - 07/29/2022 22:11 [facility] Drug Class Cutoff Concentrations: Amphetamines - 500 [...] LAB UNIT COLLECT OR DERABLES Final Result [facility] [address] [place] [address] * MR HEAD WO CONTRAST (07/29/2022 20:49 EST) Anatomical Region Laterality Modality Head Magnetic Resonan ce 07/29/2022 21:1 8 EST Impressions 07/29/2022 21:18 EST No acute intracranial findings. ??No evidence of acute infarct. THIS DOCUMENT HAS BEEN ELECTRONICALLY SIGNED BY JS TINOCO MD FOR ANY QUESTIONS OR CONCERNS REGARDING THIS REPORT PLEASE CALL [facility] AT [phone] Narrative 07/29/2022 21:18 EST PROCEDURE INFORMATION: Exam: [...] CONCERNS REGARDING THIS REPORT PLEASE CALL [facility] [phone] Inessa Wagner PA-C IM MRI ORDERABLES Bhakti l Result * CT HEAD WO CONTRAST (07/29/2022 18:35 EST) Anatomical Region Laterality Modality Head Computed Tomogra phy 07/29/2022 19:0 4 EST Impressions 07/29/2022 19:04 EST No acute intracranial findings. THIS DOCUMENT HAS BEEN ELECTRONICALLY SIGNED BY JS TINOCO MD FOR ANY QUESTIONS OR CONCERNS REGARDING THIS REPORT PLEASE CALL [facility] AT [phone] Narrative 07/29/2022 19:04 EST PROCEDURE INFORMATION: Exam: [...] fracture. Soft tissues: Unremarkable. Procedure Note Js Tincoo MD - 07/29/2022 PROCEDURE INFORMATION: Exam: CT [...] REGARDING THIS REPORT PLEASE CALL [facility] [phone] Inessa Wagner PA-C IMG CT ORDERABLES Final Result * COVID-19 [facility] (TESTING ONLY) (07/29/2022 15:52 EST) Swab ENTIRE NASOPHARYNX / Unknown Swab / Unknown 07/29/2022 15:52 EST 07/29/2022 15:53 EST Inessa Wagner PA-C MICROBIOLOGY - GENERAL ORDERABLES Final Result [facility] [address] [place] [address] * COVID-19 TESTING (07/29/2022 15:52 EST) COVID-19 rt-PCR Result Negative Negative 07/29/2022 16:39 EST [facility] Performing Lab Cepheid GeneXpert [facility] 07/29/2022 16:39 EST [facility] Swab ENTIRE NASOPHARYNX / Unknown Swab / Unknown 07/29/2022 15:52 EST 07/29/2022 15:53 EST Inessa Mike Wagner PA-C MICROBIOLOGY - GENERAL ORDERABLES Final Result Performing Organization Address [facility] Co de Phone Number [facility] [address] [place] [address] * QUANT BETA HCG, (07/29/2022 12:06 EST) Beta HCG Quant, <5 <5 mIU/mL 07/29/2022 14:14 EST [facility] Comment: NOTE: : Negative: [...] O RDERABLES Final Result Performing Organization Address [facility] de Phone Number [facility] [address] [place] [address] * AMMONIA (07/29/2022 12:06 EST) Ammonia 30 <34 umol/L 07/29/2022 12:36 EST [facility] Blood VENOUS BLOOD / Unknown Venipuncture / Unknown 07/29/2022 12:06 EST 07/29/2022 12:14 EST Inessa Mike Hughesale PA-C CHEMISTRY & BLOOD GAS O RDERABLES Final Result Performing Organization Address [facility]/ZIP Co de Phone Number [facility] [address] [place] [address] * ETHANOL, BLOOD (07/29/2022 12:06 EST) Ethanol, Blood <10 <10 mg/dL mg/dL 07/29/2022 12:32 [facility] Comment:Healthy, non-drinkin g individuals will have an ethanol concentration of <10 mg/dL. Blood VENOUS BLOOD / Unknown Venipuncture / Unknown 07/29/2022 12:06 EST 07/29/2022 12:14 EST Narrative [facility] - 07/29/2022 12:32 [facility] legal blood alcohol limit = 80 mg/dl (0.08%) Inessa Wagner PA-C CHEMISTRY & BLOOD GAS O RDERABLES Final Result Performing Organization Address [facility]/ZIP Co de Phone Number [facility] [address] [place] [address] * (ABNORMAL) C REACTIVE PROTEIN (07/29/2022 12:06 EST) Pathologist [facility] C-Reactive Protein 15.8(H) <10.0 mg/L 07/29/2022 12:32 [facility] Blood VENOUS BLOOD / Unknown Venipuncture / Unknown 07/29/2022 12:06 EST 07/29/2022 12:14 EST Inessa Wagner PA-C CHEMISTRY & BLOOD GAS O RDERABLES Final Result Performing Organization Address City/[facility]/ZIP Co de Phone Number [facility] [address] [place] [address] * (ABNORMAL) COMPREHENSIVE METABOLIC PANEL (CMP) (07/29/2022 12:06 EST) Pathologist [facility] Sodium 140 136 - 145 mmol/L 07/29/2022 12:32 [facility] Potassium 3.6 3.5 - 5.0 mmol/L 07/29/2022 12:32 [facility] Chloride 104 96 - 110 mmol/L 07/29/2022 12:32 [facility] CO2 Total 27 22 - 32 mmol/L 07/29/2022 12:32 [facility] Glucose 119(H) 70 - 100 mg/dL 07/29/2022 12:32 [facility] BUN 4(L) 10 - 26 mg/dL 07/29/2022 12:32 [facility] Creatinine 0.41(L) 0.52 - 1.04 mg/dL 07/29/2022 12:32 [facility] eGFR 129 >60 mL/min/1.7 3m2 07/29/2022 12:32 [facility] Total Protein 7.4 6.3 - 8.2 g/dL 07/29/2022 12:32 [facility] Albumin 4.3 3.4 - 4.9 g/dL 07/29/2022 12:32 [facility] Alkaline Phosphatase 98 38 - 126 U/L 07/29/2022 12:32 [facility] AST 45 15 - 46 U/L 07/29/2022 12:32 [facility] ALT 33 <35 U/L 07/29/2022 12:32 [facility] Bilirubin, Total 0.4 <1.4 mg/dL 07/29/20 12:32 [facility] Calcium 9.4 8.5 - 10.5 mg/dL 07/29/2022 12:32 [facility] Albumin/Globulin Ratio 1.4 1.0 - 2.5 07/29/2022 12:32 [facility] Anion Gap 9 5 - 14 07/29/2022 12:32 [facility] Blood VENOUS BLOOD / Unknown Venipuncture / Unknown 07/29/2022 12:06 EST 07/29/2022 12:14 EST us Inessa Wagner PA-C CHEMISTRY & BLOOD GAS O RDERABLES Final Result [facility] [address] [place] [address] * (ABNORMAL) COMPLETE BLOOD COUNT AND DIFFERENTIAL (07/29/2022 12:06 EST) [facility] WBC 6.92 4.00 - 12.40 K/cmm 07/29/2022 12:17 [facility] RBC 3.73(L) 3.86 - 5.04 M/cmm 07/29/2022 12:17 [facility] Hemoglobin 13.5 11.6 - 15.2 gm/dL 07/29/2022 12:17 [facility] HCT 39.0 34.9 - 44.4 % 07/29/2022 12:17 [facility] MCV 105(H) 81 - 98 fl 07/29/2022 12:17 [facility] MCH 36.2(H) 26.7 - 33.3 pg 07/29/2022 12:17 [facility] MCHC 34.6 32.1 - 35.9 gm/dL 07/29/2022 12:17 [facility] RDW-CV 11.6 <14.7 % 07/29/2022 12:17 [facility] RDW-SD 44.5 <50.4 fl 07/29/2022 12:17 [facility] PLT 203 141 - 377 K/cmm 07/29/2022 12:17 [facility] MPV 10.5 9.5 - 12.7 fl 07/29/2022 12:17 [facility] % Neutrophils 77.4 % 07/29/2022 12:17 [facility] % Lymphocytes 12.6 % 07/29/2022 12:17 [facility] % Monocytes 9.0 % 07/29/2022 12:17 [facility] % Eosinophils 0.4 % 07/29/2022 12:17 [facility] % Basophils 0.3 % 07/29/2022 12:17 [facility] % Immature Grans 0.3 % 07/29/20 12:17 [facility] Absolute Neutrophils 5.36 2.20 - 8.85 K/cmm 07/29/2022 12:17 [facility] Absolute Lymphocytes 0.87(L) 1.09 - 3.30 K/cmm 07/29/2022 12:17 [facility] Absolute Monocytes 0.62 0.10 - 0.80 K/cmm 07/29/2022 12:17 [facility] Absolute Eosinophils 0.03 0.03 - 0.61 K/cmm 07/29/2022 12:17 [facility] ABS Basophils 0.02 0.01 - 0.11 K/cmm 07/29/2022 12:17 [facility] Absolute Immature Grans 0.02 0.00 - 0.06 K/cmm 07/29/2022 12:17 [facility] Type of Differential: Auto 07/29/2022 12:17 [facility] Blood VENOUS BLOOD / Unknown Venipuncture / Unknown 07/29/2022 12:06 EST 07/29/2022 12:14 EST Inessa Wagner PA-C PACKAGES & DNA PROBE OR DERABLES Final Result [facility] [address] [place] [address] documented in this encounter Visit Diagnoses Diagnosis Delirium- Primary Other alteration of consciousness Delirium Other alteration of consciousness Delirium due to another medical condition Delirium due to conditions classified elsewhere Alcohol use disorder, severe, dependence ([facility]) Depression Depressive disorder, not elsewhere classified documented [...] Cali, JIAN)1555 (Due: Completed - Provider: Светлана Cali RN) thiamine (VITAMIN B-1) injection 100 mg [...] 10 mg 1 07/29/2022 polyethylene glycol 3350 (VA RALAX) packet 17 g 1 07/29/2022 thiamine (VITAMIN B-1) 500 m g in sodium chloride (NS) 0.9 % 50 mL IVPB 1 07/29/2022 Diet Count Last Ordered Date First Orde red Date DISCHARGE DIET 1 07/30/2022 Nursing Count Last Ordered Date First Orde red Date ACTIVITY INSTRUCTIONS 1 07/30/2022 BATHING INSTRUCTIONS 1 07/30/2022 DRIVING INSTRUCTIONS 1 07/30/2022 CALL HOSPITALIST FOR ADM/REF [facility] TO [facility] NURSE 1 07/29/2022 CALL PHYSICIAN SPECIALTY [...] 07/19 documented in this encounter Care Teams Aircraft Ordnance Technician Relationship Specialty Start Date End Date None, Provider PCP - General 07/29/22 08/23/22 documented as of this encounter
--- OUTSIDE RECORDS SUMMARY | 2024-10-22 01:22 | XMS_ITS | Encounter Summary ---
Author Organization [facility] Address [address] [place] [address] Care Team Providers Care Spring Assembler Supervisor Name Role Phone Emerson Perez [facility]- Primary Care Provider [phone] Reason for Visit * Reason Comments Skin Problem Encounter Details Date Type Department Care Team (Late st Contact Info) Description 05/20/2021 13:[address] [facility]-In [facility] [address] [place] [id number] Lizette Jordan, CHONG [address] [place] [phone] Cellulitis and abscess of head (Primary Dx) [...] that persist past current course of treatment. [facility] Patient Instructions Cellulitis: Care Instructions Your [...] your doctor if you can take an ubnl-ges-nkccviy medicine. To prevent cellulitis in the future [...] Where can you learn more? Go to https://www.Oris4.net/WootocracyealMeasureful or log into your [employer] account at [email or web address]://[email or web address].org Enter X309 in the search box to learn more about Cellulitis: Care Instructions. Current as of: March 19, 2020?Content Version: 12.6 ?? 4417-0769 [employer]. Care instructions adapted under license by [facility]. If you have questions about a medical condition or this instruction, always ask your healthcare professional. [employer] disclaims any warranty or liability for your [...] RN or in discussion with available provider (PREVENTIVE MAINTENANCE COORDINATOR's and CCA's can defer to Charge Nurse to complete triage when appropriate) PCP: Emerson Hou-Bennie Perez * Lizette Jordan - 05/20/2021 1300 EDT [facility] Chief Complaint(s): Chief Complaint Patient [...] below. Patient is advised in use of Oncothyreon to access any lab results or other [...] this encounter Results * ROUTINE CULTURE - [facility] (05/20/2021 13:22 EDT) Pathologist [facility] Culture The mecA gene product was NOT detected in this coagulase positive Staph isolate. It is SUSCEPTIBLE to oxacillin, cephalosporins and other beta lactam antibiotics. 05/23/2021 7:[address] [facility] STAPHYLOCOCCUS SP COAG POSITIVE - [facility] STAPHYLOCOCCUS SP COAG POS 05/23/2021 7:[address] [facility] QUANT - [facility] MODERATE 05/23/2021 7:[address] [facility] Face 05/20/2021 13:2 2 EDT [...] coag pos Vancomycin GRAM POSITIVE SUSCEPTIBILITY - [facility] 1: Susceptible Comment: Tetracycline susceptible Coag positive staph is also susceptible to doxycycline and minocycline. Comment:INFECTION ON SIDE OF FACE [phone] RED [place] [employer] Lizette Jordan NP CHEMISTRY & BLOOD GAS ORDERABLE S Edited Result - Final Performing Organization Address [facility]/ZIP Co de Phone Number [facility] [address] [place] [address] * GRAM SMEAR (05/20/2021 13:22 EDT) GRAM STAIN - [facility] TWO SWABS RECEIVED FOR CULTURE AND GRAM STAIN 05/20/2021 21:[address] [facility] GRAM POSITIVE COCCI - [facility] FEW 05/20/2021 21:[address] [facility] WBC NO 05/20/2021 21:[address] [facility] Face 05/20/2021 13:2 2 EDT 05/20/2021 17:40 EDT Lizette Jordan NP MICROBIOLOGY - GENERAL ORDERABL ES Final Result Performing Organization Address [facility]/ZIP Co de Phone Number [facility] [address] [place] [address] documented in this encounter Visit Diagnoses Diagnosis Cellulitis and abscess of head- Primary Cellulitis and abscess of other specified site documented in this encounter Care Teams Spring Assembler Supervisor Relationship Specialty Start Date End Date [facility] [address] [place] [address] PCP - General 07/18/19 07/28/22 documented as of this encounter
--- OUTSIDE RECORDS SUMMARY | 2024-10-22 01:22 | XMS_ITS | Encounter Summary ---
Author Organization [facility] Address [address] [place] [address] Care Team Providers Care Yarn Washer Name Role Phone Emerson Perez [facility]- Primary Care Provider [phone] Reason for Visit * Reason Comments Follow-up Encounter Details Date Type Department Care Team (Late st Contact Info) Description 08/21/2019 16:00 EST Office Visit [facility] [address] [place], [place] [id number] Andria Gamboa PA-C [address] [facility] [address] [place] [address] Right carpal tunnel syndrome (Primary [...] route. added in this encounter Care Teams Yarn Washer Relationship Specialty Start Date End Date [facility] [address] [place] [address] PCP - General 07/18/19 07/28/22 documented as of this encounter
--- OUTSIDE RECORDS SUMMARY | 2024-10-22 01:22 | XMS_ITS | Encounter Summary ---
Author Organization [facility] Address [address] [place] [address] Care Team Providers Care Block Cuber Name Role Phone Emerson Perez [facility]- Primary Care Provider [phone] Reason for Visit * Reason Onset Date Comments Medications Refill 10/01/2020 Encounter Details Date Type Department Care Team (Late st Contact Info) Description 10/01/2020 Refill [facility] Derm[facility] 3rd Floor [facility] [address] [place] [address] Larissa Orellana PA-C [address] [place] [address] [address] [place] [address] Medications Refill Social History Tobacco Use [...] EST Patient called requesting refill. [facility] [place] is preferred pharmacy. Last visit: 01/23/19 No visits scheduled Patient requests phone call when prescription is sent to pharmacy Confirmed contact: [phone] documented in this encounter Plan of Treatment [...] documented as of this encounter Care Teams Block Cuber Relationship Specialty Start Date End Date [facility] [address] [facility] [address] PCP - General 07/18/19 07/28/22 documented as of this encounter
--- OUTSIDE RECORDS SUMMARY | 2024-10-22 01:22 | XMS_ITS | Encounter Summary ---
Author Organization [facility] Address [address] [place] [address] Care Team Providers Care Scrubber Operator Name Role Phone Emerson Perez [facility]- Primary Care Provider [phone] Reason for Visit * Reason Comments Numbness Numbness Encounter Details Date Type Department Care Team (Late st Contact Info) Description 08/02/2019 13:30 EST Office Visit [facility] [address], [address] [place], [place] [id number] Akira Schneider PA-C [address] [facility] [address] [place] [address] Bilateral carpal tunnel syndrome (Primary [...] hand. She has been dropping things lately. 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 Often has intermittent swelling. She did [...] daily. added in this encounter Care Teams Scrubber Operator Relationship Specialty Start Date End Date [facility] [address] [place] [address] PCP - General 07/18/19 07/28/22 documented as of this encounter
--- OUTSIDE RECORDS SUMMARY | 2024-10-22 01:22 | XMS_ITS | Encounter Summary ---
Author Organization [facility] Address [address] [place] [address] Care Team Providers Care Senior Site Manager Name Role Phone Chelsea Faust APRN Primary Care Provider + Reason for Visit * Reason Comments Follow-up Rash spots on face Encounter Details Date Type Department Care Team (Late st Contact Info) Description 01/23/2019 13:00 EDT Office Visit [facility] Dermatology 3rd Floor [facility] [address] [place] [address] Larissa Orellana PA-C [address] [facility] [address] [place] [phone] Rosacea (Primary Dx); Other eczema Social History [...] eczema documented in this encounter Care Teams Senior Site Manager Relationship Specialty Start Date End Date Chelsea Faust APRN [address] [place] [phone] PCP - General 11/07/18 07/17/19 documented as of this encounter
--- OUTSIDE RECORDS SUMMARY | 2024-10-22 01:22 | XMS_ITS | Encounter Summary ---
Author Organization [facility] Address [address] [place] [address] Care Team Providers Care Tetryl Screen Operator Name Role Phone FaustChelsea Shanon GALLOWAY Primary Care Provider + Encounter Details Date Type Department Care Team (Late st Contact Info) Description 02/04/2019 Results Only [facility] [phone] Linda Steve, [address] [place] [address] Social History Tobacco Use Types [...] ? RENITA VALVERDE ? Accession #: ? [id number] ? : ? 1985 (Age: 33) ??F ?Collect Date: ? 02/04/2019 ? Location: ? [facility] ? Receive Date: ? 02/04/2019 ? Provider: LINDA STEVE SLOT SERVICE SPECIALIST Copy to: ? Final Report SPECIMEN ADEQUACY [...] types 16,18,31,33,35, 39,45,51,52,56,58, 59,66, and 68 by c application developer mediated amplification. Comments Document reviewed and electronically signed by: ? System Interface ? Report date: 02/08/2019 By the signature above, the attending physician certifies that he/she has personally conducted a gross and/or microscopic examination of the described specimens and rendered or confirmed the above diagnosis. End of Report [facility] 02/04/2019 02/04/2019 us Linda Steve SLOT SERVICE SPECIALIST PATHOLOGY ORDERABLES Final R esult [facility] [address] [place] [address] documented in this encounter Visit Diagnoses Not on filedocumented in this encounter Care Teams Tetryl Screen Operator Relationship Specialty Start Date End Date Chelsea Faust, NATURAL RESOURCE ECONOMIST [address] [place] [address] PCP - General 11/07/18 07/17/19 documented as of this encounter
--- OUTSIDE RECORDS SUMMARY | 2024-10-22 01:22 | XMS_ITS | Encounter Summary ---
Author Organization [facility] Address [address] [place] [address] Care Team Providers Care Hydroelectric Plant Electrical Engineer Name Role Phone Unavailable Primary Care Provider Unavailabl e Encounter Details Date Type Department Care Team (Late st Contact Info) Description 05/06/2013 Results Only [facility] [phone] Vance Owens MD [address] [place] [address] Social History Tobacco Use Types Packs/Day Years [...] ? TUYET VALVERDE ? Accession #: ? [id number] : ? 1985 (Age: 27) ??F ?Collect [...] Final Resu lt [facility] [address] [place] [address] documented in this encounter Visit Diagnoses Not on filedocumented in this encounter
--- OUTSIDE RECORDS SUMMARY | 2024-10-22 01:22 | XMS_ITS | Encounter Summary ---
Author Organization [facility] Address [address] [place] [address] Care Team Providers Care Cement Patcher Name Role Phone Emerson Perez [facility]- Primary Care Provider [phone] Reason for Visit * Reason Comments Post-OP Follow Up Encounter Details Date Type Department Care Team (Late st Contact Info) Description 11/27/2019 11:45 EDT Post-op Visit [facility] Orthopedics & Sport Medicine [address], [address] [place] [address] Andria Gamboa PA-C [address] [facility] [address] [place] [address] Left carpal tunnel syndrome (Primary [...] syndrome documented in this encounter Care Teams Cement Patcher Relationship Specialty Start Date End Date Ana [facility] [address] [place] [address] PCP - General 07/18/19 07/28/22 documented as of this encounter
--- OUTSIDE RECORDS SUMMARY | 2024-10-22 01:22 | XMS_ITS | Encounter Summary ---
Author Organization [facility] Address [address] [place] [address] Care Team Providers Care Gum Scoring Machine Operator Name Role Phone Emerson Perez [facility]- Primary Care Provider [phone] Reason for Visit * Reason Comments Pre-op Exam Numbness Encounter Details Date Type Department Care Team (Late st Contact Info) Description 11/08/2019 10:00 EST Office Visit [facility] Orthopedics & Sport Medicine [address] [place] [address] Tim Shook MD [address] [facility] [address] [place] [address] Left carpal tunnel syndrome (Primary [...] syndrome documented in this encounter Care Teams Gum Scoring Machine Operator Relationship Specialty Start Date End Date [facility] [address] [place] [address] PCP - General 07/18/19 07/28/22 documented as of this encounter
[2024-10-22 10:17] LABS: Abs Immature Grans 0.02 10^3/uL (0.0-0.06); Absolute Basophil Count 0.03 10^3/uL (0.0-0.2); Absolute Eosinophil Count 0.14 10^3/uL (0.0-0.7); Absolute Monocyte Count 0.69 10^3/uL (0.1-0.8); Absolute Neutrophil Count 2.72 10^3/uL (1.2-6.7); Basophils % 0.5 %; Eosinophils % 2.3 %; HCT 38.7 % (36.0-46.0); HGB 13.4 g/dL (11.2-15.7); Immature Grans % 0.3 %; MCH 33.9 pg (27.0-33.0); MCHC 34.6 % (32.0-36.0); MCV 98 fL (80-95); MPV 10.3 fL (8.0-11.0); Monocytes % 11.3 %; Neutrophils % 44.6 %; Platelet Count 123 10^3/uL (130-400); RBC 3.95 10^6/uL (3.93-5.22); RDW 11.8 % (11.7-14.6); RDW-SD 43.1 fL
== END 2024-10-22 01:08 | disposition home or self-care (01) ==
PROVIDERS: PCP Family Medicine; Visit Provider Obstetrics & Gynecology
DX: Z01.818 Encounter for other preprocedural examination (principal)
CPT/HCPCS: 36415; 86850; 86900; 86901; 85025

== ENCOUNTER 2024-10-23 06:06 | Day surgery (SDC) | payer MEDICAID, SELFPAY ==
[2024-10-23] VITALS (24 sets, daily range): BP systolic 108–165; BP diastolic 61–113; PULSE 53–78; RESP 11–18; TEMP 36.2–36.7; O2SAT 92–100; BMI 28.4
[2024-10-23] MEDS: Lactated Ringers 1,000 ML 80 ML IV (06:39)
--- NOTE | 2024-10-23 07:10 | W.ANESPRE ---
General Info Date of Service Date Performed: 10/23/24 Height: 5 ft 7 in Weight: 82.4 kg Body Mass Index (BMI): 28.4 Surgical Procedure: Operation Date: 10/23/24 07:40 Proposed Procedure Side Surgeon p Operative Laparoscopy Krystyna Person DO s Removal & Insertion of IUD, Mirena Krystyna Person DO Meds Allergies and Home Medications Allergies Allergy/AdvReac Type Severity Reaction Status Date / Time No Known Allergies Allergy Verified 10/23/24 06:30 Home Medication ?Medication ?Instructions ?Recorded calcium polycarbophil 625 mg 625 mg PO DAILY ##2 05/06/13 tablet (FiberCon) vitamin B complex (B 1 tab PO DAILY 10/27/23 Complex-Vitamin B12 tablet) levonorgestrel 21 mcg/24 hr (up to 1 device intrauterine ONCE #1 ea 09/06/24 8 years) 52 mg intrauterine device (Mirena) methadone 10 mg/5 mL oral solution 100 mg PO DAILY 10/02/24 escitalopram oxalate 20 mg tablet 20 mg PO DAILY 10/03/24 haloperidol 5 mg tablet 5 mg PO QHS 10/03/24 hydroxyzine HCl 25 mg tablet 25 mg PO TID PRN 10/03/24 olanzapine 20 mg tablet 20 mg PO QHS 10/03/24 thiamine HCl (vitamin B1) 100 mg 100 mg PO DAILY 10/03/24 tablet trazodone 50 mg tablet 50 mg PO QHS PRN 10/03/24 Current Visit Medications: Current Medications Generic Name Dose Route Start Last Admin Trade Name Freq PRN Reason Stop Dose Admin Ringer's Solution 1,000 mls @ 80 mls/hr 10/23/24 06:15 10/23/24 06:39 IV 11/22/24 06:14 80 mls/hr INFUSION ELISABETH Administration IV Miscellaneous Supplies 1 each 10/23/24 06:00 Iv Access IV 10/23/24 23:59 DIRECTED ELISABETH Sodium Chloride 0 ml 10/23/24 06:00 Normal Saline Flush 10 Ml Syr IV 10/23/24 23:59 PRN PRN Sodium Chloride 0 ml 10/23/24 06:00 Normal Saline 10 Ml Vial IJ 10/23/24 23:59 DIRECTED PRN Sterile Water 0 ml 10/23/24 06:00 Water,Injection,Sterile 10 Ml Vial IJ 10/23/24 23:59 DIRECTED PRN PFSH Active Problems Active Problems: Problem Status Onset Code General counseling and advice for contraceptive management Acute Z30.09 IUD strings lost Acute T83.32XA Tobacco use Acute Z72.0 Contraception Acute Z30.9 section Active 03/25/13 Z98.89 Medical History Medical History Hx of opioid abuse Anxiety and depression Surgical History Surgical History (Updated 10/23/24 @ 06:31 by Rachel Rios RN) Hx of carpal tunnel repair Tobacco Smoking/Tobacco Use Status: Current every day Tobacco Type: cigarettes Alcohol Alcohol Intake: former Substance Use Substance use: Current Sobriety Substance use type: former substance user Details: Cigarettes in the last 24 hours. Prental History History 1 Para 1 Hx # Term Pregnancies Multiple births Hx # Pregnancies Ectopic pregnancies AB induced Hx Number of Living Children AB spontaneous Vital Signs and Lab Results Vital Signs Most Recent Vital Signs in EMR: Most Recent Vital Signs Temp Pulse Resp BP Pulse Ox 36.7 C 78 16 143/87 H 95 10/23/24 06:15 10/23/24 06:15 10/23/24 06:15 10/23/24 06:15 10/23/24 06:15 Point of Care Results Point of Care Results: POC- Test(urine) Negative 10/23/24 06:32 Lab Results Blood Type / Crossmatch: Antibody Screen NEGATIVE 10/22/24 Complete Blood Count: White Blood Count 6.10 10^3/uL (4.4-10.8) 10/22/24 10:05 Red Blood Count 3.95 10^6/uL (3.93-5.22) 10/22/24 10:05 Hemoglobin 13.4 g/dL (11.2-15.7) 10/22/24 10:05 Hematocrit 38.7 % (36.0-46.0) 10/22/24 10:05 Platelet Count 123 10^3/uL (130-400) L 10/22/24 10:05 Complete Metabolic Panel: No Data to Display Liver Function Panel: No Data to Display Coagulation Panel: No Data to Display Cardiac Panel: No Data to Display Arterial Blood Gas: No Data to Display Venous Blood Gas: No Data to Display Pancreas Panel: No Data to Display Thyroid Panel: Thyroid Stimulating Hormone (TSH) 3.79 uIU/mL (0.36-3.74) H 09/30/24 13:35 Infectious Disease: No Data to Display Blood Cultures: No Data to Display Toxicology Panel: No Data to Display Panel: Urine HCG, Qualitative Negative 10/02/24 13:18 Anesthesia Assessment and Plan Anesthesia History Personal History: No History of Anesthesia Complications Family History: No Family History of Anesthesia Complications Exercise Tolerance Exercise Tolerance: Metabolic Equivalents>4 Pertinent Negatives Pertinent Negatives: No Symptoms of GERD Cardiac & Pulmonary Exam Cardiac Exam: Normal S1/S2 Heart Sounds Pulmonary Exam: Clear Bilateral Breath Sounds Implantable Cardiac Device Does patient have a Pacemaker or an ICD?: No Airway Exam Known Difficult Airway: No Mallampati Class: 2 Mouth Opening: Normal (> 3cm) Thyromental Distance: Greater than 3 cm Neck Range of Motion: Full ROM Neck Circumference: Normal Teeth Condition: Normal Dentition ASA Classification ASA Score: ASA 2 Emergency Case?: No NPO Status NPO Status: NPO Clears >2 hours, Solids >8 hours Status Status: Negative HCG Anesthesia Plan Resuscitation Status: Full Code Anesthesia Technique: General Anesthesia Airway Planned: Endotracheal Tube Monitors Used: Standard Monitors
[2024-10-23] MEDS: Bupivacaine 0.5% Pres-Free 30 ML VIAL (10:48)
--- NOTE | 2024-10-23 11:03 | W.PM.OP ---
Operative Note Operative Note PRE-OP DIAGNOSIS: IUD migration, desires replacement POST-OP DIAGNOSIS: same IUD within the lower pelvis, right lower quadrant. PROCEDURE: Operative laparoscopy with removal of migrated IUD, reinsertion of Mirena system. SURGEON: Krystyna Person ASSISTING SURGEON: Michelle Cartagena ANESTHESIA TYPE: Local By Surgeon and General LMA/ETT Refer to Anesthesia Record ESTIMATED BLOOD LOSS: 5 PATHOLOGY: none sent COMPLICATIONS: None Patient was transported to: PACU Implants: Mirena IUD, Lot number [id number], expiration 10/19/2026 Indications: Migrated IUD Findings: IUD in the right lower quadrant, adherent to the right pelvic sidewall, filmy adhesions. Procedure Description: After full informed consent was obtained, patient was taken operative suite with an IV running. She is placed in dorsal supine position and endotracheal intubation performed for the ministration of general anesthesia with ease. She was then placed in the modified dorsolithotomy position in [facility] stirrups and prepped and draped in the usual sterile fashion. A timeout was held. Bladder was drained for approximately 150 cc of clear yellow urine. Exam under anesthesia revealed a uterus that was midline and mobile without evidence of adnexal masses. She had pneumatic compression stockings for DVT prophylaxis and no antibiotic prophylaxis was warranted. At this point, speculum was inserted into the vaginal vault and a Splurgy uterine manipulator placed for uterine manipulation. At this point speculum was removed and attention was returned to the abdomen. Half percent Marcaine was used to infiltrate the umbilical area and an incision was made. The anterior abdominal wall was elevated with sharp towel clips and a Veress needle inserted into the abdomen. With a maximum pressure of 15 mmHg pneumoperitoneum was created. At this point a bladeless 12 mm sleeve and trocar were placed under direct visualization. There was no evidence of intra-abdominal trauma. A second and third, right and left lower quadrant trocar site were placed after infiltration of half percent Marcaine and under direct visualization with a 5 mm port. At this point the abdomen and pelvis were inspected. There is no evidence of trauma or pathology. Her IUD was identified in the right lower quadrant, posterior aspect of the broad ligament. It was grasped and removed through the 12 mm port. There were filmy adhesions which were easily lysed. Uterus, ovaries, and fallopian tubes otherwise look normal. At this point under visualization of the uterus, attention was turned to the vaginal vault. The Hulka manipulator was removed and a single-tooth tenaculum used again to grasp the anterior lip of the cervix. The Mirena system was inserted into the uterine cavity and deployed. Strings were cut to 3 cm. Tenaculum was removed as was the speculum. Attention was then returned to the abdomen. Pneumoperitoneum was released and the fascial incision of the umbilicus was closed using 0 Vicryl suture in a simple erupted fashion. Skin edges were reapproximated with 4-0 undyed Monocryl suture, and Steri-Strips. Sterile dressings were placed. The patient was returned to the dorsal supine position and awoke from anesthesia without difficulty. She was returned to the postanesthesia care unit in stable condition Fluids: Crystalloid per anesthesia Findings: IUD within the low pelvis, filmy adhesions, easily lysed. IUD removed in toto. Complications: None apparent EBL: 5 mL Implant: Mirena system Pathology: None sent Date of Procedure: 10/23/24
[2024-10-23] MEDS: Ketorolac 30 MG/ML VIAL IVP (11:38)
[2024-10-23] MEDS: fentaNYL 100 MCG/2 ML VIAL IVP (11:42)
--- NOTE | 2024-10-23 11:42 | W.ANESPOSTOP ---
Postoperative Evaluation Date, Time and Location Date Performed: 10/23/24 Time Performed: 11:43 Patient Location: PACU Vital Signs Most Recent Imported Vital Signs: Most Recent Vital Signs Temp Pulse Resp BP Pulse Ox 36.4 C L 70 15 136/92 H 94 10/23/24 11:24 10/23/24 11:36 10/23/24 11:36 10/23/24 11:36 10/23/24 11:36 Pain Score Most Recent Pain Score: Most Recent Pain Score Pain Level 2 10/23/24 11:29 Assessment Mental Status: Awake (Alert & Oriented to Patient Baseline) Airway and Respiratory Function: Patent airway with normal (patient baseline) respiratory exam Cardiovascular Function: Hemodynamically Stable Hydration Status: Adequately Hydrated Nausea & Vomiting: No Nausea or Vomiting Pain: Pain is tolerable per patient Peripheral Nerve Block: Patient did not receive a nerve block
[2024-10-23] MEDS: Acetaminophen 500 MG TAB PO (12:05)
== END 2024-10-23 12:42 | disposition home or self-care (01) ==
PROVIDERS: PCP Family Medicine; Visit Provider Obstetrics & Gynecology
PROC: (CPT 49320; principal; 2024-10-23 07:30)
PROC: (CPT 49402; 2024-10-23 07:30)
DX: T83.32XA Displacement of intrauterine contraceptive device, initial encounter (principal); F17.210 Nicotine dependence, cigarettes, uncomplicated; F41.8 Other specified anxiety disorders
CPT/HCPCS: 49402; 58300; 81025; J0665; J1100; J1885; J2003; J2250; J2404; J2405; J2704; J3010

== ENCOUNTER 2024-10-28 02:01 | Outpatient (CLI) | payer MEDICAID, SELFPAY ==
--- NOTE | 2024-10-28 | DI.MAMMO_ITS ---
Exam(s) MAMMO SCREENING EXAM: MAMMO SCREENING CLINICAL HISTORY: Screening, Z12.39. TECHNIQUE: Bilateral full field digital CC and MLO mammographic images were obtained with 3D tomosyn thesis and utilizing computer aided detection (CAD). COMPARISON: None. This is a baseline mammogram on this 39-year-old FINDINGS: There are no CAD designations. There are no new spiculated masses nor malignant appearing microcalcification groups. There is no significant architectural distortion nor skin thickening-retraction. IMPRESSION: No radiographic evidence of malignancy. BI-RADS Category 1 - Negative Breast Density - Category B - Scattered areas of fibroglandular density Breast density Category C or D implies that the patient has dense breast tissue. Dense breast tissue can make it harder to find cancer on a mammogram. Dense breast tissue is also associated with an incr eased risk of breast cancer. This information about the result of the mammogram report was provided to the patient to raise their awareness. Use this report when you speak with the patient about their risks for breast cancer, which includes their family history. At that time, you may recommend additional screening tests (Ultrasoun d or MRI) as these tests may add significant information. A negative radiographic report should not delay biopsy if a dominant or clinically suspicious mass is present. Up to ten percent of cancers are not identified on mammography. A negative report may reinforce clinical impression. Adenosis and dense breasts may obscure an underlying neoplasm. False positive reports average 6 to 10%. Patient will receive a letter notifying them of these results.
== END 2024-10-28 02:21 ==
LOC: DI 02:01
PROVIDERS: PCP Family Medicine; Visit Provider Family Medicine
DX: Z12.31 Encounter for screening mammogram for malignant neoplasm of breast (principal); R92.323 Mammographic fibroglandular density, bilateral breasts
CPT/HCPCS: 77063; 77067